=== PATIENT | female | born 1965 | race Caucasian/White ===

== ENCOUNTER → 2022-11-27 16:36 | Outpatient (CLI) | payer BC, SELFPAY ==
--- NOTE | 2022-11-27 17:28 | XR_ITS ---
PROCEDURE INFORMATION: Exam: XR Right Hip Exam date and time: 11/27/2022 2:27 PM Age: 57 years old Clinical indication: Hip pain; Left hip; Prior surgery; Surgery date: 6+ months; Surgery type: Femur; Additional info: Left hip pain TECHNIQUE: Imaging protocol: Radiologic exam of the right hip. Views: 2 or 3 views hip with pelvis when performed. COMPARISON: No relevant prior studies available. FINDINGS: Bones/joints: Postsurgical changes of left femur plate and screw fixation. Possible fracture of a fixation screw at the mid femur. No acute fracture or malalignment. Moderate bilateral hip osteoarthritis. Lower lumbar spondylosis. Soft tissues: Unremarkable. Intraperitoneal space: Surgical clip within the right hemipelvis. IMPRESSION: 1. No acute osseous findings of the left hip. 2. Left femur plain screw fixation with possible fracture of the fixation screw of the mid femur. 3. Moderate bilateral hip osteoarthritis.
== END ==
PROVIDERS: PCP Emergency Medicine; Visit Provider Orthopaedic Surgery
DX: M25.551 Pain in right hip (principal)
CPT/HCPCS: 73502

== ENCOUNTER → 2022-12-20 09:50 | Outpatient (CLI) | payer BC, SELFPAY ==
--- NOTE | 2022-12-20 09:57 | XR_ITS ---
FINAL REPORT CLINICAL HISTORY: Left foot pain bunions COMPARISON: none FINDINGS: LEFT FOOT Three views of the left foot demonstrate no acute fracture or dislocation. There is a minimal hallux valgus deformity. There is soft tissue swelling over the medial aspect of the first metatarsophalangeal joint. IMPRESSION: Soft tissue swelling without acute bony abnormality. Reviewed, Interpreted and Dictated by Brodie Rangel MD Transcribed by Alicia Hansen Authenticated and [facility]
--- NOTE | 2022-12-20 09:57 | XR_ITS ---
FINAL REPORT CLINICAL HISTORY: Right foot pain bunions COMPARISON: None FINDINGS: RIGHT FOOT 3 views of the right foot were obtained. There is no acute fracture or dislocation. There is a sideplate and screws securing a healed fracture deformity of the distal fibula. Mild hypertrophic change of the first metatarsal phalangeal joint. There is a moderate hallux valgus deformity. Soft tissues are unremarkable. IMPRESSION: Postoperative and degenerative changes without acute bony abnormality. Reviewed, Interpreted and Dictated by Brodie Rangel MD Transcribed by Alicia Hansen Authenticated and [facility]
== END ==
PROVIDERS: PCP Emergency Medicine; Visit Provider Nurse Practitioner Family
DX: M79.671 Pain in right foot (principal); M79.672 Pain in left foot
CPT/HCPCS: 73630

== ENCOUNTER 2024-01-13 16:31 | Outpatient (CLI) | payer OTHER, SELFPAY ==
[2024-01-13 16:03] LABS: Microscopic, Urine URINE MICROSCOPIC (MICROSCOPIC)
[2024-01-13 16:33] LABS: Basophils # 0.1 K/mm3 (0-0.2); Basophils % 1.5 % (0.1-2.0); Eosinophils # 0.4 K/mm3 (0.0-0.4); Eosinophils % 5.2 % (0.1-12.0); Hematocrit 37.9 % (37.0-47.0); Hemoglobin 13.8 g/dL (12.2-16.2); Lymphocytes # 2.7 K/mm3 (0.7-4.5); Lymphocytes % 38.6 % (10-50); Mean Corpuscular HGB Conc 36.4 g/dL (31.8-35.4); Mean Corpuscular Hemoglobin 30.6 pg (27.0-31.2); Mean Corpuscular Volume 84.1 fl (81-99); Mean Platelet Volume 7.9 fl (7.4-10.4); Monocytes # 0.8 K/mm3 (0.1-1.0); Monocytes % 11.7 % (1.7-9.3); Neutrophils % 43.1 % (37.0-80.0); Platelet Count 331 K/mm3 (142-424); Red Cell Distribution Width 14.3 % (11.5-17.5); White Blood Count 7.1 K/mm3 (4.8-10.8)
[2024-01-13 17:04] LABS: Albumin Level 4.6 g/dl (3.5-5.0); Chloride 105 mmol/L (98-107); Potassium 4.6 mmoL/L (3.5-5.1)
[2024-01-13 17:07] LABS: Alanine Aminotransferase 29 U/L (12-78); Albumin/Globulin Ratio 1.4 (1.1-1.8); Alkaline Phosphatase 101 U/L (38-126); Aspartate Amino Transferase 34 U/L (14-36); Bilirubin,Total 0.5 mg/dl (0.2-1.3); Blood Urea Nitrogen 15 mg/dl (7-17); Calcium 10.5 mg/dl (8.4-10.2); Carbon Dioxide 28 mmol/L (22.0-30.0); Chol/HDL Ratio 4.9 (1-3.5); Cholesterol 214 mg/dl (140-200); Estimated Glomerular Filt Rate 73 ml/min (>60); GFR (African American) 89 ML/MIN (>60); Globulin 3.2 g/dL (1.3-3.2); Glucose 105 mg/dl (74-100); HDL Cholesterol 44 mg/dl (40-60); Total Protein,Serum 7.8 g/dl (6.3-8.2); Triglycerides 210 mg/dl (30-150); VLDL Cholesterol 42 mg/dL (0-40)
[2024-01-13 17:20] LABS: Anion Gap 11.6 mEq/L (5-15); Sodium 140 mmol/L (136-145)
[2024-01-13 17:22] LABS: Direct LDL Cholesterol 126.74 mg/dL (100-129)
[2024-01-13 17:27] LABS: T4 (Thyroxine) 9.1 ug/dl (5.53-11.0)
[2024-01-13 17:29] LABS: Appearance,Urine CLEAR (Clear); Bilirubin,Urine Negative (Negative); Blood, Urine Negative (Negative); Color,Urine YELLOW (Yellow); Glucose,Urine (UA) Negative (Negative); Ketones,Urine Negative (Negative); Leukocyte Esterase,Urine TRACE (Negative); Nitrate,Urine Negative (Negative); Protein,Urine Negative (Negative); Urobilinogen,Urine 0.2 EU/dl (0.2)
[2024-01-13 17:37] LABS: Free T4 (Free Thyroxine) 1.18 ng/dl (0.78-2.19)
[2024-01-13 17:39] LABS: Hemoglobin A1C 5.6 % (4.0-6.0)
[2024-01-13 17:44] LABS: Ferritin 25.1 ng/ml (11.1-264)
[2024-01-13 18:00] LABS: Vitamin B12 711 pg/mL (239-931)
[2024-01-13 18:10] LABS: 25-OH Vitamin D, Total 94.2 ng/mL (30-100)
[2024-01-13 19:02] LABS: Amorphous Sediment,Urine 1+ /lpf; Bacteria,Urine Trace /lpf
[2024-01-14 03:39] LABS: Thyroid Stimulating Hormone 0.03 uIU/mL (0.465-4.68)
[2024-01-15 08:35] LABS: Thyroid Peroxidase Antibodies 18 IU/mL (0-34)
[2024-01-15 16:16] LABS: Thyroglobulin Level <1.0 IU/mL (0.0-0.9)
== END 2024-01-13 23:59 | disposition home or self-care (01) ==
LOC: LAB.DROPOF 16:32
PROVIDERS: PCP Nurse Practitioner Family; Visit Provider Nurse Practitioner Family
DX: M79.7 Fibromyalgia (principal); D50.9 Iron deficiency anemia, unspecified; E78.1 Pure hyperglyceridemia; E07.89 Other specified disorders of thyroid; Z13.1 Encounter for screening for diabetes mellitus; F90.9 Attention-deficit hyperactivity disorder, unspecified type; I10 Essential (primary) hypertension
CPT/HCPCS: 80050; 80053; 80061; 81001; 82306; 82607; 82728; 83036; 83735; 84436; 84439; 84443; 84481; 85025; 86376; 86800

== ENCOUNTER 2024-01-27 08:59 | Outpatient (CLI) | payer OTHER, SELFPAY ==
--- NOTE | 2024-01-27 08:59 | XR_ITS ---
FINAL REPORT CLINICAL HISTORY: osteopenia COMPARISON: None FINDINGS: Using L1-4, the bone mineral density of the spine is 0.896 g/cm2, corresponding to T-score of -1.4, consistent with low bone density. Using the left forearm, the bone mineral density of the one third is 0.586 g/cm2, corresponding to a T-score of -1.8, consistent with low bone density. Using the right hip, the bone mineral density of the femoral neck is 0.747 g/cm2, corresponding to a T-score of -0.9, within normal limits. FRAX 10 year fracture risk is 0.6% for a hip fracture and 23% for a major osteoporotic fracture. NOTE: T-score: Standard deviation compared with peak bone mass of young adult mean. *Following the recommendations of the International Society of Bone densitometry, classification of hip BMD is based on the lower of two T-scores; total hip or femoral neck. IMPRESSION: Diminished bone mineral density consistent with low bone density. Reviewed, Interpreted and Dictated by Salinas Soliz III, MD Transcribed by Alicia Hansen Authenticated and [facility]
--- NOTE | 2024-01-27 08:59 | US_ITS ---
PROCEDURE INFORMATION: Exam: US Soft Tissue Head and Neck, Thyroid Exam date and time: 01/27/2024 9:06 AM Age: 58 years old Clinical indication: Neck pain; Additional info: Thyroid pain TECHNIQUE: Imaging protocol: Real-time ultrasound scan of the neck with image documentation. Exam focused on the thyroid. COMPARISON: No relevant prior studies available. FINDINGS: Right thyroid lobe: Right lobe of the thyroid 3.78 x 1.1 x 1.45 cm Left thyroid lobe: Left lobe of the thyroid 4 x 1.1 x 1 cm. 4.2 mm echogenic nodule upper lobe left lobe of the thyroid. It is calcified. TI-RADS: Solid 2 points; echogenicity cannot be determined 1 point; wider than tall 0 points: The margin is ill-defined 0 point ; peripheral calcifications 2 points. TI-RADS 5 which corresponds to a TR 4 moderately suspicious. Isthmus: Isthmus 2.2 mm. 3.5 mm cyst in the isthmus. 3.3 mm hypoechoic nodule in the isthmus. TI-RADS : 2 points for solid; 2 points for hypoechoic; 3 points for taller than wide; 0 points smoothly marginated 0 point no calcifications . Total 7 point which correlates with TR 5 category which is suspicious. Other findings: Thyroid parenchyma is heterogeneous. IMPRESSION: 1. 3.3 mm hypoechoic nodule in the isthmus. TI-RADS : 2 points for solid; 2 points for hypoechoic; 3 points for taller than wide; 0 points smoothly marginated 0 point no calcifications . Total 7 point which correlates with TR 5 category which is suspicious. 2. 4.2 mm echogenic nodule upper lobe left lobe of the thyroid. It is calcified. TI-RADS: Solid 2 points; echogenicity cannot be determined 1 point; wider than tall 0 points: The margin is ill-defined 0 point ; peripheral calcifications 2 points. TI-RADS 5 which corresponds to a TR 4 moderately suspicious.
== END 2024-01-27 23:59 | disposition home or self-care (01) ==
LOC: RAD 08:59
PROVIDERS: PCP Nurse Practitioner Family; Visit Provider Nurse Practitioner Family
DX: M85.80 Other specified disorders of bone density and structure, unspecified site (principal); E07.89 Other specified disorders of thyroid
CPT/HCPCS: 76536; 77080

== ENCOUNTER 2024-06-18 10:15 | Outpatient (CLI) | payer OTHER, SELFPAY ==
--- NOTE | 2024-06-18 10:18 | XR_ITS ---
FINAL REPORT CLINICAL HISTORY: foot pain COMPARISON: 12/20/2022 FINDINGS: Three views of the right foot show no evidence of acute displaced fracture or dislocation of the visualized bony architecture. There is a moderate hallux valgus deformity. Osteopenia is noted. There are post ORIF changes of the distal fibula. IMPRESSION: Degenerative changes without acute findings. Reviewed, Interpreted and Dictated by Howard Wood MD Transcribed by Alicia Hansen Authenticated and [facility]
== END 2024-06-18 23:59 | disposition home or self-care (01) ==
LOC: RAD 10:16
PROVIDERS: PCP Nurse Practitioner Family; Visit Provider Podiatrist
DX: M79.671 Pain in right foot (principal)
CPT/HCPCS: 73630

== ENCOUNTER 2024-06-29 12:36 | Outpatient (CLI) | payer OTHER, SELFPAY ==
--- NOTE | 2024-06-29 13:45 | XR_ITS ---
FINAL REPORT TECHNIQUE: Bone mineral density was calculated of the lumbar spine and hip. CLINICAL HISTORY: Evaluate bone quality COMPARISON: 01/27/2024 FINDINGS: Using L1-4, the bone mineral density of the spine is 0.895 g/cm2, corresponding to T-score of -1.4. Using the right hip, the bone mineral density of the femoral neck is 0.727 g/cm2, corresponding to a T-score of 0.823. Using the left forearm, the bone mineral density of the mid is 0.5 to 0 g/cm?, corresponding to a T-score of -1.6. NOTE: T-score: Standard deviation compared with peak bone mass of young adult mean. *Following the recommendations of the International Society of Bone densitometry, classification of hip BMD is based on the lower of two T-scores; total hip or femoral neck. IMPRESSION: Diminished bone mineral density of the lumbar spine, right hip and left forearm consistent with osteopenia. Reviewed, Interpreted and Dictated by Howard Wood MD Transcribed by Lilia Bain Authenticated and [facility]
== END 2024-06-29 23:59 | disposition home or self-care (01) ==
LOC: RAD 12:37
PROVIDERS: PCP Nurse Practitioner Family; Visit Provider Podiatrist
DX: M85.89 Other specified disorders of bone density and structure, multiple sites (principal)
CPT/HCPCS: 77080

== ENCOUNTER 2024-07-06 13:47 | Outpatient (CLI) | payer OTHER, SELFPAY ==
--- NOTE | 2024-07-06 14:00 | US_ITS ---
FINAL REPORT CLINICAL HISTORY: monitor thyroid nodule COMPARISON: None available FINDINGS: THYROID ULTRASOUND: The right lobe of the thyroid gland measures 4 cm in the sagittal dimension. There are several small nodules in the right lobe of the thyroid gland, which are all less than 5 mm in diameter. No dominant nodule is noted in the right lobe. The left lobe of the thyroid gland measures 3.5 cm in sagittal length. There is 1 nodule in the left lobe of the thyroid gland, that measures 5 x 5 x 5 mm in size, and contains bulky calcifications, consistent with a TI-RADS category 4 nodule. No follow-up is required by TI-RADS criteria. The isthmus is unremarkable in appearance and measures 3 mm in thickness. IMPRESSION: Several nodules in the thyroid gland as described above, which according to TI-RADS criteria do not require follow-up at this time. Reviewed, Interpreted and Dictated by Brodie Rangel MD Transcribed by Lilia Bain Authenticated and [facility]
--- NOTE | 2024-07-06 14:30 | MR_ITS ---
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 bunion on 1st and 5th digits hx of broken ankle in 2014 top of foot numb and unable to stand for long periods of time since surgery on ankle COMPARISON: None FINDINGS: Multiplanar MR imaging of the right foot was performed without contrast. Overall exam is significantly degraded secondary to magnetic artifact associated with sideplate and screws securing the distal fibula. The bony structures are intact without evidence of fracture, bone bruise or marrow edema. The ankle mortise is intact. The Achilles tendon and plantar fascia are intact. There is moderate narrowing of the 1st MTP joint. Underlying degenerative cyst formation is noted. The flexor and extensor tendons are intact. The musculature is intact. The plantar aponeurosis is intact. IMPRESSION: Magnetic artifact decreases sensitivity of the exam. Hypertrophic changes of osteoarthritis of the 1st MTP joint. Degenerative cyst formation. Reviewed, Interpreted and Dictated by Brodie Rangel MD Transcribed by Alicia Hansen Authenticated and [facility]
--- OUTSIDE RECORDS SUMMARY | 2024-07-09 20:35 | XMS_ITS | Data Portability ---
Author Organization [place] [facility] [place] Address [address] [place] [address] Care Team Providers Care Coordinator Of Evaluation Name Role Phone DANIEL GRACE Primary Care Provider Assessment Encounter Date Assessment Date Assessment LastModified by Organization Details LastModified Time 10/03/2022 10/03/2022 PATIENT TO CONTINUE WITH CURRENT MANAGEMENT. WE HAVE HAD EXTENSIVE DISCUSSIONS REGARDING CHRONIC ISSUES. WILL CALL PATIENT TO DISCUSS RESULTS OF LAB WORK AND MAKE PLANS BASED ON FINDINGS. PATIENT IS UP-TO-DATE ON MAMMOGRAM AND COLONOSCOPY. SHE DOES MENTION THAT SHE IS HPV POSITIVE. [email or web address] Not available 10/03/2022 09:00:52 Plan of Treatment Reminders Order Date Submit Date Provider Last Modified By Organization Details Last Modified Time Details Appointments None recorded. Lab HbA1c (hemoglobin A1c), blood 2022 023 BHASKAR Not available 12:57:14 lipids, total, serum 2022 023 [email or web address] Not available 07:53:01 CBC w/ auto diff 2022 023 BHASKAR Not available 12:30:25 CMP, serum or plasma 2022 023 BHASKAR Not available 12:58:29 TSH, serum or plasma 2022 023 BHASKAR Not available 12:58:27 microalbumi n, urine 2022 023 [facility], [address] [place], [address], 3 09:01:21 urinalysis, dipstick 2022 023 [facility], [address] [place], [address], 3 09:01:21 Referral orthopedic surgeon referral 2022 023 [email or web address] 0 Jong Phan MD, [address], [address], [place], [address], 3 09:36:38 Procedures None recorded. Surgeries None recorded. Imaging None recorded. Medication Orders Paxlovid 300 mg (150 mg x 2)-100 mg tablets in a dose pack 2023 024 [facility], [address] [place], [address], 4 14:39:11 Dexilant 60 mg capsule, delayed release [address], [address] [place] [address], [address], 3 12:43:08 doxepin 10 mg capsule 2022 023 [facility], [address] [place] [address], [address], 3 08:55:14 amitriptyli ne 25 mg tablet 2022 023 [facility], [address] [place] [address], [address], 4 14:38:56 metoprolol succinate ER 50 mg tablet,exte nded release 24 hr 2022 023 [facility], [address] [place] [address], [address], 3 08:55:13 Dexilant 60 mg capsule, delayed release 2022 023 [facility], [address] [place] [address], [address], 3 08:55:15 duloxetine 60 mg capsule,del ayed release 2022 023 [facility], [address] [place] [address], [address], 3 08:55:14 Patient TargetsNo targets recorded. Patient InstructionsNo instructions recorded. Reason for Referral Orthopedic Surgeon Referral for Pain of left hip joint Referring Physician: Daniel Grace, Family Medicine, Encounter Date: 10/03/2022 Results Created Date Observation Date Name Description Value Unit Range Abnormal Flag Note LastModifiedBy Organization Detail LastModifiedTime 10/04/19 23 10/03/2022 CBC AUTO W DIFF WBC 6.6 10 4.5-11 .5 Not Available [facility] (Lab Registration) [address] [place], [address], 10/03/2022 12:30:24 10/04/19 23 10/03/2022 CBC AUTO W DIFF RBC 4.85 10 4.25-5 .57 Not Available [facility] (Lab Registration) [address] [place], [address], 10/03/2022 12:30:24 10/04/19 23 10/03/2022 CBC AUTO W DIFF HGB 13.3 g/dL 12.0-1 5.7 Not Available [facility] (Lab Registration) [address] [place], [address], 10/03/2022 12:30:24 10/04/19 23 10/03/2022 CBC AUTO W DIFF HCT 40.8 % 36.0-4 7.0 Not Available [facility] (Lab Registration) [address] [place], [address], 10/03/2022 12:30:24 10/04/19 23 10/03/2022 CBC AUTO W DIFF MCV 84.1 fL 80-95 Not Available [facility] (Lab Registration) [address] [place], [address], 10/03/2022 12:30:24 10/04/19 23 10/03/2022 CBC AUTO W DIFF MCH 27.4 pg 27.0-3 4.0 Not Available [facility] (Lab Registration) [address] [place], [address], 10/03/2022 12:30:24 10/04/19 23 10/03/2022 CBC AUTO W DIFF MCHC 32.6 g/dL 32.0-3 6.0 Not Available [facility] (Lab Registration) [address] [place], [address], 10/03/2022 12:30:24 10/04/19 23 10/03/2022 CBC AUTO W DIFF platelet count 326 10 150-45 0 Not Available [facility] (Lab Registration) [address] [place], [address], 10/03/2022 12:30:24 10/04/19 23 10/03/2022 CBC AUTO W DIFF RDW 13.9 % 12.3-1 5.1 Not Available [facility] (Lab Registration) [address] [place], [address], 10/03/2022 12:30:24 10/04/19 23 10/03/2022 CBC AUTO W DIFF MPV 10.7 fL 7.4-10 .4 high Not Available [facility] (Lab Registration) [address] [place], [address], 10/03/2022 12:30:24 10/04/19 23 10/03/2022 CBC AUTO W DIFF granulocyte% 44.0 % 40-75 Not Available [facility] (Lab Registration) [address] [place], [address], 10/03/2022 12:30:24 10/04/19 23 10/03/2022 CBC AUTO W DIFF lymphocyte% 41.1 % 15-57 Not Available [facility] (Lab Registration) [address] [place], [address], 10/03/2022 12:30:24 10/04/19 23 10/03/2022 CBC AUTO W DIFF monocyte% 7.9 % 4.0-12 .0 Not Available [facility] (Lab Registration) [address] [place], [address], 10/03/2022 12:30:24 10/04/19 23 10/03/2022 CBC AUTO W DIFF eosinophil% 6.2 % 0.0-4. 0 high Not Available [facility] (Lab Registration) [address] [place], [address], 10/03/2022 12:30:24 10/04/19 23 10/03/2022 CBC AUTO W DIFF basophil% 0.8 % 0.0-1. 0 Not Available [facility] (Lab Registration) [address] [place], [address], 10/03/2022 12:30:24 10/04/19 23 10/03/2022 CBC AUTO W DIFF immature granulocytes % 0.0 % 0.0-0. 8 Not Available [facility] (Lab Registration) [address] [place], [address], 10/03/2022 12:30:24 10/04/19 23 10/03/2022 CBC AUTO W DIFF granulocyte# 2.91 10 Not Available [facility] (Lab Registration) [address] [place], [address], 10/03/2022 12:30:24 10/04/19 23 10/03/2022 CBC AUTO W DIFF lymphocyte# 2.72 10 Not Available [facility] (Lab Registration) [address] [place], [address], 10/03/2022 12:30:24 10/04/19 23 10/03/2022 CBC AUTO W DIFF monocyte# 0.52 10 Not Available [facility] (Lab Registration) [address], [place], [address], 10/03/2022 12:30:24 10/04/19 23 10/03/2022 CBC AUTO W DIFF eosinophil# 0.41 10 Not Available [facility] (Lab Registration) [address], [place], [address], 10/03/2022 12:30:24 10/04/19 23 10/03/2022 CBC AUTO W DIFF basophil# 0.05 10 Not Available [facility] (Lab Registration) [address] [place], [address], 10/03/2022 12:30:24 10/04/19 23 10/03/2022 CBC AUTO W DIFF immature granulocytes # 0.00 10 Not Available [facility] (Lab Registration) [address] [place], [address], 10/03/2022 12:30:24 10/04/19 23 10/03/2022 CBC AUTO W DIFF manual differential NO Not Available [facility] (Lab Registration) [address] [place], [address], 10/03/2022 12:30:24 10/04/19 23 10/03/2022 CBC AUTO W DIFF note Unles s other crowley noted testi ng perfo rmed at: [facility] [address] [place] [address] [phone] Reynold franz MD CLIA: [id number] Not Available [facility] (Lab Registration) [address] [place], [address], 10/03/2022 12:30:24 10/04/19 23 10/03/2022 HEMOG LOBIN A1C glycosylated hemoglobin A1C 5.8 % 4.5-6. 2 Not Available [facility] (Lab Registration) [address] [place], [address], 10/03/2022 12:57:14 10/04/19 23 10/03/2022 HEMOG LOBIN A1C estimated average glucose 120 mg/dL 82-131 Not Available [facility] (Lab Registration) [address] [place], [address], 10/03/2022 12:57:14 10/04/19 23 10/03/2022 HEMOG LOBIN A1C note Zuly del toro crowley noted testi ng perfo rmed at: [facility] [address] [place] [address] [phone] Reynold franz MD CLIA: [id number] Not Available [facility] (Lab Registration) [address] [place], [address], 10/03/2022 12:57:14 10/04/19 23 10/03/2022 THYRO ID STIMU LATIN G HORMO NE thyroid stimulating hormone 1.16 mIU/m L 0.34-4 .80 Not Available [facility] (Lab Registration) [address] [place], [address], 10/03/2022 12:58:27 10/04/19 23 10/03/2022 THYRO ID STIMU LATIN G HORMO NE note Zuly crowley noted testi ng perfo rmed at: [facility] [address] [place] [address] [phone] Reynold franz MD CLIA: [id number] Not Available [facility] (Lab Registration) [address] [place], [address], 10/03/2022 12:58:27 10/04/19 23 10/03/2022 COMP METAB OLIC PANEL sodium 141 mmol/ L 136-14 5 Not Available [facility] (Lab Registration) [address] [place], [address], 10/03/2022 12:58:29 10/04/19 23 10/03/2022 COMP METAB OLIC PANEL potassium 4.7 mmol/ L 3.5-5. 1 Not Available [facility] (Lab Registration) [address] [place], [address], 10/03/2022 12:58:29 10/04/19 23 10/03/2022 COMP METAB OLIC PANEL chloride 104 mmol/ L 98-107 Not Available [facility] (Lab Registration) [address] [place], [address], 10/03/2022 12:58:29 10/04/19 23 10/03/2022 COMP METAB OLIC PANEL carbon dioxide 31 mmol/ L 21-32 Not Available [facility] (Lab Registration) [address] [place], [address], 10/03/2022 12:58:29 10/04/19 23 10/03/2022 COMP METAB OLIC PANEL anion gap 6.0 Not Available [facility] (Lab Registration) [address] [place], [address], 10/03/2022 12:58:29 10/04/19 23 10/03/2022 COMP METAB OLIC PANEL glucose 91 mg/dL 70-110 Not Available [facility] (Lab Registration) [address] [place], [address], 10/03/2022 12:58:29 10/04/19 23 10/03/2022 COMP METAB OLIC PANEL blood urea nitrogen 14 mg/dL 7-18 Not Available [facility] (Lab Registration) [address] [place], [address], 10/03/2022 12:58:29 10/04/19 23 10/03/2022 COMP METAB OLIC PANEL creatinine 0.9 mg/dL 0.6-1. 0 Not Available [facility] (Lab Registration) [address] [place], [address], 10/03/2022 12:58:29 10/04/19 23 10/03/2022 COMP METAB OLIC PANEL BUN/creatini ne ratio 15.6 ratio 9-21 Not Available [facility] (Lab Registration) [address], [place], [address], 10/03/2022 12:58:29 10/04/19 23 10/03/2022 COMP METAB OLIC PANEL estimated glom filtration rate 68 mL/mi n >60- Not Available [facility] (Lab Registration) [address] [place], [address], 10/03/2022 12:58:29 10/04/19 23 10/03/2022 COMP METAB OLIC PANEL total protein 7.6 g/dL 6.4-8. 2 Not Available [facility] (Lab Registration) [address] [place], [address], 10/03/2022 12:58:29 10/04/19 23 10/03/2022 COMP METAB OLIC PANEL albumin 3.8 g/dL 3.4-5. 0 Not Available [facility] (Lab Registration) [address] [place], [address], 10/03/2022 12:58:29 10/04/19 23 10/03/2022 COMP METAB OLIC PANEL calcium 9.0 mg/dL 8.5-10 .1 Not Available [facility] (Lab Registration) [address] [place], [address], 10/03/2022 12:58:29 10/04/19 23 10/03/2022 COMP METAB OLIC PANEL corrected calcium 9.2 mg/dL 8.5-10 .1 Not Available [facility] (Lab Registration) [address] [place], [address], 10/03/2022 12:58:29 10/04/19 23 10/03/2022 COMP METAB OLIC PANEL bilirubin total 0.2 mg/dL 0.4-1. 5 low Not Available [facility] (Lab Registration) [address], [place], [address], 10/03/2022 12:58:29 10/04/19 23 10/03/2022 COMP METAB OLIC PANEL AST (SGOT) 24 U/L 15-37 Not Available [facility] (Lab Registration) [address] [place], [address], 10/03/2022 12:58:29 10/04/19 23 10/03/2022 COMP METAB OLIC PANEL ALT (SGPT) 40 U/L 12-78 Not Available [facility] (Lab Registration) [address] [place], [address], 10/03/2022 12:58:29 10/04/19 23 10/03/2022 COMP METAB OLIC PANEL alk phosphatase 94 U/L 50-120 Not Available [facility] (Lab Registration) [address] [place], [address], 10/03/2022 12:58:29 10/04/19 23 10/03/2022 COMP METAB OLIC PANEL note Unles s other crowley noted testi ng perfo rmed at: [facility] [address] [place] [address] [phone] Reynold franz MD CLIA: [id number] Not Available [facility] (Lab Registration) [address] [place], [address], 10/03/2022 12:58:29 10/04/19 23 10/03/2022 LIPID PANEL triglyceride 506 mg/dL 20-200 high The [employer] (NCEP ) has set the follo wing guide lines for Fasti ng Trigl yceri luis: ADA L: <150 mg/dL BORDE RLINE HIGH: 150 - 199 mg/dL HIGH: 200 - 499 mg/dL VERY HIGH: > or =500 mg/dL Not Available [facility] (Lab Registration) [address] [place], [address], 10/03/2022 12:58:30 10/04/19 23 10/03/2022 LIPID PANEL cholesterol 239 mg/dL 0-200 high The [employer] (HIEP ) has set the follo wing guide lines for Fasti ng Tonya stero l: MARAH ABLE: <200 mg/dL BORDE RLINE HIGH: 200 - 239 mg/dL HIGH: > or =240 mg/dL Not Available [facility] (Lab Registration) [address] [place], [address], 10/03/2022 12:58:30 10/04/19 23 10/03/2022 LIPID PANEL HDL cholesterol 28 mg/dL 60- low The [employer] ([facility] ) has set the follo wing guide lines for Fasti ng HDL Tonya stero l: LOW HDL: <40 mg/dL ADA L: 40 - 60 mg/dL MARAH ABLE: >60 mg/dL Not Available [facility] (Lab Registration) [address] [place], [address], 10/03/2022 12:58:30 10/04/19 23 10/03/2022 LIPID PANEL LDL calculated TNP mg/dL 100- LDL is calcu ated and inval id when TRIG are >400 mg/dL . The [employer] n[employer] t[employer] ([facility] ) has set the follo wing guide lines for Fasti ng LDL Tonya stero l: OPTIM AL: < 100 mg/dL LOW RISK: 100 - 129 mg/dL BORDE RLINE HIGH: 130 - 159 mg/dL HIGH: 160 - 189 mg/dL VERY HIGH: > or = 190 mg/dL Not Available [facility] (Lab Registration) [address] [place], [address], 10/03/2022 12:58:30 10/04/19 23 10/03/2022 LIPID PANEL chol/HDL ratio 9 ratio -5 high Not Available [facility] (Lab Registration) [address] [place], [address], 10/03/2022 12:58:30 10/04/19 23 10/03/2022 LIPID PANEL note Unles s other crowley noted testi ng perfo rmed at: [facility] [address] [place] [address] [phone] Reynold franz MD CLIA: [id number] Not Available [facility] (Lab Registration) [address] [place], [address], 10/03/2022 12:58:30 10/04/19 23 10/03/2022 urina lysis , dipst ick Leukocytes (reference range) negati ve Not Available [address] [place], [address], 10/03/2022 08:46:44 10/04/19 23 10/03/2022 urina lysis , dipst ick Nitrite (reference range:) negati ve Not Available [address] [place], [address], 10/03/2022 08:46:44 10/04/19 23 10/03/2022 urina lysis , dipst ick Urobilinogen (reference range) 0.2 Not Available [address] [place], [address], 10/03/2022 08:46:44 10/04/19 23 10/03/2022 urina lysis , dipst ick Protein (reference range) 30 Not Available [address] [place], [address], 10/03/2022 08:46:44 10/04/19 23 10/03/2022 urina lysis , dipst ick pH (reference range 5-8.5) 5.5 Not Available [place] [place] [address] [place], [address], 10/03/2022 08:46:44 10/04/19 23 10/03/2022 urina lysis , dipst ick Blood (reference range:) negati ve Not Available [address] [place], [address], 10/03/2022 08:46:44 10/04/19 23 10/03/2022 urina lysis , dipst ick Specific Marks (reference range) 1.030 Not Available [address] [place], [address], 10/03/2022 08:46:44 10/04/19 23 10/03/2022 urina lysis , dipst ick Ketone (reference range) negati ve Not Available [address] [place], [address], 10/03/2022 08:46:44 10/04/19 23 10/03/2022 urina lysis , dipst ick Bilirubin (reference range) negati ve Not Available [address] [place], [address], 10/03/2022 08:46:44 10/04/19 23 10/03/2022 urina lysis , dipst ick Glucose (reference range) negati ve Not Available [address] [place], [address], 10/03/2022 08:46:44 10/04/19 23 10/03/2022 urina lysis , dipst ick Color (reference range: yellow-brown ) Yellow Not Available [place] [address] [place], [address], 10/03/2022 08:46:44 10/04/19 23 10/03/2022 micro album in, urine Microalbumin 80mg/L Abnorm al Not Available [place] [address] [place], [address], 10/03/2022 08:46:43 11/28/19 23 11/27/2022 imagi ng inter preta tion No observ ation record ed. [facility] [address], [place], [address], 11/28/2022 08:20:28 12/21/19 23 12/20/2022 XR, foot No observ ation record ed. [facility] [address], [place], [address], 12/20/2022 12:13:11 12/21/19 23 12/20/2022 XR, foot No observ ation record ed. [facility] [address], [place], [address], 12/20/2022 12:12:58 07/01/19 24 07/01/2023 imagi ng inter preta tion No observ ation record ed. [facility] Registration [address] [place] [address] [place], [address], 07/02/2023 08:20:18 10/17/19 24 10/16/2023 imagi ng inter preta tion No observ ation record ed. [facility] (Registration ) [address] [place] [address] [place], [address], 10/17/2023 07:56:37 Result Notes None recorded. Problems Name Problem SNOMED Code Status Onset Date Resolution Date Notes Provider Name and Address Organization Details Recorded Time Fibromyalgia 329479910 Active 2021 Melissa lopez, [place] [facility] [place] & [place] 2 08:11:26 Mixed anxiety and depressive disorder 006763394 Active 2021 Melissa lopez[place] [facility] [place] & [place] 2 08:11:35 Gastroesophag eal reflux disease 803121445 Active 2021 Melissa Pardini null[place] [facility] [place] 2 08:11:41 Restless legs 21495275 Active 2021 Melissa Pardini [place] [facility] [place] 2 08:11:51 Insomnia 270730429 Active 2021 Melissa [place] [facility] 2 08:11:59 Essential hypertension 24173220 Active 2021 Melissa [place] 2 08:12:08 Essential tremor 140695190 Active 2021 Melissa [place] [facility] 2 08:13:03 Hyperlipidemi a 37893571 Active 2021 Melissa Virkdini null[place] [facility] [place] 2 08:14:29 Osteoporosis 07502853 Active 2021 Daniel Grace MD [address] [place], [address] , [place] [facility] [place] & [place] 2 08:35:25 Seasonal allergy 946810095 Active 2021 Daniel Grace MD [address] [place], [address] , [place] [facility] [place] 2 08:35:43 Hiatal hernia 71015858 Active 2022 Tess Perry NP [address], [address], [place], [address] , [place] [facility] [place] & [place] 3 13:03:59 Gastro-esopha geal reflux disease with esophagitis 900085866 Active 2022 Tess Perry NP [address], [address], [place], [address] , [place] [facility] [place] & [place] 3 13:06:30 Problem Notes None recorded. Procedures Surgical History Date Name Laterality Status Provider Name and Address Organization Details Recorded Time 01/30/20 22 Date of Last Colonoscopy completed Melissakell Shook [place] [facility] [place] 03/06/2022 15:34:15 01/30/20 22 Colonoscopy completed Tess Perry NP [address] [place] [address] Drive, [address], [place], [address], [place] [facility] [place] 03/04/2023 13:06:59 07/05/19 21 Most Recent Bone Density completed Meliss[place]ell Virkdini [place] 03/06/2022 15:34:15 total knee replacement [place] [facility] [place] 02/01/2022 10:00:14 Cholecystectomy completed Emily Hyman [place] 02/01/2022 10:00:22 procedure on hand completed [place]ilysissy Hyman [place] [facility] 02/01/2022 10:00:46 Hysterectomy completed [place]ysissy Hyman [place] [facility] 02/01/2022 10:00:54 procedure on femur completed Emilysissy yHman [place] [facility] [place] & [place] 02/01/2022 10:01:10 Imaging Results Imaging Date Name Status LastModified by Organization Details LastModified Time 11/27/2022 imaging interpretation completed [facility] [address], [place], [address], 11/28/2022 08:20:28 12/20/2022 XR, foot completed [facility] [address], [place], [address], 12/20/2022 12:13:11 12/20/2022 XR, foot completed [facility] [address], [place], [address], 12/20/2022 12:12:58 07/01/2023 imaging interpretation completed [facility] Registration [address] [place] [address] [place], [address], 07/02/2023 08:20:18 10/16/2023 imaging interpretation completed [facility] (Registration) [address] [place] [address] [place], [address], 10/17/2023 07:56:37 Procedure Notes None recorded. Medical Equipment None Reported. Allergies Allergen ID Allergen Name Allergen Category Reaction Reaction Severity Criticality Documentation Date Start Date Code Code System Note Provider Name and Address Organization Details Recorded Time 41592 Substance with sulfonami de structure and antibacte rial mechanism of action (substanc e) medicatio n Not available Not available Not available 02/01/2022 51464 8003 SNOMED Emily lopez [facility] & [place] 2 09:57:14 12995 acetamino phen / hydrocodo ne medicatio n Not available Not available Not available 02/01/2022 88747 2 RxNorm Emily Hernandezharvinder lopez [place] [facility] & [place] 2 09:57:20 Medications Name Sig Start Date Stop Date Status Note LastModified by Organization Details LastModified Time azithromyci n 250 mg tablet TAKE 2 TABLETS (500 MG) BY ORAL ROUTE ONCE DAILY FOR 1 DAY THEN 1 TABLET (250 MG) BY ORAL ROUTE ONCE DAILY FOR 4 DAYS 10/03 completed Not Available Not Available Not Available Pepcid Complete 10 mg-800 mg-165 mg chewable tablet Take 1 tablet twice a day by oral route as directed for 90 days. 2021 active Not Available Not Available Not Avai lable fluconazole 150 mg tablet Take 1 tablet every day by oral route. 03/27 completed Not Available Not Available Not Available metoprolol succinate ER 50 mg tablet,exte nded release 24 hr denied-ne eds appt active Not Available Not Available No t Available phenazopyri dine 200 mg tablet Take 1 tablet 3 times a day by oral route for 3 days. 03/27 completed Not Available Not Available Not Available methylpredn isolone 32 mg tablet TAKE 1 TABLET BY MOUTH 12 HOURS AND AGAIN 2 HOURS PRIOR TO MRI active Not Available Not Available No t Available prednisone 20 mg tablet TAKE 3 TABLETS BY MOUTH ONCE DAILY FOR 7 DAYS, THEN 2 TABLETS DAILY FOR 7 DAYS, THEN 1 TABLET DAILY FOR 7 DAYS, THEN 1/2 TABLET DAILY FOR 7 DAYS active Not Available Not Available No t Available doxepin 10 mg capsule TAKE 1 CAPSULE BY MOUTH THREE TIMES DAILY active Not Available Not Available No t Available ciprofloxac in 500 mg tablet Take 1 tablet every 12 hours by oral route for 7 days. 03/27 completed Not Available Not Available Not Available tramadol 50 mg tablet TAKE 2 TABLETS BY MOUTH 3 TIMES A DAY active Not Available Not Available No t Available amitriptyli ne 50 mg tablet TAKE 1 TABLET BY MOUTH ONCE DAILY AT BEDTIME active Not Available Not Available No t Available meloxicam 7.5 mg tablet TAKE 1 TABLET BY MOUTH ONCE DAILY active Not Available Not Available No t Available propranolol 10 mg tablet TAKE 1 TABLET BY MOUTH THREE TIMES DAILY 02/27 completed Not Available Not Available Not Available alprazolam 0.25 mg tablet 10/03 completed Not Available Not Available Not Available amitriptyli ne 25 mg tablet TAKE 1 TABLET BY MOUTH TWICE DAILY active Not Available Not Available No t Available baclofen 10 mg tablet TAKE 1/2 TO 1 TABLET BY MOUTH EVERY NIGHT AT BEDTIME NEEDED FOR MUSCLE SPASM 02/01 completed Not Available Not Available Not Available lansoprazol e 30 mg capsule,del ayed release TAKE 2 CAPSULES BY MOUTH ONCE DAILY active Not Available Not Available No t Available metoprolol succinate ER 25 mg tablet,exte nded release 24 hr TAKE 1 TABLET BY MOUTH ONCE DAILY 02/14 completed Not Available Not Available Not Available polyethylen e glycol 3350 17 gram/dose oral powder 10 capfuls of Miralax mixed into 32 ounces of Gatorade at 4 PM and repeat at 4 AM 02/01 completed Not Available Not Available Not Available methylpredn isolone 4 mg tablets in a dose pack Take 1 dose pk by oral route. 10/03 completed Not Available Not Available Not Available tamoxifen 20 mg tablet TAKE 1 TABLET BY MOUTH ONCE DAILY 08/27 completed Not Available Not Available Not Available diazepam 5 mg tablet 10/03 completed Not Available Not Available Not Available Dulcolax (bisacodyl) 5 mg tablet,lamin yed release 2 tablets every day by oral route. active Not Available Not Available No t Available duloxetine 20 mg capsule,del ayed release Take 1 capsule every day by oral route. 03/27 completed Not Available Not Available Not Available duloxetine 30 mg capsule,del ayed release TAKE 1 CAPSULE BY MOUTH ONCE DAILY active Not Available Not Available No t Available duloxetine 60 mg capsule,del ayed release TAKE 1 CAPSULE BY MOUTH ONCE DAILY active Not Available Not Available No t Available Allergy Relief (diphenhydr amine) 25 mg tablet 10/03 completed Not Available Not Available Not Available ibandronate 150 mg tablet TAKE 1 TABLET BY MOUTH ONCE EVERY MONTH active Not Available Not Available No t Available fenofibrate nanocrystal lized 145 mg tablet TAKE 1 TABLET BY MOUTH ONCE DAILY active Not Available Not Available No t Available calcium 600 mg (as carbonate)- vitamin D3 10 mcg (400 unit) tablet TAKE 1 TABLET BY MOUTH EVERY DAY active Not Available Not Available No t Available estradiol 10 mcg vaginal tablet INSERT 1 TABLET INTO THE VAGINA 2 (TWO) TIMES A WEEK 02/06 completed Not Available Not Available Not Available Dexilant 60 mg capsule, delayed release Take 1 capsule every day by oral route as directed for 30 days. 2022 active Not Available Not Available Not Avai lable Prolia 60 mg/mL subcutaneou s syringe 60 mg sc every six months 10/03 completed Not Available Not Available Not Available Flowflex COVID-19 Antigen Home Test kit USE DIRECTED 02/01 completed Not Available Not Available Not Available Paxlovid 300 mg (150 mg x 2)-100 mg tablets in a dose pack TAKE 3 TABLETS TOGETHER (TWO 150 MG NIRMATREL VIR TABLETS AND ONE 100 MG RITONAVIR TABLET) BY MOUTH TWICE DAILY FOR 5 DAYS. 08/27 completed Not Available Not Available Not Available Vitals Date Recorded Body height Body mass index (BMI) Body weight Body temperature Oxygen saturation Oxygen saturation in Arterial blood by Pulse oximetry Heart rate Respiratory rate Systolic blood pressure Diastolic blood pressure Provider Name and Address Organization Details Last Updated DateTime 3 158.75 cm 30.3 kg/m2 98899.9 6 g 97.3 [degF] 99 % 99 % 70 /min 16 /min 117 mm[Hg] 81 mm[Hg] Melissa Shook [place] - [facility] - [facility] 3 08:46:57 Date Recorded Body height Body mass index (BMI) Body weight Body temperature Oxygen saturation Oxygen saturation in Arterial blood by Pulse oximetry Heart rate Provider Name and Address Organization Details Last Updated DateTime 3 158.75 cm 29.3 kg/m2 59386.5 6 g 97.3 [degF] 97 % 97 % 86 /min Fabiola Sebastian [facility] & [place] 3 10:22:12 Date Recorded Body height Body mass index (BMI) Body weight Body temperature Oxygen saturation Oxygen saturation in Arterial blood by Pulse oximetry Heart rate Respiratory rate Systolic blood pressure Diastolic blood pressure Provider Name and Address Organization Details Last Updated DateTime 4 158.75 cm 29.7 kg/m2 57023.7 4 g 97.5 [degF] 98 % 98 % 88 /min 18 /min 146 mm[Hg] 86 mm[Hg] Scott Alvarado [facility] [place] 4 14:42:48 Date Recorded Body height Body mass index (BMI) Body weight Body temperature Oxygen saturation Oxygen saturation in Arterial blood by Pulse oximetry Heart rate Respiratory rate Systolic blood pressure Diastolic blood pressure Provider Name and Address Organization Details Last Updated DateTime 4 158.75 cm 30.2 kg/m2 34003.0 8 g 97.3 [degF] 96 % 96 % 80 /min 16 /min 150 mm[Hg] 98 mm[Hg] Melissa Shook [facility] & [place] 4 14:38:22 Social History Question Answer Notes LastModified by Organizat ion Details LastModified Time Tobacco Smoking Status Never Smoker Emily Hyman [facility], [facility] & [place] 02/01/2022 10:00:03 Do You Have An Advance Directive? No Information not available 03/06/2022 What Is Your Level Of Alcohol Consumption? None Information not available 02/14/2022 Are You Blind Or Do You Have Difficulty Seeing? Yes Information not available 03/06/2022 What Is Your Level Of Caffeine Consumption? Occasional [email or web address] Information not available 04/29/2023 What Was The Date Of Your Most Recent Tobacco Screening? 02/26/2022 Information not available 03/06/2022 Are You Passively Exposed To Smoke? No Information no t available 03/06/2022 Do You Feel Stressed (tense, Restless, Nervous, Or Anxious, Or Unable To Sleep At Night)? [id number] Information not available 03/06/2022 Do You Use Any Illicit Or Recreational Drugs? No Information not available 02/14/2022 Has Tobacco Cessation Counseling Been Provided? No [email or web address] Information not available 04/29/2023 Do You Or Have You Ever Used Any Other Forms Of Tobacco Or Nicotine? No Information not available 04/29/2023 Sex: Female Functional Status Question Answer Note LastModified by Organizat ion Details LastModified Time What is your exercise level? Occasional Information not available 03/06/2022 Mental Status None recorded. Family History Relationship Description Onset Age of this Age Resolved Age Notes LastModified by Organization Details LastModified Time Father Hyperlipidem ia dece ed [email or web address] Not available 08/28/2023 13:55:32 Father Cerebrovascu lar accident [facility] - Not available 02/01/2022 09:58:43 Father Disorder of thyroid gland [facility] - Not available 02/01/2022 09:59:03 Father Heart disease [facility] - Not available 02/01/2022 09:59:19 Father Essential hypertension [facility] Not available 08/28/2023 13:55:32 Father Malignant tumor of lung [facility] Not available 08/28/2023 13:55:32 Medical History Condition Response Arthritis Y High Cholesterol Y Headaches Y Hyperlipidemia Y Reflux/GERD Y Hypertension Y Gynecological History Statement/Question Response Current Control Method None Date of Last Colonoscopy 01/29/2022 Most Recent Bone Density 07/04/2020 Sexually Active? N Obstetrics History GPAL:G 0 P 0 0 0 0 Immunizations Vaccine Type Date Status Note Provider Nam e and Address Organization Details Recorded Time COVID-19, mRNA, LNP-S, PF, 100 mcg/0.5mL dose or 50 mcg/0.25mL dose 1 completed Melissa lopez, [place] - [facility] - [place] [facility] [place] 02/14/2022 08:09:56 Hep A, adult 9 completed Melissa Pardini null, [place] [facility] [place] [facility] [place] 02/14/2022 08:09:56 Influenza, split virus, trivalent, PF 4 completed Melissa Pardini null[place] [facility] [place] [facility] [place] 02/14/2022 08:09:56 zoster recombinant 8 completed Melissa Pardini null[place] [facility] [place] [facility] [place] 02/14/2022 08:09:56 COVID-19 vaccine, vector-nr, rS-Ad26, PF, 0.5 mL 1 completed Melissa Pardini null, [place] [facility] - [place] [facility] [place] 02/14/2022 08:09:56 Hep B, adult 9 completed Melissa Pardini null[place] [facility] [place] [facility] [place] 02/14/2022 08:09:56 Hep B, adult 8 completed Melissa Pardini null[place] [facility] [place] [facility] [place] 02/14/2022 08:09:56 COVID-19, mRNA, LNP-S, bivalent, PF, 50 mcg/0.5 mL or 25mcg/0.25 mL dose 2 completed Mindi Bassett null, [place] [facility] - [place] [facility] [place] 08/19/2023 07:40:25 Hep A, adult 8 completed Melissa Pardini null[place] [facility] [place] [facility] [place] 02/14/2022 08:09:56 Influenza, split virus, quadrivalent, PF 8 completed Melissa Pardini [place] [facility] [place] [facility] [place] 02/14/2022 08:09:56 Hep B, adult 8 completed Melissa Pardini null[place] [facility] [place] [facility] [place] 02/14/2022 08:09:56 Influenza, split virus, quadrivalent, PF 3 completed Daniel Grace MD [address] [place] [address], [phone], [place] - [facility] - [place] [facility] [place] 01/22/2023 15:34:48 Past Encounters Encounter ID Performer Location Encounter Start Date Encounter Closed Date Diagnosis/Indication Diagnosis SNOMED-CT Code Diagnosis ICD10 Code Diagnosis Note [id number] Belinda Lemus MD [facility] [address] [facility],[place] [address] 02/07/2022 07:45:55 02/07/2022 08:54:19 Essential tremor 462379181 G25.0 would like to consolidat e her beta-block ers, will increase metoprolol to 50 mg and stop Inderal. Also recommend continuing low-dose Xanax at bedtime this seems to have been very helpful for her. Patient will follow up with me over the next 2-3 weeks for blood pressure check. Generalize d anxiety disorder 80034037 F41.1 Fibromyalgia 525434118 M 79.7 [id number] Daniel Grace MD [address] [address] 02/14/2022 07:54:01 02/14/2022 09:05:43 Fibromyalgia 324512215 M79.7 patient is currently under the care of Dr.MOBERLY fernando bonilla in [place]. She also sees neurology Gastroesop hageal reflux disease 649879003 K21.9 patient states she had a colonoscop y last month. She is being taking care of by Dr. Fischer. She also mentions that she has been diagnosed with IBS C She is currently on lansoprazo le Hyperlipidemia 66562089 E78.5 patient is currently on fenofibrat e. Will obtain lab work today. labs drawn by Micaela LT AC Insomnia 848263906 G47.0 0 patient takes alprazolam and amitriptyl ine for this. Mixed anxi ety and depressive disorder 324617088 F41.8 Patient is currently on duloxetine Essential hypertension 45018416 I10 controlled with metoprolol Osteoporosis 85701797 M8 1.0 patient is requesting a Prolia shot. We will order the medication . Her calcium levels are pending. Essential tremor 8608713 09 G25.0 patient takes metoprolol . She is also on doxepin [id number] Belinda Lemus MD [facility] [address] [facility],[place] [address] 02/28/2022 07:53:26 02/28/2022 08:44:52 Essential tremor 725361761 G25.0 overall doing well with metoprolol , would like to continue for now, will use p.r.n. low-dose Xanax as necessary. Medication s have been refilled today. [id number] MD franci Arango[address] [address] 03/06/2022 15:22:29 03/06/2022 16:04:57 Acute cystitis 11938348 N30.00 will treat with antibiotic s empiricall y. Will send her sample for cultures. [id number] MD franci Arango[address] [address] 03/27/2022 08:36:39 03/27/2022 09:06:43 Influenza-like symptoms 297826265 R68.89 patient tested negative for influenza as well as COVID-19. Due to her premorbid conditions we will treat her with a Z-Leander and a steroid Dosepak. Should her symptoms worsen she has been instructed to go to the emergency department . [id number] Daniel Grace MD [address] [address] 10/03/2022 08:28:43 10/03/2022 09:00:03 Essential hypertension 64209202 I10 controlled with metoprolol blood drawn in the right AC by Melissa Shook CMA, patient tolerated well. Hyperlipidemia 56357695 E78.5 patient is currently on fenofibrat e. Mixed anxi ety and depressive disorder 687851969 F41.8 patient continues to be controlled on medication . Gastroesop hageal reflux disease 153568653 K21.9 patient states she had a colonoscop y In December 2021. She is being taking care of by Dr. Fischer. She also mentions that she has been diagnosed with IBS C She is currently on lansoprazo le Insomnia 800468017 G47.0 0 patient takes alprazolam and amitriptyl ine for this. Essential tremor 8250090 09 G25.0 patient takes metoprolol . She is also on doxepin Pain of le ft hip joint 7782217241 05539 [address]25[address] PHAN [id number] DOROTHY [facility] at [address] [place] [address] 10/17/2022 07:53:34 10/17/2022 09:10:59 [id number] DOROTHY [facility] at [address] [place] [address] 10/31/2022 10:11:33 11/05/2022 15:09:35 [id number] DOROTHY RESTREPO [facility] at [address] [place] [address] 11/22/2022 08:44:41 11/22/2022 09:42:13 [id number] DOROTHY RESTREPO [facility] at [address] [place] [address] 12/20/2022 08:43:46 12/20/2022 09:15:40 [id number] DOROTHY RESTREPO [facility] at [address] [place] [address] 12/26/2022 12:23:31 12/26/2022 13:59:00 [id number] DOROTHY RESTREPO [facility] at [address] [place] [address] 01/22/2023 13:52:45 01/22/2023 15:39:28 [id number] Daniel Grace MD [address] [place] [address] 01/22/2023 15:08:06 01/22/2023 15:21:07 Administration of influenza vaccine 94935879 Z23 [id number] Tess Perry NP [address] [place] [address] 03/04/2023 09:59:50 03/04/2023 13:10:18 Gastro-esophageal reflux disease with esophagitis 312231041 K21.00 Continues lansoprazo le 30 mg p.o. b.i.d. as well as Pepcid Complete p.o. b.i.d. p.r.n. with uncontroll ed symptoms. Previously failed treatment with pantoprazo le and omeprazole as well as famotidine . Symptoms were previously controlled with use of Dexilant 60 mg daily however denied by insurance. EGD 05/2021 with esophagiti s confirmed on pathology. Given her ongoing uncontroll ed symptoms despite dietary modificati on and use of PPI's recommend Dexilant 60 mg p.o. daily for treatment. History of polyp of colon 319993875 Z86.010 Colonoscop y 01/29/2022 with polyps resected consistent with tubular adenomas negative for high-grade dysplasia. Plan to repeat colonoscop y 12/2024 for surveillan ce. Hiatal hernia 16768621 K 44.9 Small hiatal hernia noted on EGD 05/2021. [id number] DOROTHY RESTREPO ic [facility] at [address] [place] [address] 03/14/2023 08:38:04 03/18/2023 13:09:19 [id number] DOROTHY RESTREPO ic [facility] ions at [address] [place] [address] 04/15/2023 07:55:10 04/15/2023 09:58:56 [id number] Murali Marshall MD [address] [place] [address] 04/29/2023 14:13:20 05/01/2023 16:07:39 Infection of upper respiratory tract caused by SARS-CoV-2 8151968559 199935 U07.1 patient's symptoms in 2 positive home tests correlate with COVID-19. We will proceed with treatment. Discussed isolation. . Seek medical care symptoms become severe [id number] DOROTHY RESTREPO [facility] at [address] [place] [address] 05/17/2023 09:16:24 05/17/2023 10:36:53 [id number] DOROTHY RESTREPO The[facility] at [address] [place] [address] 06/28/2023 08:40:44 06/28/2023 12:06:22 [id number] DOROTHY RESTREPO Therapeut [facility] at [address] [place] [address] 08/05/2023 09:30:22 08/05/2023 10:56:51 [id number] Daniel Grace MD [address] [place] [address] 08/28/2023 13:55:17 08/28/2023 14:45:28 Pre-surgery evaluation 613747691 Z01.818 patient has been cleared for surgery. [id number] DOROTHY RESTREPO [facility] at [address] [place] [address] 09/04/2023 14:24:21 09/10/2023 13:27:04 [id number] DOROTHY RESTREPO [facility] at [address] [place] [address] 10/09/2023 10:44:13 10/09/2023 12:11:17 Health Concerns Section Related Observation LastModified by Organization Detai ls LastModified Time None Recorded Concern Status LastModified by Organization Details LastModified Time None Recorded Advance Directives Directive N: Payers Encounter Date Sequence Insurance Name Policy Number Policy Shah Covered Member ID Shah Member ID Guarantor Name 10/03/2022 1 [place] [employer] [place] [employer] [id number] Debbie Nesbitt [id number] Debbiecindy MontesinosNesbitt 01/22/2023 1 [place] [id number] Debbie Nesbitt [id number] Debbie Nesbitt 03/04/2023 1 [place] [id number] Debbie Nesbitt [id number] Debbiecindy MontesinosNesbitt 04/29/2023 1 [place] [id number] Debbie Nesbitt [id number] Debbie Nesbitt 08/28/2023 1 [facility] [id number] Debbie Nesbitt [id number] Debbie Nesbitt Notes Date Note Type Note Provider Name and Address Organization Details Recorded Time 3 text/html PT PRESENTS FOR CHRONIC CARE MANAGEMENT, DENIES ANY NEW ISSUES. IS COMPLIANT WITH MEDICATIONSPATIENT ALSO COMPLAINS OF LEFT GROIN PAIN Daniel Grace MD [address] [place] [address], [phone], [facility] & [place] 10/03/2022 11:01:03 3 text/html Patient returns to clinic today for follow-up on GERD. Patient continues lansoprazole 30 mg p.o. b.i.d. As well as Pepcid Complete p.o. b.i.d. p.r.n. with uncontrolled symptoms. no improvement with use of famotidine. Symptoms had been controlled in the past with use of Dexilant 60 mg daily however has been denied by insurance. Previously failed pantoprazole and omeprazole. Last EGD 05/2021 empiric esophageal dilatation performed, esophagitis and mild gastritis noted on pathology. Colonoscopy 01/29/2022 with internal hemorrhoids and small polyps resected consistent with TA negative for high grade dysplasia. Due for repeat colonoscopy 01/2025 for surveillance. Tess Perry NP [address] [place] [address], [address], [place], [address], [facility] & [place] 03/04/2023 13:07:22 4 text/html patient is seen today for acute visit. Patient relates that last Dougie she developed congestion body aches headache fatigue fever and sore throat. She states her symptoms are little better today she did 2 home COVID test yesterday that positive. She was exposed to COVID at work.Renal function is normal.Patient denies any shortness a breath. She does have extreme fatigue. She also has body aches. Murali Marshall MD [address] [place] [address], [phone], [facility] & [place] 04/29/2023 16:49:02 4 text/html patient presents today for preop clearance. She is having a total hip replacement and removal of hardware in her left lower extremity performed. Daniel Grace MD [address] [place] [address], [phone], [facility] - [facility] - [place] [facility] [place] 08/28/2023 14:40:42 OBGyn Episode No OBEpisode recorded.
--- OUTSIDE RECORDS SUMMARY | 2024-07-09 20:35 | XMS_ITS | Data Portability ---
Author Organization PA - Universal DESI You GORDON CLOSED Address [address] [facility] [address] [place] [address] Care Team Providers Care Windows Laptop Technician Name Role Phone BISMARK KEIHT Referring Provider RAHUL GRACE Primary Care Provider Assessment Encounter Date Assessment Date Assessment LastModified by Organization Details LastModified Time 07/20/2022 07/20/2022 Episodes of sweating and temperature dysregulation, redness in the face, will check for metanephrines, will also check thyroid functions. In the meantime I have asked patient to start Lexapro low-dose and see how she does. I will order as needed Imitrex that she can try for breakthrough headaches she will follow-up with me over the next 4 to 6 weeks. Not available 07/20/2022 09:47:21 09/07/2022 09/07/2022 Neurologically stable, headaches under good control with as needed use of Imitrex, still with complaints of insomnia I recommended instead of taking combination of amitriptyline and doxepin to go ahead and try trazodone to see if this may not be of benefit. Still with significant anxiety related symptoms and I recommended evaluation by John Ozuna, behavioral health. Not available 09/07/2022 09:23:58 Plan of Treatment Reminders Order Date Submit Date Provider Last Modified By Organization Details Last Modified Time Details Appointments None recorded. Lab metanephrin e + normetaneph rine, plasma 2022 023 [facility], [address] [place] [address], [id number], 04/30/202 3 16:17:03 TSH, serum or plasma 2022 023 [facility], [address] [place], [address], 3 11:15:22 T4, free, serum 2022 023 [facility], [address] [place], [address], 3 11:15:20 Referral behavioral health referral - History of depression and anxiety, on Lexapro but still with significant anxiety reaction. Have recommended behavioral health evaluation. 2022 023 nia 5 [facility], [address], [place], [address], 3 13:48:57 Procedures None recorded. Surgeries None recorded. Imaging None recorded. Medication Orders tramadol 50 mg tablet 2023 024 [facility], [address] [place] [address], [address], 4 16:13:55 duloxetine 60 mg capsule,del ayed release 2023 024 [facility] [address], [address] [place] [address], [address], 4 16:13:51 amitriptyli ne 50 mg tablet 2023 024 [facility] [address], [address] [place] [address], [address], 4 16:13:53 doxepin 10 mg capsule 2023 024 [facility] [address], [address] [place], [address], 4 16:13:54 tramadol 50 mg tablet 2022 023 [facility], [address] [place] [address], [address], 3 16:04:37 amitriptyli ne 25 mg tablet 2022 023 [facility], [address] [place] [address], [address], 3 16:04:34 Calcium 600 + D(3) 600 mg-10 mcg (400 unit) tablet 2022 023 [facility], [address] [place] [address], [address], 3 16:04:35 sumatriptan 100 mg tablet 2022 023 [facility], [address] [place] [address], [address], 3 09:23:25 trazodone 100 mg tablet 2022 023 [facility], [address] [place] [address], [address], 3 15:57:29 sumatriptan 100 mg tablet 2022 023 [facility], [address] [place] [address], [address], 3 11:27:34 Lexapro 10 mg tablet 2022 023 [facility], [address] [place] [address], [address], 3 11:27:34 tramadol 50 mg tablet 2022 023 [facility], [address] [place] [address], [address], 3 16:12:57 amitriptyli ne 25 mg tablet 2022 023 [facility], [address] [place] [address], [address], 16:12:54 duloxetine 30 mg capsule,del ayed release 2022 023 [facility], [address] [place] [address], [address], 08:55:59 Calcium 600 + D(3) 600 mg-10 mcg (400 unit) tablet 2022 023 [facility], [address] [place] [address], [address], 16:12:56 Patient TargetsNo targets recorded. Patient Instructions Encounter Date Encounter Id Patient Instructions Last Modified By Organization Details Last Modified Time 04/24/2022 [id number] osteoarthritis: care instructions smoberly Not available 04/24/2022 16:04:57 body mechanics education smoberly Not available 04/24/2022 16:04:57 10/19/2022 [id number] osteoarthritis: care instructions smoberly Not available 10/19/2022 15:59:52 body mechanics education smoberly Not available 10/19/2022 15:59:52 06/25/2023 [id number] osteoarthritis: care instructions smoberly Not available 06/25/2023 16:13:45 body mechanics education smoberly Not available 06/25/2023 16:13:44 Reason for Referral Behavioral Health Referral f or Mixed anxiety and depressive disorder History of depression and anxiety, on Lexapro but still with significant anxiety reaction. Have recommended behavioral health evaluation. Referring Physician: Belinda Velasquez, Neurology, Encounter Date: 09/07/2022 Results Created Date Observation Date Name Description Value Unit Range Abnormal Flag Note LastModifiedBy Organization Detail LastModifiedTime 07/21/1907/20/2022 T4,FR EE T4,free 1.15 NG/dL 0.93-1 .70 normal Not Available [facility] [address] [place], [address], 07/20/2022 11:15:20 07/21/19 23 07/20/2022 TSH TSH 3.650 uIU/m L 0.270- 4.200 normal Not Available [facility] [address] [place], [address], 07/20/2022 11:15:22 07/21/19 23 07/29/2022 METAN EPHRI TAYLA, FRACT . PLASM A metanephrine 29 pg/mL < or = 57 normal This test was devel oped and its nilsa tical perfo rmanc e cony cteri stics have been deter mined by [facility] [facility] [employer] [facility] . It has not been clear ed or appro kong by FDA. This assay has been valid ated pursu ant to the CLIA regul ation s and is used for clini eric purpo ses. Not Available [facility] [address] [place], [address], 07/29/2022 16:17:02 07/21/19 23 07/29/2022 METAN EPHRI TAYLA, FRACT . PLASM A normetanephr ine 191 pg/mL < or = 148 high This test was devel oped and its nilsa tical perfo rmanc e cony cteri stics have been deter mined by [facility] [facility] [employer] [facility] . It has not been clear ed or appro kong by FDA. This assay has been valid ated pursu ant to the CLIA regul ation s and is used for clini eric purpo ses. Not Available [facility] [address] [place], [address], 07/29/2022 16:17:02 07/21/19 23 07/29/2022 METAN EPHRI TAYLA, FRACT . PLASM A total metanephrine 220 pg/mL < or = 205 high [place] tions > 4-fol d upper refer ence range : stron gly sugge stive of a pheoc hromo cytom a(1). [place] tions >1 - 4-fol d upper refer ence range : signi fican t but not diagn ostic , may be due to medic ation s or stres s. Sugge st runni ng 24 hr urine fract ionat ed metan ephri tayla and serum Chrom ogran in A for confi rmati on. Refer ence: (1) Algec irbaltazar- Rupal asif A et al, Plasm a Chrom ogran in A or Urine Fract ionat ed Metan ephri tayla Follo w-Up Testi ng Impro ves the Diagn ostic Accur acy of Plasm a Fract ionat ed Metan ephri tayla for Pheoc hromo cytom a. The Journ al of Clini eric Endoc rinol ogy and Metab olism 93 (1),9 -95, 2007. For addit ional infor tin baig e refer to http: //[facility] isacc patel.que stdia gnost ics.c om/fa q/Met Fract Free (This link is being provi ded for infor matio nal/e ducat ional purpo ses only. ) This test was devel oped and its nilsa tical perfo rmanc e cony cteri stics have been deter mined by [facility] [facility] . It has not been clear ed or appro kong by FDA. This assay has been valid ated pursu ant to the CLIA regul ation s and is used for clini eric purpo ses. TEST PERFO RMED AT: [facility]EL [facility] [address] [facility] [place] [address] Marek ALBA,PHD ,[place] Not Available [facility] [address] [place] [address], [address], 07/29/2022 16:17:02 08/18/19 23 08/17/2022 CT, abdom en, w/o contr ast [address] [address] Debbie brown Name: CORNELIO brown : 1964 Debbie brown Orderi ng Provid er: BELINDA EVA EXAM DATE: 2022 EXAM: CT ABDOME N W/O CONTRA ST [facility]INIC AL INFORM ATION: Episod es of sweati ng. Suspec michelle. Chromo cytoma . TECHNI QUE: Multip le axial CT images of the abdome n were obtain ed in the adrena l region withou t IV contra st. Becaus e no adrena l mass was identi fied, the contra st enhanc ed portio n of the examin ation was not perfor med. COMPAR ARLETTE: None. FINDIN GS: LOWER THORAX : Lung bases are clear. No obviou s cardia c abnorm ality. ADRENA L GLANDS : Both adrena l glands are normal . No adrena l nodule or mass is seen. No nodule is seen anteri or to the abdomi nal aorta. UPPER ABDOMI NAL ORGANS : Gallbl adder is surgic ally absent . Spleen shows multip le calcif ied granul omata. Liver, pancre as and both kidney s appear normal . BOWEL AND MESENT JOAN: Stomac h, small bowel and colon are normal . No mesent rajendra lympha denopa thy or perito nusrat free fluid. RETROP ERITON EUM: Aorta, IVC and their branch es are patent and normal . No retrop eriton eal lympha denopa thy. ABDOMI NAL WALL AND SKELET AL STRUCT URES: Normal IMPRES GWENDOLYN: 1. No adrena l nodule or mass. 2. No obviou s eviden ce of intra- abdomi nal extra adrena l pheoch romocy lili. 3. No other signif icant abnorm ality is seen. Interp reted By: Olaf Dey MD Electr onical ly Signed By: Olaf Dey MD on 023 3:37 PM [email or web address] [facility] [address], [address], 08/21/2022 11:57:25 Result Notes None recorded. Problems Name Problem SNOMED Code Status Onset Date Resolution Date Notes Provider Name and Address Organization Details Recorded Time Fibromyalgia 303877722 Active 2019 Not Available [facility] 17:36:47 Problem Notes Documentation Provider Name and Address Organization Details Recorded Time Progress Note : [facility] ? ? [address] [place] [id number], Leia (id #[id number], : 1965) [address],??[place]?[address] Phone:?? Fax:?? Encounter Summary - Progress Note Date Printed: ?04/24/2022 Documents sent via fax will include the followingmessage: This fax may contain sensitive and confidential personal health information that is being sent for the sole use of the intended recipient. Unintended recipients are directed to securely destroy any materials received. You are hereby notified that the unauthorized disclosure or other unlawful use of this fax or any personal health information is prohibited. To the extent patient information contained in this fax is subject to 42 CFR Part 2, this regulation prohibits unauthorized disclosure of these records. If you received this fax in error, please visit [email or web address] to notify the sender and confirm that the information will be destroyed. If you do not have internet access, please call to notify the sender and confirm that the information will be destroyed. Thank you for your attention and cooperation. [ID:[id number]] Patient Cornelio Nesbitt (57yo, F) #[id number] 1965 ?? Patient Demographics: Address [address] [place] [id number] ? Work Phone ?? Encounter Notes: Encounter Reason/DateNone recorded 04/24/2022 - 03:45PM - RHEUMATOLOGY [facility] History of Present Illness follow-up on fibromyalgia and osteoarthritis; she continues with myalgia and arthralgia; with left leg fx last november; she has continued muscle and joint pain and feels like she is having moving parts in the buttocks from it; fatigue remains an issue; she had her DEXA scan prior; feeling flared with weather changes, she is without interval infection; she has no s/e from medications, though her current regimen is not working well, she would like to decrease off of her duloxetine; currently denies bowel or bladder changes, chest pain, shortness of air, rashes, fevers and all others are negative Review of SystemsAdditionally reports:COVID Questionnaire 1. Have you or anyone accompanying you today been diagnosed with CoVid-19 in the past 5 days?? Patient: NO Visitor:____ 2. In the last 3 days have you and/or anyone with you today had COVID symptoms? (cough, fever, muscle aches, loss of taste or smell, vomiting, diarrhea, headache, sore throat, or congestion/runny nose) Patient: NO Visitor:____ 3. Have you and/or anyone accompanying you today been in close contact with a person known to have COVID-19/Coronavirus in the past 5 days? Patient: NO Visitor:____ If answered YES to any of the questions above. Notify provider/service dept. of arrival. Await instructions from provider's office. ROS as noted in the HPI Vitals Ht: 5 ft 2 in04/24/2022 03:41 pm Wt: 168 lbs04/24/2022 03:42 pm BMI: 30.701 03:42 pm BP: 130/8604/24/2022 03:44 pm Pulse: 90 bpm04/24/2022 03:43 pm Results/InterpretationsNone recorded Physical ExamConstitutional:General Appearance:obesity. Level of Distress: NAD. Ambulation: ambulating normally. Mental Status:Mental Status: normal mood and affect and active and alert. Orientation: to time, place, and person. Head:Head: normocephalic and atraumatic. Eyes:Lids and Conjunctivae: no discharge or pallor and non-injected. Sclerae: non-icteric. ENMT:Ears: no lesions on external ear or hearing loss. Nose: no lesions on external nose and nares patent. Lungs:Respiration: no dyspnea. Musculoskeletal System:Joints, Bones, and Muscles: no contractures, malalignment, or bony abnormalities and normal movement of all extremities andtenderness(feeling flared). Extremities: no cyanosis, edema, varicosities, or palpable cord. Knees: no ligamentous instability on examination. Neurological Exam:Motor: normal bulk and tone and no tremors, rigidity, or bradykinesia. Gait and Station: normal gait and station. Cranial Nerves: grossly intact. Sensation: grossly intact. Skin:Inspection and palpation: no rash, lesions, ulcer, induration, nodules, jaundice, or abnormal nevi and good turgor. Nails: normal. Procedure DocumentationNone recorded Assessment and Plan 1. Fibromyalgia- without further findings suggestive of fibromyalgia, oa without findings of autoimmune disease with normal/stable labs will continue with current tx with amitriptyline at 25-50 mg qhs and tramadol 2 po 3x per dayM79.7: Fibromyalgia amitriptyline 25 mg tablet - Take 1 tablet(s) twice a day by oral route. ? Qty: (180)?tablet ? Refills: 1 ? Pharmacy: [facility] ? Note to Pharmacy: dose change BODY MECHANICS EDUCATION duloxetine 30 mg capsule,delayed release - Take 1 capsule(s) every day by oral route. ? Qty: (90)?capsule ? Refills: 1 ? Pharmacy: [facility] ? Note to Pharmacy: reducing dose and planning to d/c 2. Degenerative joint disease involving multiple joints- chronic and recurring joint pain worsening without nsaids at this time due to recurring gut issues inflammatory labs were normal/negative worsening deep bone aching; joint pain worsening with weather changes continues on tramadol have her remain off the lyrica hysterectomy, with recent dysplasia and further treatment of the fracture on rt ankle with screws and plates; one year ago; had screws removed 04/10/18 h/o prior fx there alsoM15.9: Polyosteoarthritis, unspecified OSTEOARTHRITIS: CARE INSTRUCTIONS tramadol 50 mg tablet - Take 2 tablet(s) 3 times a day by oral route for 30 days. ? Qty: (180)?tablet ? Refills: 2 ? Pharmacy: [facility] 3. Osteopenia- per recent dexa scan with a t score of -1.4 she has a great vitamin d level and will start on calcium with vitamin dM85.80: Other specified disorders of bone density and structure, unspecified site Calcium 600 + D(3) 600 mg-10 mcg (400 unit) tablet - Take 1 tablet(s) every day by oral route. ? Qty: (90)?tablet ? Refills: 3 ? Pharmacy: [facility] 4. Vitamin B12 deficiency (non anemic)- recurring supplements in the past b12 was normal at 774E53.8: Deficiency of other specified B group vitamins 5. Vitamin D deficiency- recurring with recent vitamin d level of >60E55.9: Vitamin D deficiency, unspecified Return to Office to see MYRA HUDSON MD for COLONOSCOPY at [facility] on or around 05/30/2022 BISMARK KEITH APRN for RHEUM RECHECK at [facility]HEUMATOLOGY [facility] on 10/19/2022 at 03:45 PM Patient Medical History: Allergies List Reviewed Allergies HYDROCODONE SULFA (SULFONAMIDE ANTIBIOTICS) Medications Reviewed Medications NameDate Source amitriptyline 25 mg tabletTake 1 tablet(s) twice a day by oral route.04/24/22?prescribe jordon KEITH APRN Azo Bladder ZccbvxQ76/26/18?entered Monika Dioni baclofen 10 mg tablettake 1/2 to 1 tablet 3 times a day as cfsrsy08/26/18?entered Monika Dioni Calcium 600 + D(3) 600 mg-10 mcg (400 unit) tabletTake 1 tablet(s) every day by oral route.04/24/22?prescribe jordon KEITH APRN cetirizine 10 mg capsuleTake by oral route.12/25/17?entered Monika Dioni Co Q-?entered Monika Dioni DULoxetine 20 mg capsule,delayed releasetake one po qhs01/23/22?prescribed BISMARK KEITH APRN DULoxetine 30 mg capsule,delayed releaseTake 1 capsule(s) every day by oral route.04/24/22?prescribe jordon KEITH APRN DULoxetine 60 mg capsule,delayed releaseTake 1 capsule(s) every day by oral route.01/23/22?prescribe jordon KEITH APRN garlic 1,000 mg capsuleTake by oral route.12/25/17?entered Monika Dioni iron12/25/17?entered Monika Dioni krill oil12/25/17?entered Monika Dioni meclizine 12.5 mg tablettake 1 to 1-1/2 tablets 3 times a day12/25/17?entered Monika Dioni melatonin 5 mg capsuleTake by oral route.12/25/17?entered Monika Dioni metoprolol succinate ER 25 mg tablet,extended release 24 hrTake 1 tablet(s) every day by oral route.12/25/17?entered Monika Dioni Prevacid 30 mg capsule,delayed releaseTake 1 capsule(s) twice a day by oral route.01/23/22?entered BISMARK KEITH APRN Mwzzcdblj56/26/18?entere d Monika Wheatley Stool Gfjfgvce11/26/18?entered Monika Aguirreate traMADoL 50 mg tabletTake 2 tablet(s) 3 times a day by oral route for 30 days.04/24/22?prescribed BISMARK KEITH APRN vitamin B gbwzowh36/26/18?entered Monika Wheatley Vitamin C 1,000 mg tabletTake by oral route.12/25/17?entered Monika Dioni Vitamin D312/25/17?entered Monika Dioni Family HistoryReviewed Family History Unspecified Relation - Diabetes mellitus ?? - Family history of cancer ?? - Kidney stone Past Medical HistoryReviewed Past Medical History Acid Reflux (GERD):Y Arthritis:Y Hypertension:Y Vaccine HistoryNone recorded Electronically Signed by: BISMARK KEITH APRN, SUPERVISOR DELIVERY DEPARTMENT [facility]SH[facility] - [facility] 05/03/2022 14:44:52 Progress Note : [facility] ? ? [address] [facility] [id number], Leia (id #[id number], : 1965) [address],??[place]?[address] Phone:?? Fax:?? Encounter Summary - Progress Note Date Printed: ?07/20/2022 Documents sent via fax will include the followingmessage: This fax may contain sensitive and confidential personal health information that is being sent for the sole use of the intended recipient. Unintended recipients are directed to securely destroy any materials received. You are hereby notified that the unauthorized disclosure or other unlawful use of this fax or any personal health information is prohibited. To the extent patient information contained in this fax is subject to 42 CFR Part 2, this regulation prohibits unauthorized disclosure of these records. If you received this fax in error, please visit [email or web address] to notify the sender and confirm that the information will be destroyed. If you do not have internet access, please call to notify the sender and confirm that the information will be destroyed. Thank you for your attention and cooperation. [ID:[id number]] Patient Cornelio Nesbitt (57yo, F) #[id number] 1965 ?? Patient Demographics: Address [address] [place] [id number] ? Work Phone ?? Encounter Notes: Encounter Reason/DateTransition of Care Encounter 07/20/2022 - 09:00AM - NEUROLOGY [facility] History of Present [id number] female with history of anxiety depression also chronic knee pain due to fracture and previous knee replacement, history of fibromyalgia as well as chronic headaches. Presents for follow-up today, overall complains of episodes of feeling hot and sweaty, her face turns red as well. Unclear as to whether or not these are associated with anxiety but patient does feel that with increased stress they tend to be worse. Patient has occasional headaches, they tend to be unilateral, sometimes throbbing in nature. Overall she feels that stress has made her symptoms worse. We will try to obtain records from her previous office visits Review of SystemsAdditionally reports:COVID Questionnaire 1. Have you or anyone accompanying you today been diagnosed with CoVid-19 in the past 5 days?? Patient: NO Visitor:____ 2. In the last 3 days have you and/or anyone with you today had COVID symptoms? (cough, fever, muscle aches, loss of taste or smell, vomiting, diarrhea, headache, sore throat, or congestion/runny nose) Patient: NO Visitor:____ 3. Have you and/or anyone accompanying you today been in close contact with a person known to have COVID-19/Coronavirus in the past 5 days? Patient: NO Visitor:____ If answered YES to any of the questions above. Notify provider/service dept. of arrival. Await instructions from provider's office. ROS as noted in the HPI Vitals Ht: 5 ft 2 in07/20/2022 08:52 am Wt: 176 lbs 4 oz With dexlqhl3707/20/2022 08:53 am BMI: 32. 08:53 am BP: 166/96 sitting L arm07/20/2022 08:55 am Pulse: 104 bpm qjhagsj5207/20/2022 08:55 am O2Sat: 95% Room Air at Rest07/20/2022 08:55 am Results/InterpretationsNone recorded Physical ExamConstitutional:General Appearance: healthy-appearing, well-nourished, and well-developed. Head:Head: normocephalic and atraumatic. Lungs:Respiratory effort: no dyspnea. Auscultation: breath sounds normal. Abdomen:Bowel Sounds:Benign abdomen. Neurologic:Gait and Station:Neurologically she is alert oriented able to give a good history. Cranial nerves are intact, motor exam shows good strength, she has decreased extension of the left leg, and when walking slight limp secondary to inability to fully extend the left knee which is status post replacement. Otherwise balance is good.. Procedure DocumentationNone recorded Assessment and PlanEpisodes of sweating and temperature dysregulation, redness in the face, will check for metanephrines, will also check thyroid functions. In the meantime I have asked patient to start Lexapro low-dose and see how she does. I will order as needed Imitrex that she can try for breakthrough headaches she will follow-up with me over the next 4 to 6 weeks. 1. Dizzy kutrcyY04: Dizziness and giddiness METANEPHRINE,FRACTIONATED, PLASMA THYROID STIMULATING HORMONE (TSH) T4 FREE 2. KniogcrcU87.909: Migraine, unspecified, not intractable, without status migrainosus sumatriptan 100 mg tablet - Take 1 tablet at onset of headache may repeat ? Qty: (9)?tablet ? Refills: 3 ? Pharmacy: [facility] 3. Mixed anxiety and depressive ulfekxfsC73.8: Other specified anxiety disorders Lexapro 10 mg tablet - Take 1 tablet at bedtime ? Qty: (30)?tablet ? Refills: 3 ? Pharmacy: [facility] Return to Office BISMARK KEITH APRN for RHEUM RECHECK at RHEUMATOLOGY [facility] on 10/19/2022 at 03:45 PM Patient Medical History: Allergies List Reviewed Allergies HYDROCODONE SULFA (SULFONAMIDE ANTIBIOTICS) Medications Reviewed Medications NameDate Source amitriptyline 25 mg tabletTake 1 tablet(s) twice a day by oral route.04/24/22?prescribe jordon KEITH APRN Azo Bladder OfbzjxI69/26/18?entered Monika Dioni baclofen 10 mg tablettake 1/2 to 1 tablet 3 times a day as gunpxb54/26/18?entered Monika Dioni Calcium 600 + D(3) 600 mg-10 mcg (400 unit) tabletTake 1 tablet(s) every day by oral route.04/24/22?prescribe jordon KEITH APRN cetirizine 10 mg capsuleTake by oral route.12/25/17?entered Monika Dioni Co Q-?entered Monika Dioni garlic 1,000 mg capsuleTake by oral route.12/25/17?entered Monika Dioni iron12/25/17?entered Monika Dioni krill oil12/25/17?entered Monika Dioni Lexapro 10 mg tabletTake 1 tablet at dyyglxy20/21/23?prescrib ed BELINDA VELASQUEZ MD meclizine 12.5 mg tablettake 1 to 1-1/2 tablets 3 times a day12/25/17?entered Monika Dioni melatonin 5 mg capsuleTake by oral route.12/25/17?entered Monika Dioni metoprolol succinate ER 25 mg tablet,extended release 24 hrTake 1 tablet(s) every day by oral route.12/25/17?entered Monika Dioni Prevacid 30 mg capsule,delayed releaseTake 1 capsule(s) twice a day by oral route.01/23/22?entered BISMARK KEITH APRN Nforshupc85/26/18?entere d Monika Aguirreate Stool Hzblzqra49/26/18?entered Monika Dioni SUMAtriptan 100 mg tabletTake 1 tablet at onset of headache may /21/23?prescribe d BELINDA VELASQUEZ MD traMADoL 50 mg tabletTake 2 tablet(s) 3 times a day by oral route for 30 days.04/24/22?prescribed BISMARK KEITH APRN vitamin B aubljng23/26/18?entered Monika Dioni Vitamin C 1,000 mg tabletTake by oral route.12/25/17?entered Monika Dioni Vitamin D312/25/17?entered Monika Dioni Family HistoryReviewed Family History Unspecified Relation - Diabetes mellitus ?? - Family history of cancer ?? - Kidney stone Past Medical HistoryReviewed Past Medical History Arthritis:Y Depression:Y High Cholesterol:Y Hypertension:Y Vaccine HistoryNone recorded Electronically Signed by: BELINDA VELASQUEZ MD ASHLI G[facility] 07/23/2022 10:43:06 Neurologist Consult Note : [facility] ? ? [address] [facility] [address]VPYMQZJ, Leia (id #[id number], : 1965) [address],??[place]?[address] Phone:?? Fax:?? Encounter Summary - Progress Note Date Printed: ?09/07/2022 Documents sent via fax will include the followingmessage: This fax may contain sensitive and confidential personal health information that is being sent for the sole use of the intended recipient. Unintended recipients are directed to securely destroy any materials received. You are hereby notified that the unauthorized disclosure or other unlawful use of this fax or any personal health information is prohibited. To the extent patient information contained in this fax is subject to 42 CFR Part 2, this regulation prohibits unauthorized disclosure of these records. If you received this fax in error, please visit [email or web address] to notify the sender and confirm that the information will be destroyed. If you do not have internet access, please call to notify the sender and confirm that the information will be destroyed. Thank you for your attention and cooperation. [ID:[id number]] Patient Conrelio Nesbitt (57yo, F) #[id number] 1965 ?? Patient Demographics: Address [address] [place] [phone] ? Work Phone ?? Encounter Notes: Encounter Reason/DateNone recorded 09/07/2022 - 09:00AM - NEUROLOGY [facility] History of Present IllnessPatient follows up today, still has episodes of flushing and sweating that she feels may be anxiety related. We have gone ahead with a fairly extensive work-up, check metanephrines slight elevation noted, but CT of the abdomen was unremarkable. Patient does complain of a lot of anxiety and depression, we have started her on Lexapro 10 mg but she cannot tell much of a difference. She does feel that there may be some reactive depression due to the of her yxfadoh-yw-crg. I have recommended consideration for behavioral health evaluation. She is in agreement. Other issues have been persistent insomnia, she has been on a combination of both amitriptyline and doxepin, still has difficulty with falling asleep. Patient has not tried trazodone. Headache crowley doing well, she uses as needed Imitrex and this is worked well as an abortive agent. Review of SystemsROS as noted in the HPI Vitals Ht: 5 ft 2 in09/07/2022 08:33 am Wt: 177 lbs With twyhyhv1909/07/2022 08:33 am BMI: 32.406 08:33 am BP: 118/82 sitting R arm09/07/2022 08:38 am Pulse: 82 bpm09/07/2022 08:38 am O2Sat: 95% Room Air at Rest09/07/2022 08:38 am Results/InterpretationsNone recorded Physical ExamPatient remained stable, still with decreased range of motion left knee, pain in the right ankle but otherwise alert oriented able to give good history. Face symmetric tongue midline and individual strength coordination all within normal limits. Procedure DocumentationNone recorded Assessment and PlanNeurologically stable, headaches under good control with as needed use of Imitrex, still with complaints of insomnia I recommended instead of taking combination of amitriptyline and doxepin to go ahead and try trazodone to see if this may not be of benefit. Still with significant anxiety related symptoms and I recommended evaluation by John Ozuna, behavioral health. 1. IychsjypU37.909: Migraine, unspecified, not intractable, without status migrainosus sumatriptan 100 mg tablet - Take 1 tablet at onset of headache may repeat ? Qty: (9)?tablet ? Refills: 5 ? Pharmacy: [facility] 2. Mixed anxiety and depressive hrseucuuL32.8: Other specified anxiety disorders BEHAVIORAL HEALTH REFERRAL - ?Schedule Within: provider's discretion?Note to Provider: History of depression and anxiety, on Lexapro but still with significant anxiety reaction. Have recommended behavioral health evaluation.Place of service: OFFICE # of requested visits: 6 Procedure code: 78953, 10970, 74098, 46760, 36194, 17730, 19335, 84691, 90476, 32596 Authorization: LEX Carter (PPO) NOTREQU[place] [address], 70[address], 78667, 72792, 92093, 89620, 74295, 38994, 10206, 01846 3. ZmierkzkA52.00: Insomnia, unspecified trazodone 100 mg tablet - Take 1 tablet at bedtime ? Qty: (30)?tablet ? Refills: 3 ? Pharmacy: [facility] Return to Office BISMARK KEITH APRN for RHEUM RECHECK at RHEUMATOLOGY SB on 10/19/2022 at 03:45 PM Patient Medical History: Allergies List Reviewed Allergies HYDROCODONE: - unable to sleep IODINATED CONTRAST MEDIA: Vomiting - jittery SULFA (SULFONAMIDE ANTIBIOTICS): Nausea, Vomiting Medications Reviewed Medications NameDate Source amitriptyline 25 mg tabletTake 1 tablet(s) twice a day by oral route.04/24/22?prescribe jordon KEITH APRN Azo Bladder KklzehF76/26/18?entered Monika Wheatley baclofen 10 mg tablettake 1/2 to 1 tablet 3 times a day as /26/18?entered Monika Wheatley Benadryl Allergy 25 mg tabletTake 25 mg by oral route as directed.07/31/22?prescr ibed BELINDA VELASQUEZ MD Calcium 600 + D(3) 600 mg-10 mcg (400 unit) tabletTake 1 tablet(s) every day by oral route.04/24/22?prescribe jordon KEITH APRN cetirizine 10 mg capsuleTake by oral route.12/25/17?entered Monikacarrie Aguirreate Co Q-?entered Monikacarrie Aguirreate garlic 1,000 mg capsuleTake by oral route.12/25/17?entered Monika Dioni iron12/25/17?entered Monika Dioni krill oil12/25/17?entered Monika Dioni Lexapro 10 mg tabletTake 1 tablet at leerceq62/21/23?prescrib ed BELINDA VELASQUEZ MD meclizine 12.5 mg tablettake 1 to 1-1/2 tablets 3 times a day12/25/17?entered Monika Dioni melatonin 5 mg capsuleTake by oral route.12/25/17?entered Monika Dioni metoprolol succinate ER 25 mg tablet,extended release 24 hrTake 1 tablet(s) every day by oral route.12/25/17?entered Monika Dioni Prevacid 30 mg capsule,delayed releaseTake 1 capsule(s) twice a day by oral route.01/23/22?entered BISMARK KEITH APRN Shsypdaxo41/26/18?entere d Monika Wheatley Stool Tjcdsrec51/26/18?entered Monika Dioni SUMAtriptan 100 mg tabletTake 1 tablet at onset of headache may qkreys64/09/23?prescribe d BELINDA VELASQUEZ MD traMADoL 50 mg tabletTake 2 tablet(s) 3 times a day by oral route for 30 days.04/24/22?prescribed BISMARK KEITH, IMER traZODone 100 mg tabletTake 1 tablet at uginwnp74/09/23?prescrib ed BELINDA VELASQUEZ MD vitamin B kuqivlx69/26/18?entered Monika Dioni Vitamin C 1,000 mg tabletTake by oral route.12/25/17?entered Monika Dioni Vitamin D312/25/17?entered Monika Dioni Family HistoryReviewed Family History Unspecified Relation - Diabetes mellitus ?? - Family history of cancer ?? - Kidney stone Past Medical HistoryReviewed Past Medical History Arthritis:Y Depression:Y High Cholesterol:Y Hypertension:Y Vaccine HistoryNone recorded Electronically Signed by: BELINDA VELASQUEZ MD June Anabell lopez, ASHLI - [facility] 09/10/2022 08:35:53 Progress Note : [facility] ? ? [address] [facility] [address]WUSPWND, Leia (id #[id number], : 1965) [facility] [address] [facility],??[place]?[address] Phone:?? Fax:?? Encounter Summary - Progress Note Date Printed: ?10/19/2022 Documents sent via fax will include the followingmessage: This fax may contain sensitive and confidential personal health information that is being sent for the sole use of the intended recipient. Unintended recipients are directed to securely destroy any materials received. You are hereby notified that the unauthorized disclosure or other unlawful use of this fax or any personal health information is prohibited. To the extent patient information contained in this fax is subject to 42 CFR Part 2, this regulation prohibits unauthorized disclosure of these records. If you received this fax in error, please visit [email or web address] to notify the sender and confirm that the information will be destroyed. If you do not have internet access, please call to notify the sender and confirm that the information will be destroyed. Thank you for your attention and cooperation. [ID:[id number]] Patient Cornelio Nesbitt (57yo, F) #[id number] 1965 ?? Patient Demographics: Address [address] [place] [address] [place] [address] ? Work Phone ?? Encounter Notes: Encounter Reason/Date tramadol refills 10/19/2022 - 03:45PM - RHEUMATOLOGY [facility] History of Present Illness follow-up on fibromyalgia and osteoarthritis; she continues with myalgia and arthralgia; with left leg fx last november; she has continued muscle and joint pain and feels like she is having moving parts in the buttocks from it; fatigue remains an issue; she had her DEXA scan prior; feeling flared with weather changes, she is without interval infection; she has no s/e from medications, though her current regimen is not working well, she would like to decrease off of her duloxetine; currently denies bowel or bladder changes, chest pain, shortness of air, rashes, fevers and all others are negative Review of SystemsROS as noted in the HPI Vitals Ht: 5 ft 2 in10/19/2022 03:44 pm Wt: 175 lbs 6 oz With omhaujk4710/19/2022 03:44 pm BMI: 32.107 03:44 pm BP: 124/70 sitting R arm10/19/2022 03:47 pm BP Cuff Size: adult10/19/2022 03:45 pm Pulse: 87 bpm rgdthbr2710/19/2022 03:45 pm RR: 1607 03:45 pm O2Sat: 96% Room Air at Rest10/19/2022 03:45 pm Results/InterpretationsNone recorded Physical ExamConstitutional:General Appearance:obesity. Level of Distress: NAD. Ambulation: ambulating normally. Mental Status:Mental Status: normal mood and affect and active and alert. Orientation: to time, place, and person. Head:Head: normocephalic and atraumatic. Eyes:Lids and Conjunctivae: no discharge or pallor and non-injected. Sclerae: non-icteric. ENMT:Ears: no lesions on external ear or hearing loss. Nose: no lesions on external nose and nares patent. Lungs:Respiration: no dyspnea. Musculoskeletal System:Joints, Bones, and Muscles: no contractures, malalignment, or bony abnormalities and normal movement of all extremities andtenderness(feeling flared). Extremities: no cyanosis, edema, varicosities, or palpable cord. Knees: no ligamentous instability on examination. Neurological Exam:Motor: normal bulk and tone and no tremors, rigidity, or bradykinesia. Gait and Station: normal gait and station. Cranial Nerves: grossly intact. Sensation: grossly intact. Skin:Inspection and palpation: no rash, lesions, ulcer, induration, nodules, jaundice, or abnormal nevi and good turgor. Nails: normal. Procedure DocumentationNone recorded Assessment and Plan 1. Fibromyalgia- without further findings suggestive of fibromyalgia, oa without findings of autoimmune disease with normal/stable labs will continue with current tx with amitriptyline at 25-50 mg qhs and tramadol 2 po 3x per dayM79.7: Fibromyalgia amitriptyline 25 mg tablet - Take 1 tablet(s) twice a day by oral route. ? Qty: (180)?tablet ? Refills: 3 ? Pharmacy: [facility] [employer] [facility] 2. Degenerative joint disease involving multiple joints- chronic and recurring joint pain worsening without nsaids at this time due to recurring gut issues inflammatory labs were normal/negative worsening deep bone aching; joint pain worsening with weather changes continues on tramadol have her remain off the lyrica hysterectomy, with recent dysplasia and further treatment of the fracture on rt ankle with screws and plates; one year ago; had screws removed 04/10/18 h/o prior fx there alsoM15.9: Polyosteoarthritis, unspecified OSTEOARTHRITIS: CARE INSTRUCTIONS tramadol 50 mg tablet - Take 2 tablet(s) 3 times a day by oral route for 30 days. ? Qty: (180)?tablet ? Refills: 2 ? [facility]acy: [facility] 3. Osteopenia- per recent dexa scan with a t score of -1.4 she has a great vitamin d level and will start on calcium with vitamin dfilled for one year on 10/19/2022M85.80: Other specified disorders of bone density and structure, unspecified site Calcium 600 + D(3) 600 mg-10 mcg (400 unit) tablet - Take 1 tablet(s) every day by oral route. ? Qty: (90)?tablet ? Refills: 3 ? [facility] 4. Vitamin B12 deficiency (non anemic)- recurring supplements in the past b12 was normal at 774E53.8: Deficiency of other specified B group vitamins 5. Vitamin D deficiency- recurring with recent vitamin d level of >60E55.9: Vitamin D deficiency, unspecified Return to Office BISMARK KEITH APRN for RHEUM RECHECK at RHEUMATOLOGY SB on 04/22/2023 at 03:45 PM Patient Medical History: Allergies List Reviewed Allergies HYDROCODONE: - unable to sleep IODINATED CONTRAST MEDIA: Vomiting - jittery SULFA (SULFONAMIDE ANTIBIOTICS): Nausea, Vomiting Medications Reviewed Medications NameDate Source amitriptyline 25 mg tabletTake 1 tablet(s) twice a day by oral route.10/19/22?prescribe jordon KEITH APRN Azo Bladder OmgwwwA17/26/18?entered Monika Dioni baclofen 10 mg tablettake 1/2 to 1 tablet 3 times a day as phytwq46/26/18?entered Monika Dioni Benadryl Allergy 25 mg tabletTake 25 mg by oral route as directed.07/31/22?prescr ibed BELINDA VELASQUEZ MD busPIRone 5 mg tabletTake 1 tablet(s) twice a day by oral route.10/19/22?entered Cheryl York Calcium 600 + D(3) 600 mg-10 mcg (400 unit) tabletTake 1 tablet(s) every day by oral route.10/19/22?prescribe jordon KEITH APRN cetirizine 10 mg capsuleTake by oral route.12/25/17?entered Monika Dioni Co Q-?entered Monika Dioni garlic 1,000 mg capsuleTake by oral route.12/25/17?entered Monika Dioni iron12/25/17?entered Monika Dioni krill oil12/25/17?entered Monika Dioni Lexapro 10 mg tabletTake 1 tablet at nrmxnec45/21/23?prescrib ed BELINDA VELASQUEZ MD meclizine 12.5 mg tablettake 1 to 1-1/2 tablets 3 times a day12/25/17?entered Monika Dioni melatonin 5 mg capsuleTake by oral route.12/25/17?entered Monika Dioni metoprolol succinate ER 25 mg tablet,extended release 24 hrTake 1 tablet(s) every day by oral route.12/25/17?entered Monika Wheatley Prevacid 30 mg capsule,delayed releaseTake 1 capsule(s) twice a day by oral route.01/23/22?entered BISMARK KEITH APRN Kwfhetaik33/26/18?entere d Monika Wheatley Stool Wkixycbw70/26/18?entered Monika Wheatley SUMAtriptan 100 mg tabletTake 1 tablet at onset of headache may wooouo39/09/23?prescribe d BELINDA VELASQUEZ MD traMADoL 50 mg tabletTake 2 tablet(s) 3 times a day by oral route for 30 days.10/19/22?prescribed BISMARK KEITH APRN vitamin B tozzzpl79/26/18?entered Monika Wheatley Vitamin C 1,000 mg tabletTake by oral route.12/25/17?entered Monika Wheatley Vitamin D312/25/17?entered Monika Dioni Family HistoryReviewed Family History Unspecified Relation - Diabetes mellitus ?? - Family history of cancer ?? - Kidney stone Past Medical HistoryReviewed Past Medical History Acid Reflux (GERD):Y Arthritis:Y Hypertension:Y Vaccine HistoryNone recorded Electronically Signed by: BISMARK KEITH APRN, SUPERVISOR DELIVERY DEPARTMENT SAHLI Gtz - [facility] 10/22/2022 12:50:59 Progress Note : [facility] ? ? [address] [place] [id number], Leia (id #[id number], : 1965) [address],??[place]?[address] Phone:?? Fax:?? Encounter Summary - Progress Note Date Printed: ?06/25/2023 Documents sent via fax will include the followingmessage: This fax may contain sensitive and confidential personal health information that is being sent for the sole use of the intended recipient. Unintended recipients are directed to securely destroy any materials received. You are hereby notified that the unauthorized disclosure or other unlawful use of this fax or any personal health information is prohibited. To the extent patient information contained in this fax is subject to 42 CFR Part 2, this regulation prohibits unauthorized disclosure of these records. If you received this fax in error, please visit [email or web address] to notify the sender and confirm that the information will be destroyed. If you do not have internet access, please call to notify the sender and confirm that the information will be destroyed. Thank you for your attention and cooperation. [ID:[id number]] Patient Cornelio Nesbitt (58yo, F) #[id number] 1965 ?? Patient Demographics: Address [address] [place] [phone] ? Work Phone ?? Encounter Notes: Encounter Reason/DateNone recorded 06/25/2023 - 03:15PM - RHEUMATOLOGY [facility] History of Present Illness follow-up on fibromyalgia and osteoarthritis; she continues with myalgia and arthralgia; with left leg fx last november,; with covid in April 2023; she has continued muscle and joint pain and feels like she is having moving parts in the buttocks from it; fatigue remains an issue; she had her DEXA scan prior; feeling flared with weather changes, she is without interval infection; she has no s/e from medications, though her current regimen is not working well, she would like to decrease off of her duloxetine; currently denies bowel or bladder changes, chest pain, shortness of air, rashes, fevers and all others are negative Review of SystemsROS as noted in the HPI Vitals Ht: 5 ft 2 in06/25/2023 03:42 pm Wt: 170 lbs With ajzufyz7706/25/2023 03:43 pm BMI: 31. 03:43 pm BP: 118/86 sitting R arm06/25/2023 03:46 pm BP Cuff Size: adult06/25/2023 03:46 pm Pulse: 85 bpm vbzsvlh5006/25/2023 03:45 pm O2Sat: 97% Room Air at Rest06/25/2023 03:46 pm Results/InterpretationsNone recorded Physical ExamConstitutional:General Appearance:obesity. Level of Distress: NAD. Ambulation: ambulating normally. Mental Status:Mental Status: normal mood and affect and active and alert. Orientation: to time, place, and person. Head:Head: normocephalic and atraumatic. Eyes:Lids and Conjunctivae: no discharge or pallor and non-injected. Sclerae: non-icteric. ENMT:Ears: no lesions on external ear or hearing loss. Nose: no lesions on external nose and nares patent. Lungs:Respiration: no dyspnea. Musculoskeletal System:Joints, Bones, and Muscles: no contractures, malalignment, or bony abnormalities and normal movement of all extremities andtenderness(feeling flared). Extremities: no cyanosis, edema, varicosities, or palpable cord. Knees: no ligamentous instability on examination. Neurological Exam:Motor: normal bulk and tone and no tremors, rigidity, or bradykinesia. Gait and Station: normal gait and station. Cranial Nerves: grossly intact. Sensation: grossly intact. Skin:Inspection and palpation: no rash, lesions, ulcer, induration, nodules, jaundice, or abnormal nevi and good turgor. Nails: normal. Procedure DocumentationNone recorded Assessment and Plan 1. Fibromyalgia- without further findings suggestive of fibromyalgia, oa without findings of autoimmune disease with normal/stable labs will continue with current tx with amitriptyline at 25-50 mg qhs and tramadol 2 po 3x per dayM79.7: Fibromyalgia [employer] duloxetine 60 mg capsule,delayed release - Take 1 capsule(s) every day by oral route. ? Qty: (90)?capsule ? Refills: 1 ? Pharmacy: [facility] ? Note to Pharmacy: dose change; cannot tolerate reducing at this time amitriptyline 50 mg tablet - Take 1 tablet(s) every day by oral route at bedtime. ? Qty: (90)?tablet ? Refills: 1 ? Pharmacy: [facility] ? Note to Pharmacy: dose change 2. Degenerative joint disease involving multiple joints- chronic and recurring joint pain worsening without nsaids at this time due to recurring gut issues inflammatory labs were normal/negative worsening deep bone aching; joint pain worsening with weather changes continues on tramadol have her remain off the lyrica hysterectomy, with recent dysplasia and further treatment of the fracture on rt ankle with screws and plates; one year ago; had screws removed 04/10/18 h/o prior fx there alsoM15.9: Polyosteoarthritis, unspecified OSTEOARTHRITIS: CARE INSTRUCTIONS tramadol 50 mg tablet - Take 2 tablet(s) 3 times a day by oral route for 30 days. ? Qty: (180)?tablet ? Refills: 2 ? Pharmacy: [facility] 3. Osteopenia- per recent dexa scan with a t score of -1.4 she has a great vitamin d level and will start on calcium with vitamin dfilled for one year on 10/19/2022M85.80: Other specified disorders of bone density and structure, unspecified site 4. Vitamin B12 deficiency (non anemic)- recurring supplements in the past b12 was normal at 774E53.8: Deficiency of other specified B group vitamins 5. Vitamin D deficiency- recurring with recent vitamin d level of >60 E55.9: Vitamin D deficiency, unspecified 6. AzqyxrqoC93.00: Insomnia, unspecified doxepin 10 mg capsule - Take 1 capsule(s) 3 times a day by oral route for 90 days. ? Qty: (270)?capsule ? Refills: 3 ? Pharmacy: [facility] Return to Office BISMARK KEITH APRN for RHEUM RECHECK at RHEUMATOLOGY [facility] on 10/22/2023 at 11:00 AM Patient Medical History: Allergies List Reviewed Allergies HYDROCODONE: - unable to sleep IODINATED CONTRAST MEDIA: Vomiting - jittery SULFA (SULFONAMIDE ANTIBIOTICS): Nausea, Vomiting Medications Reviewed Medications NameDate Source amitriptyline 25 mg tabletTake 1 tablet(s) twice a day by oral route.05/22/23?prescribe d BISMARK KEITH APRN amitriptyline 50 mg tabletTake 1 tablet(s) every day by oral route at bedtime.06/25/23?prescri bed BISMARK KEITH APRN Azo Bladder LfktusD91/26/18?entered Monikaduc Wheatley baclofen 10 mg tablettake 1/2 to 1 tablet 3 times a day as hkupcx50/26/18?entered Monika Dioni Benadryl Allergy 25 mg tabletTake 25 mg by oral route as directed.07/31/22?prescr ibed BELINDA VELASQUEZ MD busPIRone 5 mg tabletTake 1 tablet(s) twice a day by oral route.10/19/22?entered Cheryl York Calcium 600 + D(3) 600 mg-10 mcg (400 unit) tabletTake 1 tablet(s) every day by oral route.10/19/22?prescribe jordon KEITH APRN cetirizine 10 mg capsuleTake by oral route.12/25/17?entered Monika Wheatley Co Q-?entered Monika Wheatley doxepin 10 mg capsuleTake 1 capsule(s) 3 times a day by oral route for 90 days.06/25/23?prescribed BISMARK KEITH APRN DULoxetine 30 mg capsule,delayed releaseTake 1 capsule(s) every day by oral route.05/22/23?prescribe jordon KEITH APRN DULoxetine 60 mg capsule,delayed releaseTake 1 capsule(s) every day by oral route.06/25/23?prescribe jordon KEITH APRN garlic 1,000 mg capsuleTake by oral route.12/25/17?entered Monika Dioni iron12/25/17?entered Monika Dioni krill oil12/25/17?entered Monika Dioni Lexapro 10 mg tabletTake 1 tablet at zbnkhih37/21/23?prescrib ed BELINDA VELASQUEZ MD meclizine 12.5 mg tablettake 1 to 1-1/2 tablets 3 times a day12/25/17?entered Monika Wheatley melatonin 5 mg capsuleTake by oral route.12/25/17?entered Monika Wheatley metoprolol succinate ER 25 mg tablet,extended release 24 hrTake 1 tablet(s) every day by oral route.12/25/17?entered Monika Wheatley Prevacid 30 mg capsule,delayed releaseTake 1 capsule(s) twice a day by oral route.01/23/22?entered BISMARK KEITH APRN Ktpbxyysu70/26/18?entere jordon Wheatley Stool Mxtwprms77/26/18?entered Monika Wheatley SUMAtriptan 100 mg tabletTake 1 tablet at onset of headache may /09/23?prescribe d BELINDA VELASQUEZ MD traMADoL 50 mg tabletTake 2 tablet(s) 3 times a day by oral route for 30 days.06/25/23?prescribed BISMARK KEITH APRN vitamin B /26/18?entered Monika Wheatley Vitamin C 1,000 mg tabletTake by oral route.12/25/17?entered Monikaduc Wheatley Vitamin D312/25/17?entered Monika Dioni Family HistoryReviewed Family History Unspecified Relation - Diabetes mellitus ?? - Family history of cancer ?? - Kidney stone Past Medical HistoryReviewed Past Medical History Acid Reflux (GERD):Y Arthritis:Y Hypertension:Y Vaccine HistoryNone recorded Electronically Signed by: BISMARK KEITH APRN, SUPERVISOR DELIVERY DEPARTMENT ASHLI Garcia (Nicole) [facility] 06/26/2023 14:28:15 Procedures Surgical History Date Name Laterality Status Provider Name and Address Organization Details Recorded Time 05/19/19 19 DXA Low Bone Mass 1 - No Tx completed ALEXANDRIA FENG MD [address] [place], [address], [facility] 05/19/2018 12:35:17 [facility] 13:12:52 Carpal tunnel surgery completed [facility] 07/19/2016 13:13:10 [facility] 13:13:14 procedure on femur completed Ольга Dingus [facility] 07/06/2021 08:42:09 total replacement of left knee joint completed Farrah Jojo [facility] 09/07/2022 08:35:59 Imaging Results Imaging Date Name Status LastModified by Organiz ation Details LastModified Time 08/17/2022 CT, abdomen, w/o contrast completed [email or web address] [facility] [address] [place], [address], 08/21/2022 11:57:25 Procedure Notes None recorded. Medical Equipment None Reported. Allergies Allergen ID Allergen Name Allergen Category Reaction Reaction Severity Criticality Documentation Date Start Date Code Code System Note Provider Name and Address Organization Details Recorded Time 639501 Substance with sulfonami de structure and antibacte rial mechanism of action (substanc e) medicatio n nausea vomiting Not available Not available Not available 07/19/2016 62912 8003 SN[facility]ED [facility] 13:11:15 669199 hydrocodo ne Not available Not available Not available Not available 07/19/2016 5489 RxNorm unabl e to sleep [facility] 08:34:15 337553 Iodinated contrast media (substanc e) medicatio n vomiting Not available Not available 09/07/2022 82775 2004 SNOMED jitte ry Farrah Jojo [facility] 3 08:35:02 Medications Name Sig Start Date Stop Date Status Note LastModified by Organization Details LastModified Time buspirone 5 mg tablet Take 1 tablet twice a day by oral route. active Not Available Not Available No t Available oxybutyni n chloride ER 10 mg tablet,ex tended release 24 hr Take 1 tablet every day by oral route for 30 days. 12/25 completed Not Available Not Available Not Available sumatript an 100 mg tablet Take 1 tablet at onset of headache may repeat 2022 active Not Available Not Available Not Avai lable Pyridium 200 mg tablet Take 1 tablet 3 times a day by oral route for 10 days. 12/25 completed Not Available Not Available Not Available meclizine 12.5 mg tablet take 1 to 1-1/2 tablets 3 times a day active Not Available Not Available No t Available doxepin 10 mg capsule Take 1 capsule 3 times a day by oral route for 90 days. 2023 active Not Available Not Available Not Avai lable tramadol 50 mg tablet Take by oral route for 30 days. 2023 active Not Available Not Available Not Avai lable amitripty line 50 mg tablet Take 1 tablet every day by oral route at bedtime. 2023 active Not Available Not Available Not Avai lable Prevacid 30 mg capsule,d elayed release Take 1 capsule twice a day by oral route. active Not Available Not Available No t Available garlic 1,000 mg capsule Take by oral route. active Not Available Not Available No t Available amitripty line 25 mg tablet Take 1 tablet twice a day by oral route. 2023 active Not Available Not Available Not Avai lable Vitamin C 1,000 mg tablet Take by oral route. active Not Available Not Available No t Available trazodone 100 mg tablet Take 1 tablet at bedtime 10/19 completed Not Available Not Available Not Available baclofen 10 mg tablet take 1/2 to 1 tablet 3 times a day as needed active Not Available Not Available No t Available prednison e 50 mg tablet Take 1 tablet by oral route as directed . 09/07 completed Not Available Not Available Not Available diclofena c sodium 75 mg tablet,de layed release Take 1 tablet twice a day by oral route. 05/13 completed Not Available Not Available Not Available metoprolo l succinate ER 25 mg tablet,ex tended release 24 hr Take 1 tablet every day by oral route. active Not Available Not Available No t Available Benadryl Allergy 25 mg tablet Take 25 mg by oral route as directed . 2022 active Not Available Not Available Not Avai lable Lexapro 10 mg tablet Take 1 tablet at bedtime 2022 active Not Available Not Available Not Avai lable duloxetin e 20 mg capsule,d elayed release take one po qhs 07/20 completed Not Available Not Available Not Available duloxetin e 30 mg capsule,d elayed release Take 1 capsule every day by oral route. 2023 active Not Available Not Available Not Avai lable duloxetin e 60 mg capsule,d elayed release Take 1 capsule by mouth once daily active Not Available Not Available No t Available Lyrica 50 mg capsule Take 1 capsule twice a day by oral route for 14 days. 05/13 completed Not Available Not Available Not Available Co Q-10 active Not Available Not Avail able Not Available vitamin B complex active Not Available Not Available Not Available iron active Not Available Not Availa ble Not Available Stool Softener active Not Available Not Available Not Available Vitamin D3 active Not Available Not Available Not Available Calcium 600 + D(3) 600 mg-10 mcg (400 unit) tablet Take 1 tablet every day by oral route. 2022 active Not Available Not Available Not Avai lable cetirizin e 10 mg capsule Take by oral route. active Not Available Not Available No t Available Dexilant 60 mg capsule, delayed release Take 1 capsule every day by oral route for 56 days. 01/23 completed Not Available Not Available Not Available melatonin 5 mg capsule Take by oral route. active Not Available Not Available No t Available Probiotic active Not Available Not Elizabeth ilable Not Available Suprep Bowel Prep Kit 17.5 gram-3.13 gram-1.6 gram oral solution As Directed 12/25 completed Instruct ions: Quantity QS;Frequ ency: as direct.; Medicati on Descript ion: magnesiu m/potass ium/sodi um sulfates ; Dosage:a s directed ; Route:or al; refills: 0; Quantity :1 liquid Not Available Not Available Not Available krill oil active Not Available Not Elizabeth ilable Not Available Azo Bladder Control active Not Available Not Available Not Available Vitals Date Recorded Body height Body mass index (BMI) Body weight Heart rate Systolic blood pressure Diastolic blood pressure Provider Name and Address Organization Details Last Updated DateTime 3 157.48 cm 30.7 kg/m2 75684.5 2 g 90 /min 130 mm[Hg] 86 mm[Hg] Gail Rich [facility] 3 15:44:35 Date Recorded Body height Body mass index (BMI) Body weight Heart rate Oxygen saturation Oxygen saturation in Arterial blood by Pulse oximetry Systolic blood pressure Diastolic blood pressure Provider Name and Address Organization Details Last Updated DateTime 3 157.48 cm 32.2 kg/m2 78542.6 6 g 104 /min 95 % 95 % 166 mm[Hg] 96 mm[Hg] Alexis Gilberthigh [facility] 3 08:55:10 Date Recorded Body height Body mass index (BMI) Body weight Heart rate Oxygen saturation Oxygen saturation in Arterial blood by Pulse oximetry Systolic blood pressure Diastolic blood pressure Provider Name and Address Organization Details Last Updated DateTime 3 157.48 cm 32.4 kg/m2 43217.8 5 g 82 /min 95 % 95 % 118 mm[Hg] 82 mm[Hg] Farrah Jojo [facility] 3 08:38:06 Date Recorded Body height Body mass index (BMI) Body weight Respiratory rate Heart rate Oxygen saturation Oxygen saturation in Arterial blood by Pulse oximetry Systolic blood pressure Diastolic blood pressure Provider Name and Address Organization Details Last Updated DateTime 3 157.48 cm 32.1 kg/m2 18955.7 6 g 16 /min 87 /min 96 % 96 % 124 mm[Hg] 70 mm[Hg] Cheryl Shashank [facility] 3 15:47:00 Date Recorded Body height Body mass index (BMI) Body weight Heart rate Oxygen saturation Oxygen saturation in Arterial blood by Pulse oximetry Systolic blood pressure Diastolic blood pressure Provider Name and Address Organization Details Last Updated DateTime 4 157.48 cm 31.1 kg/m2 97116.7 g 85 /min 97 % 97 % 118 mm[Hg] 86 mm[Hg] Rae Lucas [facility] 4 15:46:14 Social History Question Answer Notes LastModified by Organizat ion Details LastModified Time Tobacco Smoking Status Never Smoker Conner Olivera [facility] 07/19/2016 13:12:45 What Is Your Level Of Alcohol Consumption? None [email or web address] Information not available 07/19/2016 How Much Tobacco Do You Chew? None [email or web address] Information not available 08/12/2018 What Was The Date Of Your Most Recent Tobacco Screening? 06/25/2023 [email or web address] Information not available 06/25/2023 How Much Tobacco Do You Smoke? No [email or web address] Information not available 08/12/2018 Do You Use Any Illicit Or Recreational Drugs? No [email or web address] Information not available 04/24/2022 Has Tobacco Cessation Counseling Been Provided? No [email or web address] Information not available 04/24/2022 How Many Years Have You Smoked Tobacco? 0 [email or web address] Information not available 08/12/2018 Have You Recently Traveled Abroad? No [email or web address] Information not available 01/23/2022 Sex: Unknown Functional Status None recorded. Mental Status None recorded. Family History Relationship Description Onset Age of this Age Resolved Age Notes LastModified by Organization Details LastModified Time Unspecified Relation Diabetes mellitus [email or web address] Not available 2016 13:12:24 Unspecified Relation Family history of malignant neoplasm [email or web address] Not available 2016 13:12:29 Unspecified Relation Kidney stone [email or web address] Not available 13:12:37 Medical History Condition Response Allergies/Hayfever Y Diabetes N Bleeding Disorder N Arthritis Y Emphysema N Acid Reflux (GERD) Y Asthma N COPD N Depression Y High Cholesterol Y High PSA Y Heart Disease N Rheumatoid Arthritis N Hypertension Y Gynecological HistoryNo gynecological history recorded. Obstetrics History GPAL:G 0 P 0 0 0 0 Past Encounters Encounter ID Performer Location Encounter Start Date Encounter Closed Date Diagnosis/Indication Diagnosis SNOMED-CT Code Diagnosis ICD10 Code Diagnosis Note [id number] FIDELIA LOPEZ MD [facility] [address] [place] [address] ,[place] [address] 07/19/2016 12:23:14 07/20/2016 09:33:47 Painful urinary bladder spasm 3894337 R30.1 [id number] FIDELIA LOPEZ MD SURGERY SCHEDULE [address] [place] [address] 07/24/2016 13:46:20 07/24/2016 13:49:11 [id number] FIDELIA LOPEZ MD [facility] [address] [facility] [facility],[place] [address] 08/16/2016 13:49:55 08/17/2016 15:51:43 Dysuria 56539270 R30.1 [id number] BISMARK KETIH APRN RHEUMATOL [facility] [address] [place] [address] 12/25/2017 07:36:43 12/25/2017 09:51:22 Muscle pain 17785679 M79.1 recurring and dx with fibromyalg ia for years taking cymbalta and baclofen has not done hot water therapy or CBT with her treatment for years weather doesn't affect her will obtain further labs looking at autoimmune reasons behind her symptoms she has worsening complaints without improved outcome Multiple joint pain 3567 8005 M25.50 chronic and recurring joint pain worsening will obtain inflammato ry labs with swollen and tender joints without known family history Fatigue 08329401 R53.83 worsening fatigue without known thyroid history will obtain thyroid labs today Vitamin B1 2 deficiency (non anemic) 40990887 E53.8 recurring supplement s in the past will obtain further today Vitamin D deficiency 347 22156 E55.9 recurring will obtain further based on history of the same [id number] BISMARK KEITH APRN RHEUMATOL [facility] [address] [place] [address] 02/11/2018 08:11:19 02/11/2018 08:44:47 Muscle pain 57784691 M79.10 recurring and dx with fibromyalg ia for years taking cymbalta and baclofen has not done hot water therapy or CBT with her treatment for years weather doesn't affect her further labs looking at autoimmune reasons behind her symptoms which were normal/neg ative she will start on lyrica if allowed Multiple joint pain 3567 8005 M25.50 chronic and recurring joint pain worsening will obtain inflammato ry labs with swollen and tender joints without known family history Fatigue 22255258 R53.83 worsening fatigue without known thyroid history thyroid labs are normal Vitamin B1 2 deficiency (non anemic) 51295856 E53.8 recurring supplement s in the past will obtain further today Vitamin D deficiency 347 00310 E55.9 recurring will obtain further based on history of the same Fibromyalgia 405028499 M 79.7 without further findings suggestive of fibromyalg ia without findings of autoimmune disease with normal/sta ble labs today [id number] BISMARK KEITH APRN RHEUMATOL [facility] [address] [place] [address] 05/13/2018 08:19:48 05/13/2018 09:35:58 Fibromyalgia 230999970 M79.7 without further findings suggestive of fibromyalg ia, oa without findings of autoimmune disease with normal/sta ble labs Muscle pain 07463131 M79 .10 recurring and dx with fibromyalg ia for years taking cymbalta and baclofen has not done hot water therapy or CBT with her treatment for years further assessment was negative will await further tx until after outcome of tramadol and dexa scan Multiple joint pain 3567 8005 M25.50 chronic and recurring joint pain worsening without nsaids at this time due to recurring gut issues inflammato ry labs were normal/neg ative worsening deep bone aching; joint pain worsening with weather changes will start her on tramadol have her remain off the lyrica will await a dexa scan first before proceeding with further med changes Fatigue 54441476 R53.83 worsening fatigue without known thyroid history thyroid labs are normal Vitamin B1 2 deficiency (non anemic) 14719568 E53.8 recurring supplement s in the past b12 was normal at 774 Vitamin D deficiency 347 84073 E55.9 recurring with recent vitamin d level of >60 Menopausal syndrome 1237 33742 N95.9 had a hysterecto my with early onset of menopause will obtain dexa and await results for further tx [id number] ALEXANDRIA FENG MD [facility] [address] [place] [address] 05/19/2018 08:03:38 05/19/2018 08:22:23 Osteopenia 260924180 M85.9 [id number] BISMARK KEITH APRN RHEUMATOL [facility] [address] [place] [address] 08/12/2018 08:17:34 08/13/2018 15:05:21 Multiple joint pain 86112083 M25.50 chronic and recurring joint pain worsening without nsaids at this time due to recurring gut issues inflammato ry labs were normal/neg ative worsening deep bone aching; joint pain worsening with weather changes will start her on tramadol have her remain off the lyrica hysterecto my, fracture on rt ankle with screws and plates; one year ago; had screws removed 04/10/18 h/o prior fx there also Fibromyalgia 827953032 M 79.7 without further findings suggestive of fibromyalg ia, oa without findings of autoimmune disease with normal/sta ble labs requests a new chair and foot rest; will need to have an ergonomic evaluation Muscle pain 63393173 M79 .10 recurring and dx with fibromyalg ia for years taking cymbalta and baclofen has not done hot water therapy or CBT with her treatment for years further assessment was negative will await further tx until after outcome of tramadol and dexa scan Fatigue 59898896 R53.83 worsening fatigue without known thyroid history thyroid labs are normal Vitamin B1 2 deficiency (non anemic) 65466205 E53.8 recurring supplement s in the past b12 was normal at 774 Vitamin D deficiency 347 81253 E55.9 recurring with recent vitamin d level of >60 Osteopenia 022654028 M85 .80 per recent dexa scan with a t score of -1.4 she has a great vitamin d level and will start on calcium with vitamin d Hip pain 35577148 M25.55 9 with pulling in the left groin [id number] BISMARK KEITH APRN RHEUMATOL [facility] [address] [place] [address] 11/13/2018 08:50:50 11/25/2018 14:00:42 Fibromyalgia 356373859 M79.7 without further findings suggestive of fibromyalg ia, oa without findings of autoimmune disease with normal/sta ble labs requests a new chair and foot rest; will need to have an ergonomic evaluation Multiple joint pain 3567 8005 M25.50 chronic and recurring joint pain worsening without nsaids at this time due to recurring gut issues inflammato ry labs were normal/neg ative worsening deep bone aching; joint pain worsening with weather changes will start her on tramadol have her remain off the lyrica hysterecto my, fracture on rt ankle with screws and plates; one year ago; had screws removed 04/10/18 h/o prior fx there also Muscle pain 80972878 M79 .10 recurring and dx with fibromyalg ia for years taking cymbalta and baclofen has not done hot water therapy or CBT with her treatment for years further assessment was negative will await further tx until after outcome of tramadol and dexa scan Fatigue 26229921 R53.83 worsening fatigue without known thyroid history thyroid labs are normal Vitamin B1 2 deficiency (non anemic) 38912539 E53.8 recurring supplement s in the past b12 was normal at 774 Vitamin D deficiency 347 14690 E55.9 recurring with recent vitamin d level of >60 Osteopenia 331317548 M85 .80 per recent dexa scan with a t score of -1.4 she has a great vitamin d level and will start on calcium with vitamin d [id number] BISMARK KEITH APRN RHEUMATOL [facility] [address] [place] [address] 05/20/2019 15:17:58 05/20/2019 16:39:30 Fibromyalgia 689446225 M79.7 without further findings suggestive of fibromyalg ia, oa without findings of autoimmune disease with normal/sta ble labs will continue with current tx with amitriptyl ine and tramadol Vitamin B1 2 deficiency (non anemic) 55453412 E53.8 recurring supplement s in the past b12 was normal at 774 Vitamin D deficiency 347 69475 E55.9 recurring with recent vitamin d level of >60 Osteopenia 765666236 M85 .80 per recent dexa scan with a t score of -1.4 she has a great vitamin d level and will start on calcium with vitamin d Degenerati ve joint disease involving multiple joints 077553967 M15.9 chronic and recurring joint pain worsening without nsaids at this time due to recurring gut issues inflammato ry labs were normal/neg ative worsening deep bone aching; joint pain worsening with weather changes continues on tramadol have her remain off the lyrica hysterecto my, with recent dysplasia and further treatment of the fracture on rt ankle with screws and plates; one year ago; had screws removed 04/10/18 h/o prior fx there also [id number] BISMARK KEITH APRN RHEUMATOL [facility] [address] [place] [address] 05/13/2020 09:10:58 05/13/2020 15:19:31 Fibromyalgia 451850528 M79.7 without further findings suggestive of fibromyalg ia, oa without findings of autoimmune disease with normal/sta ble labs will continue with current tx with amitriptyl ine and tramadol Degenerati ve joint disease involving multiple joints 879691801 M15.9 chronic and recurring joint pain worsening without nsaids at this time due to recurring gut issues inflammato ry labs were normal/neg ative worsening deep bone aching; joint pain worsening with weather changes continues on tramadol have her remain off the lyrica hysterecto my, with recent dysplasia and further treatment of the fracture on rt ankle with screws and plates; one year ago; had screws removed 04/10/18 h/o prior fx there also Osteopenia 476954544 M85 .80 per recent dexa scan with a t score of -1.4 she has a great vitamin d level and will start on calcium with vitamin d Vitamin B1 2 deficiency (non anemic) 70942676 E53.8 recurring supplement s in the past b12 was normal at 774 Vitamin D deficiency 347 87717 E55.9 recurring with recent vitamin d level of >60 [id number] [facility]ISMARK KEITH [facility] [address] [place] [address] 07/06/2021 08:30:38 07/06/2021 09:50:59 Fibromyalgia 520717341 M79.7 without further findings suggestive of fibromyalg ia, oa without findings of autoimmune disease with normal/sta ble labs will continue with current tx with amitriptyl ine and tramadol Degenerati ve joint disease involving multiple joints 552320596 M15.9 chronic and recurring joint pain worsening without nsaids at this time due to recurring gut issues inflammato ry labs were normal/neg ative worsening deep bone aching; joint pain worsening with weather changes continues on tramadol have her remain off the lyrica hysterecto my, with recent dysplasia and further treatment of the fracture on rt ankle with screws and plates; one year ago; had screws removed 04/10/18 h/o prior fx there also Osteopenia 821647936 M85 .80 per recent dexa scan with a t score of -1.4 she has a great vitamin d level and will start on calcium with vitamin d Vitamin B1 2 deficiency (non anemic) 61744500 E53.8 recurring supplement s in the past b12 was normal at 774 Vitamin D deficiency 347 69130 E55.9 recurring with recent vitamin d level of >60 [id number] BISMARK KEITH APRN RHEUMATOL [facility] [address] [place] [address] 10/24/2021 14:45:11 10/24/2021 16:53:50 Fibromyalgia 580185911 M79.7 without further findings suggestive of fibromyalg ia, oa without findings of autoimmune disease with normal/sta ble labs will continue with current tx with amitriptyl ine at 25-50 mg qhs and tramadol 2 po 3x per day Degenerati ve joint disease involving multiple joints 602612150 M15.9 chronic and recurring joint pain worsening without nsaids at this time due to recurring gut issues inflammato ry labs were normal/neg ative worsening deep bone aching; joint pain worsening with weather changes continues on tramadol have her remain off the lyrica hysterecto my, with recent dysplasia and further treatment of the fracture on rt ankle with screws and plates; one year ago; had screws removed 04/10/18 h/o prior fx there also Osteopenia 114041005 M85 .80 per recent dexa scan with a t score of -1.4 she has a great vitamin d level and will start on calcium with vitamin d Vitamin B1 2 deficiency (non anemic) 60370244 E53.8 recurring supplement s in the past b12 was normal at 774 Vitamin D deficiency 347 25430 E55.9 recurring with recent vitamin d level of >60 [id number] BISMARK KEITH APRN RHEUMATOL [facility] [address] [place] [address] 01/23/2022 14:55:07 01/24/2022 10:29:40 Fibromyalgia 013404277 M79.7 without further findings suggestive of fibromyalg ia, oa without findings of autoimmune disease with normal/sta ble labs will continue with current tx with amitriptyl ine at 25-50 mg qhs and tramadol 2 po 3x per day Degenerati ve joint disease involving multiple joints 806045322 M15.9 chronic and recurring joint pain worsening without nsaids at this time due to recurring gut issues inflammato ry labs were normal/neg ative worsening deep bone aching; joint pain worsening with weather changes continues on tramadol have her remain off the lyrica hysterecto my, with recent dysplasia and further treatment of the fracture on rt ankle with screws and plates; one year ago; had screws removed 04/10/18 h/o prior fx there also Osteopenia [id number] M85 .80 per recent dexa scan with a t score of -1.4 she has a great vitamin d level and will start on calcium with vitamin d Vitamin B1 2 deficiency (non anemic) [id number] E53.8 recurring supplement s in the past b12 was normal at 774 Vitamin D deficiency 347 99176 E55.9 recurring with recent vitamin d level of >60 [id number] BISMARK KEITH APRN RHEUMATOL OGY [address] [place] [address] 04/24/2022 15:01:37 04/25/2022 04:38:36 Fibromyalgia [id number] M79.7 without further findings suggestive of fibromyalg ia, oa without findings of autoimmune disease with normal/sta ble labs will continue with current tx with amitriptyl ine at 25-50 mg qhs and tramadol 2 po 3x per day Degenerati ve joint disease involving multiple joints [id number] M15.9 chronic and recurring joint pain worsening without nsaids at this time due to recurring gut issues inflammato ry labs were normal/neg ative worsening deep bone aching; joint pain worsening with weather changes continues on tramadol have her remain off the lyrica hysterecto my, with recent dysplasia and further treatment of the fracture on rt ankle with screws and plates; one year ago; had screws removed 04/10/18 h/o prior fx there also Osteopenia [id number] M85 .80 per recent dexa scan with a t score of -1.4 she has a great vitamin d level and will start on calcium with vitamin d Vitamin B1 2 deficiency (non anemic) 07867914 E53.8 recurring supplement s in the past b12 was normal at 774 Vitamin D deficiency 347 67882 E55.9 recurring with recent vitamin d level of >60 [id number] BELINDA VELASQUEZ MD NEUROLOGY [address] [place] [address] 07/20/2022 08:49:01 07/25/2022 14:53:10 Dizzy spells [id number] R42 Migraine 13873950 G43.90 9 Mixed anxi ety and depressive disorder 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 F41.8 [id number] BELINDA VELASQUEZ MD NEUROLOGY [address] [place] [address] 09/07/2022 08:18:51 09/07/2022 12:40:49 Migraine 70596950 G43.909 Mixed anxi ety and depressive disorder 318732033 F41.8 Insomnia 860521427 G47.0 0 [id number] BISMARK KEITH APRN RHEUMATOL OGY [address] [place] [address] 10/19/2022 15:20:15 10/20/2022 05:01:39 Fibromyalgia 708357056 M79.7 without further findings suggestive of fibromyalg ia, oa without findings of autoimmune disease with normal/sta ble labs will continue with current tx with amitriptyl ine at 25-50 mg qhs and tramadol 2 po 3x per day Degenerati ve joint disease involving multiple joints [id number] M15.9 chronic and recurring joint pain worsening without nsaids at this time due to recurring gut issues inflammato ry labs were normal/neg ative worsening deep bone aching; joint pain worsening with weather changes continues on tramadol have her remain off the lyrica hysterecto my, with recent dysplasia and further treatment of the fracture on rt ankle with screws and plates; one year ago; had screws removed 04/10/18 h/o prior fx there also Osteopenia [id number] M85 .80 per recent dexa scan with a t score of -1.4 she has a great vitamin d level and will start on calcium with vitamin dfilled for one year on 10/19/2022 Vitamin B1 2 deficiency (non anemic) 30477819 E53.8 recurring supplement s in the past b12 was normal at 774 Vitamin D deficiency 347 80775 E55.9 recurring with recent vitamin d level of >60 [id number] BISMARK KEITH APRN RHEUMATOL OGY [address] [place] [address] 06/25/2023 14:33:44 06/26/2023 04:39:07 Fibromyalgia [id number] M79.7 without further findings suggestive of fibromyalg ia, oa without findings of autoimmune disease with normal/sta ble labs will continue with current tx with amitriptyl ine at 25-50 mg qhs and tramadol 2 po 3x per day Degenerati ve joint disease involving multiple joints 726348713 M15.9 chronic and recurring joint pain worsening without nsaids at this time due to recurring gut issues inflammato ry labs were normal/neg ative worsening deep bone aching; joint pain worsening with weather changes continues on tramadol have her remain off the lyrica hysterecto my, with recent dysplasia and further treatment of the fracture on rt ankle with screws and plates; one year ago; had screws removed 04/10/18 h/o prior fx there also Osteopenia 056956399 M85 .80 per recent dexa scan with a t score of -1.4 she has a great vitamin d level and will start on calcium with vitamin dfilled for one year on 10/19/2022 Vitamin B1 2 deficiency (non anemic) 20283523 E53.8 recurring supplement s in the past b12 was normal at 774 Vitamin D deficiency 347 33879 E55.9 recurring with recent vitamin d level of >60 Insomnia [id number] G47.0 0 Health Concerns Section Related Observation LastModified by Organization Detai ls LastModified Time None Recorded Concern Status LastModified by Organization Details LastModified Time None Recorded Advance Directives Directive None Recorded Payers Encounter Date Sequence Insurance Name Policy Number Policy Shah Covered Member ID Shah Member ID Guarantor Name 04/24/2022 1 [facility] [employer]) [id number] Cornelio Nesbitt [id number] Cornelio Nesbitt 07/20/2022 1 [facility]: [employer] [id number] Cornelio Nesbitt [id number] Cornelio Nesbitt 09/07/2022 1 [place] [employer] ([place]) [id number] Cornelio Nesbitt [id number] Cornelio Nesbitt 10/19/2022 1 [facility] [id number] Cornelio Nesbitt [id number] Cornelio Nesbitt 06/25/2023 1 [facility]) [id number] Cornelio Nesbitt [id number] Cornelio Nesbitt Notes Date Note Type Note Provider Name and Address Organization Details Recorded Time 04/24/2022 text/html follow-up on fibromyalgia and osteoarthritis; she continues with myalgia and arthralgia; with left leg fx last november; she has continued muscle and joint pain and feels like she is having moving parts in the buttocks from it; fatigue remains an issue; she had her DEXA scan prior; feeling flared with weather changes, she is without interval infection; she has no s/e from medications, though her current regimen is not working well, she would like to decrease off of her duloxetine; currently denies bowel or bladder changes, chest pain, shortness of air, rashes, fevers and all others are negative BISMARK KEITH, [employer] [address] [place], [address], [facility] 04/24/2022 16:05:03 07/20/2022 text/html 57-year-old fema le with history of anxiety depression also chronic knee pain due to fracture and previous knee replacement, history of fibromyalgia as well as chronic headaches. Presents for follow-up today, overall complains of episodes of feeling hot and sweaty, her face turns red as well. Unclear as to whether or not these are associated with anxiety but patient does feel that with increased stress they tend to be worse. Patient has occasional headaches, they tend to be unilateral, sometimes throbbing in nature. Overall she feels that stress has made her symptoms worse. We will try to obtain records from her previous office visits BELINDA VELASQUEZ MD [address] [place], [address], [facility] 07/20/2022 09:52:41 09/07/2022 text/html Patient follows up today, still has episodes of flushing and sweating that she feels may be anxiety related. We have gone ahead with a fairly extensive work-up, check metanephrines slight elevation noted, but CT of the abdomen was unremarkable. Patient does complain of a lot of anxiety and depression, we have started her on Lexapro 10 mg but she cannot tell much of a difference. She does feel that there may be some reactive depression due to the of her [id number]. I have recommended consideration for behavioral health evaluation. She is in agreement. Other issues have been persistent insomnia, she has been on a combination of both amitriptyline and doxepin, still has difficulty with falling asleep. Patient has not tried trazodone. Headache crowley doing well, she uses as needed Imitrex and this is worked well as an abortive agent. BELINDA VELASQUEZ MD [address] [place], [address], [facility] 09/07/2022 09:24:10 10/19/2022 text/html follow-up on fibromyalgia and osteoarthritis; she continues with myalgia and arthralgia; with left leg fx last november; she has continued muscle and joint pain and feels like she is having moving parts in the buttocks from it; fatigue remains an issue; she had her DEXA scan prior; feeling flared with weather changes, she is without interval infection; she has no s/e from medications, though her current regimen is not working well, she would like to decrease off of her duloxetine; currently denies bowel or bladder changes, chest pain, shortness of air, rashes, fevers and all others are negative BISMARK KEITH APRN [address] [place], [address], [facility] 10/19/2022 16:00:04 06/25/2023 text/html follow-up on fibromyalgia and osteoarthritis; she continues with myalgia and arthralgia; with left leg fx last november,; with covid in April 2023; she has continued muscle and joint pain and feels like she is having moving parts in the buttocks from it; fatigue remains an issue; she had her DEXA scan prior; feeling flared with weather changes, she is without interval infection; she has no s/e from medications, though her current regimen is not working well, she would like to decrease off of her duloxetine; currently denies bowel or bladder changes, chest pain, shortness of air, rashes, fevers and all others are negative BISMARK KEITH APRN [address], [address], [facility] 06/25/2023 17:00:28 OBGyn Episode No OBEpisode recorded.
== END 2024-07-06 23:59 | disposition home or self-care (01) ==
LOC: RAD 13:48
PROVIDERS: PCP Nurse Practitioner Family; Visit Provider Student in an Organized Health Care Education/Training Program
DX: E04.1 Nontoxic single thyroid nodule (principal); M21.611 Bunion of right foot; M77.41 Metatarsalgia, right foot; M21.6X1 Other acquired deformities of right foot
CPT/HCPCS: 73718; 76536

== ENCOUNTER 2024-07-15 11:39 | Outpatient (CLI) | payer OTHER, SELFPAY ==
--- OUTSIDE RECORDS SUMMARY | 2024-07-15 11:41 | XMS_ITS | Data Portability ---
Author Organization [place] [facility] [place] DESI You ALVA CLOSED Address [address] [facility] [facility] [place] [address] Care Team Providers Care Relays Draftsperson Name Role Phone BISMARK KEITH Referring Provider RAHUL GRACE Primary Care Provider [...] e + normetaneph rine, plasma 2022 023 [facility], [address] [place] [address], [id number], 04/30/202 3 16:17:03 TSH, serum or plasma 2022 023 [facility], [address] [place], [address], 3 11:15:22 T4, free, serum 2022 023 [facility], [address] [place], [address], 3 11:15:20 Referral behavioral health referral - History of depression and anxiety, on Lexapro but still with significant anxiety reaction. Have recommended behavioral health evaluation. 2022 023 nia 5 [facility], [address], [place], [address], 3 13:48:57 Procedures None recorded. Surgeries None recorded. Imaging None recorded. Medication Orders tramadol 50 mg tablet 2023 024 [facility], [address] [place] [address], [address], 4 16:13:55 duloxetine 60 mg capsule,del ayed release 2023 024 [facility], [address] [place] [address], [address], 4 16:13:51 amitriptyli ne 50 mg tablet 2023 024 [facility] [address], [address] [place] [address], [address], 4 16:13:53 doxepin 10 mg capsule 2023 024 [facility], [address] [place], [address], 4 16:13:54 tramadol 50 mg tablet 2022 023 [facility], [address] [place] [address], [address], 3 16:04:37 amitriptyli ne 25 mg tablet 2022 023 [facility], [address] [place] [address], [address], 3 16:04:34 Calcium 600 + D(3) 600 mg-10 mcg (400 unit) tablet 2022 023 [facility], [address] [place] [address], [address], 3 16:04:35 sumatriptan 100 mg tablet 2022 023 [facility], [address] [place] [address], [address], 3 09:23:25 trazodone 100 mg tablet 2022 023 [facility], [address] [place] [address], [address], 3 15:57:29 sumatriptan 100 mg tablet 2022 023 [facility], [address] [place] [address], [address], 3 11:27:34 Lexapro 10 mg tablet 2022 023 [facility], [address] [place] [address], [address], 3 11:27:34 tramadol 50 mg tablet 2022 023 [facility], [address] [place] [address], [address], 3 16:12:57 amitriptyli ne 25 mg tablet 2022 023 [facility], [address] [place] [address], [address], 16:12:54 duloxetine 30 mg capsule,del ayed release 2022 023 [facility], [address] [place] [address], [address], 08:55:59 Calcium 600 + D(3) 600 mg-10 mcg (400 unit) tablet 2022 023 [facility], [address] [place] [address], [address], 16:12:56 Patient TargetsNo targets recorded. Patient Instructions Encounter Date Encounter Id Patient Instructions Last Modified By Organization Details Last Modified Time 04/24/2022 [id number] osteoarthritis: care instructions smoberly Not available 04/24/2022 16:04:57 body mechanics education smoberly Not available 04/24/2022 16:04:57 10/19/2022 [id number] osteoarthritis: care instructions smoberly Not available 10/19/2022 15:59:52 body mechanics education smoberly Not available 10/19/2022 15:59:52 06/25/2023 [id number] osteoarthritis: care instructions smoberly Not available 06/25/2023 [...] 1.15 NG/dL 0.93-1 .70 normal Not Available [facility] [address] [place], [address], 07/20/2022 11:15:20 07/21/19 23 07/20/2022 TSH TSH 3.650 uIU/m L 0.270- 4.200 normal Not Available [facility] [address] [place], [address], 07/20/2022 11:15:22 07/21/19 23 07/29/2022 METAN EPHRI TAYLA, FRACT . PLASM A metanephrine 29 pg/mL < or = 57 normal This test was devel oped and its nilsa tical perfo rmanc e cony cteri stics have been deter mined by [facility] . It has not been clear ed or appro kong by FDA. This assay has been valid ated pursu ant to the CLIA regul ation s and is used for clini eric purpo ses. Not Available [facility] [address] [place], [address], 07/29/2022 16:17:02 07/21/19 23 07/29/2022 METAN EPHRI [...] for clini eric purpo ses. Not Available [facility] [address] [place], [address], 07/29/2022 16:17:02 07/21/19 23 07/29/2022 METAN EPHRI TAYLA, FRACT . PLASM A total metanephrine 220 pg/mL < or = 205 high [place] tions > 4-fol d upper refer ence range : stron gly sugge stive of a pheoc hromo cytom a(1). [place] tions >1 - 4-fol d upper refer [...] infor tin baig e refer to http: //[facility] isacc patel.que stdia gnost ics.c om/fa q/Met Fract Free (This link is being provi ded for infor matio nal/e ducat ional purpo ses only. ) This test was devel oped and its nilsa tical perfo rmanc e cony cteri stics have been deter mined by [facility] . It has not been clear ed or appro kong by FDA. This assay has been valid ated pursu ant to the CLIA regul ation s and is used for clini eric purpo ses. TEST PERFO RMED AT: [facility] [address] [place] [address] Marek ALBA,PHD ,[place] Not Available [facility] [address] [place] [address], [address], 07/29/2022 16:17:02 08/18/19 23 08/17/2022 CT, abdom en, w/o contr ast [address] [address] Debbie brown Name: CORNELIO brown : 1964 [...] Dey MD on 023 3:37 PM rraab3 [facility] [address], [address], 08/21/2022 11:57:25 Result Notes None recorded. Problems Name Problem SNOMED Code Status Onset Date Resolution Date Notes Provider Name and Address Organization Details Recorded Time Fibromyalgia 977971968 Active 2019 Not Available [facility] 17:36:47 Problem Notes Documentation Provider Name and Address Organization Details Recorded Time Progress Note : [facility] ? ? [address] [place] [id number], Leia (id #[id number], : 1965) [address],??[place]?[address] Phone:?? Fax:?? Encounter Summary - Progress Note [...] received this fax in error, please visit [email or web address] to notify the sender and confirm that the information will be destroyed. If you do not have internet access, please call to notify the sender and confirm that the information will be destroyed. Thank you for your attention and cooperation. [ID:[id number]] Patient Cornelio Nesbitt (57yo, F) #[id number] 1965 ?? Patient Demographics: Address [address] [place] [phone] ? Work Phone ?? Encounter Notes: Encounter [...] Qty: (180)?tablet ? Refills: 1 ? Pharmacy: [facility] ? Note to Pharmacy: dose change [employer]UC[employer] duloxetine 30 mg capsule,delayed release - Take 1 capsule(s) every day by oral route. ? Qty: (90)?capsule ? Refills: 1 ? Pharmacy: [facility] ? Note to Pharmacy: reducing dose [...] Qty: (180)?tablet ? Refills: 2 ? Pharmacy: [facility] 3. Osteopenia- per recent dexa scan [...] (90)?tablet ? Refills: 3 ? Pharmacy: [facility] 4. Vitamin B12 deficiency (non anemic)- [...] oral route.04/24/22?prescribe jordon KEITH APRN Azo Bladder YatqpdG26/26/18?entered Monika Dioni baclofen 10 mg tablettake 1/2 to 1 tablet 3 times a day as /26/18?entered Monika Dioni Calcium 600 + D(3) 600 [...] day by oral route.01/23/22?entered BISMARK KEITH APRN Gpqvcohvh36/26/18?entere d Monika Wheatley Stool Dheqlorh22/26/18?entered Monika Aguirreate traMADoL 50 mg tabletTake 2 tablet(s) 3 times a day by oral route for 30 days.04/24/22?prescribed BISMARK KEITH APRN vitamin B vfzukvk30/26/18?entered Monika Wheatley Vitamin C 1,000 mg tabletTake by oral route.12/25/17?entered Monika Dioni Vitamin D312/25/17?entered Monika Dioni Family HistoryReviewed Family History Unspecified Relation - Diabetes mellitus ?? - Family history of cancer ?? - Kidney stone Past Medical HistoryReviewed Past Medical History Acid Reflux (GERD):Y Arthritis:Y Hypertension:Y Vaccine HistoryNone recorded Electronically Signed by: BISMARK KEITH APRN, SAUSAGE WRAPPER ASHLI Gtz - [facility] 05/03/2022 14:44:52 Progress Note : [facility] ? ? [address] [facility] [id number], Leia (id #[id number], : 1965) [address],??[place]?[address] Phone:?? Fax:?? Encounter Summary - Progress Note [...] received this fax in error, please visit [email or web address] to notify the sender and confirm that the information will be destroyed. If you do not have internet access, please call to notify the sender and confirm that the information will be destroyed. Thank you for your attention and cooperation. [ID:[id number]] Patient Cornelio Nesbitt (57yo, F) #[id number] 1965 ?? Patient Demographics: Address [address] [place] [phone] ? Work Phone ?? Encounter Notes: Encounter Reason/DateTransition of Care Encounter 07/20/2022 - 09:00AM - NEUROLOGY SB History of Present Ncqvxpz51-pswd-gqn female with history of anxiety depression also [...] am Wt: 176 lbs 4 oz With tmsvyyv2807/20/2022 08:53 am BMI: 32. 08:53 am BP: 166/96 sitting L arm07/20/2022 08:55 am Pulse: 104 bpm lvobwhy1607/20/2022 08:55 am O2Sat: 95% Room Air at [...] next 4 to 6 weeks. 1. Dizzy zkxpmsW58: Dizziness and giddiness METANEPHRINE,FRACTIONATED, PLASMA THYROID STIMULATING HORMONE (TSH) T4 FREE 2. ZbuukyfnV19.909: Migraine, unspecified, not intractable, without status migrainosus sumatriptan 100 mg tablet - Take 1 tablet at onset of headache may repeat ? Qty: (9)?tablet ? Refills: 3 ? Pharmacy: [facility] 3. Mixed anxiety and depressive ndijkcdcI92.8: Other specified anxiety disorders Lexapro 10 mg tablet - Take 1 tablet at bedtime ? Qty: (30)?tablet ? Refills: 3 ? Pharmacy: [facility] Return to Office BISMARK KEITH APRN for RHEUM RECHECK at RHEUMATOLOGY SB on 10/19/2022 at 03:45 PM Patient Medical History: Allergies List Reviewed Allergies HYDROCODONE SULFA (SULFONAMIDE ANTIBIOTICS) Medications Reviewed Medications NameDate Source amitriptyline 25 mg tabletTake 1 tablet(s) twice a day by oral route.04/24/22?prescribe jordon KEITH APRN Azo Bladder QtkgurS07/26/18?entered Monika Dioni baclofen 10 mg tablettake 1/2 to 1 tablet 3 times a day as /26/18?entered Monika Dioni Calcium 600 + D(3) 600 mg-10 mcg (400 unit) tabletTake 1 tablet(s) every day by oral route.04/24/22?prescribe jordon KEITH APRN cetirizine 10 mg capsuleTake by oral route.12/25/17?entered Monika Dioni Co Q-?entered Monika Dioni garlic 1,000 mg capsuleTake by oral route.12/25/17?entered Monika Dioni iron12/25/17?entered Monika Dioni krill oil12/25/17?entered Monika Dioni Lexapro 10 mg tabletTake 1 tablet at jdilmjm72/21/23?prescrib ed BELINDA VELASQUEZ MD meclizine 12.5 mg tablettake 1 to 1-1/2 tablets 3 times a day12/25/17?entered Monika Dioni melatonin 5 mg capsuleTake by oral route.12/25/17?entered Monika Dioni metoprolol succinate ER 25 mg tablet,extended release 24 hrTake 1 tablet(s) every day by oral route.12/25/17?entered Monika Dioni Prevacid 30 mg capsule,delayed releaseTake 1 capsule(s) twice a day by oral route.01/23/22?entered BISMARK KEITH APRN Abynbnimo80/26/18?entere d Monika Aguirreate Stool Gmdaksen44/26/18?entered Monika Dioni SUMAtriptan 100 mg tabletTake 1 tablet at onset of headache may /21/23?prescribe d BELINDA VELASQUEZ MD traMADoL 50 mg tabletTake 2 tablet(s) 3 times a day by oral route for 30 days.04/24/22?prescribed BISMARK KEITH APRN vitamin B jvqsils22/26/18?entered Monika Dioni Vitamin C 1,000 mg tabletTake by oral route.12/25/17?entered Monika Dioni Vitamin D312/25/17?entered Monika Dioni Family HistoryReviewed Family History Unspecified Relation - Diabetes mellitus ?? - Family history of cancer ?? - Kidney stone Past Medical HistoryReviewed Past Medical History Arthritis:Y Depression:Y High Cholesterol:Y Hypertension:Y Vaccine HistoryNone recorded Electronically Signed by: BELINDA VELASQUEZ MD ASHLI Gtz [facility] 07/23/2022 10:43:06 Neurologist Consult Note : [facility] ? ? [address] [facility] [id number], Leia (id #[id number], : 1965) [address],??[place]?[address] Phone:?? Fax:?? Encounter Summary - Progress Note [...] received this fax in error, please visit [email or web address] to notify the sender and confirm that the information will be destroyed. If you do not have internet access, please call to notify the sender and confirm that the information will be destroyed. Thank you for your attention and cooperation. [ID:[id number]] Patient Cornelio Nesbitt (57yo, F) #[id number] 1965 ?? Patient Demographics: Address [address] [place] [phone] ? Work Phone ?? Encounter Notes: Encounter [...] reactive depression due to the of her iaunwbv-lx-xkl. I have recommended consideration for behavioral health [...] in09/07/2022 08:33 am Wt: 177 lbs With qaoclrl6709/07/2022 08:33 am BMI: 32.406 08:33 am BP: [...] evaluation by John Ozuna, behavioral health. 1. TuhuqpkrX47.909: Migraine, unspecified, not intractable, without status migrainosus sumatriptan 100 mg tablet - Take 1 tablet at onset of headache may repeat ? Qty: (9)?tablet ? Refills: 5 ? Pharmacy: [facility] 2. Mixed anxiety and depressive fzwxdpkeP55.8: Other specified anxiety disorders BEHAVIORAL HEALTH REFERRAL - ?Schedule Within: provider's discretion?Note to Provider: History of depression and anxiety, on Lexapro but still with significant anxiety reaction. Have recommended behavioral health evaluation.Place of service: OFFICE # of requested visits: 6 Procedure code: 41878, 61021, 95235, 01642, 18785, 35784, 84438, 11032, 85073, 64426 Authorization: LEX Carter (PPO) [place]QU[place] [address], [address], 00923, 60845, [address], 31525, 18226, 58314, [address]7531, [address]674 3. WccayavnP84.00: Insomnia, unspecified trazodone 100 mg tablet - Take 1 tablet at bedtime ? Qty: (30)?tablet ? Refills: 3 ? Pharmacy: [facility] Return to Office BISMARK KEITH APRN for RHEUM RECHECK at RHEUMATOLOGY SB on 10/19/2022 at 03:45 PM Patient Medical History: Allergies List Reviewed Allergies HYDROCODONE: - unable to sleep IODINATED CONTRAST MEDIA: Vomiting - jittery SULFA (SULFONAMIDE ANTIBIOTICS): Nausea, Vomiting Medications Reviewed Medications NameDate Source amitriptyline 25 mg tabletTake 1 tablet(s) twice a day by oral route.04/24/22?prescribe jordon KEITH APRN Azo Bladder AhmjesF47/26/18?entered Monika Wheatley baclofen 10 mg tablettake 1/2 to 1 tablet 3 times a day as cxxlih56/26/18?entered Monika Wheatley Benadryl Allergy 25 mg tabletTake [...] Lexapro 10 mg tabletTake 1 tablet at /21/23?prescrib ed BELINDA VELASQUEZ MD meclizine 12.5 mg tablettake 1 to 1-1/2 tablets 3 times a day12/25/17?entered Monika Dioni melatonin 5 mg capsuleTake by oral route.12/25/17?entered Monika Dioni metoprolol succinate ER 25 mg tablet,extended release 24 hrTake 1 tablet(s) every day by oral route.12/25/17?entered Monika Dioni Prevacid 30 mg capsule,delayed releaseTake 1 capsule(s) twice a day by oral route.01/23/22?entered BISMARK KEITH APRN Cuojipeox32/26/18?entere d Monika Wheatley Stool Ypryjjjv22/26/18?entered Monika Dioni SUMAtriptan 100 mg tabletTake 1 tablet at onset of headache may /09/23?prescribe d BELINDA VELASQUEZ MD traMADoL 50 mg tabletTake 2 tablet(s) 3 times a day by oral route for 30 days.04/24/22?prescribed BISMARK KEITH, IMER traZODone 100 mg tabletTake 1 tablet at /09/23?prescrib ed BELINDA VELASQUEZ MD vitamin B /26/18?entered Monika Dioni Vitamin C 1,000 mg tabletTake by oral route.12/25/17?entered Monika Dioni Vitamin D312/25/17?entered Monika Dioni Family HistoryReviewed Family History Unspecified Relation - Diabetes mellitus ?? - Family history of cancer ?? - Kidney stone Past Medical HistoryReviewed Past Medical History Arthritis:Y Depression:Y High Cholesterol:Y Hypertension:Y Vaccine HistoryNone recorded Electronically Signed by: BELINDA VELASQUEZ MD June Anabell lopez, ASHLI - [facility] 09/10/2022 08:35:53 Progress Note : [facility] ? ? [address] [facility] [id number], Leia (id #[id number], : 1965) [facility] [address] [facility],??[place]?[address] Phone:?? Fax:?? Encounter Summary - Progress Note [...] received this fax in error, please visit [email or web address] to notify the sender and confirm that the information will be destroyed. If you do not have internet access, please call to notify the sender and confirm that the information will be destroyed. Thank you for your attention and cooperation. [ID:[id number]] Patient Cornelio Nesbitt (57yo, F) #[id number] 1965 ?? Patient Demographics: Address [address] [place] [address] [place] [address] ? Work Phone ?? Encounter Notes: Encounter [...] pm Wt: 175 lbs 6 oz With utpxmmf8310/19/2022 03:44 pm BMI: 32.107 03:44 pm BP: 124/70 sitting R arm10/19/2022 03:47 pm BP Cuff Size: adult10/19/2022 03:45 pm Pulse: 87 bpm avzzxyj9710/19/2022 03:45 pm RR: 1607 03:45 pm O2Sat: [...] (180)?tablet ? Refills: 3 ? Pharmacy: [facility] [employer]UC[employer] 2. Degenerative joint [...] Qty: (180)?tablet ? Refills: 2 ? Pharmacy: [facility] 3. Osteopenia- per recent dexa scan [...] Qty: (90)?tablet ? Refills: 3 ? [facility] 4. Vitamin B12 deficiency (non anemic)- [...] oral route.10/19/22?prescribe jordon KEITH APRN Azo Bladder ZwnpydH69/26/18?entered Monika Dioni baclofen 10 mg tablettake 1/2 to 1 tablet 3 times a day as kseryt69/26/18?entered Monika Dioni Benadryl Allergy 25 mg tabletTake [...] by oral route.12/25/17?entered Monika Dioni iron12/25/17?entered Monika Idoni krill oil12/25/17?entered Monika Dioni Lexapro 10 mg tabletTake 1 tablet at niilcae57/21/23?prescrib ed BELINDA VELASQUEZ MD meclizine 12.5 mg tablettake 1 to 1-1/2 tablets 3 times a day12/25/17?entered Monika Dioni melatonin 5 mg capsuleTake by oral route.12/25/17?entered Monika Dioni metoprolol succinate ER 25 mg tablet,extended release 24 hrTake 1 tablet(s) every day by oral route.12/25/17?entered Monika Wheatley Prevacid 30 mg capsule,delayed releaseTake 1 capsule(s) twice a day by oral route.01/23/22?entered BISMARK KEITH APRN Dwtbdwlif46/26/18?entere d Mnoika Wheatley Stool Inbjvism37/26/18?entered Monika Wheatley SUMAtriptan 100 mg tabletTake 1 tablet at onset of headache may hlwpza24/09/23?prescribe d BLEINDA VELASQUEZ MD traMADoL 50 mg tabletTake 2 tablet(s) 3 times a day by oral route for 30 days.10/19/22?prescribed BISMARK KEITH APRN vitamin B sgiccan32/26/18?entered Monika Wheatley Vitamin C 1,000 mg tabletTake by oral route.12/25/17?entered Monika Wheatley Vitamin D312/25/17?entered Monika Dioni Family HistoryReviewed Family History Unspecified Relation - Diabetes mellitus ?? - Family history of cancer ?? - Kidney stone Past Medical HistoryReviewed Past Medical History Acid Reflux (GERD):Y Arthritis:Y Hypertension:Y Vaccine HistoryNone recorded Electronically Signed by: BISMARK KEITH APRN, SAUSAGE WRAPPER ASHLI Gtz - [facility] 10/22/2022 12:50:59 Progress Note : [facility] ? ? [address] [place] [id number], Leia (id #[id number], : 1965) [address],??[place]?[address] Phone:?? Fax:?? Encounter Summary - Progress Note [...] received this fax in error, please visit [email or web address] to notify the sender and confirm that the information will be destroyed. If you do not have internet access, please call to notify the sender and confirm that the information will be destroyed. Thank you for your attention and cooperation. [ID:[id number]] Patient Cornelio Nesbitt (58yo, F) #[id number] 1965 ?? Patient Demographics: Address [address] [place] [phone] ? Work Phone ?? Encounter Notes: Encounter [...] in06/25/2023 03:42 pm Wt: 170 lbs With cjvambb8306/25/2023 03:43 pm BMI: 31. 03:43 pm BP: 118/86 sitting R arm06/25/2023 03:46 pm BP Cuff Size: adult06/25/2023 03:46 pm Pulse: 85 bpm qsyroxm3106/25/2023 03:45 pm O2Sat: 97% Room Air at [...] Qty: (90)?capsule ? Refills: 1 ? Pharmacy: [facility] ? Note to Pharmacy: dose change; cannot tolerate reducing at this time amitriptyline 50 mg tablet - Take 1 tablet(s) every day by oral route at bedtime. ? Qty: (90)?tablet ? Refills: 1 ? Pharmacy: [facility] ? Note to Pharmacy: dose [...] Qty: (180)?tablet ? Refills: 2 ? Pharmacy: [facility] 3. Osteopenia- per recent dexa scan [...] >60 E55.9: Vitamin D deficiency, unspecified 6. BlsfxuwlD47.00: Insomnia, unspecified doxepin 10 mg capsule - Take 1 capsule(s) 3 times a day by oral route for 90 days. ? Qty: (270)?capsule ? Refills: 3 ? Pharmacy: [facility] 493 Return to Office BISMARK KEITH [...] bedtime.06/25/23?prescri bed BISMARK KEITH APRN Azo Bladder XsbphmW51/26/18?entered Monikaduc Wheatley baclofen 10 mg tablettake 1/2 to 1 tablet 3 times a day as yrcczs88/26/18?entered Monika Dioni Benadryl Allergy 25 mg tabletTake [...] Lexapro 10 mg tabletTake 1 tablet at msvnpuq80/21/23?prescrib ed BELINDA VELASQUEZ MD meclizine 12.5 mg tablettake 1 to 1-1/2 tablets 3 times a day12/25/17?entered Monika Wheatley melatonin 5 mg capsuleTake by oral route.12/25/17?entered Monika Wheatley metoprolol succinate ER 25 mg tablet,extended release 24 hrTake 1 tablet(s) every day by oral route.12/25/17?entered Monika Wheatley Prevacid 30 mg capsule,delayed releaseTake 1 capsule(s) twice a day by oral route.01/23/22?entered BISMARK KEITH APRN Zmosvqzhy81/26/18?entere jordon Wheatley Stool Jqnsqula94/26/18?entered Monika Wheatley SUMAtriptan 100 mg tabletTake 1 tablet at onset of headache may dqmbpa60/09/23?prescribe d BELINDA VELASQUEZ MD traMADoL 50 mg tabletTake 2 tablet(s) 3 times a day by oral route for 30 days.06/25/23?prescribed BISMARK KEITH APRN vitamin B mtuebif57/26/18?entered Monika Wheatley Vitamin C 1,000 mg tabletTake by oral route.12/25/17?entered Monikaduc Wheatley Vitamin D312/25/17?entered Monika Dioni Family HistoryReviewed Family History Unspecified Relation - Diabetes mellitus ?? - Family history of cancer ?? - Kidney stone Past Medical HistoryReviewed Past Medical History Acid Reflux (GERD):Y Arthritis:Y Hypertension:Y Vaccine HistoryNone recorded Electronically Signed by: BISMARK KEITH APRN, SAUSAGE WRAPPER ASHLI Garcia (Nicole) [facility] 06/26/2023 14:28:15 Procedures Surgical History Date Name Laterality Status Provider Name and Address Organization Details Recorded Time 05/19/19 19 DXA Low Bone Mass 1 - No Tx completed ALEXANDRIA FENG MD [address] [place], [address], [facility] 05/19/2018 12:35:17 [facility] 13:12:52 Carpal tunnel surgery [facility] 07/19/2016 13:13:10 [facility] 07/19/2016 13:13:14 procedure on femur completed Ольга Dingus [facility] 07/06/2021 08:42:09 total replacement of left knee joint completed Farrah Jojo [facility] 09/07/2022 08:35:59 Imaging Results Imaging Date Name Status LastModified by Organiz ation Details LastModified Time 08/17/2022 CT, abdomen, w/o contrast completed [email or web address] [facility] Radiology [facility] [address] [place], [address], 08/21/2022 11:57:25 Procedure Notes None recorded. Medical Equipment None Reported. Allergies Allergen ID Allergen Name Allergen Category Reaction Reaction Severity Criticality Documentation Date Start Date Code Code System Note Provider Name and Address Organization Details Recorded Time 966819 Substance with sulfonami de structure and antibacte rial mechanism of action (substanc e) medicatio n nausea vomiting Not available Not available Not available 07/19/2016 30864 8003 [facility] 13:11:15 587072 hydrocodo ne Not available Not available Not available Not available 07/19/2016 5489 RxNorm unabl e to sleep [facility] 08:34:15 419656 Iodinated contrast media (substanc e) medicatio n vomiting Not available Not available 09/07/2022 96515 2004 SNOMED jitte ry Farrah Jojo [facility] 3 08:35:02 Medications Name Sig Start Date [...] Updated DateTime 3 157.48 cm 30.7 kg/m2 41532.5 2 g 90 /min 130 mm[Hg] 86 mm[Hg] Gail Rich [facility] 3 15:44:35 Date Recorded Body height Body mass index (BMI) Body weight Heart rate Oxygen saturation Oxygen saturation in Arterial blood by Pulse oximetry Systolic blood pressure Diastolic blood pressure Provider Name and Address Organization Details Last Updated DateTime 3 157.48 cm 32.2 kg/m2 04324.6 6 g 104 /min 95 % 95 % 166 mm[Hg] 96 mm[Hg] Alexis Gilberthigh [facility] 3 08:55:10 Date Recorded Body height Body mass index (BMI) Body weight Heart rate Oxygen saturation Oxygen saturation in Arterial blood by Pulse oximetry Systolic blood pressure Diastolic blood pressure Provider Name and Address Organization Details Last Updated DateTime 3 157.48 cm 32.4 kg/m2 65271.8 5 g 82 /min 95 % 95 % 118 mm[Hg] 82 mm[Hg] Farrah Jojo [facility] 3 08:38:06 Date Recorded Body height Body mass index (BMI) Body weight Respiratory rate Heart rate Oxygen saturation Oxygen saturation in Arterial blood by Pulse oximetry Systolic blood pressure Diastolic blood pressure Provider Name and Address Organization Details Last Updated DateTime 3 157.48 cm 32.1 kg/m2 32678.7 6 g 16 /min 87 /min 96 % 96 % 124 mm[Hg] 70 mm[Hg] Cheryl Shashank [facility] 3 15:47:00 Date Recorded Body height Body mass index (BMI) Body weight Heart rate Oxygen saturation Oxygen saturation in Arterial blood by Pulse oximetry Systolic blood pressure Diastolic blood pressure Provider Name and Address Organization Details Last Updated DateTime 4 157.48 cm 31.1 kg/m2 09168.7 g 85 /min 97 % 97 % 118 mm[Hg] 86 mm[Hg] Rae Lucas [facility] 4 15:46:14 Social History Question Answer Notes LastModified by Organizat ion Details LastModified Time Tobacco Smoking Status Never Smoker Conner Olivera [facility] 07/19/2016 13:12:45 What Is Your Level Of Alcohol Consumption? None [email or web address] Information not available 07/19/2016 How Much Tobacco Do You Chew? None [email or web address] Information not available 08/12/2018 What Was The Date Of Your Most Recent Tobacco Screening? 06/25/2023 [email or web address] Information not available 06/25/2023 How Much Tobacco Do You Smoke? No [email or web address] Information not available 08/12/2018 Do You Use Any Illicit Or Recreational Drugs? No [email or web address] Information not available 04/24/2022 Has Tobacco Cessation Counseling Been Provided? No [email or web address] Information not available 04/24/2022 How Many Years Have You Smoked Tobacco? 0 [email or web address] Information not available 08/12/2018 Have You Recently Traveled Abroad? No Information not available 01/23/2022 Sex: Unknown Functional [...] Not available 13:12:37 Medical History Condition Response Diabetes N Allergies/Hayfever Y Bleeding Disorder N Arthritis Y Emphysema N Acid Reflux (GERD) Y Depression Y COPD N Asthma N High Cholesterol Y High PSA Y Heart Disease N Rheumatoid Arthritis N Hypertension Y Gynecological HistoryNo gynecological history recorded. Obstetrics History GPAL:G 0 P 0 0 0 0 Past Encounters Encounter ID Performer Location Encounter Start Date Encounter Closed Date Diagnosis/Indication Diagnosis SNOMED-CT Code Diagnosis ICD10 Code Diagnosis Note [id number] FIDELIA LOPEZ MD [facility] [address] [place] [address] ,[address] [place] [address] 07/19/2016 12:23:14 07/20/2016 09:33:47 Painful urinary bladder spasm 5371304 R30.1 [id number] FIDELIA LOPEZ MD SURGERY SCHEDULE [address] [place] [address] 07/24/2016 13:46:20 07/24/2016 13:49:11 [id number] FIDELIA LOPEZ MD [facility] [address] [facility],[place] [address] 08/16/2016 13:49:55 08/17/2016 15:51:43 Dysuria 26114690 R30.1 [id number] BISMARK KEITH APRN [facility] [address] [place] [address] 12/25/2017 07:36:43 12/25/2017 09:51:22 Muscle pain 92456667 M79.1 recurring and dx with fibromyalg ia [...] tender joints without known family history Fatigue 61154435 R53.83 worsening fatigue without known thyroid history will obtain thyroid labs today Vitamin B1 2 deficiency (non anemic) 29384068 E53.8 recurring supplement s in the past will obtain further today Vitamin D deficiency 347 83871 E55.9 recurring will obtain further based on history of the same [id number] BISMARK KEITH APRN [facility] [address] [place] [address] 02/11/2018 08:11:19 02/11/2018 08:44:47 Muscle pain 33314281 M79.10 recurring and dx with fibromyalg ia [...] tender joints without known family history Fatigue 69119098 R53.83 worsening fatigue without known thyroid history thyroid labs are normal Vitamin B1 2 deficiency (non anemic) 72483625 E53.8 recurring supplement s in the past will obtain further today Vitamin D deficiency 347 14153 E55.9 recurring will obtain further based on history of the same Fibromyalgia 771732617 M 79.7 without further findings suggestive of fibromyalg ia without findings of autoimmune disease with normal/sta ble labs today [id number] BISMARK KEITH APRN [facility] [address] [place] [address] 05/13/2018 08:19:48 05/13/2018 09:35:58 Fibromyalgia 697435214 M79.7 without further findings suggestive of fibromyalg ia, oa without findings of autoimmune disease with normal/sta ble labs Muscle pain 22225979 M79 .10 recurring and dx with fibromyalg [...] before proceeding with further med changes Fatigue 01313652 R53.83 worsening fatigue without known thyroid history thyroid labs are normal Vitamin B1 2 deficiency (non anemic) 66496620 E53.8 recurring supplement s in the past b12 was normal at 774 Vitamin D deficiency 347 77421 E55.9 recurring with recent vitamin d level of >60 Menopausal syndrome 1237 69803 N95.9 had a hysterecto my with early onset of menopause will obtain dexa and await results for further tx [id number] ALEXANDRIA FENG MD [facility] [address] [place] [address] 05/19/2018 08:03:38 05/19/2018 08:22:23 Osteopenia 388355914 M85.9 [id number] BISMARK KEITH APRN [facility] [address] [place] [address] 08/12/2018 08:17:34 08/13/2018 15:05:21 Multiple joint pain 20785004 M25.50 chronic and recurring joint pain worsening [...] 04/10/18 h/o prior fx there also Fibromyalgia 246977849 M 79.7 without further findings suggestive of fibromyalg ia, oa without findings of autoimmune disease with normal/sta ble labs requests a new chair and foot rest; will need to have an ergonomic evaluation Muscle pain 38934782 M79 .10 recurring and dx with fibromyalg ia for years taking cymbalta and baclofen has not done hot water therapy or CBT with her treatment for years further assessment was negative will await further tx until after outcome of tramadol and dexa scan Fatigue 79792238 R53.83 worsening fatigue without known thyroid history thyroid labs are normal Vitamin B1 2 deficiency (non anemic) 28035208 E53.8 recurring supplement s in the past b12 was normal at 774 Vitamin D deficiency 347 46438 E55.9 recurring with recent vitamin d level of >60 Osteopenia 895074155 M85 .80 per recent dexa scan with a t score of -1.4 she has a great vitamin d level and will start on calcium with vitamin d Hip pain 83549968 M25.55 9 with pulling in the left groin [id number] BISMARK KEITH APRN [facility] [address] [place] [address] 11/13/2018 08:50:50 11/25/2018 14:00:42 Fibromyalgia 758831531 M79.7 without further findings suggestive of fibromyalg [...] h/o prior fx there also Muscle pain 81495179 M79 .10 recurring and dx with fibromyalg ia for years taking cymbalta and baclofen has not done hot water therapy or CBT with her treatment for years further assessment was negative will await further tx until after outcome of tramadol and dexa scan Fatigue 44180490 R53.83 worsening fatigue without known thyroid history thyroid labs are normal Vitamin B1 2 deficiency (non anemic) 27248708 E53.8 recurring supplement s in the past b12 was normal at 774 Vitamin D deficiency 347 56405 E55.9 recurring with recent vitamin d level of >60 Osteopenia 165420255 M85 .80 per recent dexa scan with a t score of -1.4 she has a great vitamin d level and will start on calcium with vitamin d [id number] BISMARK KEITH APRN [facility] [address] [place] [address] 05/20/2019 15:17:58 05/20/2019 16:39:30 Fibromyalgia 687347112 M79.7 without further findings suggestive of fibromyalg ia, oa without findings of autoimmune disease with normal/sta ble labs will continue with current tx with amitriptyl ine and tramadol Vitamin B1 2 deficiency (non anemic) 00584263 E53.8 recurring supplement s in the past b12 was normal at 774 Vitamin D deficiency 347 16410 E55.9 recurring with recent vitamin d level of >60 Osteopenia 001766762 M85 .80 per recent dexa scan with a t score of -1.4 she has a great vitamin d level and will start on calcium with vitamin d Degenerati ve joint disease involving multiple joints 007150591 M15.9 chronic and recurring joint pain worsening [...] removed 04/10/18 h/o prior fx there also [id number] BISMARK KEITH APRN [facility] [address] [place] [address] 05/13/2020 09:10:58 05/13/2020 15:19:31 Fibromyalgia 443605257 M79.7 without further findings suggestive of fibromyalg ia, oa without findings of autoimmune disease with normal/sta ble labs will continue with current tx with amitriptyl ine and tramadol Degenerati ve joint disease involving multiple joints 128918725 M15.9 chronic and recurring joint pain worsening [...] 04/10/18 h/o prior fx there also Osteopenia 082054417 M85 .80 per recent dexa scan with a t score of -1.4 she has a great vitamin d level and will start on calcium with vitamin d Vitamin B1 2 deficiency (non anemic) 89872479 E53.8 recurring supplement s in the past b12 was normal at 774 Vitamin D deficiency 347 64444 E55.9 recurring with recent vitamin d level of >60 [id number] BISMARK KEITH [facility] [address] [place] [address] 07/06/2021 08:30:38 07/06/2021 09:50:59 Fibromyalgia 010888256 M79.7 without further findings suggestive of fibromyalg ia, oa without findings of autoimmune disease with normal/sta ble labs will continue with current tx with amitriptyl ine and tramadol Degenerati ve joint disease involving multiple joints 682226945 M15.9 chronic and recurring joint pain worsening [...] 04/10/18 h/o prior fx there also Osteopenia 589680062 M85 .80 per recent dexa scan with a t score of -1.4 she has a great vitamin d level and will start on calcium with vitamin d Vitamin B1 2 deficiency (non anemic) 30851128 E53.8 recurring supplement s in the past b12 was normal at 774 Vitamin D deficiency 347 28012 E55.9 recurring with recent vitamin d level of >60 [id number] BISMARK KEITH APRN [facility] [address] [place] [address] 10/24/2021 14:45:11 10/24/2021 16:53:50 Fibromyalgia 342925029 M79.7 without further findings suggestive of fibromyalg ia, oa without findings of autoimmune disease with normal/sta ble labs will continue with current tx with amitriptyl ine at 25-50 mg qhs and tramadol 2 po 3x per day Degenerati ve joint disease involving multiple joints 376404082 M15.9 chronic and recurring joint pain worsening [...] 04/10/18 h/o prior fx there also Osteopenia 237653611 M85 .80 per recent dexa scan with a t score of -1.4 she has a great vitamin d level and will start on calcium with vitamin d Vitamin B1 2 deficiency (non anemic) 02584222 E53.8 recurring supplement s in the past b12 was normal at 774 Vitamin D deficiency 347 69597 E55.9 recurring with recent vitamin d level of >60 [id number] BISMARK KEITH APRN [facility] [address] [place] [address] 01/23/2022 14:55:07 01/24/2022 10:29:40 Fibromyalgia 363550650 M79.7 without further findings suggestive of fibromyalg ia, oa without findings of autoimmune disease with normal/sta ble labs will continue with current tx with amitriptyl ine at 25-50 mg qhs and tramadol 2 po 3x per day Degenerati ve joint disease involving multiple joints 515207026 M15.9 chronic and recurring joint pain worsening [...] 04/10/18 h/o prior fx there also Osteopenia 566323870 M85 .80 per recent dexa scan with a t score of -1.4 she has a great vitamin d level and will start on calcium with vitamin d Vitamin B1 2 deficiency (non anemic) 71832290 E53.8 recurring supplement s in the past b12 was normal at 774 Vitamin D deficiency 347 70011 E55.9 recurring with recent vitamin d level of >60 [id number] BISMARK KEITH APRN [facility] [address] [place] [address] 04/24/2022 15:01:37 04/25/2022 04:38:36 Fibromyalgia 017717607 M79.7 without further findings suggestive of fibromyalg ia, oa without findings of autoimmune disease with normal/sta ble labs will continue with current tx with amitriptyl ine at 25-50 mg qhs and tramadol 2 po 3x per day Degenerati ve joint disease involving multiple joints 683889444 M15.9 chronic and recurring joint pain worsening [...] 04/10/18 h/o prior fx there also Osteopenia 659085187 M85 .80 per recent dexa scan with a t score of -1.4 she has a great vitamin d level and will start on calcium with vitamin d Vitamin B1 2 deficiency (non anemic) 56574236 E53.8 recurring supplement s in the past b12 was normal at 774 Vitamin D deficiency 347 39288 E55.9 recurring with recent vitamin d level of >60 [id number] BELINDA VELASQUEZ MD NEUROLOGY [address] [place] [address] 07/20/2022 08:49:01 07/25/2022 14:53:10 Dizzy spells 869425330 R42 Migraine 05423806 G43.90 9 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 [id number] BELINDA VELASQUEZ MD NEUROLOGY [address] [place] [address] 09/07/2022 08:18:51 09/07/2022 12:40:49 Migraine 28894091 G43.909 Mixed anxi ety and depressive disorder 177851883 F41.8 Insomnia 077396323 G47.0 0 [id number] BISMARK KEITH APRN [facility] [address] [place] [address] 10/19/2022 15:20:15 10/20/2022 05:01:39 Fibromyalgia 954596081 M79.7 without further findings suggestive of fibromyalg ia, oa without findings of autoimmune disease with normal/sta ble labs will continue with current tx with amitriptyl ine at 25-50 mg qhs and tramadol 2 po 3x per day Degenerati ve joint disease involving multiple joints 312896572 M15.9 chronic and recurring joint pain worsening [...] 04/10/18 h/o prior fx there also Osteopenia 349755082 M85 .80 per recent dexa scan with a t score of -1.4 she has a great vitamin d level and will start on calcium with vitamin dfilled for one year on 10/19/2022 Vitamin B1 2 deficiency (non anemic) 87256076 E53.8 recurring supplement s in the past b12 was normal at 774 Vitamin D deficiency 347 67727 E55.9 recurring with recent vitamin d level of >60 [id number] BISMARK KEITH APRN [facility] [address] [place] [address] 06/25/2023 14:33:44 06/26/2023 04:39:07 Fibromyalgia 176208764 M79.7 without further findings suggestive of fibromyalg ia, oa without findings of autoimmune disease with normal/sta ble labs will continue with current tx with amitriptyl ine at 25-50 mg qhs and tramadol 2 po 3x per day Degenerati ve joint disease involving multiple joints 524690068 M15.9 chronic and recurring joint pain worsening [...] 04/10/18 h/o prior fx there also Osteopenia 320320890 M85 .80 per recent dexa scan with a t score of -1.4 she has a great vitamin d level and will start on calcium with vitamin dfilled for one year on 10/19/2022 Vitamin B1 2 deficiency (non anemic) 49338629 E53.8 recurring supplement s in the past b12 was normal at 774 Vitamin D deficiency 347 88719 E55.9 recurring with recent vitamin d level of >60 Insomnia 304462088 G47.0 0 Health Concerns Section Related Observation LastModified by Organization Detai ls LastModified Time None Recorded Concern Status LastModified by Organization Details LastModified Time None Recorded Advance Directives Directive None Recorded Payers Encounter Date Sequence Insurance Name Policy Number Policy Shah Covered Member ID Shah Member ID Guarantor Name 04/24/2022 1 [facility] [employer] ([place]O) [id number] Cornelio Nesbitt [id number] Cornelio Nesbitt 07/20/2022 1 [employer] [facility] [employer] [place]) [id number] Cornelio Nesbitt [id number] Cornelio Nesbitt 09/07/2022 1 [place] [employer] [place]) [id number] Cornelio Nesbitt [id number] Cornelio Nesbitt 10/19/2022 1 [employer] [facility] [employer] [place]) [id number] Cornelio Nesbitt [id number] Cornelio Nesbitt 06/25/2023 1 [employer] [facility] [employer] [place]) [id number] Cornelio Nesbitt [id number] Cornelio Nesbitt Notes Date Note Type [...] and all others are negative BISMARK KEITH, INVESTIGATION OFFICER [address] [place], [address], [facility] 04/24/2022 16:05:03 07/20/2022 text/html 57-year-old fema [...] previous office visits BELINDA VELASQUEZ MD [address] [place], [address], [facility] 07/20/2022 09:52:41 09/07/2022 text/html Patient follows up [...] reactive depression due to the of her [id number]. I have recommended consideration for behavioral health evaluation. She is in agreement. Other issues have been persistent insomnia, she has been on a combination of both amitriptyline and doxepin, still has difficulty with falling asleep. Patient has not tried trazodone. Headache crowley doing well, she uses as needed Imitrex and this is worked well as an abortive agent. BELINDA VELASQUEZ MD [address] [place], [address], [facility] 09/07/2022 09:24:10 10/19/2022 text/html follow-up on fibromyalgia [...] are negative BISMARK KEITH APRN [address] [place], [address], [facility] 10/19/2022 16:00:04 06/25/2023 text/html follow-up on fibromyalgia [...] others are negative BISMARK KEITH APRN [address] [place], [address], [facility] 06/25/2023 17:00:28 OBGyn Episode No OBEpisode recorded.
--- OUTSIDE RECORDS SUMMARY | 2024-07-15 11:41 | XMS_ITS | Data Portability ---
Author Organization [place] [facility] Echo Address [address] [place] [address] Care Team Providers Care Day Light Relief Operator Name Role Phone DANIEL GRACE Primary Care Provider [phone] Assessment Encounter Date Assessment Date Assessment LastModified [...] available 12:58:27 microalbumi n, urine 2022 023 [facility], [address] [place], [address], 3 09:01:21 urinalysis, dipstick 2022 023 [facility], [address] [place], [address], 3 09:01:21 Referral orthopedic surgeon referral 2022 023 [email or web address] 0 Jong Phan MD, [address], [address], [place], [address], 3 09:36:38 Procedures None recorded. Surgeries None recorded. Imaging None recorded. Medication Orders Paxlovid 300 mg (150 mg x 2)-100 mg tablets in a dose pack 2023 024 [facility], [address] [place], [address], 4 14:39:11 Dexilant 60 mg capsule, delayed release [address], [address] [place] [address], [address], 3 12:43:08 doxepin 10 mg capsule 2022 023 [facility], [address] [place] [address], [address], 3 08:55:14 amitriptyli ne 25 mg tablet 2022 023 [facility], [address] [place] [address], [address], 4 14:38:56 metoprolol succinate ER 50 mg tablet,exte nded release 24 hr 2022 023 [facility], [address] [place] [address], [address], 3 08:55:13 Dexilant 60 mg capsule, delayed release 2022 023 [facility], [address] [place] [address], [address], 3 08:55:15 duloxetine 60 mg capsule,del ayed release 2022 023 [facility], [address] [place] [address], [address], 3 08:55:14 Patient TargetsNo targets recorded. Patient InstructionsNo instructions recorded. Reason for Referral Orthopedic Surgeon Referral for Pain of left hip joint Referring Physician: Daniel Grace, Family Medicine, Encounter Date: 10/03/2022 Results Created Date Observation Date Name Description Value Unit Range Abnormal Flag Note LastModifiedBy Organization Detail LastModifiedTime 10/04/19 23 10/03/2022 CBC AUTO W DIFF WBC 6.6 10 4.5-11 .5 Not Available [facility] (Lab Registration) [address] [place], [address], 10/03/2022 12:30:24 10/04/19 23 10/03/2022 CBC AUTO W DIFF RBC 4.85 10 4.25-5 .57 Not Available [facility] (Lab Registration) [address] [place], [address], 10/03/2022 12:30:24 10/04/19 23 10/03/2022 CBC AUTO W DIFF HGB 13.3 g/dL 12.0-1 5.7 Not Available [facility] (Lab Registration) [address] [place], [address], 10/03/2022 12:30:24 10/04/19 23 10/03/2022 CBC AUTO W DIFF HCT 40.8 % 36.0-4 7.0 Not Available [facility] (Lab Registration) [address] [place], [address], 10/03/2022 12:30:24 10/04/19 23 10/03/2022 CBC AUTO W DIFF MCV 84.1 fL 80-95 Not Available [facility] (Lab Registration) [address] [place], [address], 10/03/2022 12:30:24 10/04/19 23 10/03/2022 CBC AUTO W DIFF MCH 27.4 pg 27.0-3 4.0 Not Available [facility] (Lab Registration) [address] [place], [address], 10/03/2022 12:30:24 10/04/19 23 10/03/2022 CBC AUTO W DIFF MCHC 32.6 g/dL 32.0-3 6.0 Not Available [facility] (Lab Registration) [address] [place], [address], 10/03/2022 12:30:24 10/04/19 23 10/03/2022 CBC AUTO W DIFF platelet count 326 10 150-45 0 Not Available [facility] (Lab Registration) [address] [place], [address], 10/03/2022 12:30:24 10/04/19 23 10/03/2022 CBC AUTO W DIFF RDW 13.9 % 12.3-1 5.1 Not Available [facility] (Lab Registration) [address] [place], [address], 10/03/2022 12:30:24 10/04/19 23 10/03/2022 CBC AUTO W DIFF MPV 10.7 fL 7.4-10 .4 high Not Available [facility] (Lab Registration) [address] [place], [address], 10/03/2022 12:30:24 10/04/19 23 10/03/2022 CBC AUTO W DIFF granulocyte% 44.0 % 40-75 Not Available [facility] (Lab Registration) [address] [place], [address], 10/03/2022 12:30:24 10/04/19 23 10/03/2022 CBC AUTO W DIFF lymphocyte% 41.1 % 15-57 Not Available [facility] (Lab Registration) [address] [place], [address], 10/03/2022 12:30:24 10/04/19 23 10/03/2022 CBC AUTO W DIFF monocyte% 7.9 % 4.0-12 .0 Not Available [facility] (Lab Registration) [address] [place], [address], 10/03/2022 12:30:24 10/04/19 23 10/03/2022 CBC AUTO W DIFF eosinophil% 6.2 % 0.0-4. 0 high Not Available [facility] (Lab Registration) [address] [place], [address], 10/03/2022 12:30:24 10/04/19 23 10/03/2022 CBC AUTO W DIFF basophil% 0.8 % 0.0-1. 0 Not Available [facility] (Lab Registration) [address] [place], [address], 10/03/2022 12:30:24 10/04/19 23 10/03/2022 CBC AUTO W DIFF immature granulocytes % 0.0 % 0.0-0. 8 Not Available [facility] (Lab Registration) [address] [place], [address], 10/03/2022 12:30:24 10/04/19 23 10/03/2022 CBC AUTO W DIFF granulocyte# 2.91 10 Not Available [facility] (Lab Registration) [address] [place], [address], 10/03/2022 12:30:24 10/04/19 23 10/03/2022 CBC AUTO W DIFF lymphocyte# 2.72 10 Not Available [facility] (Lab Registration) [address] [place], [address], 10/03/2022 12:30:24 10/04/19 23 10/03/2022 CBC AUTO W DIFF monocyte# 0.52 10 Not Available [facility] (Lab Registration) [address], [place], [address], 10/03/2022 12:30:24 10/04/19 23 10/03/2022 CBC AUTO W DIFF eosinophil# 0.41 10 Not Available [facility] (Lab Registration) [address], [place], [address], 10/03/2022 12:30:24 10/04/19 23 10/03/2022 CBC AUTO W DIFF basophil# 0.05 10 Not Available [facility] (Lab Registration) [address] [place], [address], 10/03/2022 12:30:24 10/04/19 23 10/03/2022 CBC AUTO W DIFF immature granulocytes # 0.00 10 Not Available [facility] (Lab Registration) [address] [place], [address], 10/03/2022 12:30:24 10/04/19 23 10/03/2022 CBC AUTO W DIFF manual differential NO Not Available [facility] (Lab Registration) [address] [place], [address], 10/03/2022 12:30:24 10/04/19 23 10/03/2022 CBC AUTO W DIFF note Unles s other crowley noted testi ng perfo rmed at: [facility] [address] [place] [address] [phone] Reynold franz MD CLIA: [id number] Not Available [facility] (Lab Registration) [address] [place], [address], 10/03/2022 12:30:24 10/04/19 23 10/03/2022 HEMOG LOBIN A1C glycosylated hemoglobin A1C 5.8 % 4.5-6. 2 Not Available [facility] (Lab Registration) [address] [place], [address], 10/03/2022 12:57:14 10/04/19 23 10/03/2022 HEMOG LOBIN A1C estimated average glucose 120 mg/dL 82-131 Not Available [facility] (Lab Registration) [address] [place], [address], 10/03/2022 12:57:14 10/04/19 23 10/03/2022 HEMOG LOBIN A1C note Zuly del toro crowley noted testi ng perfo rmed at: [facility] [address] [place] [address] [phone] Reynold franz MD CLIA: [id number] Not Available [facility] (Lab Registration) [address] [place], [address], 10/03/2022 12:57:14 10/04/19 23 10/03/2022 THYRO ID STIMU LATIN G HORMO NE thyroid stimulating hormone 1.16 mIU/m L 0.34-4 .80 Not Available [facility] (Lab Registration) [address] [place], [address], 10/03/2022 12:58:27 10/04/19 23 10/03/2022 THYRO ID STIMU LATIN G HORMO NE note Zuly crowley noted testi ng perfo rmed at: [facility] [address] [place] [address] [phone] Reynold franz MD CLIA: [id number] Not Available [facility] (Lab Registration) [address] [place], [address], 10/03/2022 12:58:27 10/04/19 23 10/03/2022 COMP METAB OLIC PANEL sodium 141 mmol/ L 136-14 5 Not Available [facility] (Lab Registration) [address] [place], [address], 10/03/2022 12:58:29 10/04/19 23 10/03/2022 COMP METAB OLIC PANEL potassium 4.7 mmol/ L 3.5-5. 1 Not Available [facility] (Lab Registration) [address] [place], [address], 10/03/2022 12:58:29 10/04/19 23 10/03/2022 COMP METAB OLIC PANEL chloride 104 mmol/ L 98-107 Not Available [facility] (Lab Registration) [address] [place], [address], 10/03/2022 12:58:29 10/04/19 23 10/03/2022 COMP METAB OLIC PANEL carbon dioxide 31 mmol/ L 21-32 Not Available [facility] (Lab Registration) [address] [place], [address], 10/03/2022 12:58:29 10/04/19 23 10/03/2022 COMP METAB OLIC PANEL anion gap 6.0 Not Available [facility] (Lab Registration) [address] [place], [address], 10/03/2022 12:58:29 10/04/19 23 10/03/2022 COMP METAB OLIC PANEL glucose 91 mg/dL 70-110 Not Available [facility] (Lab Registration) [address] [place], [address], 10/03/2022 12:58:29 10/04/19 23 10/03/2022 COMP METAB OLIC PANEL blood urea nitrogen 14 mg/dL 7-18 Not Available [facility] (Lab Registration) [address] [place], [address], 10/03/2022 12:58:29 10/04/19 23 10/03/2022 COMP METAB OLIC PANEL creatinine 0.9 mg/dL 0.6-1. 0 Not Available [facility] (Lab Registration) [address] [place], [address], 10/03/2022 12:58:29 10/04/19 23 10/03/2022 COMP METAB OLIC PANEL BUN/creatini ne ratio 15.6 ratio 9-21 Not Available [facility] (Lab Registration) [address], [place], [address], 10/03/2022 12:58:29 10/04/19 23 10/03/2022 COMP METAB OLIC PANEL estimated glom filtration rate 68 mL/mi n >60- Not Available [facility] (Lab Registration) [address] [place], [address], 10/03/2022 12:58:29 10/04/19 23 10/03/2022 COMP METAB OLIC PANEL total protein 7.6 g/dL 6.4-8. 2 Not Available [facility] (Lab Registration) [address] [place], [address], 10/03/2022 12:58:29 10/04/19 23 10/03/2022 COMP METAB OLIC PANEL albumin 3.8 g/dL 3.4-5. 0 Not Available [facility] (Lab Registration) [address] [place], [address], 10/03/2022 12:58:29 10/04/19 23 10/03/2022 COMP METAB OLIC PANEL calcium 9.0 mg/dL 8.5-10 .1 Not Available [facility] (Lab Registration) [address] [place], [address], 10/03/2022 12:58:29 10/04/19 23 10/03/2022 COMP METAB OLIC PANEL corrected calcium 9.2 mg/dL 8.5-10 .1 Not Available [facility] (Lab Registration) [address] [place], [address], 10/03/2022 12:58:29 10/04/19 23 10/03/2022 COMP METAB OLIC PANEL bilirubin total 0.2 mg/dL 0.4-1. 5 low Not Available [facility] (Lab Registration) [address], [place], [address], 10/03/2022 12:58:29 10/04/19 23 10/03/2022 COMP METAB OLIC PANEL AST (SGOT) 24 U/L 15-37 Not Available [facility] (Lab Registration) [address] [place], [address], 10/03/2022 12:58:29 10/04/19 23 10/03/2022 COMP METAB OLIC PANEL ALT (SGPT) 40 U/L 12-78 Not Available [facility] (Lab Registration) [address] [place], [address], 10/03/2022 12:58:29 10/04/19 23 10/03/2022 COMP METAB OLIC PANEL alk phosphatase 94 U/L 50-120 Not Available [facility] (Lab Registration) [address] [place], [address], 10/03/2022 12:58:29 10/04/19 23 10/03/2022 COMP METAB OLIC PANEL note Unles s other crowley noted testi ng perfo rmed at: [facility] [address] [place] [address] [phone] Reynold franz MD CLIA: [id number] Not Available [facility] (Lab Registration) [address] [place], [address], 10/03/2022 12:58:29 10/04/19 23 10/03/2022 LIPID PANEL triglyceride 506 mg/dL 20-200 high The Natio nal [employer] t[employer]gr am (NCEP ) has set the follo wing guide lines for Fasti ng Trigl yceri luis: ADA L: <150 mg/dL BORDE RLINE HIGH: 150 - 199 mg/dL HIGH: 200 - 499 mg/dL VERY HIGH: > or =500 mg/dL Not Available [facility] (Lab Registration) [address] [place], [address], 10/03/2022 12:58:30 10/04/19 23 10/03/2022 LIPID PANEL cholesterol 239 mg/dL 0-200 high The Natio nal [employer]ca t[employer]gr am (ALEP ) has set the follo wing guide lines for Fasti ng Tonya stero l: MARAH ABLE: <200 mg/dL BORDE RLINE HIGH: 200 - 239 mg/dL HIGH: > or =240 mg/dL Not Available [facility] (Lab Registration) [address] [place], [address], 10/03/2022 12:58:30 10/04/19 23 10/03/2022 LIPID PANEL HDL cholesterol 28 mg/dL 60- low The Natio nal [employer]ca tion Progr am ([facility] ) has set the follo wing guide lines for Fasti ng HDL Tonya stero l: LOW HDL: <40 mg/dL ADA L: 40 - 60 mg/dL MARAH ABLE: >60 mg/dL Not Available [facility] (Lab Registration) [address] [place], [address], 10/03/2022 12:58:30 10/04/19 23 10/03/2022 LIPID PANEL LDL calculated TNP mg/dL 100- LDL is calcu ated and inval id when TRIG are >400 mg/dL . The Natio nal [employer]ca tion Progr am ([facility] ) has set the follo wing guide lines for Fasti ng LDL Tonya stero l: OPTIM AL: < 100 mg/dL LOW RISK: 100 - 129 mg/dL BORDE RLINE HIGH: 130 - 159 mg/dL HIGH: 160 - 189 mg/dL VERY HIGH: > or = 190 mg/dL Not Available [facility] (Lab Registration) [address] [place], [address], 10/03/2022 12:58:30 10/04/19 23 10/03/2022 LIPID PANEL chol/HDL ratio 9 ratio -5 high Not Available [facility] (Lab Registration) [address] [place], [address], 10/03/2022 12:58:30 10/04/19 23 10/03/2022 LIPID PANEL note Unles s other crowley noted testi ng perfo rmed at: [facility] [address] [place] [address] [phone] Reynold franz MD CLIA: [id number] Not Available [facility] (Lab Registration) [address] [place], [address], 10/03/2022 12:58:30 10/04/19 23 10/03/2022 urina lysis , dipst ick Leukocytes (reference range) negati ve Not Available [address] [place], [address], 10/03/2022 08:46:44 10/04/19 23 10/03/2022 urina lysis , dipst ick Nitrite (reference range:) negati ve Not Available [address] [place], [address], 10/03/2022 08:46:44 10/04/19 23 10/03/2022 urina lysis , dipst ick Urobilinogen (reference range) 0.2 Not Available [address] [place], [address], 10/03/2022 08:46:44 10/04/19 23 10/03/2022 urina lysis , dipst ick Protein (reference range) 30 Not Available [address] [place], [address], 10/03/2022 08:46:44 10/04/19 23 10/03/2022 urina lysis , dipst ick pH (reference range 5-8.5) 5.5 Not Available [facility] [address] [place], [address], 10/03/2022 08:46:44 10/04/19 23 10/03/2022 urina lysis , dipst ick Blood (reference range:) negati ve Not Available [address] [place], [address], 10/03/2022 08:46:44 10/04/19 23 10/03/2022 urina lysis , dipst ick Specific [place] (reference range) 1.030 Not Available [address] [place], [address], 10/03/2022 08:46:44 10/04/19 23 10/03/2022 urina lysis , dipst ick Ketone (reference range) negati ve Not Available [address] [place], [address], 10/03/2022 08:46:44 10/04/19 23 10/03/2022 urina lysis , dipst ick Bilirubin (reference range) negati ve Not Available [address] [place], [address], 10/03/2022 08:46:44 10/04/19 23 10/03/2022 urina lysis , dipst ick Glucose (reference range) negati ve Not Available [address] [place], [address], 10/03/2022 08:46:44 10/04/19 23 10/03/2022 urina lysis , dipst ick Color (reference range: yellow-brown ) Yellow Not Available [facility] [address] [place], [address], 10/03/2022 08:46:44 10/04/19 23 10/03/2022 micro album in, urine Microalbumin 80mg/L Abnorm al Not Available [place] [address] [place], [address], 10/03/2022 08:46:43 11/28/19 23 11/27/2022 imagi ng inter preta tion No observ ation record ed. [facility] [address], [place], [address], 11/28/2022 08:20:28 12/21/19 23 12/20/2022 XR, foot No observ ation record ed. [facility] [address], [place], [address], 12/20/2022 12:13:11 12/21/19 23 12/20/2022 XR, foot No observ ation record ed. [facility] [address], [place], [address], 12/20/2022 12:12:58 07/01/19 24 07/01/2023 imagi ng inter preta tion No observ ation record ed. [facility] [address] [place] [address] [place], [address], 07/02/2023 08:20:18 10/17/19 24 10/16/2023 imagi ng inter preta tion No observ ation record ed. [facility] (Registration ) [address] [place] [address] [place], [address], 10/17/2023 07:56:37 Result Notes None recorded. Problems Name Problem SNOMED Code Status Onset Date Resolution Date Notes Provider Name and Address Organization Details Recorded Time Fibromyalgia 629847810 Active 2021 Melissa lopez, [place] [facility] [place] & [place] 2 08:11:26 Mixed anxiety and depressive disorder 369454836 Active 2021 Melissa lopez, [place] [facility] [place] 2 08:11:35 Gastroesophag eal reflux disease 733567011 Active 2021 Melissa Pardini null, [place] [facility] [place] 2 08:11:41 Restless legs 13330996 Active 2021 Melissa Pard[place] null[place] [facility] [place] 2 08:11:51 Insomnia 175772391 Active 2021 Melissa [place] null[place] [facility] [place] 2 08:11:59 Essential hypertension 81335863 Active 2021 Melissa [place] [facility] [place] 2 08:12:08 Essential tremor 969790090 Active 2021 Melissa [place] [facility] [place] 2 08:13:03 Hyperlipidemi a 59068665 Active 2021 Melissa Virkdini null[place] [facility] [place] 2 08:14:29 Osteoporosis 24467962 Active 2021 Daniel Grace MD [address] [place], [address] , [place] [facility] [place] 2 08:35:25 Seasonal allergy 349575455 Active 2021 Daniel Grace MD [address] [place], [address] , [place] [facility] [place] 2 08:35:43 Hiatal hernia 40053951 Active 2022 Tess Perry NP [address], [address], [place], [address] , [place] [facility] [place] 3 13:03:59 Gastro-esopha geal reflux disease with esophagitis 034844188 Active 2022 Tess Perry NP [address], [address], [place], [address] , [place] [facility] [place] 3 13:06:30 Problem Notes None recorded. Procedures Surgical History Date Name Laterality Status Provider Name and Address Organization Details Recorded Time 01/30/20 22 Date of Last Colonoscopy completed Melissakell Shook [place] [facility] [place] 03/06/2022 15:34:15 01/30/20 22 Colonoscopy completed Tess Perry NP [address] [place] [address] Drive, [address], [place], [address], [place] [facility] [place] 03/04/2023 13:06:59 07/05/19 21 Most Recent Bone Density completed Melissakell Virkdini [place] [facility] [place] 03/06/2022 15:34:15 total knee replacement completed [place]issy [facility] [facility] [place] 02/01/2022 10:00:14 Cholecystectomy completed Emily [place]yman [place] [facility] [place] 02/01/2022 10:00:22 procedure on hand completed [place]il[place]issy [place]yman [place] [facility] [place] 02/01/2022 10:00:46 Hysterectomy completed [place]issy [place]yman [place] [facility] [place] 02/01/2022 10:00:54 procedure on femur completed [place]issy [place]yman [place] [facility] [place] 02/01/2022 10:01:10 Imaging Results Imaging Date Name Status LastModified by Organization Details LastModified Time 11/27/2022 imaging interpretation completed [facility] [address], [place], [address], 11/28/2022 08:20:28 12/20/2022 XR, foot completed [facility] [address], [place], [address], 12/20/2022 12:13:11 12/20/2022 XR, foot completed [facility] [address], [place], [address], 12/20/2022 12:12:58 07/01/2023 imaging interpretation completed [facility] [address] [place] [address] [place], [address], 07/02/2023 08:20:18 10/16/2023 imaging interpretation completed [facility] (Registration) [address] [place] [address] [place], [address], 10/17/2023 07:56:37 Procedure Notes None recorded. Medical Equipment None Reported. Allergies Allergen ID Allergen Name Allergen Category Reaction Reaction Severity Criticality Documentation Date Start Date Code Code System Note Provider Name and Address Organization Details Recorded Time 32260 Substance with sulfonami de structure and antibacte rial mechanism of action (substanc e) medicatio n Not available Not available Not available 02/01/2022 25786 8003 SNOMED Emily lopez [place] [facility] & [place] 2 09:57:14 42320 acetamino phen / hydrocodo ne medicatio n Not available Not available Not available 02/01/2022 60774 2 RxNorm Emily Hernandezharvinder lopez [place] Ela [facility] & [place] 2 09:57:20 Medications Name Sig Start Date [...] Updated DateTime 3 158.75 cm 30.3 kg/m2 15496.9 6 g 97.3 [degF] 99 % 99 % 70 /min 16 /min 117 mm[Hg] 81 mm[Hg] Melissa Shook [place] - [facility] - [facility] 3 08:46:57 Date Recorded Body height Body mass index (BMI) Body weight Body temperature Oxygen saturation Oxygen saturation in Arterial blood by Pulse oximetry Heart rate Provider Name and Address Organization Details Last Updated DateTime 3 158.75 cm 29.3 kg/m2 35469.5 6 g 97.3 [degF] 97 % 97 % 86 /min Fabiola Sebastian [facility] & [place] 3 10:22:12 Date Recorded Body height Body mass index (BMI) Body weight Body temperature Oxygen saturation Oxygen saturation in Arterial blood by Pulse oximetry Heart rate Respiratory rate Systolic blood pressure Diastolic blood pressure Provider Name and Address Organization Details Last Updated DateTime 4 158.75 cm 29.7 kg/m2 02725.7 4 g 97.5 [degF] 98 % 98 % 88 /min 18 /min 146 mm[Hg] 86 mm[Hg] Scott Alvarado [facility] & [place] 4 14:42:48 Date Recorded Body height Body mass index (BMI) Body weight Body temperature Oxygen saturation Oxygen saturation in Arterial blood by Pulse oximetry Heart rate Respiratory rate Systolic blood pressure Diastolic blood pressure Provider Name and Address Organization Details Last Updated DateTime 4 158.75 cm 30.2 kg/m2 15039.0 8 g 97.3 [degF] 96 % 96 % 80 /min 16 /min 150 mm[Hg] 98 mm[Hg] Mleissa Shook [facility] & [place] 4 14:38:22 Social History Question Answer Notes LastModified by Organizat ion Details LastModified Time Tobacco Smoking Status Never Smoker Emily Hyman [facility], [facility] & [place] 02/01/2022 10:00:03 Do You Have An Advance Directive? No Information not available 03/06/2022 What Is Your Level Of Alcohol Consumption? None Information not available 02/14/2022 Are You Blind Or Do You Have Difficulty Seeing? Yes Information not available 03/06/2022 What Is Your Level Of Caffeine Consumption? Occasional Information not available 04/29/2023 What Was The Date Of Your Most Recent Tobacco Screening? 02/26/2022 Information not available 03/06/2022 Are You Passively Exposed To Smoke? No Information no t available 03/06/2022 Do You Feel Stressed (tense, Restless, Nervous, Or Anxious, Or Unable To Sleep At Night)? [id number] Information not available 03/06/2022 Do You Use Any Illicit Or Recreational Drugs? No Information not available 02/14/2022 Has Tobacco Cessation Counseling Been Provided? No [email or web address] Information not available 04/29/2023 Do You Or Have You Ever Used Any Other Forms Of Tobacco Or Nicotine? No [email or web address] Information not available 04/29/2023 Sex: Female Functional Status Question Answer Note LastModified by Organizat ion Details LastModified Time What is your exercise level? Occasional Information not available 03/06/2022 Mental Status None recorded. Family History Relationship Description Onset Age of this Age Resolved Age Notes LastModified by Organization Details LastModified Time Father Hyperlipidem ia dece ed [email or web address] Not available 08/28/2023 13:55:32 Father Cerebrovascu lar accident [place] Not available 02/01/2022 09:58:43 Father Disorder of thyroid gland [place] Not available 02/01/2022 09:59:03 Father Heart disease [place] Not available 02/01/2022 09:59:19 Father Essential hypertension formerly [facility] - Not available 08/28/2023 13:55:32 Father Malignant tumor of lung formerly [facility] - Not available 08/28/2023 13:55:32 Medical History Condition Response Arthritis Y Reflux/GERD Y High Cholesterol Y Hyperlipidemia Y Headaches Y Hypertension Y Gynecological History Statement/Question Response [...] completed Melissa lopez, [place] - [facility] - [place] & [place] 02/14/2022 08:09:56 Hep A, adult 9 completed Melissa Pardini null[place] [facility] [place] 02/14/2022 08:09:56 Influenza, split virus, trivalent, PF 4 completed Melissa Pard[place] [facility] [place] 02/14/2022 08:09:56 zoster recombinant 8 completed Melissa Pard[place] [facility] [place] 02/14/2022 08:09:56 COVID-19 vaccine, vector-nr, rS-Ad26, PF, 0.5 mL 1 completed Melissa Pard[place] [facility] [place] 02/14/2022 08:09:56 Hep B, adult 9 completed Melissa [place]ard[place] [facility] [place] 02/14/2022 08:09:56 Hep B, adult 8 completed Melissa [place]ard[place] [facility] [place] 02/14/2022 08:09:56 COVID-19, mRNA, LNP-S, bivalent, PF, 50 mcg/0.5 mL or 25mcg/0.25 mL dose 2 completed Mindi Bassett null[place] [facility] [place] 08/19/2023 07:40:25 Hep A, adult 8 completed Melissa Pardini [place] [facility] [place] 02/14/2022 08:09:56 Influenza, split virus, quadrivalent, PF 8 completed Melissa Pard[place] [facility] [place] 02/14/2022 08:09:56 Hep B, adult 8 completed Melissa [place]ard[place] [facility] [place] 02/14/2022 08:09:56 Influenza, split virus, quadrivalent, PF 3 completed Daniel Grace MD [address] [place] [address], [phone], [place] [facility] [place] & [place] 01/22/2023 15:34:48 Past Encounters Encounter ID Performer Location Encounter Start Date Encounter Closed Date Diagnosis/Indication Diagnosis SNOMED-CT Code Diagnosis ICD10 Code Diagnosis Note [id number] Belinda Lemus MD [facility],[place] [address] 02/07/2022 07:45:55 02/07/2022 08:54:19 Essential tremor 156779429 G25.0 would like to consolidat e her beta-block ers, will increase metoprolol to 50 mg and stop Inderal. Also recommend continuing low-dose Xanax at bedtime this seems to have been very helpful for her. Patient will follow up with me over the next 2-3 weeks for blood pressure check. Generalize d anxiety disorder 94252416 F41.1 Fibromyalgia 885581113 M 79.7 [id number] Daniel Grace MD [address] [address] 02/14/2022 07:54:01 02/14/2022 09:05:43 Fibromyalgia 089940220 M79.7 patient is currently under the care of Dr.MOBERLY fernando bonilla in [place]. She also sees neurology Gastroesop hageal reflux disease 059971185 K21.9 patient states she had a colonoscop y last month. She is being taking care of by Dr. Fischer. She also mentions that she has been diagnosed with IBS C She is currently on lansoprazo le Hyperlipidemia 56715535 E78.5 patient is currently on fenofibrat e. Will obtain lab work today. labs drawn by Micaela LT AC Insomnia 865400055 G47.0 0 patient takes alprazolam and amitriptyl ine for this. Mixed anxi ety and depressive disorder 656525695 F41.8 Patient is currently on duloxetine Essential hypertension 79722136 I10 controlled with metoprolol Osteoporosis 62598070 M8 1.0 patient is requesting a Prolia shot. We will order the medication . Her calcium levels are pending. Essential tremor 3147862 09 G25.0 patient takes metoprolol . She is also on doxepin [id number] Belinda Lemus MD [facility] [address] [facility],[place] [address] 02/28/2022 07:53:26 02/28/2022 08:44:52 Essential tremor 460796349 G25.0 overall doing well with metoprolol , would like to continue for now, will use p.r.n. low-dose Xanax as necessary. Medication s have been refilled today. [id number] MD franci Arango[address] [address] 03/06/2022 15:22:29 03/06/2022 16:04:57 Acute cystitis 04485785 N30.00 will treat with antibiotic s empiricall y. Will send her sample for cultures. [id number] MD franci Arango[address] [address] 03/27/2022 08:36:39 03/27/2022 09:06:43 Influenza-like symptoms 485657590 R68.89 patient tested negative for influenza as well as COVID-19. Due to her premorbid conditions we will treat her with a Z-Leander and a steroid Dosepak. Should her symptoms worsen she has been instructed to go to the emergency department . [id number] Daniel Grace MD [address] [address] 10/03/2022 08:28:43 10/03/2022 09:00:03 Essential hypertension 97239994 I10 controlled with metoprolol blood drawn in the right AC by Melissa Shook CMA, patient tolerated well. Hyperlipidemia 42836107 E78.5 patient is currently on fenofibrat e. Mixed anxi ety and depressive disorder 834325360 F41.8 patient continues to be controlled on medication . Gastroesop hageal reflux disease 824412986 K21.9 patient states she had a colonoscop y In December 2021. She is being taking care of by Dr. Fischer. She also mentions that she has been diagnosed with IBS C She is currently on lansoprazo le Insomnia 640103217 G47.0 0 patient takes alprazolam and amitriptyl ine for this. Essential tremor 1875332 09 G25.0 patient takes metoprolol . She is also on doxepin Pain of le ft hip joint 8265696918 [address] PHAN [id number] DOROTHY [facility] at [address] [place] [address] 10/17/2022 07:53:34 10/17/2022 09:10:59 [id number] DOROTHY RESTREPO [facility] at [address] [place] [address] 10/31/2022 10:11:33 11/05/2022 15:09:35 [id number] DOROTHY RESTREPO [facility] at [address] [place] [address] 11/22/2022 08:44:41 11/22/2022 09:42:13 [id number] DOROTHY RESTREPO [facility] at [address] [place] [address] 12/20/2022 08:43:46 12/20/2022 09:15:40 [id number] DOROTHY RESTREPO Therapeut [facility] at [address] [place] [address] 12/26/2022 12:23:31 12/26/2022 13:59:00 [id number] DOROTHY RESTREPO [facility]rapeut [facility] at [address] [place] [address] 01/22/2023 13:52:45 01/22/2023 15:39:28 [id number] Daniel Grace MD [address] [place] [address] 01/22/2023 15:08:06 01/22/2023 15:21:07 Administration of influenza vaccine 11810237 Z23 [id number] Tess Perry NP [address] [place] [address] 03/04/2023 09:59:50 03/04/2023 13:10:18 Gastro-esophageal reflux disease with esophagitis 422896781 K21.00 Continues lansoprazo le 30 mg p.o. [...] for treatment. History of polyp of colon 414457496 Z86.010 Colonoscop y 01/29/2022 with polyps resected consistent with tubular adenomas negative for high-grade dysplasia. Plan to repeat colonoscop y 12/2024 for surveillan ce. Hiatal hernia 69798490 K 44.9 Small hiatal hernia noted on EGD 05/2021. [id number] DOROTHY RESTREPO ic [facility] at [address] [place] [address] 03/14/2023 08:38:04 03/18/2023 13:09:19 [id number] DOROTHY RESTREPO ic [facility] at [address] [place] [address] 04/15/2023 07:55:10 04/15/2023 09:58:56 [id number] Murali Marshall MD [address] [place] [address] 04/29/2023 14:13:20 05/01/2023 16:07:39 Infection of upper respiratory tract caused by SARS-CoV-2 7888814269 608345 U07.1 patient's symptoms in 2 positive home tests correlate with COVID-19. We will proceed with treatment. Discussed isolation. . Seek medical care symptoms become severe [id number] DOROTHY RESTREPO [facility] at [address] [place] [address] 05/17/2023 09:16:24 05/17/2023 10:36:53 [id number] DOROTHY RESTREPO Therapeut [facility] at [address] [place] [address] 06/28/2023 08:40:44 06/28/2023 12:06:22 [id number] DOROTHY RESTREPO Therapeut [facility] at [address] [place] [address] 08/05/2023 09:30:22 08/05/2023 10:56:51 [id number] Daniel Grace MD [address] [place] [address] 08/28/2023 13:55:17 08/28/2023 14:45:28 Pre-surgery evaluation 338912588 Z01.818 patient has been cleared for surgery. [id number] DOROTHY RESTREPO [facility] at [address] [place] [address] 09/04/2023 14:24:21 09/10/2023 13:27:04 [id number] DOROTHY RESTREPO Therapeut [facility] at [address] [place] [address] 10/09/2023 10:44:13 10/09/2023 12:11:17 Health Concerns Section Related Observation LastModified by Organization Detai ls LastModified Time None Recorded Concern Status LastModified by Organization Details LastModified Time None Recorded Advance Directives Directive N: Payers Encounter Date Sequence Insurance Name Policy Number Policy Shah Covered Member ID Shah Member ID Guarantor Name 10/03/2022 1 [place] [employer] [place] [employer] [id number] Debbie Nesbitt [id number]itt 01/22/2023 1 [place] [id number] Debbie Nesbitt [id number] Debbie Nesbitt 03/04/2023 1 [place] [id number] Debbie Nesbitt [id number] MontesinosNesbitt 04/29/2023 1 [place] [id number] Debbie Nesbitt [id number] Debbie Nesbitt 08/28/2023 1 [facility] NATIONAL ACCOUNTS [id number] Debbie Nesbitt [id number] Debbie Nesbitt Notes Date Note Type Note Provider Name and Address Organization Details Recorded Time 3 text/html PT PRESENTS FOR CHRONIC CARE MANAGEMENT, DENIES ANY NEW ISSUES. IS COMPLIANT WITH MEDICATIONSPATIENT ALSO COMPLAINS OF LEFT GROIN PAIN Daniel Grace MD [address] [place] [address], [phone], [facility] & [place] 10/03/2022 11:01:03 3 text/html Patient returns to [...] colonoscopy 01/2025 for surveillance. Tess Perry NP [address] [place] [address], [address], [place], [address], [facility] & [place] 03/04/2023 13:07:22 4 text/html patient is seen [...] also has body aches. Murali Marshall MD [address] [place] [address], [phone], [facility] & [place] 04/29/2023 16:49:02 4 text/html patient presents today for preop clearance. She is having a total hip replacement and removal of hardware in her left lower extremity performed. Daniel Grace MD [address] [place] [address], [phone], [facility] - [facility] - [place] & [place] 08/28/2023 14:40:42 OBGyn Episode No OBEpisode recorded.
[2024-07-15 12:05] LABS: Basophils # 0.1 K/mm3 (0-0.2); Basophils % 2.1 % (0.1-2.0); Eosinophils # 0.5 K/mm3 (0.0-0.4); Eosinophils % 7.6 % (0.1-12.0); Hematocrit 38.2 % (37.0-47.0); Hemoglobin 12.5 g/dL (12.2-16.2); Lymphocytes # 2.1 K/mm3 (0.7-4.5); Lymphocytes % 33.7 % (10-50); Mean Corpuscular HGB Conc 32.7 g/dL (31.8-35.4); Mean Corpuscular Hemoglobin 27.1 pg (27.0-31.2); Mean Corpuscular Volume 82.7 fl (81-99); Mean Platelet Volume 9.8 fl (7.4-10.4); Monocytes # 0.4 K/mm3 (0.1-1.0); Monocytes % 6.8 % (1.7-9.3); Neutrophils # 3.1 K/mm3 (1.8-7.8); Neutrophils % 49.5 % (37.0-80.0); Nucleated Red Blood Cells # 0 10^3/uL; Nucleated Red Blood Cells % 0 %; Platelet Count 328 K/mm3 (142-424); Red Blood Count 4.62 M/mm3 (4.20-5.40); Red Cell Distribution Width 14.6 % (11.5-17.5); Red Cell Distribution Width-SD 43.5 fL; White Blood Count 6.2 K/mm3 (4.8-10.8)
[2024-07-15 12:29] LABS: Erythrocyte Sedimentation Rate 21 mm/hr (0-30)
[2024-07-15 12:33] LABS: Albumin Level 4.5 g/dl (3.5-5.0); Chloride 104 mmol/L (98-107); Sodium 141 mmol/L (136-145)
[2024-07-15 12:34] LABS: Potassium 3.9 mmoL/L (3.5-5.1)
[2024-07-15 12:36] LABS: Anion Gap 14.9 mEq/L (5-15); Blood Urea Nitrogen 11 mg/dl (7-17); Carbon Dioxide 26 mmol/L (22.0-30.0); Estimated Glomerular Filt Rate 85 ml/min (>60); GFR (African American) 103 ML/MIN (>60)
[2024-07-15 12:37] LABS: Alanine Aminotransferase 37 U/L (12-78); Albumin/Globulin Ratio 1.4 (1.1-1.8); Alkaline Phosphatase 103 U/L (38-126); Aspartate Amino Transferase 45 U/L (14-36); Bilirubin,Total 0.4 mg/dl (0.2-1.3); Calcium 9.2 mg/dl (8.4-10.2); Globulin 3.2 g/dL (1.3-3.2); Glucose 110 mg/dl (74-100); Total Protein,Serum 7.7 g/dl (6.3-8.2)
[2024-07-15 12:43] LABS: C-Reactive Protein 3.6 mg/L (0-4)
[2024-07-15 12:54] LABS: Free T4 (Free Thyroxine) 1.32 ng/dl (0.78-2.19)
[2024-07-15 13:39] LABS: Uric Acid 4.4 mg/dl (2.5-6.2)
[2024-07-15 14:15] LABS: Folate > 20.00 ng/mL
[2024-07-15 14:29] LABS: Vitamin B12 621 pg/mL (239-931)
[2024-07-15 16:47] LABS: Hemoglobin A1C 5.7 % (4.0-6.0)
[2024-07-16 08:41] LABS: RA Latex Turbid. <10.0 IU/mL (<14.0)
[2024-07-20 09:10] LABS: Antinuclear Antibodies, IFA Positive (.)
[2024-07-23 16:28] LABS: 1,25 Dihydroxy Vitamin D 71 pg/mL (.); 1,25-Dihydroxy, Vitamin D-2 <10 pg/mL (.); 1,25-Dihydroxy, Vitamin D-3 70 pg/mL (.)
== END 2024-07-15 23:59 | disposition home or self-care (01) ==
LOC: LAB 11:40
PROVIDERS: Podiatrist; PCP Nurse Practitioner Family; Visit Provider Nurse Practitioner
DX: M79.673 Pain in unspecified foot (principal); E04.1 Nontoxic single thyroid nodule; Z01.818 Encounter for other preprocedural examination
CPT/HCPCS: 36415; 80053; 82607; 82652; 82746; 83036; 84439; 84443; 84550; 85025; 85651; 86038; 86140; 86431

== ENCOUNTER 2024-07-22 12:18 | Outpatient (CLI) | payer OTHER, SELFPAY ==
--- NOTE | 2024-07-22 12:22 | XR_ITS ---
FINAL REPORT CLINICAL HISTORY: Knee pain FINDINGS: AP, lateral and oblique views of the right knee were obtained. There is no prior exam for comparison. There is no acute fracture or dislocation. The joint space is preserved. There is no acute soft tissue abnormality. There is no joint effusion. IMPRESSION: No acute osseous abnormality of the right knee. Reviewed, Interpreted and Dictated by Rosalina Pacheco MD Transcribed by Maryjane Briceño Authenticated and . [facility]
--- NOTE | 2024-07-22 12:22 | XR_ITS ---
FINAL REPORT CLINICAL HISTORY: Knee pain FINDINGS: AP, lateral and oblique views of the left knee were obtained. There is no prior exam for comparison. There are postoperative changes from knee arthroplasty and from ORIF of the distal femur. There is a fractured screw of the lateral plate of the hardware at the distal femur of unknown chronicity. The remainder of the hardware appears intact. There is osteopenia. There is no joint effusion. IMPRESSION: Postoperative changes with a fractured screw associated with the lateral femoral plate. No acute osseous abnormality. Reviewed, Interpreted and Dictated by Rosalina Pacheco MD Transcribed by Maryjane Briceño Authenticated and [facility]
--- OUTSIDE RECORDS SUMMARY | 2024-07-22 12:22 | XMS_ITS | Data Portability ---
Author Organization [place] [facility] [place] Address [address] [place] [address] Care Team Providers Care Green Ware Caster Name Role Phone DANIEL GRACE Primary Care [...] available 12:58:27 microalbumi n, urine 2022 023 [facility], [address] [place], [address], 3 09:01:21 urinalysis, dipstick 2022 023 [facility], [address] [place], [address], 3 09:01:21 Referral orthopedic surgeon referral 2022 023 [email or web address] 0 Jong Phan MD, [address], [address], [place], [address], 3 09:36:38 Procedures None recorded. Surgeries None recorded. Imaging None recorded. Medication Orders Paxlovid 300 mg (150 mg x 2)-100 mg tablets in a dose pack 2023 024 [facility], [address] [place], [address], 4 14:39:11 Dexilant 60 mg capsule, delayed release [address], [address] [place] [address], [address], 3 12:43:08 doxepin 10 mg capsule 2022 023 [facility], [address] [place] [address], [address], 3 08:55:14 amitriptyli ne 25 mg tablet 2022 023 [facility], [address] [place] [address], [address], 4 14:38:56 metoprolol succinate ER 50 mg tablet,exte nded release 24 hr 2022 023 [facility], [address] [place] [address], [address], 3 08:55:13 Dexilant 60 mg capsule, delayed release 2022 023 [facility], [address] [place] [address], [address], 3 08:55:15 duloxetine 60 mg capsule,del ayed release 2022 023 [facility], [address] [place] [address], [address], 3 08:55:14 Patient TargetsNo targets recorded. Patient InstructionsNo instructions recorded. Reason for Referral Orthopedic Surgeon Referral for Pain of left hip joint Referring Physician: Daniel Grace, Family Medicine, Encounter Date: 10/03/2022 Results Created Date Observation Date Name Description Value Unit Range Abnormal Flag Note LastModifiedBy Organization Detail LastModifiedTime 10/04/19 23 10/03/2022 CBC AUTO W DIFF WBC 6.6 10 4.5-11 .5 Not Available [facility] (Lab Registration) [address] [place], [address], 10/03/2022 12:30:24 10/04/19 23 10/03/2022 CBC AUTO W DIFF RBC 4.85 10 4.25-5 .57 Not Available [facility] (Lab Registration) [address] [place], [address], 10/03/2022 12:30:24 10/04/19 23 10/03/2022 CBC AUTO W DIFF HGB 13.3 g/dL 12.0-1 5.7 Not Available [facility] (Lab Registration) [address] [place], [address], 10/03/2022 12:30:24 10/04/19 23 10/03/2022 CBC AUTO W DIFF HCT 40.8 % 36.0-4 7.0 Not Available [facility] (Lab Registration) [address] [place], [address], 10/03/2022 12:30:24 10/04/19 23 10/03/2022 CBC AUTO W DIFF MCV 84.1 fL 80-95 Not Available [facility] (Lab Registration) [address] [place], [address], 10/03/2022 12:30:24 10/04/19 23 10/03/2022 CBC AUTO W DIFF MCH 27.4 pg 27.0-3 4.0 Not Available [facility] (Lab Registration) [address] [place], [address], 10/03/2022 12:30:24 10/04/19 23 10/03/2022 CBC AUTO W DIFF MCHC 32.6 g/dL 32.0-3 6.0 Not Available [facility] (Lab Registration) [address] [place], [address], 10/03/2022 12:30:24 10/04/19 23 10/03/2022 CBC AUTO W DIFF platelet count 326 10 150-45 0 Not Available [facility] (Lab Registration) [address] [place], [address], 10/03/2022 12:30:24 10/04/19 23 10/03/2022 CBC AUTO W DIFF RDW 13.9 % 12.3-1 5.1 Not Available [facility] (Lab Registration) [address] [place], [address], 10/03/2022 12:30:24 10/04/19 23 10/03/2022 CBC AUTO W DIFF MPV 10.7 fL 7.4-10 .4 high Not Available [facility] (Lab Registration) [address] [place], [address], 10/03/2022 12:30:24 10/04/19 23 10/03/2022 CBC AUTO W DIFF granulocyte% 44.0 % 40-75 Not Available [facility] (Lab Registration) [address] [place], [address], 10/03/2022 12:30:24 10/04/19 23 10/03/2022 CBC AUTO W DIFF lymphocyte% 41.1 % 15-57 Not Available [facility] (Lab Registration) [address] [place], [address], 10/03/2022 12:30:24 10/04/19 23 10/03/2022 CBC AUTO W DIFF monocyte% 7.9 % 4.0-12 .0 Not Available [facility] (Lab Registration) [address] [place], [address], 10/03/2022 12:30:24 10/04/19 23 10/03/2022 CBC AUTO W DIFF eosinophil% 6.2 % 0.0-4. 0 high Not Available [facility] (Lab Registration) [address] [place], [address], 10/03/2022 12:30:24 10/04/19 23 10/03/2022 CBC AUTO W DIFF basophil% 0.8 % 0.0-1. 0 Not Available [facility] (Lab Registration) [address] [place], [address], 10/03/2022 12:30:24 10/04/19 23 10/03/2022 CBC AUTO W DIFF immature granulocytes % 0.0 % 0.0-0. 8 Not Available [facility] (Lab Registration) [address] [place], [address], 10/03/2022 12:30:24 10/04/19 23 10/03/2022 CBC AUTO W DIFF granulocyte# 2.91 10 Not Available [facility] (Lab Registration) [address] [place], [address], 10/03/2022 12:30:24 10/04/19 23 10/03/2022 CBC AUTO W DIFF lymphocyte# 2.72 10 Not Available [facility] (Lab Registration) [address] [place], [address], 10/03/2022 12:30:24 10/04/19 23 10/03/2022 CBC AUTO W DIFF monocyte# 0.52 10 Not Available [facility] (Lab Registration) [address], [place], [address], 10/03/2022 12:30:24 10/04/19 23 10/03/2022 CBC AUTO W DIFF eosinophil# 0.41 10 Not Available [facility] (Lab Registration) [address], [place], [address], 10/03/2022 12:30:24 10/04/19 23 10/03/2022 CBC AUTO W DIFF basophil# 0.05 10 Not Available [facility] (Lab Registration) [address] [place], [address], 10/03/2022 12:30:24 10/04/19 23 10/03/2022 CBC AUTO W DIFF immature granulocytes # 0.00 10 Not Available [facility] (Lab Registration) [address] [place], [address], 10/03/2022 12:30:24 10/04/19 23 10/03/2022 CBC AUTO W DIFF manual differential NO Not Available [facility] (Lab Registration) [address] [place], [address], 10/03/2022 12:30:24 10/04/19 23 10/03/2022 CBC AUTO W DIFF note Unles s other crowley noted testi ng perfo rmed at: [facility] [address] [place] [address] [phone] Reynold franz MD CLIA: [id number] Not Available [facility] (Lab Registration) [address] [place], [address], 10/03/2022 12:30:24 10/04/19 23 10/03/2022 HEMOG LOBIN A1C glycosylated hemoglobin A1C 5.8 % 4.5-6. 2 Not Available [facility] (Lab Registration) [address] [place], [address], 10/03/2022 12:57:14 10/04/19 23 10/03/2022 HEMOG LOBIN A1C estimated average glucose 120 mg/dL 82-131 Not Available [facility] (Lab Registration) [address] [place], [address], 10/03/2022 12:57:14 10/04/19 23 10/03/2022 HEMOG LOBIN A1C note Zuly del toro crowley noted testi ng perfo rmed at: [facility] [address] [place] [address] [phone] Reynold franz MD CLIA: [id number] Not Available [facility] (Lab Registration) [address] [place], [address], 10/03/2022 12:57:14 10/04/19 23 10/03/2022 THYRO ID STIMU LATIN G HORMO NE thyroid stimulating hormone 1.16 mIU/m L 0.34-4 .80 Not Available [facility] (Lab Registration) [address] [place], [address], 10/03/2022 12:58:27 10/04/19 23 10/03/2022 THYRO ID STIMU LATIN G HORMO NE note Zuly crowley noted testi ng perfo rmed at: [facility] [address] [place] [address] [phone] Reynold franz MD CLIA: [id number] Not Available [facility] (Lab Registration) [address] [place], [address], 10/03/2022 12:58:27 10/04/19 23 10/03/2022 COMP METAB OLIC PANEL sodium 141 mmol/ L 136-14 5 Not Available [facility] (Lab Registration) [address] [place], [address], 10/03/2022 12:58:29 10/04/19 23 10/03/2022 COMP METAB OLIC PANEL potassium 4.7 mmol/ L 3.5-5. 1 Not Available [facility] (Lab Registration) [address] [place], [address], 10/03/2022 12:58:29 10/04/19 23 10/03/2022 COMP METAB OLIC PANEL chloride 104 mmol/ L 98-107 Not Available [facility] (Lab Registration) [address] [place], [address], 10/03/2022 12:58:29 10/04/19 23 10/03/2022 COMP METAB OLIC PANEL carbon dioxide 31 mmol/ L 21-32 Not Available [facility] (Lab Registration) [address] [place], [address], 10/03/2022 12:58:29 10/04/19 23 10/03/2022 COMP METAB OLIC PANEL anion gap 6.0 Not Available [facility] (Lab Registration) [address] [place], [address], 10/03/2022 12:58:29 10/04/19 23 10/03/2022 COMP METAB OLIC PANEL glucose 91 mg/dL 70-110 Not Available [facility] (Lab Registration) [address] [place], [address], 10/03/2022 12:58:29 10/04/19 23 10/03/2022 COMP METAB OLIC PANEL blood urea nitrogen 14 mg/dL 7-18 Not Available [facility] (Lab Registration) [address] [place], [address], 10/03/2022 12:58:29 10/04/19 23 10/03/2022 COMP METAB OLIC PANEL creatinine 0.9 mg/dL 0.6-1. 0 Not Available [facility] (Lab Registration) [address] [place], [address], 10/03/2022 12:58:29 10/04/19 23 10/03/2022 COMP METAB OLIC PANEL BUN/creatini ne ratio 15.6 ratio 9-21 Not Available [facility] (Lab Registration) [address], [place], [address], 10/03/2022 12:58:29 10/04/19 23 10/03/2022 COMP METAB OLIC PANEL estimated glom filtration rate 68 mL/mi n >60- Not Available [facility] (Lab Registration) [address] [place], [address], 10/03/2022 12:58:29 10/04/19 23 10/03/2022 COMP METAB OLIC PANEL total protein 7.6 g/dL 6.4-8. 2 Not Available [facility] (Lab Registration) [address] [place], [address], 10/03/2022 12:58:29 10/04/19 23 10/03/2022 COMP METAB OLIC PANEL albumin 3.8 g/dL 3.4-5. 0 Not Available [facility] (Lab Registration) [address] [place], [address], 10/03/2022 12:58:29 10/04/19 23 10/03/2022 COMP METAB OLIC PANEL calcium 9.0 mg/dL 8.5-10 .1 Not Available [facility] (Lab Registration) [address] [place], [address], 10/03/2022 12:58:29 10/04/19 23 10/03/2022 COMP METAB OLIC PANEL corrected calcium 9.2 mg/dL 8.5-10 .1 Not Available [facility] (Lab Registration) [address] [place], [address], 10/03/2022 12:58:29 10/04/19 23 10/03/2022 COMP METAB OLIC PANEL bilirubin total 0.2 mg/dL 0.4-1. 5 low Not Available [facility] (Lab Registration) [address], [place], [address], 10/03/2022 12:58:29 10/04/19 23 10/03/2022 COMP METAB OLIC PANEL AST (SGOT) 24 U/L 15-37 Not Available [facility] (Lab Registration) [address] [place], [address], 10/03/2022 12:58:29 10/04/19 23 10/03/2022 COMP METAB OLIC PANEL ALT (SGPT) 40 U/L 12-78 Not Available [facility] (Lab Registration) [address] [place], [address], 10/03/2022 12:58:29 10/04/19 23 10/03/2022 COMP METAB OLIC PANEL alk phosphatase 94 U/L 50-120 Not Available [facility] (Lab Registration) [address] [place], [address], 10/03/2022 12:58:29 10/04/19 23 10/03/2022 COMP METAB OLIC PANEL note Unles s other crowley noted testi ng perfo rmed at: [facility] [address] [place] [address] [phone] Reynold franz MD CLIA: [id number] Not Available [facility] (Lab Registration) [address] [place], [address], 10/03/2022 12:58:29 10/04/19 23 10/03/2022 LIPID PANEL triglyceride 506 mg/dL 20-200 high The [employer]io nal [employer] t[employer] am (NCEP ) has set the follo wing guide lines for Fasti ng Trigl yceri luis: ADA L: <150 mg/dL BORDE RLINE HIGH: 150 - 199 mg/dL HIGH: 200 - 499 mg/dL VERY HIGH: > or =500 mg/dL Not Available [facility] (Lab Registration) [address] [place], [address], 10/03/2022 12:58:30 10/04/19 23 10/03/2022 LIPID PANEL cholesterol 239 mg/dL 0-200 high The [employer]io n[facility] [employer] t[employer]gr am (KYEP ) has set the follo wing guide lines for Fasti ng Tonya stero l: MARAH ABLE: <200 mg/dL BORDE RLINE HIGH: 200 - 239 mg/dL HIGH: > or =240 mg/dL Not Available [facility] (Lab Registration) [address] [place], [address], 10/03/2022 12:58:30 10/04/19 23 10/03/2022 LIPID PANEL HDL cholesterol 28 mg/dL 60- low The [facility]io n[facility] [employer] t[employer] [facility] am ([facility] ) has set the follo wing guide lines for Fasti ng HDL Tonya stero l: LOW HDL: <40 mg/dL ADA L: 40 - 60 mg/dL MARAH ABLE: >60 mg/dL Not Available [facility] (Lab Registration) [address] [place], [address], 10/03/2022 12:58:30 10/04/19 23 10/03/2022 LIPID PANEL LDL calculated TNP mg/dL 100- LDL is calcu ated and inval id when TRIG are >400 mg/dL . The Natio nal [employer]ca t[employer] Progr am ([facility] ) has set the follo wing guide lines for Fasti ng LDL Tonya stero l: OPTIM AL: < 100 mg/dL LOW RISK: 100 - 129 mg/dL BORDE RLINE HIGH: 130 - 159 mg/dL HIGH: 160 - 189 mg/dL VERY HIGH: > or = 190 mg/dL Not Available [facility] (Lab Registration) [address] [place], [address], 10/03/2022 12:58:30 10/04/19 23 10/03/2022 LIPID PANEL chol/HDL ratio 9 ratio -5 high Not Available [facility] (Lab Registration) [address] [place], [address], 10/03/2022 12:58:30 10/04/19 23 10/03/2022 LIPID PANEL note Unles s other crowley noted testi ng perfo rmed at: [facility] [address] [place] [address] [phone] Reynold franz MD CLIA: [id number] Not Available [facility] (Lab Registration) [address] [place], [address], 10/03/2022 12:58:30 10/04/19 23 10/03/2022 urina lysis , dipst ick Leukocytes (reference range) negati ve Not Available [address] [place], [address], 10/03/2022 08:46:44 10/04/19 23 10/03/2022 urina lysis , dipst ick Nitrite (reference range:) negati ve Not Available [address] [place], [address], 10/03/2022 08:46:44 10/04/19 23 10/03/2022 urina lysis , dipst ick Urobilinogen (reference range) 0.2 Not Available [address] [place], [address], 10/03/2022 08:46:44 10/04/19 23 10/03/2022 urina lysis , dipst ick Protein (reference range) 30 Not Available [address] [place], [address], 10/03/2022 08:46:44 10/04/19 23 10/03/2022 urina lysis , dipst ick pH (reference range 5-8.5) 5.5 Not Available [place] [address] [place], [address], 10/03/2022 08:46:44 10/04/19 23 10/03/2022 urina lysis , dipst ick Blood (reference range:) negati ve Not Available [address] [place], [address], 10/03/2022 08:46:44 10/04/19 23 10/03/2022 urina lysis , dipst ick Specific [place] (reference range) 1.030 Not Available [address] [place], [address], 10/03/2022 08:46:44 10/04/19 23 10/03/2022 urina lysis , dipst ick Ketone (reference range) negati ve Not Available [address] [place], [address], 10/03/2022 08:46:44 10/04/19 23 10/03/2022 urina lysis , dipst ick Bilirubin (reference range) negati ve Not Available [address] [place], [address], 10/03/2022 08:46:44 10/04/19 23 10/03/2022 urina lysis , dipst ick Glucose (reference range) negati ve Not Available [address] [place], [address], 10/03/2022 08:46:44 10/04/19 23 10/03/2022 urina lysis , dipst ick Color (reference range: yellow-brown ) Yellow Not Available [place] [address] [place], [address], 10/03/2022 08:46:44 10/04/19 23 10/03/2022 micro album in, urine Microalbumin 80mg/L Abnorm al Not Available [place] [address] [place], [address], 10/03/2022 08:46:43 11/28/19 23 11/27/2022 imagi ng inter preta tion No observ ation record ed. [facility] [address], [place], [address], 11/28/2022 08:20:28 12/21/19 23 12/20/2022 XR, foot No observ ation record ed. [facility] [address], [place], [address], 12/20/2022 12:13:11 12/21/19 23 12/20/2022 XR, foot No observ ation record ed. [facility] [address], [place], [address], 12/20/2022 12:12:58 07/01/19 24 07/01/2023 imagi ng inter preta tion No observ ation record ed. [facility] Registration [address] [place] [address] [place], [address], 07/02/2023 08:20:18 10/17/19 24 10/16/2023 imagi ng inter preta tion No observ ation record ed. [facility] (Registration ) [address] [place] [address] [place], [address], 10/17/2023 07:56:37 Result Notes None recorded. Problems Name Problem SNOMED Code Status Onset Date Resolution Date Notes Provider Name and Address Organization Details Recorded Time Fibromyalgia 496740081 Active 2021 Melissa lopez, [place] [facility] [place] 2 08:11:26 Mixed anxiety and depressive disorder 650048498 Active 2021 Melissa lopez, [place] [facility] [place] 2 08:11:35 Gastroesophag eal reflux disease 338384154 Active 2021 Melissa Pardini null, [place] [facility] [place] 2 08:11:41 Restless legs 95979192 Active 2021 Melissa Pard[place] null[place] [facility] [place] 2 08:11:51 Insomnia 426445288 Active 2021 Melissa [place] null[place] [facility] [place] 2 08:11:59 Essential hypertension 52471709 Active 2021 Melissa [place] [facility] [place] 2 08:12:08 Essential tremor 133926095 Active 2021 Melissa [place] null[place] [facility] [place] 2 08:13:03 Hyperlipidemi a 31036401 Active 2021 Melissa Virkdini null[place] [facility] [place] 2 08:14:29 Osteoporosis 98620021 Active 2021 Daniel Grace MD [address] [place], [address] , [place] [facility] [place] 2 08:35:25 Seasonal allergy 082956887 Active 2021 Daniel Grace MD [address] [place], [address] , [place] [facility] [place] 2 08:35:43 Hiatal hernia 23455075 Active 2022 Tess Perry NP [address], [address], [place], [address] , [place] [facility] [place] & [place] 3 13:03:59 Gastro-esopha geal reflux disease with esophagitis 535039454 Active 2022 Tess Perry NP [address], [address], [place], [address] , [place] [facility] [place] 3 13:06:30 Problem Notes None recorded. Procedures Surgical History Date Name Laterality Status Provider Name and Address Organization Details Recorded Time 01/30/20 22 Date of Last Colonoscopy completed Melissakell Shook [place] [facility] [place] 03/06/2022 15:34:15 01/30/20 22 Colonoscopy completed Tess Perry NP [address] [place] [address] Drive, [address], [place], [address], [place] [facility] [place] 03/04/2023 13:06:59 07/05/19 21 Most Recent Bone Density completed Melissakell Vir[place]dini [place] [place] 03/06/2022 15:34:15 total knee replacement [place]issy [place]yman [place] [facility] [place] 02/01/2022 10:00:14 Cholecystectomy completed Emily [place]yman [place] [facility] [place] 02/01/2022 10:00:22 procedure on hand completed [place]issy [place]yman [place] [facility] [place] 02/01/2022 10:00:46 Hysterectomy completed [place]issy [place]yman [place] [facility] [place] 02/01/2022 10:00:54 procedure on femur completed Em[place]issy Hyman [place] [facility] [place] 02/01/2022 10:01:10 Imaging Results Imaging Date Name Status LastModified by Organization Details LastModified Time 11/27/2022 imaging interpretation completed [facility] [address], [place], [address], 11/28/2022 08:20:28 12/20/2022 XR, foot completed [facility] [address], [place], [address], 12/20/2022 12:13:11 12/20/2022 XR, foot completed [facility] [address], [place], [address], 12/20/2022 12:12:58 07/01/2023 imaging interpretation completed [facility] Registration [address] [place] [address] [place], [address], 07/02/2023 08:20:18 10/16/2023 imaging interpretation completed [facility] (Registration) [address] [place] [address] [place], [address], 10/17/2023 07:56:37 Procedure Notes None recorded. Medical Equipment None Reported. Allergies Allergen ID Allergen Name Allergen Category Reaction Reaction Severity Criticality Documentation Date Start Date Code Code System Note Provider Name and Address Organization Details Recorded Time 81740 Substance with sulfonami de structure and antibacte rial mechanism of action (substanc e) medicatio n Not available Not available Not available 02/01/2022 76728 8003 SNOMED Emily lopez [place] [facility] & [place] 2 09:57:14 40224 acetamino phen / hydrocodo ne medicatio n Not available Not available Not available 02/01/2022 81804 2 RxNorm Emily Hernandezharvinder lopez [place] [facility] & [place] 2 09:57:20 Medications Name Sig Start Date [...] Updated DateTime 3 158.75 cm 30.3 kg/m2 18027.9 6 g 97.3 [degF] 99 % 99 % 70 /min 16 /min 117 mm[Hg] 81 mm[Hg] Melissa Shook [place] - [facility] - [facility] 3 08:46:57 Date Recorded Body height Body mass index (BMI) Body weight Body temperature Oxygen saturation Oxygen saturation in Arterial blood by Pulse oximetry Heart rate Provider Name and Address Organization Details Last Updated DateTime 3 158.75 cm 29.3 kg/m2 56510.5 6 g 97.3 [degF] 97 % 97 % 86 /min Fabiola Sebastian [facility] & [place] 3 10:22:12 Date Recorded Body height Body mass index (BMI) Body weight Body temperature Oxygen saturation Oxygen saturation in Arterial blood by Pulse oximetry Heart rate Respiratory rate Systolic blood pressure Diastolic blood pressure Provider Name and Address Organization Details Last Updated DateTime 4 158.75 cm 29.7 kg/m2 07801.7 4 g 97.5 [degF] 98 % 98 % 88 /min 18 /min 146 mm[Hg] 86 mm[Hg] Scott Alvarado [facility] & [place] 4 14:42:48 Date Recorded Body height Body mass index (BMI) Body weight Body temperature Oxygen saturation Oxygen saturation in Arterial blood by Pulse oximetry Heart rate Respiratory rate Systolic blood pressure Diastolic blood pressure Provider Name and Address Organization Details Last Updated DateTime 4 158.75 cm 30.2 kg/m2 73278.0 8 g 97.3 [degF] 96 % 96 % 80 /min 16 /min 150 mm[Hg] 98 mm[Hg] Melissa Shook [facility] & [place] 4 14:38:22 Social History Question Answer Notes LastModified by Organizat ion Details LastModified Time Tobacco Smoking Status Never Smoker Emily Hyman [facility], [facility] & [place] 02/01/2022 10:00:03 Do You Have An Advance Directive? No Information not available 03/06/2022 What Is Your Level Of Alcohol Consumption? None Information not available 02/14/2022 Are You Blind Or Do You Have Difficulty Seeing? Yes Information not available 03/06/2022 What Is Your Level Of Caffeine Consumption? Occasional [email or web address] Information not available 04/29/2023 What Was The Date Of Your Most Recent Tobacco Screening? 02/26/2022 Information not available 03/06/2022 Are You Passively Exposed To Smoke? No Information no t available 03/06/2022 Do You Feel Stressed (tense, Restless, Nervous, Or Anxious, Or Unable To Sleep At Night)? [id number] Information not available 03/06/2022 Do You Use Any Illicit Or Recreational Drugs? No Information not available 02/14/2022 Has Tobacco Cessation Counseling Been Provided? No [email or web address] Information not available 04/29/2023 Do You Or Have You Ever Used Any Other Forms Of Tobacco Or Nicotine? No [email or web address] Information not available 04/29/2023 Sex: Female Functional Status Question Answer Note LastModified by Organizat ion Details LastModified Time What is your exercise level? Occasional Information not available 03/06/2022 Mental Status None recorded. Family History Relationship Description Onset Age of this Age Resolved Age Notes LastModified by Organization Details LastModified Time Father Hyperlipidem ia dece ed [email or web address] Not available 08/28/2023 13:55:32 Father Cerebrovascu lar accident [facility] Not available 02/01/2022 09:58:43 Father Disorder of thyroid gland [facility] Not available 02/01/2022 09:59:03 Father Heart disease [facility] Not available 02/01/2022 09:59:19 Father Essential hypertension [facility] Not available 08/28/2023 13:55:32 Father Malignant tumor of lung [facility] Not available 08/28/2023 13:55:32 Medical History Condition Response Hyperlipidemia Y Arthritis Y Headaches Y Reflux/GERD Y Hypertension Y High Cholesterol Y Gynecological History Statement/Question Response Current Control Method None Date of Last Colonoscopy 01/29/2022 Most Recent Bone Density 07/04/2020 Sexually Active? N Obstetrics History GPAL:G 0 P 0 0 0 0 Immunizations Vaccine Type Date Status Note Provider Nam e and Address Organization Details Recorded Time COVID-19, mRNA, LNP-S, PF, 100 mcg/0.5mL dose or 50 mcg/0.25mL dose completed Melissa lopez, [place] - [facility] - [place] & [place] 02/14/2022 08:09:56 Hep A, adult 9 completed Melissa Pardini null, [place] [facility] [place] [facility] [place] 02/14/2022 08:09:56 Influenza, split virus, trivalent, PF 4 completed Melissa Pardini [place], [place] [facility] [place] 02/14/2022 08:09:56 zoster recombinant 8 completed Melissa Pardini null, [place] [facility] [place] 02/14/2022 08:09:56 COVID-19 vaccine, vector-nr, rS-Ad26, PF, 0.5 mL 1 completed Melissa Pardini null, [place] [facility] [place] [facility] [place] 02/14/2022 08:09:56 Hep B, adult 9 completed Melissa Pardini null, [place] [facility] [place] 02/14/2022 08:09:56 Hep B, adult 8 completed Melissa Pardini [place] [facility] [place] 02/14/2022 08:09:56 COVID-19, mRNA, LNP-S, bivalent, PF, 50 mcg/0.5 mL or 25mcg/0.25 mL dose 2 completed Mindi Bassett null, [place] [facility] [place] [facility] [place] 08/19/2023 07:40:25 Hep A, adult 8 completed Melissa Pardini null[place] [facility] [place] 02/14/2022 08:09:56 Influenza, split virus, quadrivalent, PF 8 completed Melissa Pardini null, [place] [facility] [place] 02/14/2022 08:09:56 Hep B, adult 8 completed Melissa Pardini null[place] [facility] [place] 02/14/2022 08:09:56 Influenza, split virus, quadrivalent, PF 3 completed Daniel Grace MD [address] [place] [address], [phone], [place] - [facility] [place] & [place] 01/22/2023 15:34:48 Past Encounters Encounter ID Performer Location Encounter Start Date Encounter Closed Date Diagnosis/Indication Diagnosis SNOMED-CT Code Diagnosis ICD10 Code Diagnosis Note [id number] Belinda Lemus MD [facility] [address] [facility],[place] [address] 02/07/2022 07:45:55 02/07/2022 08:54:19 Essential tremor 885234288 G25.0 would like to consolidat e her beta-block ers, will increase metoprolol to 50 mg and stop Inderal. Also recommend continuing low-dose Xanax at bedtime this seems to have been very helpful for her. Patient will follow up with me over the next 2-3 weeks for blood pressure check. Generalize d anxiety disorder 85465199 F41.1 Fibromyalgia 781075032 M 79.7 [id number] Daniel Grace MD [address] [address] 02/14/2022 07:54:01 02/14/2022 09:05:43 Fibromyalgia 717458625 M79.7 patient is currently under the care of Dr.MOBERLY fernando bonilla in [place]. She also sees neurology Gastroesop hageal reflux disease 460798177 K21.9 patient states she had a colonoscop y last month. She is being taking care of by Dr. Fischer. She also mentions that she has been diagnosed with IBS C She is currently on lansoprazo le Hyperlipidemia 00752403 E78.5 patient is currently on fenofibrat e. Will obtain lab work today. labs drawn by Micaela LT AC Insomnia 531066880 G47.0 0 patient takes alprazolam and amitriptyl ine for this. Mixed anxi ety and depressive disorder 189349277 F41.8 Patient is currently on duloxetine Essential hypertension 81417218 I10 controlled with metoprolol Osteoporosis 38128310 M8 1.0 patient is requesting a Prolia shot. We will order the medication . Her calcium levels are pending. Essential tremor 7448835 09 G25.0 patient takes metoprolol . She is also on doxepin [id number] Belinda Lemus MD [facility] [address] [facility],[place] [address] 02/28/2022 07:53:26 02/28/2022 08:44:52 Essential tremor 080211219 G25.0 overall doing well with metoprolol , would like to continue for now, will use p.r.n. low-dose Xanax as necessary. Medication s have been refilled today. [id number] MD franci Arango[address] [address] 03/06/2022 15:22:29 03/06/2022 16:04:57 Acute cystitis 03795841 N30.00 will treat with antibiotic s empiricall y. Will send her sample for cultures. [id number] MD franci Arango[address] [address] 03/27/2022 08:36:39 03/27/2022 09:06:43 Influenza-like symptoms 270546005 R68.89 patient tested negative for influenza as well as COVID-19. Due to her premorbid conditions we will treat her with a Z-Leander and a steroid Dosepak. Should her symptoms worsen she has been instructed to go to the emergency department . [id number] Daniel Grace MD [address] [address] 10/03/2022 08:28:43 10/03/2022 09:00:03 Essential hypertension 30181148 I10 controlled with metoprolol blood drawn in the right AC by Melissa Shook CMA, patient tolerated well. Hyperlipidemia 86569198 E78.5 patient is currently on fenofibrat e. Mixed anxi ety and depressive disorder 966951973 F41.8 patient continues to be controlled on medication . Gastroesop hageal reflux disease 841256931 K21.9 patient states she had a colonoscop y In December 2021. She is being taking care of by Dr. Fischer. She also mentions that she has been diagnosed with IBS C She is currently on lansoprazo le Insomnia 377445034 G47.0 0 patient takes alprazolam and amitriptyl ine for this. Essential tremor 5430901 09 G25.0 patient takes metoprolol . She is also on doxepin Pain of le ft hip joint 0978504913 28920 [address] PHAN [id number] [facility] at [address] [place] [address] 10/17/2022 07:53:34 10/17/2022 09:10:59 [id number] [facility]OT[facility] at [address] [place] [address] 10/31/2022 10:11:33 11/05/2022 15:09:35 [id number] DOROTHY RESTREPO [facility] at [address] [place] [address] 11/22/2022 08:44:41 11/22/2022 09:42:13 [id number] [facility] at [address] [place] [address] 12/20/2022 08:43:46 12/20/2022 09:15:40 [id number] [facility]OT[facility] at [address] [place] [address] 12/26/2022 12:23:31 12/26/2022 13:59:00 [id number] [facility] at [address] [place] [address] 01/22/2023 13:52:45 01/22/2023 15:39:28 [id number] Daniel Grace MD [address] [place] [address] 01/22/2023 15:08:06 01/22/2023 15:21:07 Administration of influenza vaccine 15255228 Z23 [id number] Tess Perry NP [address] [place] [address] 03/04/2023 09:59:50 03/04/2023 13:10:18 Gastro-esophageal reflux disease with esophagitis 298053208 K21.00 Continues lansoprazo le 30 mg p.o. [...] for treatment. History of polyp of colon 508753478 Z86.010 Colonoscop y 01/29/2022 with polyps resected consistent with tubular adenomas negative for high-grade dysplasia. Plan to repeat colonoscop y 12/2024 for surveillan ce. Hiatal hernia 94672091 K 44.9 Small hiatal hernia noted on EGD 05/2021. [id number] DOROTHY [facility] ic [facility] at [address] [place] [address] 03/14/2023 08:38:04 03/18/2023 13:09:19 [id number] DOROTHY RESTRE[facility] ic [facility] at [address] [place] [address] 04/15/2023 07:55:10 04/15/2023 09:58:56 [id number] Murali Marshall MD [address] [place] [address] 04/29/2023 14:13:20 05/01/2023 16:07:39 Infection of upper respiratory tract caused by SARS-CoV-2 1452537028 406805 U07.1 patient's symptoms in 2 positive home tests correlate with COVID-19. We will proceed with treatment. Discussed isolation. . Seek medical care symptoms become severe [id number] DOROTHY [facility] at [address] [place] [address] 05/17/2023 09:16:24 05/17/2023 10:36:53 [id number] D[facility]OT[facility] at [address] [place] [address] 06/28/2023 08:40:44 06/28/2023 12:06:22 [id number] [facility]OT[facility] at [address] [place] [address] 08/05/2023 09:30:22 08/05/2023 10:56:51 [id number] Daniel Grace MD [address] [place] [address] 08/28/2023 13:55:17 08/28/2023 14:45:28 Pre-surgery evaluation 515963521 Z01.818 patient has been cleared for surgery. [id number] DOROTHY [facility]PO [facility] at [address] [place] [address] 09/04/2023 14:24:21 09/10/2023 13:27:04 [id number] D[facility]OTHY [facility] at [address] [place] [address] 10/09/2023 10:44:13 10/09/2023 12:11:17 Health Concerns Section Related Observation LastModified by Organization Detai ls LastModified Time None Recorded Concern Status LastModified by Organization Details LastModified Time None Recorded Advance Directives Directive N: Payers Encounter Date Sequence Insurance Name Policy Number Policy Shah Covered Member ID Shah Member ID Guarantor Name 10/03/2022 1 [place] [employer] [place] [employer] [id number] Debbie Nesbitt [id number] Debbie[address] MontesinosNesbitt 01/22/2023 1 [place] [id number] Debbie Nesbitt [id number] Debbie Nesbitt 03/04/2023 1 [place] [id number] Debbie Nesbitt [id number] Debbiecindy MontesinosNesbitt 04/29/2023 1 [place] [id number] Debbie Nesbitt [id number] Debbie Nesbitt 08/28/2023 [address] [facility] NATIONAL ACCOUNTS [id number] Debbie Nesbitt [id number] Debbie Nesbitt Notes Date Note Type Note Provider Name and Address Organization Details Recorded Time 3 text/html PT PRESENTS FOR CHRONIC CARE MANAGEMENT, DENIES ANY NEW ISSUES. IS COMPLIANT WITH MEDICATIONSPATIENT ALSO COMPLAINS OF LEFT GROIN PAIN Daniel Grace MD [address] [place] [address], [phone], [facility] & [place] 10/03/2022 11:01:03 3 text/html Patient returns to [...] colonoscopy 01/2025 for surveillance. Tess Perry NP [address] [place] [address], [address], [place], [address], [facility] & [place] 03/04/2023 13:07:22 4 text/html patient is seen [...] also has body aches. Murali Marshall MD [address] [place] [address], [phone], [facility] & [place] 04/29/2023 16:49:02 4 text/html patient presents today for preop clearance. She is having a total hip replacement and removal of hardware in her left lower extremity performed. Daniel Grace MD [address] [place] [address], [phone], [facility] - [facility] - [place] & [place] 08/28/2023 14:40:42 OBGyn Episode No OBEpisode recorded.
== END 2024-07-22 23:59 | disposition home or self-care (01) ==
LOC: RAD 12:20
PROVIDERS: PCP Nurse Practitioner Family; Visit Provider Physician Assistant
DX: M25.561 Pain in right knee (principal); M25.562 Pain in left knee; G89.29 Other chronic pain
CPT/HCPCS: 73562

== ENCOUNTER 2024-08-28 08:28 | Outpatient (CLI) | payer OTHER, SELFPAY ==
--- OUTSIDE RECORDS SUMMARY | 2024-08-28 08:31 | XMS_ITS | Data Portability ---
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 Have recommended behavioral health evaluation. 2022 023 nia 5 [facility], [address], [place], [address], 3 13:48:57 Procedures None recorded. Surgeries None recorded. Imaging None recorded. Medication Orders tramadol 50 mg tablet 2023 024 [facility], [address] [place] [address], [address], 4 16:13:55 duloxetine 60 mg capsule,del ayed release 2023 024 [facility] [address], [address] [place] [address], [address], 4 16:13:51 amitriptyli ne 50 mg tablet 2023 024 [facility] [address], [address] [place] [address], [address], 4 16:13:53 doxepin 10 mg capsule 2023 024 [facility], [address] [place], [address], 4 16:13:54 tramadol 50 mg tablet 2022 023 [facility], [address] [place] [address], [address], 3 16:04:37 amitriptyli ne 25 mg tablet 2022 023 [facility], [address] [place] [address], [address], 3 16:04:34 Calcium 600 + D(3) 600 mg-10 mcg (400 unit) tablet 2022 023 [facility], [address] [place] [address], [address], 3 16:04:35 sumatriptan 100 mg tablet 2022 023 [facility], [address] [place] [address], [address], 3 09:23:25 trazodone 100 mg tablet 2022 023 [facility], [address] [place] [address], [address], 3 15:57:29 sumatriptan 100 mg tablet 2022 023 [facility], [address] [place] [address], [address], 3 11:27:34 Lexapro 10 mg tablet 2022 023 [facility], [address] [place] [address], [address], 3 11:27:34 tramadol 50 mg tablet 2022 023 [facility], [address] [place] [address], [address], 3 16:12:57 amitriptyli ne 25 mg tablet 2022 023 [facility], [address] [place] [address], [address], 16:12:54 duloxetine 30 mg capsule,del ayed release 2022 023 [facility], [address] [place] [address], [address], 08:55:59 Calcium 600 + D(3) 600 mg-10 mcg (400 unit) tablet 2022 023 [facility], [address] [place] [address], [address], 16:12:56 Patient TargetsNo targets recorded. Patient Instructions Encounter Date Encounter Id Patient Instructions Last Modified By Organization Details Last Modified Time 04/24/2022 [id number] osteoarthritis: care instructions smoberly Not available 04/24/2022 16:04:57 body mechanics education smoberly Not available 04/24/2022 16:04:57 10/19/2022 [id number] osteoarthritis: care instructions smoberly Not available 10/19/2022 15:59:52 body mechanics education smoberly Not available 10/19/2022 15:59:52 06/25/2023 [id number] osteoarthritis: care instructions smoberly Not available 06/25/2023 [...] 1.15 NG/dL 0.93-1 .70 normal Not Available [facility] [address] [place], [address], 07/20/2022 11:15:20 07/21/19 23 07/20/2022 TSH TSH 3.650 uIU/m L 0.270- 4.200 normal Not Available [facility] [address] [place], [address], 07/20/2022 11:15:22 07/21/19 23 07/29/2022 METAN EPHRI TAYLA, FRACT . PLASM A metanephrine 29 pg/mL < or = 57 normal This test was devel oped and its nilsa tical perfo rmanc e cony cteri stics have been deter mined by [facility] . It has not been clear ed or appro kong by FDA. This assay has been valid ated pursu ant to the CLIA regul ation s and is used for clini eric purpo ses. Not Available [facility] [address] [place], [address], 07/29/2022 16:17:02 07/21/19 23 07/29/2022 METAN EPHRI TAYLA, FRACT . PLASM A normetanephr ine 191 pg/mL < or = 148 high This test was devel oped and its nilsa tical perfo rmanc e cony cteri stics have been deter mined by [facility] . It has not been clear ed or appro kong by FDA. This assay has been valid ated pursu ant to the CLIA regul ation s and is used for clini eric purpo ses. Not Available [facility] [address] [place], [address], 07/29/2022 16:17:02 07/21/19 23 07/29/2022 METAN EPHRI TAYLA, FRACT . PLASM A total metanephrine 220 pg/mL < or = 205 high [place] tions > 4-fol d upper refer ence range : stron gly sugge stive of a pheoc hromo cytom a(1). [place] tions >1 - 4-fol d upper refer [...] infor tin baig e refer to http: //[facility] isacc patel.que stdia gnost ics.c om/fa q/Met Fract Free (This link is being provi ded for infor matio nal/e ducat ional purpo ses only. ) This test was devel oped and its nilsa tical perfo rmanc e cony cteri stics have been deter mined by [facility] . It has not been clear ed or appro kong by FDA. This assay has been valid ated pursu ant to the CLIA regul ation s and is used for clini eric purpo ses. TEST PERFO RMED AT: [facility] [address] [facility] [place] [address] Marek ALBA,PHD ,[place] Not Available [facility] [address] [place] [address], [address], 07/29/2022 16:17:02 08/18/19 23 08/17/2022 CT, abdom en, w/o contr ast [address] [address] Debbie brown Name: CORNELIO brown : 1964 [...] Dey MD on 023 3:37 PM [id number] [facility] [address], [address], 08/21/2022 11:57:25 Result Notes None recorded. Problems Name Problem SNOMED Code Status Onset Date Resolution Date Notes Provider Name and Address Organization Details Recorded Time Fibromyalgia 882375588 Active 2019 Not Available [facility] 2 17:36:47 Problem Notes Documentation Provider Name and Address Organization Details Recorded Time Progress Note : [facility] [address] [place] [id number], Leia (id #[id number], : 1965) [facility] [address] [place] [address] Encounter Summary - Progress Note Date Printed: 04/24/2022 Documents sent via fax will include the [...] received this fax in error, please visit [email or web address] to notify the sender and confirm that the information will be destroyed. If you do not have internet access, please call to notify the sender and confirm that the information will be destroyed. Thank you for your attention and cooperation. [ID:[id number]] Patient Cornelio Nesbitt (57yo, F) #[id number] 1965 Patient Demographics: Address [address] [place] [address] Work Phone Encounter Notes: Encounter Reason/DateNone recorded 04/24/2022 - [...] tablet(s) twice a day by oral route. Qty: (180) tablet Refills: 1 Pharmacy: [facility] Note to Pharmacy: dose change [employer]UC[employer] duloxetine 30 mg capsule,delayed release - Take 1 capsule(s) every day by oral route. Qty: (90) capsule Refills: 1 Pharmacy: [facility] Note to Pharmacy: reducing dose and planning [...] day by oral route for 30 days. Qty: (180) tablet Refills: 2 Pharmacy: [facility] 3. Osteopenia- per recent dexa scan with a t score of -1.4 she has a great vitamin d level and will start on calcium with vitamin dM85.80: Other specified disorders of bone density and structure, unspecified site Calcium 600 + D(3) 600 mg-10 mcg (400 unit) tablet - Take 1 tablet(s) every day by oral route. Qty: (90) tablet Refills: 3 Pharmacy: [facility] 4. Vitamin B12 deficiency (non anemic)- [...] 1 tablet(s) twice a day by oral route.04/24/22 prescribed BISMARK KEITH APRN Azo Bladder BqbxluW39/26/18 entered Monika Dioni baclofen 10 mg tablettake 1/2 to 1 tablet 3 times a day as ldxvux35/26/18 entered Monika Aguirreate Calcium 600 + D(3) 600 mg-10 mcg (400 unit) tabletTake 1 tablet(s) every day by oral route.04/24/22 prescribed BISMARK KEITH APRN cetirizine 10 mg capsuleTake by oral route.12/25/17 entered Monikaduc Wheatley Co Q- entered Monika Aguirreate DULoxetine 20 mg capsule,delayed releasetake one po qhs01/23/22 prescribed BISMARK KEITH APRN DULoxetine 30 mg capsule,delayed releaseTake 1 capsule(s) every day by oral route.04/24/22 prescribed BISMARK KEITH APRN DULoxetine 60 mg capsule,delayed releaseTake 1 capsule(s) every day by oral route.01/23/22 prescribed BISMARK KEITH APRN garlic 1,000 mg capsuleTake by oral route.12/25/17 entered Monika Dioni iron12/25/17 entered Monika Dioni krill oil12/25/17 entered Monika Dioni meclizine 12.5 mg tablettake 1 to 1-1/2 tablets 3 times a day12/25/17 entered Monika Dioni melatonin 5 mg capsuleTake by oral route.12/25/17 entered Monika Dioni metoprolol succinate ER 25 mg tablet,extended release 24 hrTake 1 tablet(s) every day by oral route.12/25/17 entered Monika Dioni Prevacid 30 mg capsule,delayed releaseTake 1 capsule(s) twice a day by oral route.01/23/22 entered BISMARK KEITH APRN Htaqebngx86/26/18 entered Monika Dioni Stool Mdtxvqri93/26/18 entered Monika Dioni traMADoL 50 mg tabletTake 2 tablet(s) 3 times a day by oral route for 30 days.04/24/22 prescribed BISMARK KEITH APRN vitamin B vnivuch41/26/18 entered Monika Dioni Vitamin C 1,000 mg tabletTake by oral route.12/25/17 entered Monika Dioni Vitamin D312/25/17 entered Monika Dioni Family HistoryReviewed Family History Unspecified Relation - Diabetes mellitus - Family history of cancer - Kidney stone Past Medical HistoryReviewed Past Medical History Acid Reflux (GERD):Y Arthritis:Y Hypertension:Y Vaccine HistoryNone recorded Electronically Signed by: BISMARK KEITH APRN, PARTS AND SERVICE MANAGER Gail lopez [facility] 05/03/2022 14:44:52 Progress Note : [address] [address]AJGHNNE, Leia (id #[id number], : 1965) [address] [address] Encounter Summary - Progress Note Date Printed: 07/20/2022 Documents sent via fax will include the [...] received this fax in error, please visit [email or web address] to notify the sender and confirm that the information will be destroyed. If you do not have internet access, please call to notify the sender and confirm that the information will be destroyed. Thank you for your attention and cooperation. [ID:[id number]] Patient Cornelio Nesbitt (57yo, F) #[id number] 1965 Patient Demographics: Address [address] [place] [address] Work Phone Encounter Notes: Encounter Reason/DateTransition of Care Encounter 07/20/2022 - 09:00AM - NEUROLOGY SB History of Present Idjvtzh86-nsbz-zjx female with history of anxiety depression also [...] am Wt: 176 lbs 4 oz With dsmleqp2107/20/2022 08:53 am BMI: 32. 08:53 am BP: 166/96 sitting L arm07/20/2022 08:55 am Pulse: 104 bpm fcqbewo7407/20/2022 08:55 am O2Sat: 95% Room Air at [...] next 4 to 6 weeks. 1. Dizzy jrjlpwN79: Dizziness and giddiness METANEPHRINE,FRACTIONATED, PLASMA THYROID STIMULATING HORMONE (TSH) T4 FREE 2. GfxtbqvzN02.909: Migraine, unspecified, not intractable, without status migrainosus sumatriptan 100 mg tablet - Take 1 tablet at onset of headache may repeat Qty: (9) tablet Refills: 3 Pharmacy: [facility] 3. Mixed anxiety and depressive vbrbchhmX95.8: Other specified anxiety disorders Lexapro 10 mg tablet - Take 1 tablet at bedtime Qty: (30) tablet Refills: 3 Pharmacy: [facility] Return to Office BISMARK KEITH APRN for RHEUM RECHECK at RHEUMATOLOGY SB on 10/19/2022 at 03:45 PM Patient Medical History: Allergies List Reviewed Allergies HYDROCODONE SULFA (SULFONAMIDE ANTIBIOTICS) Medications Reviewed Medications NameDate Source amitriptyline 25 mg tabletTake 1 tablet(s) twice a day by oral route.04/24/22 prescribed BISMARK KEITH APRN Azo Bladder IkdzqmK37/26/18 entered Monika Dioni baclofen 10 mg tablettake 1/2 to 1 tablet 3 times a day as epliov48/26/18 entered Monika Dioni Calcium 600 + D(3) 600 mg-10 mcg (400 unit) tabletTake 1 tablet(s) every day by oral route.04/24/22 prescribed BISMARK KEITH APRN cetirizine 10 mg capsuleTake by oral route.12/25/17 entered Monika Dioni Co Q- entered Monika Dioni garlic 1,000 mg capsuleTake by oral route.12/25/17 entered Monika Dioni iron12/25/17 entered Monika Dioni krill oil12/25/17 entered Monika Dioni Lexapro 10 mg tabletTake 1 tablet at vcyfizp50/21/23 prescribed BELINDA VELASQUEZ MD meclizine 12.5 mg tablettake 1 to 1-1/2 tablets 3 times a day12/25/17 entered Monika Dioni melatonin 5 mg capsuleTake by oral route.12/25/17 entered Monika Dioni metoprolol succinate ER 25 mg tablet,extended release 24 hrTake 1 tablet(s) every day by oral route.12/25/17 entered Monika Dioni Prevacid 30 mg capsule,delayed releaseTake 1 capsule(s) twice a day by oral route.01/23/22 entered BISMARK KEITH APRN Wzcouasbl04/26/18 entered Monika Dioni Stool Qyboaywk19/26/18 entered Monika Dioni SUMAtriptan 100 mg tabletTake 1 tablet at onset of headache july07/20/22 prescribed BELINDA VELASQUEZ MD traMADoL 50 mg tabletTake 2 tablet(s) 3 times a day by oral route for 30 days.04/24/22 prescribed BISMARK KEITH APRN vitamin B bngazwn39/26/18 entered Monika Wheatley Vitamin C 1,000 mg tabletTake by oral route.12/25/17 entered Monika Dioni Vitamin D312/25/17 entered Monika Dioni Family HistoryReviewed Family History Unspecified Relation - Diabetes mellitus - Family history of cancer - Kidney stone Past Medical HistoryReviewed Past Medical History Arthritis:Y Depression:Y High Cholesterol:Y Hypertension:Y Vaccine HistoryNone recorded Electronically Signed by: BELINDA VELASQUEZ MD [facility] 07/23/2022 10:43:06 Neurologist Consult Note : [address] [address]DFTIUTC, Leia (id #[id number], : 1965) [address] [address] Encounter Summary - Progress Note Date Printed: 09/07/2022 Documents sent via fax will include the [...] received this fax in error, please visit [email or web address] to notify the sender and confirm that the information will be destroyed. If you do not have internet access, please call to notify the sender and confirm that the information will be destroyed. Thank you for your attention and cooperation. [ID:[id number]] Patient Cornelio Nesbitt (57yo, F) #[id number] 1965 Patient Demographics: Address [address] [place] [address] [place] [address] Work Phone Encounter Notes: Encounter Reason/DateNone recorded 09/07/2022 - [...] reactive depression due to the of her vahsahk-af-mkg. I have recommended consideration for behavioral health [...] in09/07/2022 08:33 am Wt: 177 lbs With kmmbjax9509/07/2022 08:33 am BMI: 32.406 08:33 am BP: [...] evaluation by John Ozuna, behavioral health. 1. EdjtcsgwK86.909: Migraine, unspecified, not intractable, without status migrainosus sumatriptan 100 mg tablet - Take 1 tablet at onset of headache may repeat Qty: (9) tablet Refills: 5 Pharmacy: [facility] 2. Mixed anxiety and depressive zbzlwqdvW56.8: Other specified anxiety disorders BEHAVIORAL HEALTH REFERRAL - Schedule Within: provider's discretion Note to Provider: History of depression and anxiety, on Lexapro but still with significant anxiety reaction. Have recommended behavioral health evaluation.Place of service: OFFICE # of requested visits: 6 Procedure code: 19165, 70694, 04796, 75253, 26281, 09410, 26810, 58997, 25366, 59057 Authorization: PUJA-NATALIE Carter (PPO) [place]REQU[place] [address], [address], 47683, [address], [address], 16240, 22920, 20628, 79986, 85994 3. WqkkwzybS70.00: Insomnia, unspecified trazodone 100 mg tablet - Take 1 tablet at bedtime Qty: (30) tablet Refills: 3 Pharmacy: [facility] Return to Office BISMARK KEITH APRN for RHEUM RECHECK at RHEUMATOLOGY SB on 10/19/2022 at 03:45 PM Patient Medical History: Allergies List Reviewed Allergies HYDROCODONE: - unable to sleep IODINATED CONTRAST MEDIA: Vomiting - jittery SULFA (SULFONAMIDE ANTIBIOTICS): Nausea, Vomiting Medications Reviewed Medications NameDate Source amitriptyline 25 mg tabletTake 1 tablet(s) twice a day by oral route.04/24/22 prescribed BISMARK KEITH APRN Azo Bladder RyqdtiW46/26/18 entered Monika Dioni baclofen 10 mg tablettake 1/2 to 1 tablet 3 times a day as xzwwem94/26/18 entered Monika Dioni Benadryl Allergy 25 mg tabletTake 25 mg by oral route as directed.07/31/22 prescribed BELINDA VELASQUEZ MD Calcium 600 + D(3) 600 mg-10 mcg (400 unit) tabletTake 1 tablet(s) every day by oral route.04/24/22 prescribed BISMARK KEITH APRN cetirizine 10 mg capsuleTake by oral route.12/25/17 entered Monika Dioni Co Q- entered Monika Dioni garlic 1,000 mg capsuleTake by oral route.12/25/17 entered Monika Dioni iron12/25/17 entered Monika Dioni krill oil12/25/17 entered Monika Dioni Lexapro 10 mg tabletTake 1 tablet at nihndmk20/21/23 prescribed BELINDA VELASQUEZ MD meclizine 12.5 mg tablettake 1 to 1-1/2 tablets 3 times a day12/25/17 entered Monika Wheatley melatonin 5 mg capsuleTake by oral route.12/25/17 entered Monika Wheatley metoprolol succinate ER 25 mg tablet,extended release 24 hrTake 1 tablet(s) every day by oral route.12/25/17 entered Monika Aguirreate Prevacid 30 mg capsule,delayed releaseTake 1 capsule(s) twice a day by oral route.01/23/22 entered BISMARK KEITH APRN Fjcfhujbe23/26/18 entered Monika Wheatley Stool Eilmohvf06/26/18 entered Monika Wheatley SUMAtriptan 100 mg tabletTake 1 tablet at onset of headache july09/07/22 prescribed BELINDA VELASQUEZ MD traMADoL 50 mg tabletTake 2 tablet(s) 3 times a day by oral route for 30 days.04/24/22 prescribed BISMARK KEITH APRN traZODone 100 mg tabletTake 1 tablet at tpuwhoo65/09/23 prescribed BELINDA VELASQUEZ MD vitamin B ouuiwvh72/26/18 entered Monika Wheatley Vitamin C 1,000 mg tabletTake by oral route.12/25/17 entered Monika Wheatley Vitamin D312/25/17 entered Monikacarrie Wheatley Family HistoryReviewed Family History Unspecified Relation - Diabetes mellitus - Family history of cancer - Kidney stone Past Medical HistoryReviewed Past Medical History Arthritis:Y Depression:Y High Cholesterol:Y Hypertension:Y Vaccine HistoryNone recorded Electronically Signed by: BELINDA VELASQUEZ MD [facility] 09/10/2022 08:35:53 Progress Note : [address] [address]PVYAHWQ, Leia (id #[id number], : 1965) [address] [address] Encounter Summary - Progress Note Date Printed: 10/19/2022 Documents sent via fax will include the [...] received this fax in error, please visit [email or web address] to notify the sender and confirm that the information will be destroyed. If you do not have internet access, please call to notify the sender and confirm that the information will be destroyed. Thank you for your attention and cooperation. [ID:[id number]] Patient Cornelio Nesbitt (57yo, F) #[id number] 1965 Patient Demographics: Address [address] [place] [address] [place] [address] Work Phone Encounter Notes: Encounter Reason/Date tramadol refills 10/19/2022 [...] pm Wt: 175 lbs 6 oz With zmmtrhn3810/19/2022 03:44 pm BMI: 32. 03:44 pm BP: 124/70 sitting R arm10/19/2022 03:47 pm BP Cuff Size: adult10/19/2022 03:45 pm Pulse: 87 bpm zomluuo3710/19/2022 03:45 pm RR: 1607 03:45 pm O2Sat: [...] tablet(s) twice a day by oral route. Qty: (180) tablet Refills: 3 Pharmacy: [facility] BODY MECHANICS EDUCATION 2. Degenerative joint [...] day by oral route for 30 days. Qty: (180) tablet Refills: 2 Pharmacy: [facility] 3. Osteopenia- per recent dexa scan with a t score of -1.4 she has a great vitamin d level and will start on calcium with vitamin dfilled for one year on 10/19/2022M85.80: Other specified disorders of bone density and structure, unspecified site Calcium 600 + D(3) 600 mg-10 mcg (400 unit) tablet - Take 1 tablet(s) every day by oral route. Qty: (90) tablet Refills: 3 Pharmacy: [facility] 4. Vitamin B12 deficiency (non anemic)- [...] 1 tablet(s) twice a day by oral route.10/19/22 prescribed BISMARK KEITH APRN Azo Bladder DsdpncG53/26/18 entered Monika Dioni baclofen 10 mg tablettake 1/2 to 1 tablet 3 times a day as wnpell40/26/18 entered Monika Dioni Benadryl Allergy 25 mg tabletTake 25 mg by oral route as directed.07/31/22 prescribed BELINDA VELASQUEZ MD busPIRone 5 mg tabletTake 1 tablet(s) twice a day by oral route.10/19/22 entered [facility]ank Calcium 600 + D(3) 600 mg-10 mcg (400 unit) tabletTake 1 tablet(s) every day by oral route.10/19/22 prescribed BISMARK KEITH APRN cetirizine 10 mg capsuleTake by oral route.12/25/17 entered Monika Dioni Co Q- entered Monika Dioni garlic 1,000 mg capsuleTake by oral route.12/25/17 entered Monika Dioni iron12/25/17 entered Monika Dioni krill oil12/25/17 entered Monika Dioni Lexapro 10 mg tabletTake 1 tablet at wkekrqz63/21/23 prescribed BELINDA VELASQUEZ MD meclizine 12.5 mg tablettake 1 to 1-1/2 tablets 3 times a day12/25/17 entered Monika Dioni melatonin 5 mg capsuleTake by oral route.12/25/17 entered Monika Dioni metoprolol succinate ER 25 mg tablet,extended release 24 hrTake 1 tablet(s) every day by oral route.12/25/17 entered Monika Dioni Prevacid 30 mg capsule,delayed releaseTake 1 capsule(s) twice a day by oral route.01/23/22 entered BISMARK KEITH APRN Roawqgpwp34/26/18 entered Monika Dioni Stool Ykzfzoqd05/26/18 entered Monika Dioni SUMAtriptan 100 mg tabletTake 1 tablet at onset of headache july09/07/22 prescribed BELINDA VELASQUEZ MD traMADoL 50 mg tabletTake 2 tablet(s) 3 times a day by oral route for 30 days.10/19/22 prescribed BISMARK KEITH APRN vitamin B zbcondf21/26/18 entered Monika Wheatley Vitamin C 1,000 mg tabletTake by oral route.12/25/17 entered Monikaduc Wheatley Vitamin D312/25/17 entered Monika Dioni Family HistoryReviewed Family History Unspecified Relation - Diabetes mellitus - Family history of cancer - Kidney stone Past Medical HistoryReviewed Past Medical History Acid Reflux (GERD):Y Arthritis:Y Hypertension:Y Vaccine HistoryNone recorded Electronically Signed by: BISMARK KEITH APRN, PARTS AND SERVICE MANAGER Gail lopez [facility] 10/22/2022 12:50:59 Progress Note : [address] [address]EGWERVU, Leia (id #[id number], : 1965) [address] [address] Encounter Summary - Progress Note Date Printed: 06/25/2023 Documents sent via fax will include the [...] received this fax in error, please visit [email or web address] to notify the sender and confirm that the information will be destroyed. If you do not have internet access, please call to notify the sender and confirm that the information will be destroyed. Thank you for your attention and cooperation. [ID:[id number]] Patient Cornelio Nesbitt (58yo, F) #[id number] 1965 Patient Demographics: Address [address] [place] [address] Work Phone Encounter Notes: Encounter Reason/DateNone recorded 06/25/2023 - [...] in06/25/2023 03:42 pm Wt: 170 lbs With uemqvjs1006/25/2023 03:43 pm BMI: 31. 03:43 pm BP: 118/86 sitting R arm06/25/2023 03:46 pm BP Cuff Size: adult06/25/2023 03:46 pm Pulse: 85 bpm muccrwx9106/25/2023 03:45 pm O2Sat: 97% Room Air at [...] 1 capsule(s) every day by oral route. Qty: (90) capsule Refills: 1 Pharmacy: [place] [id number] Note to Pharmacy: dose change; cannot tolerate reducing at this time amitriptyline 50 mg tablet - Take 1 tablet(s) every day by oral route at bedtime. Qty: (90) tablet Refills: 1 Pharmacy: [place] [address] Note to Pharmacy: dose change 2. Degenerative [...] day by oral route for 30 days. Qty: (180) tablet Refills: 2 Pharmacy: [place] [address] 3. Osteopenia- per recent dexa scan with [...] >60 E55.9: Vitamin D deficiency, unspecified 6. KtnpljthH60.00: Insomnia, unspecified doxepin 10 mg capsule - Take 1 capsule(s) 3 times a day by oral route for 90 days. Qty: (270) capsule Refills: 3 Pharmacy: [place] [address] Return to Office BISMARK KEITH APRN for RHEUM RECHECK at [facility] on 10/22/2023 at 11:00 AM Patient Medical History: Allergies List Reviewed Allergies HYDROCODONE: - unable to sleep IODINATED CONTRAST MEDIA: Vomiting - jittery SULFA (SULFONAMIDE ANTIBIOTICS): Nausea, Vomiting Medications Reviewed Medications NameDate Source amitriptyline 25 mg tabletTake 1 tablet(s) twice a day by oral route.02/21/24 prescribed BISMARK KEITH APRN amitriptyline 50 mg tabletTake 1 tablet(s) every day by oral route at bedtime.06/25/23 prescribed BISMARK KEITH APRN Azo Bladder UrljinN11/26/18 entered Monika Wheatley baclofen 10 mg tablettake 1/2 to 1 tablet 3 times a day as zjflqu94/26/18 entered Monika Wheatley Benadryl Allergy 25 mg tabletTake 25 mg by oral route as directed.07/31/22 prescribed BELINDA VELASQUEZ MD busPIRone 5 mg tabletTake 1 tablet(s) twice a day by oral route.10/19/22 entered Cheryl York Calcium 600 + D(3) 600 mg-10 mcg (400 unit) tabletTake 1 tablet(s) every day by oral route.10/19/22 prescribed BISMARK KEITH APRN cetirizine 10 mg capsuleTake by oral route.12/25/17 entered Monika Wheatley Co Q- entered Monika Wheatley doxepin 10 mg capsuleTake 1 capsule(s) 3 times a day by oral route for 90 days.06/25/23 prescribed BISMARK KEITH APRN DULoxetine 30 mg capsule,delayed releaseTake 1 capsule(s) every day by oral route.05/22/23 prescribed BISMARK KEITH APRN DULoxetine 60 mg capsule,delayed releaseTake 1 capsule(s) every day by oral route.06/25/23 prescribed BISMARK KEITH APRN garlic 1,000 mg capsuleTake by oral route.12/25/17 entered Monika Dioni iron12/25/17 entered Monika Dioni krill oil12/25/17 entered Monika Dioni Lexapro 10 mg tabletTake 1 tablet at pvzkcta61/21/23 prescribed BELINDA VELASQUEZ MD meclizine 12.5 mg tablettake 1 to 1-1/2 tablets 3 times a day12/25/17 entered Monika Dioni melatonin 5 mg capsuleTake by oral route.12/25/17 entered Monika Aguirreate metoprolol succinate ER 25 mg tablet,extended release 24 hrTake 1 tablet(s) every day by oral route.12/25/17 entered Monika Dioni Prevacid 30 mg capsule,delayed releaseTake 1 capsule(s) twice a day by oral route.01/23/22 entered BISMARK KEITH APRN Yxlabiofh78/26/18 entered Monika Dioni Stool Rscvimbx08/26/18 entered Monika Dioni SUMAtriptan 100 mg tabletTake 1 tablet at onset of headache july09/07/22 prescribed BELINDA VELASQUEZ MD traMADoL 50 mg tabletTake 2 tablet(s) 3 times a day by oral route for 30 days.06/25/23 prescribed BISMARK KEITH APRN vitamin B yvlwhuq39/26/18 entered Monika Wheatley Vitamin C 1,000 mg tabletTake by oral route.12/25/17 entered Monika Wheatley Vitamin D312/25/17 entered Monika Dioni Family HistoryReviewed Family History Unspecified Relation - Diabetes mellitus - Family history of cancer - Kidney stone Past Medical HistoryReviewed Past Medical History Acid Reflux (GERD):Y Arthritis:Y Hypertension:Y Vaccine HistoryNone recorded Electronically Signed by: BISMARK KEITH APRN, [employer] AND SERVICE MANAGER Karen lopez (Nicole)[facility] 06/26/2023 14:28:15 Procedures Surgical History Date Name Laterality Status Provider Name and Address Organization Details Recorded Time 05/19/19 19 DXA Low Bone Mass 1 - No Tx completed ALEXANDRIA FENG MD [address] [place] [address], [id number], [facility] 05/19/2018 12:35:17 [facility] 13:12[facility]2016 13:13:10 [facility] 07/19/2016 13:13:14 procedure on femur completed Ольга Schulz [facility] 07/06/2021 08:42:09 total replacement of left knee joint completed Farrah Uribe [facility] 09/07/2022 08:35:59 Imaging Results None recorded. Procedure Notes None recorded. Medical Equipment None Reported. Allergies Allergen ID Allergen Name Allergen Category Reaction Reaction Severity Criticality Documentation Date Start Date Code Code System Note Provider Name and Address Organization Details Recorded Time 927540 Substance with sulfonami de structure and antibacte rial mechanism of action (substanc e) medicatio n nausea vomiting Not available Not available Not available 07/19/2016 25086 8003 SNOMED Deseriee Buckholts [facility] 7 13:11:15 726752 hydrocodo ne Not available Not available Not available Not available 07/19/2016 5489 RxNorm unabl e to sleep Farrah Jojo [facility] 3 08:34:15 224240 Iodinated contrast media (substanc e) medicatio n vomiting Not available Not available 09/07/2022 19596 2004 SNOMED jitte ry Farrah Jojo [facility] 3 08:35:02 Medications Name Sig Start Date [...] Updated DateTime 3 157.48 cm 30.7 kg/m2 50713.5 2 g 90 /min 130 mm[Hg] 86 mm[Hg] Gail Rich [facility] 3 15:44:35 Date Recorded Body height Body mass index (BMI) Body weight Heart rate Oxygen saturation Oxygen saturation in Arterial blood by Pulse oximetry Systolic blood pressure Diastolic blood pressure Provider Name and Address Organization Details Last Updated DateTime 4 157.48 cm 31.1 kg/m2 60178.7 g 85 /min 97 % 97 % 118 mm[Hg] 86 mm[Hg] Rae Kingons [facility] 4 15:46:14 Date Recorded Body height Body mass index (BMI) Body weight Heart rate Oxygen saturation Oxygen saturation in Arterial blood by Pulse oximetry Systolic blood pressure Diastolic blood pressure Provider Name and Address Organization Details Last Updated DateTime 3 157.48 cm 32.2 kg/m2 17750.6 6 g 104 /min 95 % 95 % 166 mm[Hg] 96 mm[Hg] Alexis Coates [facility] 3 08:55:10 Date Recorded Body height Body mass index (BMI) Body weight Heart rate Oxygen saturation Oxygen saturation in Arterial blood by Pulse oximetry Systolic blood pressure Diastolic blood pressure Provider Name and Address Organization Details Last Updated DateTime 3 157.48 cm 32.4 kg/m2 97051.8 5 g 82 /min 95 % 95 % 118 mm[Hg] 82 mm[Hg] Farrah Uribe [facility] 3 08:38:06 Date Recorded Body height Body mass index (BMI) Body weight Respiratory rate Heart rate Oxygen saturation Oxygen saturation in Arterial blood by Pulse oximetry Systolic blood pressure Diastolic blood pressure Provider Name and Address Organization Details Last Updated DateTime 3 157.48 cm 32.1 kg/m2 37365.7 6 g 16 /min 87 /min 96 % 96 % 124 mm[Hg] 70 mm[Hg] Cheryl Encarnacion [facility] 3 15:47:00 Social History Question Answer Notes LastModified by [facility] Details LastModified Time Tobacco Smoking Status Never Smoker Conner Olivera [facility] 07/19/2016 13:12:45 How Much Tobacco Do You Chew? None [email or web address] Information not available 08/12/2018 What Was The Date Of Your Most Recent Tobacco Screening? 06/25/2023 [email or web address] Information not available 06/25/2023 How Much Tobacco Do You Smoke? No [email or web address] Information not available 08/12/2018 Has Tobacco Cessation Counseling Been Provided? No [email or web address] Information not available 04/24/2022 How Many Years Have You Smoked Tobacco? 0 [email or web address] Information not available 08/12/2018 Have You Recently Traveled Abroad? No [email or web address] Information not available 01/23/2022 Sex: Unknown Functional Status Question Answer Note LastModified by [facility] Details LastModified Time Do you use any illicit or recreational drugs? No Information not available 04/24/2022 What is your level of alcohol consumption? None [email or web address] Information not available 07/19/2016 Mental Status None recorded. Family History Relationship Description Onset Age of this Age Resolved Age Notes LastModified by Organization Details LastModified Time Unspecified Relation Diabetes mellitus [email or web address] Not available 2016 13:12:24 Unspecified Relation Family history of malignant neoplasm [email or web address] Not available 2016 13:12:29 Unspecified Relation Kidney stone [email or web address] Not available 13:12:37 Medical History Condition Response Allergies/Hayfever Y Emphysema N COPD N Depression Y Diabetes N Bleeding Disorder N Arthritis Y Acid Reflux (GERD) Y Asthma N High Cholesterol Y High PSA Y Heart Disease N Rheumatoid Arthritis N Hypertension Y Gynecological HistoryNo gynecological history recorded. Obstetrics History GPAL:G 0 P 0 0 0 0 Past Encounters Encounter ID Performer Location Encounter Start Date Encounter Closed Date Diagnosis/Indication Diagnosis SNOMED-CT Code Diagnosis ICD10 Code Diagnosis Note [id number] FIDELIA LOPEZ MD [facility] [address] [address] 07/19/2016 12:23:14 07/20/2016 09:33:47 Painful urinary bladder spasm 8341039 R30.1 [id number] FIDELIA LOPEZ MD SURGERY SCHEDULE [address] [place] [address] 07/24/2016 13:46:20 07/24/2016 13:49:11 [id number] FIDELIA LOPEZ MD [facility] [address] [place] [address] 08/16/2016 13:49:55 08/17/2016 15:51:43 Dysuria 47012582 R30.1 [id number] BISMARK KEITH APRN [facility] [address] [place] [address] 12/25/2017 07:36:43 12/25/2017 09:51:22 Muscle pain 89041908 M79.1 recurring and dx with fibromyalg ia for years taking cymbalta and baclofen has not done hot water therapy or CBT with her treatment for years weather doesn't affect her will obtain further labs looking at autoimmune reasons behind her symptoms she has worsening complaints without improved outcome Pain of mu ltiple joints 48255405 M25.50 chronic and recurring joint pain worsening will obtain inflammato ry labs with swollen and tender joints without known family history Fatigue 50843744 R53.83 worsening fatigue without known thyroid history will obtain thyroid labs today Vitamin B1 2 deficiency (non anemic) 51088494 E53.8 recurring supplement s in the past will obtain further today Vitamin D deficiency 347 10356 E55.9 recurring will obtain further based on history of the same [id number] BISMARK KEITH APRN [facility]ATOL [facility] [address] [place] [address] 02/11/2018 08:11:19 02/11/2018 08:44:47 Muscle pain 12700730 M79.10 recurring and dx with fibromyalg ia for years taking cymbalta and baclofen has not done hot water therapy or CBT with her treatment for years weather doesn't affect her further labs looking at autoimmune reasons behind her symptoms which were normal/neg ative she will start on lyrica if allowed Pain of mu ltiple joints 03740209 M25.50 chronic and recurring joint pain worsening will obtain inflammato ry labs with swollen and tender joints without known family history Fatigue 19219091 R53.83 worsening fatigue without known thyroid history thyroid labs are normal Vitamin B1 2 deficiency (non anemic) 76093764 E53.8 recurring supplement s in the past will obtain further today Vitamin D deficiency 347 75443 E55.9 recurring will obtain further based on history of the same Fibromyalgia 039386837 M 79.7 without further findings suggestive of fibromyalg ia without findings of autoimmune disease with normal/sta ble labs today [id number] BISMARK KEITH [facility]N [facility] [address] [place] [address] 05/13/2018 08:19:48 05/13/2018 09:35:58 Fibromyalgia 547543902 M79.7 without further findings suggestive of fibromyalg ia, oa without findings of autoimmune disease with normal/sta ble labs Muscle pain 29107368 M79 .10 recurring and dx with fibromyalg ia for years taking cymbalta and baclofen has not done hot water therapy or CBT with her treatment for years further assessment was negative will await further tx until after outcome of tramadol and dexa scan Pain of mu ltiple joints 43596216 M25.50 chronic and recurring joint pain worsening without nsaids at this time due to recurring gut issues inflammato ry labs were normal/neg ative worsening deep bone aching; joint pain worsening with weather changes will start her on tramadol have her remain off the lyrica will await a dexa scan first before proceeding with further med changes Fatigue 40709386 R53.83 worsening fatigue without known thyroid history thyroid labs are normal Vitamin B1 2 deficiency (non anemic) 78828475 E53.8 recurring supplement s in the past b12 was normal at 774 Vitamin D deficiency 347 53985 E55.9 recurring with recent vitamin d level of >60 Menopausal syndrome 1237 52346 N95.9 had a hysterecto my with early onset of menopause will obtain dexa and await results for further tx [id number] ALEXANDRIA FENG MD BONE DENSITY [facility] [address] [place] [address] 05/19/2018 08:03:38 05/19/2018 08:22:23 Osteopenia 303548368 M85.9 [id number] BISMARK KEITH APRN [facility]AT[facility] [address] [place] [address] 08/12/2018 08:17:34 08/13/2018 15:05:21 Pain of multiple joints 12018164 M25.50 chronic and recurring joint pain worsening [...] 04/10/18 h/o prior fx there also Fibromyalgia 694414266 M 79.7 without further findings suggestive of fibromyalg ia, oa without findings of autoimmune disease with normal/sta ble labs requests a new chair and foot rest; will need to have an ergonomic evaluation Muscle pain 97489458 M79 .10 recurring and dx with fibromyalg ia for years taking cymbalta and baclofen has not done hot water therapy or CBT with her treatment for years further assessment was negative will await further tx until after outcome of tramadol and dexa scan Fatigue 82878070 R53.83 worsening fatigue without known thyroid history thyroid labs are normal Vitamin B1 2 deficiency (non anemic) 28410405 E53.8 recurring supplement s in the past b12 was normal at 774 Vitamin D deficiency 347 16386 E55.9 recurring with recent vitamin d level of >60 Osteopenia 402647262 M85 .80 per recent dexa scan with a t score of -1.4 she has a great vitamin d level and will start on calcium with vitamin d Pain of hip region 43678 002 M25.559 with pulling in the left groin [id number] BISMARK KEITH APRN [facility] [address] [place] [address] 11/13/2018 08:50:50 11/25/2018 14:00:42 Fibromyalgia 229240981 M79.7 without further findings suggestive of fibromyalg ia, oa without findings of autoimmune disease with normal/sta ble labs requests a new chair and foot rest; will need to have an ergonomic evaluation Pain of mu ltiple joints 73549380 M25.50 chronic and recurring joint pain worsening [...] h/o prior fx there also Muscle pain 21752345 M79 .10 recurring and dx with fibromyalg ia for years taking cymbalta and baclofen has not done hot water therapy or CBT with her treatment for years further assessment was negative will await further tx until after outcome of tramadol and dexa scan Fatigue 21664592 R53.83 worsening fatigue without known thyroid history thyroid labs are normal Vitamin B1 2 deficiency (non anemic) 81277828 E53.8 recurring supplement s in the past b12 was normal at 774 Vitamin D deficiency 347 03874 E55.9 recurring with recent vitamin d level of >60 Osteopenia 848266665 M85 .80 per recent dexa scan with a t score of -1.4 she has a great vitamin d level and will start on calcium with vitamin d [id number] BISMARK KEITH APRN [facility]HEUMATOL [facility] [address] [place] [address] 05/20/2019 15:17:58 05/20/2019 16:39:30 Fibromyalgia 375395109 M79.7 without further findings suggestive of fibromyalg ia, oa without findings of autoimmune disease with normal/sta ble labs will continue with current tx with amitriptyl ine and tramadol Vitamin B1 2 deficiency (non anemic) 81465513 E53.8 recurring supplement s in the past b12 was normal at 774 Vitamin D deficiency 347 33243 E55.9 recurring with recent vitamin d level of >60 Osteopenia 820815432 M85 .80 per recent dexa scan with a t score of -1.4 she has a great vitamin d level and will start on calcium with vitamin d Generalize d osteoarthritis 124173724 M15.9 chronic and recurring joint pain worsening [...] removed 04/10/18 h/o prior fx there also [id number] BISMARK KEITH APRN RHEUMATOL OGY [address] [place] [address] 05/13/2020 09:10:58 05/13/2020 15:19:31 Fibromyalgia 607701946 M79.7 without further findings suggestive of fibromyalg ia, oa without findings of autoimmune disease with normal/sta ble labs will continue with current tx with amitriptyl ine and tramadol Generalize d osteoarthritis 009478352 M15.9 chronic and recurring joint pain worsening [...] 04/10/18 h/o prior fx there also Osteopenia 734233247 M85 .80 per recent dexa scan with a t score of -1.4 she has a great vitamin d level and will start on calcium with vitamin d Vitamin B1 2 deficiency (non anemic) 26674132 E53.8 recurring supplement s in the past b12 was normal at 774 Vitamin D deficiency 347 68458 E55.9 recurring with recent vitamin d level of >60 [id number] BISMARK KEITH APRN RHEUMATOL OGY [facility] [address] [place] [address] 07/06/2021 08:30:38 07/06/2021 09:50:59 Fibromyalgia 900583723 M79.7 without further findings suggestive of fibromyalg ia, oa without findings of autoimmune disease with normal/sta ble labs will continue with current tx with amitriptyl ine and tramadol Generalize d osteoarthritis 115289677 M15.9 chronic and recurring joint pain worsening without nsaids at this time due to recurring gut issues inflammat ory labs were normal/neg ative worsening deep bone aching; joint pain worsening with weather changes continues on tramadol have her remain off the lyrica hysterecto my, with recent dysplasia and further treatment of the fracture on rt ankle with screws and plates; one year ago; had screws removed 04/10/18 h/o prior fx there also Osteopenia 416253481 M85 .80 per recent dexa scan with a t score of -1.4 she has a great vitamin d level and will start on calcium with vitamin d Vitamin B1 2 deficiency (non anemic) 48942366 E53.8 recurring supplement s in the past b12 was normal at 774 Vitamin D deficiency 347 60945 E55.9 recurring with recent vitamin d level of >60 [id number] BISMARK KEITH APRN [facility]HEUMATOL [facility] [address] [place] [address] 10/24/2021 14:45:11 10/24/2021 16:53:50 Fibromyalgia 117093560 M79.7 without further findings suggestive of fibromyalg ia, oa without findings of autoimmune disease with normal/sta ble labs will continue with current tx with amitriptyl ine at 25-50 mg qhs and tramadol 2 po 3x per day Generalize d osteoarthritis 028791740 M15.9 chronic and recurring joint pain worsening [...] 04/10/18 h/o prior fx there also Osteopenia 538697781 M85 .80 per recent dexa scan with a t score of -1.4 she has a great vitamin d level and will start on calcium with vitamin d Vitamin B1 2 deficiency (non anemic) 94371243 E53.8 recurring supplement s in the past b12 was normal at 774 Vitamin D deficiency 347 11822 E55.9 recurring with recent vitamin d level of >60 [id number] BISMARK KEITH APRN RHEUMATOL O[facility] [address] [place] [address] 01/23/2022 14:55:07 01/24/2022 10:29:40 Fibromyalgia 382662311 M79.7 without further findings suggestive of fibromyalg ia, oa without findings of autoimmune disease with normal/sta ble labs will continue with current tx with amitriptyl ine at 25-50 mg qhs and tramadol 2 po 3x per day Generalize d osteoarthritis 139667757 M15.9 chronic and recurring joint pain worsening [...] 04/10/18 h/o prior fx there also Osteopenia 836396019 M85 .80 per recent dexa scan with a t score of -1.4 she has a great vitamin d level and will start on calcium with vitamin d Vitamin B1 2 deficiency (non anemic) 23462662 E53.8 recurring supplement s in the past b12 was normal at 774 Vitamin D deficiency 347 24524 E55.9 recurring with recent vitamin d level of >60 [id number] BISMARK KEITH APRN RHEUMATOL OGY [facility] [address] [place] [address] 04/24/2022 15:01:37 04/25/2022 04:38:36 Fibromyalgia 787595946 M79.7 without further findings suggestive of fibromyalg ia, oa without findings of autoimmune disease with normal/sta ble labs will continue with current tx with amitriptyl ine at 25-50 mg qhs and tramadol 2 po 3x per day Generalize d osteoarthritis 306228286 M15.9 chronic and recurring joint pain worsening [...] 04/10/18 h/o prior fx there also Osteopenia 993558067 M85 .80 per recent dexa scan with a t score of -1.4 she has a great vitamin d level and will start on calcium with vitamin d Vitamin B1 2 deficiency (non anemic) 60949928 E53.8 recurring supplement s in the past b12 was normal at 774 Vitamin D deficiency 347 08805 E55.9 recurring with recent vitamin d level of >60 [id number] BELINDA VELASQUEZ MD NEUROLOGY [place] [address] 07/20/2022 08:49:01 07/25/2022 14:53:10 Dizzy spells 299844568 R42 Migraine 83567456 G43.90 9 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 [id number] BELINDA VELASQUEZ MD NEUROLOGY [place] [address] 09/07/2022 08:18:51 09/07/2022 12:40:49 Migraine 40350315 G43.909 Mixed anxi ety and depressive disorder 266368196 F41.8 Insomnia 522944932 G47.0 0 [id number] BISMARK KEITH APRN RHEUMATOL OGY [place] [address] 1 10/19/2022 15:20:15 10/20/2022 05:01:39 Fibromyalgia 787947760 M79.7 without further findings suggestive of fibromyalg ia, oa without findings of autoimmune disease with normal/sta ble labs will continue with current tx with amitriptyl ine at 25-50 mg qhs and tramadol 2 po 3x per day Generalize d osteoarthritis 295019461 M15.9 chronic and recurring joint pain worsening [...] 04/10/18 h/o prior fx there also Osteopenia 777590030 M85 .80 per recent dexa scan with a t score of -1.4 she has a great vitamin d level and will start on calcium with vitamin dfilled for one year on 10/19/2022 Vitamin B1 2 deficiency (non anemic) 86194196 E53.8 recurring supplement s in the past b12 was normal at 774 Vitamin D deficiency 347 38180 E55.9 recurring with recent vitamin d level of >60 [id number] BISMARK KEITH APRN RHEUMATOL OGY [address] [place] [address] 06/25/2023 14:33:44 06/26/2023 04:39:07 Fibromyalgia 119500359 M79.7 without further findings suggestive of fibromyalg ia, oa without findings of autoimmune disease with normal/sta ble labs will continue with current tx with amitriptyl ine at 25-50 mg qhs and tramadol 2 po 3x per day Generalize d osteoarthritis 764135604 M15.9 chronic and recurring joint pain worsening [...] 04/10/18 h/o prior fx there also Osteopenia 245629446 M85 .80 per recent dexa scan with a t score of -1.4 she has a great vitamin d level and will start on calcium with vitamin dfilled for one year on 10/19/2022 Vitamin B1 2 deficiency (non anemic) 14348104 E53.8 recurring supplement s in the past b12 was normal at 774 Vitamin D deficiency 347 99942 E55.9 recurring with recent vitamin d level of >60 Insomnia 360020545 G47.0 0 Health Concerns Section Related Observation LastModified by Organization Detai ls LastModified Time None Recorded Concern Status LastModified by Organization Details LastModified Time None Recorded Advance Directives Directive None Recorded Payers Insurance Date Sequence Insurance Name Policy Number Policy Shah Covered Member ID Shah Member ID Guarantor Name 12/17/2023 1 [place] [employer] [place]) [id number] Cornelio Nesbitt [id number] Cornelio Nesbitt Notes Date Note Type [...] others are negative BISMARK KEITH APRN [address] [place], [address], [facility] 04/24/2022 16:05:03 07/20/2022 text/html 57-year-old fema le [...] previous office visits BELINDA VELASQUEZ MD [address] [place], [address], [facility] 07/20/2022 09:52:41 09/07/2022 text/html Patient follows up [...] reactive depression due to the of her jdpeofy-vr-iza. I have recommended consideration for behavioral health evaluation. She is in agreement. Other issues have been persistent insomnia, she has been on a combination of both amitriptyline and doxepin, still has difficulty with falling asleep. Patient has not tried trazodone. Headache crowley doing well, she uses as needed Imitrex and this is worked well as an abortive agent. BELINDA VELASQUEZ MD [address] [place], [address], [facility] 09/07/2022 09:24:10 10/19/2022 text/html follow-up on fibromyalgia [...] others are negative BISMARK KEITH APRN [address] [place], [place], [id number], [facility] 10/19/2022 16:00:04 06/25/2023 text/html follow-up on fibromyalgia [...] and all others are negative BISMARK KEITH, [employer] [address] [place], [id number], [facility] 06/25/2023 17:00:28 OBGyn Episode No OBEpisode recorded.
--- OUTSIDE RECORDS SUMMARY | 2024-08-28 08:31 | XMS_ITS | Data Portability ---
Author Organization [place] [facility] [place] Address [address] [place] [address] Care Team Providers Care Parts Counterperson Name Role Phone DANIEL GRACE Primary Care Provider [phone] Assessment Encounter Date Assessment Date Assessment LastModified [...] available 12:58:27 microalbumi n, urine 2022 023 [facility], [address] [place], [address], 3 09:01:21 urinalysis, dipstick 2022 023 [facility], [address] [place], [address], 3 09:01:21 Referral orthopedic surgeon referral 2022 023 [email or web address] 0 Jong Phan MD, [address], [address], [place], [address], 3 09:36:38 Procedures None recorded. Surgeries None recorded. Imaging None recorded. Medication Orders Paxlovid 300 mg (150 mg x 2)-100 mg tablets in a dose pack 2023 024 [facility], [address] [place], [address], 4 14:39:11 Dexilant 60 mg capsule, delayed release [address], [address] [place] [address], [address], 3 12:43:08 doxepin 10 mg capsule 2022 023 [facility], [address] [place] [address], [address], 3 08:55:14 amitriptyli ne 25 mg tablet 2022 023 [facility], [address] [place] [address], [address], 4 14:38:56 metoprolol succinate ER 50 mg tablet,exte nded release 24 hr 2022 023 [facility], [address] [place] [address], [address], 3 08:55:13 Dexilant 60 mg capsule, delayed release 2022 023 [facility], [address] [place] [address], [address], 3 08:55:15 duloxetine 60 mg capsule,del ayed release 2022 023 [facility], [address] [place] [address], [address], 3 08:55:14 Patient TargetsNo targets recorded. Patient InstructionsNo instructions recorded. Reason for Referral Orthopedic Surgeon Referral for Pain of left hip joint Referring Physician: Daniel Grace, Family Medicine, Encounter Date: 10/03/2022 Results Created Date Observation Date Name Description Value Unit Range Abnormal Flag Note LastModifiedBy Organization Detail LastModifiedTime 10/04/19 23 10/03/2022 CBC AUTO W DIFF WBC 6.6 10 4.5-11 .5 Not Available [facility] (Lab Registration) [address] [place], [address], 10/03/2022 12:30:24 10/04/19 23 10/03/2022 CBC AUTO W DIFF RBC 4.85 10 4.25-5 .57 Not Available [facility] (Lab Registration) [address] [place], [address], 10/03/2022 12:30:24 10/04/19 23 10/03/2022 CBC AUTO W DIFF HGB 13.3 g/dL 12.0-1 5.7 Not Available [facility] (Lab Registration) [address] [place], [address], 10/03/2022 12:30:24 10/04/19 23 10/03/2022 CBC AUTO W DIFF HCT 40.8 % 36.0-4 7.0 Not Available [facility] (Lab Registration) [address] [place], [address], 10/03/2022 12:30:24 10/04/19 23 10/03/2022 CBC AUTO W DIFF MCV 84.1 fL 80-95 Not Available [facility] (Lab Registration) [address] [place], [address], 10/03/2022 12:30:24 10/04/19 23 10/03/2022 CBC AUTO W DIFF MCH 27.4 pg 27.0-3 4.0 Not Available [facility] (Lab Registration) [address] [place], [address], 10/03/2022 12:30:24 10/04/19 23 10/03/2022 CBC AUTO W DIFF MCHC 32.6 g/dL 32.0-3 6.0 Not Available [facility] (Lab Registration) [address] [place], [address], 10/03/2022 12:30:24 10/04/19 23 10/03/2022 CBC AUTO W DIFF platelet count 326 10 150-45 0 Not Available [facility] (Lab Registration) [address] [place], [address], 10/03/2022 12:30:24 10/04/19 23 10/03/2022 CBC AUTO W DIFF RDW 13.9 % 12.3-1 5.1 Not Available [facility] (Lab Registration) [address] [place], [address], 10/03/2022 12:30:24 10/04/19 23 10/03/2022 CBC AUTO W DIFF MPV 10.7 fL 7.4-10 .4 high Not Available [facility] (Lab Registration) [address] [place], [address], 10/03/2022 12:30:24 10/04/19 23 10/03/2022 CBC AUTO W DIFF granulocyte% 44.0 % 40-75 Not Available [facility] (Lab Registration) [address] [place], [address], 10/03/2022 12:30:24 10/04/19 23 10/03/2022 CBC AUTO W DIFF lymphocyte% 41.1 % 15-57 Not Available [facility] (Lab Registration) [address] [place], [address], 10/03/2022 12:30:24 10/04/19 23 10/03/2022 CBC AUTO W DIFF monocyte% 7.9 % 4.0-12 .0 Not Available [facility] (Lab Registration) [address] [place], [address], 10/03/2022 12:30:24 10/04/19 23 10/03/2022 CBC AUTO W DIFF eosinophil% 6.2 % 0.0-4. 0 high Not Available [facility] (Lab Registration) [address] [place], [address], 10/03/2022 12:30:24 10/04/19 23 10/03/2022 CBC AUTO W DIFF basophil% 0.8 % 0.0-1. 0 Not Available [facility] (Lab Registration) [address] [place], [address], 10/03/2022 12:30:24 10/04/19 23 10/03/2022 CBC AUTO W DIFF immature granulocytes % 0.0 % 0.0-0. 8 Not Available [facility] (Lab Registration) [address] [place], [address], 10/03/2022 12:30:24 10/04/19 23 10/03/2022 CBC AUTO W DIFF granulocyte# 2.91 10 Not Available [facility] (Lab Registration) [address] [place], [address], 10/03/2022 12:30:24 10/04/19 23 10/03/2022 CBC AUTO W DIFF lymphocyte# 2.72 10 Not Available [facility] (Lab Registration) [address] [place], [address], 10/03/2022 12:30:24 10/04/19 23 10/03/2022 CBC AUTO W DIFF monocyte# 0.52 10 Not Available [facility] (Lab Registration) [address], [place], [address], 10/03/2022 12:30:24 10/04/19 23 10/03/2022 CBC AUTO W DIFF eosinophil# 0.41 10 Not Available [facility] (Lab Registration) [address], [place], [address], 10/03/2022 12:30:24 10/04/19 23 10/03/2022 CBC AUTO W DIFF basophil# 0.05 10 Not Available [facility] (Lab Registration) [address] [place], [address], 10/03/2022 12:30:24 10/04/19 23 10/03/2022 CBC AUTO W DIFF immature granulocytes # 0.00 10 Not Available [facility] (Lab Registration) [address] [place], [address], 10/03/2022 12:30:24 10/04/19 23 10/03/2022 CBC AUTO W DIFF manual differential NO Not Available [facility] (Lab Registration) [address] [place], [address], 10/03/2022 12:30:24 10/04/19 23 10/03/2022 CBC AUTO W DIFF note Unles s other crowley noted testi ng perfo rmed at: [facility] [address] [place] [place] [address] [phone] Reynold franz MD CLIA: [id number] Not Available [facility] (Lab Registration) [address] [place], [address], 10/03/2022 12:30:24 10/04/19 23 10/03/2022 HEMOG LOBIN A1C glycosylated hemoglobin A1C 5.8 % 4.5-6. 2 Not Available [facility] (Lab Registration) [address] [place], [address], 10/03/2022 12:57:14 10/04/19 23 10/03/2022 HEMOG LOBIN A1C estimated average glucose 120 mg/dL 82-131 Not Available [facility] (Lab Registration) [address] [place], [address], 10/03/2022 12:57:14 10/04/19 23 10/03/2022 HEMOG LOBIN A1C note Zuly del toro crowley noted testi ng perfo rmed at: [facility] [address] [place] [address] [phone] Reynold franz MD CLIA: [id number] Not Available [facility] (Lab Registration) [address] [place], [address], 10/03/2022 12:57:14 10/04/19 23 10/03/2022 THYRO ID STIMU LATIN G HORMO NE thyroid stimulating hormone 1.16 mIU/m L 0.34-4 .80 Not Available [facility] (Lab Registration) [address] [place], [address], 10/03/2022 12:58:27 10/04/19 23 10/03/2022 THYRO ID STIMU LATIN G HORMO NE note Zuly crowley noted testi ng perfo rmed at: [facility] [address] [place] [address] [phone] Reynold franz MD CLIA: [id number] Not Available [facility] (Lab Registration) [address] [place], [address], 10/03/2022 12:58:27 10/04/19 23 10/03/2022 COMP METAB OLIC PANEL sodium 141 mmol/ L 136-14 5 Not Available [facility] (Lab Registration) [address] [place], [address], 10/03/2022 12:58:29 10/04/19 23 10/03/2022 COMP METAB OLIC PANEL potassium 4.7 mmol/ L 3.5-5. 1 Not Available [facility] (Lab Registration) [address] [place], [address], 10/03/2022 12:58:29 10/04/19 23 10/03/2022 COMP METAB OLIC PANEL chloride 104 mmol/ L 98-107 Not Available [facility] (Lab Registration) [address] [place], [address], 10/03/2022 12:58:29 10/04/19 23 10/03/2022 COMP METAB OLIC PANEL carbon dioxide 31 mmol/ L 21-32 Not Available [facility] (Lab Registration) [address] [place], [address], 10/03/2022 12:58:29 10/04/19 23 10/03/2022 COMP METAB OLIC PANEL anion gap 6.0 Not Available [facility] (Lab Registration) [address] [place], [address], 10/03/2022 12:58:29 10/04/19 23 10/03/2022 COMP METAB OLIC PANEL glucose 91 mg/dL 70-110 Not Available [facility] (Lab Registration) [address] [place], [address], 10/03/2022 12:58:29 10/04/19 23 10/03/2022 COMP METAB OLIC PANEL blood urea nitrogen 14 mg/dL 7-18 Not Available [facility] (Lab Registration) [address] [place], [address], 10/03/2022 12:58:29 10/04/19 23 10/03/2022 COMP METAB OLIC PANEL creatinine 0.9 mg/dL 0.6-1. 0 Not Available [facility] (Lab Registration) [address] [place], [address], 10/03/2022 12:58:29 10/04/19 23 10/03/2022 COMP METAB OLIC PANEL BUN/creatini ne ratio 15.6 ratio 9-21 Not Available [facility] (Lab Registration) [address], [place], [address], 10/03/2022 12:58:29 10/04/19 23 10/03/2022 COMP METAB OLIC PANEL estimated glom filtration rate 68 mL/mi n >60- Not Available [facility] (Lab Registration) [address] [place], [address], 10/03/2022 12:58:29 10/04/19 23 10/03/2022 COMP METAB OLIC PANEL total protein 7.6 g/dL 6.4-8. 2 Not Available [facility] (Lab Registration) [address] [place], [address], 10/03/2022 12:58:29 10/04/19 23 10/03/2022 COMP METAB OLIC PANEL albumin 3.8 g/dL 3.4-5. 0 Not Available [facility] (Lab Registration) [address] [place], [address], 10/03/2022 12:58:29 10/04/19 23 10/03/2022 COMP METAB OLIC PANEL calcium 9.0 mg/dL 8.5-10 .1 Not Available [facility] (Lab Registration) [address] [place], [address], 10/03/2022 12:58:29 10/04/19 23 10/03/2022 COMP METAB OLIC PANEL corrected calcium 9.2 mg/dL 8.5-10 .1 Not Available [facility] (Lab Registration) [address] [place], [address], 10/03/2022 12:58:29 10/04/19 23 10/03/2022 COMP METAB OLIC PANEL bilirubin total 0.2 mg/dL 0.4-1. 5 low Not Available [facility] (Lab Registration) [address], [place], [address], 10/03/2022 12:58:29 10/04/19 23 10/03/2022 COMP METAB OLIC PANEL AST (SGOT) 24 U/L 15-37 Not Available [facility] (Lab Registration) [address] [place], [address], 10/03/2022 12:58:29 10/04/19 23 10/03/2022 COMP METAB OLIC PANEL ALT (SGPT) 40 U/L 12-78 Not Available [facility] (Lab Registration) [address] [place], [address], 10/03/2022 12:58:29 10/04/19 23 10/03/2022 COMP METAB OLIC PANEL alk phosphatase 94 U/L 50-120 Not Available [facility] (Lab Registration) [address] [place], [address], 10/03/2022 12:58:29 10/04/19 23 10/03/2022 COMP METAB OLIC PANEL note Unles s other crowley noted testi ng perfo rmed at: [facility] [address] [place] [address] [phone] Reynold franz MD CLIA: [id number] Not Available [facility] (Lab Registration) [address] [place], [address], 10/03/2022 12:58:29 10/04/19 23 10/03/2022 LIPID PANEL triglyceride 506 mg/dL 20-200 high The Natio nal [employer]ca t[employer]gr am (NCEP ) has set the follo wing guide lines for Fasti ng Trigl yceri luis: ADA L: <150 mg/dL BORDE RLINE HIGH: 150 - 199 mg/dL HIGH: 200 - 499 mg/dL VERY HIGH: > or =500 mg/dL Not Available [facility] (Lab Registration) [address] [place], [address], 10/03/2022 12:58:30 10/04/19 23 10/03/2022 LIPID PANEL cholesterol 239 mg/dL 0-200 high The [employer]io nal [employer]ca t[employer]gr am (MAEP ) has set the follo wing guide lines for Fasti ng Tonya stero l: MARAH ABLE: <200 mg/dL BORDE RLINE HIGH: 200 - 239 mg/dL HIGH: > or =240 mg/dL Not Available [facility] (Lab Registration) [address] [place], [address], 10/03/2022 12:58:30 10/04/19 23 10/03/2022 LIPID PANEL HDL cholesterol 28 mg/dL 60- low The Natio nal [employer]ca tion Progr am ([facility] ) has set the follo wing guide lines for Fasti ng HDL Tonya stero l: LOW HDL: <40 mg/dL ADA L: 40 - 60 mg/dL MARAH ABLE: >60 mg/dL Not Available [facility] (Lab Registration) [address] [place], [address], 10/03/2022 12:58:30 10/04/19 23 10/03/2022 LIPID PANEL LDL calculated TNP mg/dL 100- LDL is calcu ated and inval id when TRIG are >400 mg/dL . The Natio nal [employer]ca tion Progr am ([facility] ) has set the follo wing guide lines for Fasti ng LDL Tonya stero l: OPTIM AL: < 100 mg/dL LOW RISK: 100 - 129 mg/dL BORDE RLINE HIGH: 130 - 159 mg/dL HIGH: 160 - 189 mg/dL VERY HIGH: > or = 190 mg/dL Not Available [facility] (Lab Registration) [address] [place], [address], 10/03/2022 12:58:30 10/04/19 23 10/03/2022 LIPID PANEL chol/HDL ratio 9 ratio -5 high Not Available [facility] (Lab Registration) [address] [place], [address], 10/03/2022 12:58:30 10/04/19 23 10/03/2022 LIPID PANEL note Unles s other crowley noted testi ng perfo rmed at: [facility] [address] [place] [address] [phone] Reynold franz MD CLIA: [id number] Not Available [facility] (Lab Registration) [address] [place], [address], 10/03/2022 12:58:30 10/04/19 23 10/03/2022 urina lysis , dipst ick Leukocytes (reference range) negati ve Not Available [address] [place], [address], 10/03/2022 08:46:44 10/04/19 23 10/03/2022 urina lysis , dipst ick Nitrite (reference range:) negati ve Not Available [address] [place], [address], 10/03/2022 08:46:44 10/04/19 23 10/03/2022 urina lysis , dipst ick Urobilinogen (reference range) 0.2 Not Available [address] [place], [address], 10/03/2022 08:46:44 10/04/19 23 10/03/2022 urina lysis , dipst ick Protein (reference range) 30 Not Available [address] [place], [address], 10/03/2022 08:46:44 10/04/19 23 10/03/2022 urina lysis , dipst ick pH (reference range 5-8.5) 5.5 Not Available [place] [address] [place], [address], 10/03/2022 08:46:44 10/04/19 23 10/03/2022 urina lysis , dipst ick Blood (reference range:) negati ve Not Available [address] [place], [address], 10/03/2022 08:46:44 10/04/19 23 10/03/2022 urina lysis , dipst ick Specific Slater (reference range) 1.030 Not Available [address] [place], [address], 10/03/2022 08:46:44 10/04/19 23 10/03/2022 urina lysis , dipst ick Ketone (reference range) negati ve Not Available [address] [place], [address], 10/03/2022 08:46:44 10/04/19 23 10/03/2022 urina lysis , dipst ick Bilirubin (reference range) negati ve Not Available [address] [place], [address], 10/03/2022 08:46:44 10/04/19 23 10/03/2022 urina lysis , dipst ick Glucose (reference range) negati ve Not Available [address] [place], [address], 10/03/2022 08:46:44 10/04/19 23 10/03/2022 urina lysis , dipst ick Color (reference range: yellow-brown ) Yellow Not Available [place] [address] [place], [address], 10/03/2022 08:46:44 10/04/19 23 10/03/2022 micro album in, urine Microalbumin 80mg/L Abnorm al Not Available [place] [address] [place], [address], 10/03/2022 08:46:43 11/28/19 23 11/27/2022 imagi ng inter preta tion No observ ation record ed. [facility] [address], [place], [address], 11/28/2022 08:20:28 12/21/19 23 12/20/2022 XR, foot No observ ation record ed. [facility] [address], [place], [address], 12/20/2022 12:13:11 12/21/19 23 12/20/2022 XR, foot No observ ation record ed. [facility] [address], [place], [address], 12/20/2022 12:12:58 07/01/19 24 07/01/2023 imagi ng inter preta tion No observ ation record ed. [facility] Registration [address] [place] [address] [place], [address], 07/02/2023 08:20:18 10/17/19 24 10/16/2023 imagi ng inter preta tion No observ ation record ed. [facility] (Registration ) [address] [place] [address] [place], [address], 10/17/2023 07:56:37 Result Notes None recorded. Problems Name Problem SNOMED Code Status Onset Date Resolution Date Notes Provider Name and Address Organization Details Recorded Time Fibromyalgia 808062221 Active 2021 Melissa lopez, [place] - [facility] [place] 2 08:11:26 Mixed anxiety and depressive disorder 872343114 Active 2021 Melissa lopez, [place] [facility] [place] 2 08:11:35 Gastroesophag eal reflux disease 509501997 Active 2021 Melissa Pardini null, [place] [facility] [place] & [place] 2 08:11:41 Restless legs 59084592 Active 2021 Melissa [place]ard[place] null[place] [facility] [place] 2 08:11:51 Insomnia 648071762 Active 2021 Melissa [place] [facility] [place] 2 08:11:59 Essential hypertension 69588992 Active 2021 Melissa [place] [facility] [place] 2 08:12:08 Essential tremor 273477625 Active 2021 Melissa [place] null[place] [facility] [place] 2 08:13:03 Hyperlipidemi a 53418963 Active 2021 Melissa Virkdini [place] [facility] [place] 2 08:14:29 Osteoporosis 52077601 Active 2021 Daniel Grace MD [address] [place], [address] , [place] [facility] [place] 2 08:35:25 Seasonal allergy 976796358 Active 2021 Daniel Grace MD [address] [place], [address] , [place] [facility] [place] 2 08:35:43 Hiatal hernia 76411977 Active 2022 Tess Perry NP [address], [address], [place], [address] , [place] [facility] [place] & [place] 3 13:03:59 Gastro-esopha geal reflux disease with esophagitis 897046382 Active 2022 Tess Perry NP [address], [address], [place], [address] , [place] [facility] [place] 3 13:06:30 Problem Notes None recorded. Procedures Surgical History Date Name Laterality Status Provider Name and Address Organization Details Recorded Time 01/30/20 22 Date of Last Colonoscopy completed Melissa Tatei [place] - [facility] [place] 03/06/2022 15:34:15 01/30/20 22 Colonoscopy completed Tess Perry NP [address] [place] [address], [address], [place], [address], [place] - [facility] [place] 03/04/2023 13:06:59 07/05/19 21 Most Recent Bone Density completed Melissa Tatei [place] - [facility] [place] 03/06/2022 15:34:15 total knee replacement completed Emily Hernandezord [place] - [facility] [place] 02/01/2022 10:00:14 Cholecystectomy completed Emliy Hernandezord [place] - [facility] [place] 02/01/2022 10:00:22 procedure on hand completed Emily Boogie [place] - [facility] [place] 02/01/2022 10:00:46 Hysterectomy completed Emily Hernandezord [place] - [facility] - [place] 02/01/2022 10:00:54 procedure on femur completed Emily Hernandezord [place] - [facility] - [place] 02/01/2022 10:01:10 Imaging Results None recorded. Procedure Notes None recorded. Medical Equipment None Reported. Allergies Allergen ID Allergen Name Allergen Category Reaction Reaction Severity Criticality Documentation Date Start Date Code Code System Note Provider Name and Address Organization Details Recorded Time 67067 Substance with sulfonami de structure and antibacte rial mechanism of action (substanc e) medicatio n Not available Not available Not available 02/01/2022 75390 8003 SNOMED Emily Hyman null, [place] - [facility] [place] 2 09:57:14 18782 acetamino phen / hydrocodo ne medicatio n Not available Not available Not available 02/01/2022 41651 2 RxNorm Emily Hyman null[place] [facility] [place] 2 09:57:20 Medications Name Sig Start Date [...] 50 mg tablet,exte nded release 24 hr denied active Not Available Not Available Not Available phenazopyri dine 200 mg tablet Take [...] Available fenofibrate nanocrystal lized 145 mg tablet Take 1 tablet by mouth once daily 2024 active Not Available Not Available Not Avai lable calcium 600 mg (as carbonate)- vitamin D3 [...] Updated DateTime 4 158.75 cm 29.7 kg/m2 77773.7 4 g 97.5 [degF] 98 % 98 % 88 /min 18 /min 146 mm[Hg] 86 mm[Hg] Scott Alvarado [facility] & [place] 4 14:42:48 Date Recorded Body height Body mass index (BMI) Body weight Body temperature Oxygen saturation Oxygen saturation in Arterial blood by Pulse oximetry Heart rate Respiratory rate Systolic blood pressure Diastolic blood pressure Provider Name and Address Organization Details Last Updated DateTime 4 158.75 cm 30.2 kg/m2 33234.0 8 g 97.3 [degF] 96 % 96 % 80 /min 16 /min 150 mm[Hg] 98 mm[Hg] Melissaduc CORNELIUS - [facility] & [place] 4 14:38:22 Date Recorded Body height Body mass index (BMI) Body weight Body temperature Oxygen saturation Oxygen saturation in Arterial blood by Pulse oximetry Heart rate Respiratory rate Systolic blood pressure Diastolic blood pressure Provider Name and Address Organization Details Last Updated DateTime 3 158.75 cm 30.3 kg/m2 62325.9 6 g 97.3 [degF] 99 % 99 % 70 /min 16 /min 117 mm[Hg] 81 mm[Hg] Melissa Bouchra CORNELIUS - [facility] & [place] 3 08:46:57 Date Recorded Body height Body mass index (BMI) Body weight Body temperature Oxygen saturation Oxygen saturation in Arterial blood by Pulse oximetry Heart rate Provider Name and Address Organization Details Last Updated DateTime 3 158.75 cm 29.3 kg/m2 93984.5 6 g 97.3 [degF] 97 % 97 % 86 /min Fabiola CORNELIUS [facility] & [place] 3 10:22:12 Social History Question Answer Notes LastModified by Organizat ion Details LastModified Time Tobacco Smoking Status Never Smoker Emily lopez, [place] [facility] & [place] 02/01/2022 10:00:03 Do You Have An Advance Directive? No Information not available 03/06/2022 Are You Blind Or Do You Have Difficulty Seeing? Yes Information not available 03/06/2022 What Is Your Level Of Caffeine Consumption? Occasional [email or web address] Information not available 04/29/2023 What Was The Date Of Your Most Recent Tobacco Screening? 02/26/2022 Information not available 03/06/2022 Are You Passively Exposed To Smoke? No Information not available 03/06/2022 Has Tobacco Cessation Counseling Been Provided? No [email or web address] Information not available 04/29/2023 Sex: Female Functional Status Question Answer Note LastModified by Organizat ion Details LastModified Time Do you use any illicit or recreational drugs? No Information not available 02/14/2022 Do you or have you ever used any other forms of tobacco or nicotine? No [email or web address] Information not available 04/29/2023 What is your level of alcohol consumption? None Information not available 02/14/2022 What is your exercise level? Occasional Information not available 03/06/2022 Mental Status Question Answer Note LastModified by Organization D etails LastModified Time Do you feel stressed (tense, restless, nervous, or anxious, or unable to sleep at night)? [id number] Information not available 03/06/2022 Family History Relationship Description Onset Age of this Age Resolved Age Notes LastModified by Organization Details LastModified Time Father Hyperlipidem ia deceas ed [email or web address] Not available 08/28/2023 13:55:32 Father Cerebrovascu lar accident deceas ed Not available 02/01/2022 09:58:43 Father Disorder of thyroid gland [facility] Not available 02/01/2022 09:59:03 [email or web address] Not available 02/01/2022 09:59:19 Father Essential hypertension [facility] Not available 08/28/2023 13:55:32 Father Malignant neoplasm of lung [facility] Not available 08/28/2023 13:55:32 Medical History Condition Response Arthritis Y Hyperlipidemia Y Reflux/GERD Y High Cholesterol Y Headaches Y Hypertension Y Gynecological History [...] or 50 mcg/0.25mL dose 1 completed Melissa Pardini null, [place] - [facility] - [place] & [place] 02/14/2022 08:09:56 Hep A, adult 9 completed Melissa Pard[place] [facility] [place] 02/14/2022 08:09:56 Influenza, split virus, trivalent, PF 4 completed Melissa P[place] [facility] [place] 02/14/2022 08:09:56 zoster recombinant 8 completed Melissa [place] [facility] [place] 02/14/2022 08:09:56 COVID-19 vaccine, vector-nr, rS-Ad26, PF, 0.5 mL 1 completed Melissa Pard[place] null, [place] [facility] [place] [facility] [place] 02/14/2022 08:09:56 Hep B, adult 9 completed Melissa [place] [facility] [place] 02/14/2022 08:09:56 Hep B, adult 8 completed Melissa [place] [facility] [place] 02/14/2022 08:09:56 COVID-19, mRNA, LNP-S, bivalent, PF, 50 mcg/0.5 mL or 25mcg/0.25 mL dose 2 completed Mindi Bassett null, [place] [facility] [place] 08/19/2023 07:40:25 Hep A, adult 8 completed Melissa P[place] null[place] [facility] [place] & [place] 02/14/2022 08:09:56 Influenza, split virus, quadrivalent, PF 8 completed Melissa P[place] null[place] [facility] [place] [facility] & [place] 02/14/2022 08:09:56 Hep B, adult 8 completed Melissa [place] null[place] [facility] [place] [facility] & [place] 02/14/2022 08:09:56 Influenza, split virus, quadrivalent, PF 3 completed Daniel Grace MD [address] [place] [address], [phone], [place] - [facility] - [facility] [place] 01/22/2023 15:34:48 Past Encounters Encounter ID Performer Location Encounter Start Date Encounter Closed Date Diagnosis/Indication Diagnosis SNOMED-CT Code Diagnosis ICD10 Code Diagnosis Note [id number] Belinda Lemus MD [facility] [address] [place] [address] 02/07/2022 07:45:55 02/07/2022 08:54:19 Essential tremor 281879616 G25.0 would like to consolidat e her beta-block ers, will increase metoprolol to 50 mg and stop Inderal. Also recommend continuing low-dose Xanax at bedtime this seems to have been very helpful for her. Patient will follow up with me over the next 2-3 weeks for blood pressure check. Generalize d anxiety disorder 88182507 F41.1 Fibromyalgia 917365786 M 79.7 [id number] Daniel Grace MD [facility] [address] [address] 02/14/2022 07:54:01 02/14/2022 09:05:43 Fibromyalgia 759554543 M79.7 patient is currently under the care of Dr.MOBERLY fernando bonilla in [place]. She also sees neurology Gastroesop hageal reflux disease 002830179 K21.9 patient states she had a colonoscop y last month. She is being taking care of by Dr. Fischer. She also mentions that she has been diagnosed with IBS C She is currently on lansoprazo le Hyperlipidemia 49400240 E78.5 patient is currently on fenofibrat e. Will obtain lab work today. labs drawn by Micaela AC Insomnia 169296339 G47.0 0 patient takes alprazolam and amitriptyl ine for this. Mixed anxi ety and depressive disorder 471878089 F41.8 Patient is currently on duloxetine Essential hypertension 17734982 I10 controlled with metoprolol Osteoporosis 93185778 M8 1.0 patient is requesting a Prolia shot. We will order the medication . Her calcium levels are pending. Essential tremor 4864901 09 G25.0 patient takes metoprolol . She is also on doxepin [id number] Belinda Lemus MD [facility] [address] [place] [id number] 02/28/2022 07:53:26 02/28/2022 08:44:52 Essential tremor 554487015 G25.0 overall doing well with metoprolol , would like to continue for now, will use p.r.n. low-dose Xanax as necessary. Medication s have been refilled today. [id number] Daniel Grace MD [address] [address] 03/06/2022 15:22:29 03/06/2022 16:04:57 Acute cystitis 50312903 N30.00 will treat with antibiotic s empiricall y. Will send her sample for cultures. [id number] MD neftali Arango[address] [address] 03/27/2022 08:36:39 03/27/2022 09:06:43 Influenza-like symptoms 995467760 R68.89 patient tested negative for influenza as well as COVID-19. Due to her premorbid conditions we will treat her with a Z-Leander and a steroid Dosepak. Should her symptoms worsen she has been instructed to go to the emergency department . [id number] Daniel Grace MD [address] [place] [address] 10/03/2022 08:28:43 10/03/2022 09:00:03 Essential hypertension 61040441 I10 controlled with metoprolol blood drawn in the right AC by Melissa Shook CMA, patient tolerated well. Hyperlipidemia 40533714 E78.5 patient is currently on fenofibrat e. Mixed anxi ety and depressive disorder 307252619 F41.8 patient continues to be controlled on medication . Gastroesop hageal reflux disease 823333425 K21.9 patient states she had a colonoscop y In December 2021. She is being taking care of by Dr. Fischer. She also mentions that she has been diagnosed with IBS C She is currently on lansoprazo le Insomnia 255372716 G47.0 0 patient takes alprazolam and amitriptyl ine for this. Essential tremor 0455906 09 G25.0 patient takes metoprolol . She is also on doxepin Pain of le ft hip joint 8562820644 53973 [address]25[address] PHAN [id number] DOROTHY RESTREPO ic [facility] at [address] [place] [address] 10/17/2022 07:53:34 10/17/2022 09:10:59 [id number] DOROTHY RESTREPO Therapeukevin ic [facility] at [address] [place] [address] 10/31/2022 10:11:33 11/05/2022 15:09:35 [id number] DOROTHY RESTREPO ic [facility] at [address] [place] [address] 11/22/2022 08:44:41 11/22/2022 09:42:13 [id number] DOROTHY RESTREPO Therapeut ic [facility] at [address] [place] [address] 12/20/2022 08:43:46 12/20/2022 09:15:40 [id number] DOROTHY RESTREPO Therapeut ic [facility] at [address] [place] [address] 12/26/2022 12:23:31 12/26/2022 13:59:00 [id number] DOROTHY RESTREPO Therapeut ic [facility] at [address] [place] [address] 01/22/2023 13:52:45 01/22/2023 15:39:28 [id number] Daniel Grace MD [address] [place] [address] 01/22/2023 15:08:06 01/22/2023 15:21:07 Administration of influenza vaccine 11623969 Z23 [id number] Tess Perry NP [address] [place] [address] 03/04/2023 09:59:50 03/04/2023 13:10:18 Gastro-esophageal reflux disease with esophagitis 337952834 K21.00 Continues lansoprazo le 30 mg p.o. [...] for treatment. History of polyp of colon 588457919 Z86.010 Colonoscop y 01/29/2022 with polyps resected consistent with tubular adenomas negative for high-grade dysplasia. Plan to repeat colonoscop y 12/2024 for surveillan ce. Hiatal hernia 13747899 K 44.9 Small hiatal hernia noted on EGD 05/2021. [id number] DOROTHY RESTREPO Therapeut ic [facility] at [address] [place] [address] 03/14/2023 08:38:04 03/18/2023 13:09:19 [id number] DOROTHY RESTREPO Therapeut ic [facility] at [address] [place] [address] 04/15/2023 07:55:10 04/15/2023 09:58:56 [id number] Murali Marshall MD [address] [place] [id number] 04/29/2023 14:13:20 05/01/2023 16:07:39 Infection of upper respiratory tract caused by SARS-CoV-2 0279614014 262467 U07.1 patient's symptoms in 2 positive home tests correlate with COVID-19. We will proceed with treatment. Discussed isolation. . Seek medical care symptoms become severe [id number] DOROTHY RESTREPO Therapeut ic [facility] at [address] [place] [address] 05/17/2023 09:16:24 05/17/2023 10:36:53 [id number] DOROTHY RESTREPO Therapeut ic [facility] at [address] [place] [address] 06/28/2023 08:40:44 06/28/2023 12:06:22 [id number] DOROTHY RESTREPO Therapeut ic [facility] at [address] [place] [address] 08/05/2023 09:30:22 08/05/2023 10:56:51 [id number] Daniel Grace MD [address] [place] [address] 08/28/2023 13:55:17 08/28/2023 14:45:28 Pre-surgery evaluation 238902664 Z01.818 patient has been cleared for surgery. [id number] DOROTHY RESTREPO Therapeut ic [facility] at [address] [place] [address] 09/04/2023 14:24:21 09/10/2023 13:27:04 [id number] STEPHON CHERRY, PMHNP Leslye Jones ic Intervent ions at [facility] [address] [place] [address] 10/09/2023 10:44:13 10/09/2023 12:11:17 Health Concerns Section Related Observation LastModified by Organization Detai ls LastModified Time None Recorded Concern Status LastModified by Organization Details LastModified Time None Recorded Advance Directives Directive N: Payers Insurance Date Sequence Insurance Name Policy Number Policy Shah Covered Member ID Shah Member ID Guarantor Name 03/02/2024 1 [place] [employer] [id number] Debbie Nesbitt [id number] Debbie Nesbitt 10/19/2023 1 [place] [id number] Debbie Nesbitt [id number] Debbie Nesbitt Notes Date Note Type Note Provider Name and Address Organization Details Recorded Time 3 text/html PT PRESENTS FOR CHRONIC CARE MANAGEMENT, DENIES ANY NEW ISSUES. IS COMPLIANT WITH MEDICATIONSPATIENT ALSO COMPLAINS OF LEFT GROIN PAIN Daniel Grace MD [address], [place], [address], [facility] & [place] 10/03/2022 11:01:03 3 text/html Patient returns to [...] colonoscopy 01/2025 for surveillance. Tess Perry NP [address], [address], [place], [address], [facility] & [place] 03/04/2023 13:07:22 4 text/html patient is seen [...] also has body aches. Murali Marshall MD [address] [place] [address], [phone], [facility] & [place] 04/29/2023 16:49:02 4 text/html patient presents today for preop clearance. She is having a total hip replacement and removal of hardware in her left lower extremity performed. Daniel Grace MD [address] [place] [address], [phone], [facility] & [place] 08/28/2023 14:40:42 OBGyn Episode No OBEpisode recorded.
--- NOTE | 2024-08-28 09:00 | FL_ITS ---
FINAL REPORT CLINICAL HISTORY: bloating, GERD ft: 0.57 59.10 mgy FINDINGS: FLUOROSCOPY LESS THAN 1 HOUR HISTORY: Fluoroscopy guidance. FINDINGS: Fluoroscopic guidance was provided for small-bowel follow-through. Several spot films were obtained. A total of 0.57 minutes of fluoroscopy time were used. DAP: 59.10 mGy IMPRESSION: As above. Reviewed, Interpreted and Dictated by Brodie Rangel MD Transcribed by Alicia Hansen Authenticated and [facility]
[2024-08-28] MEDS: BARIUM SULFATE(LIQUID E-Z-PAQUE);355ML BOTTLE 355 ML PO (10:02)
== END 2024-08-28 23:59 | disposition home or self-care (01) ==
PROVIDERS: PCP Nurse Practitioner Family; Visit Provider Nurse Practitioner Family
DX: K21.9 Gastro-esophageal reflux disease without esophagitis (principal); K59.09 Other constipation; R14.0 Abdominal distension (gaseous); R10.84 Generalized abdominal pain; R09.89 Other specified symptoms and signs involving the circulatory and respiratory systems; R68.81 Early satiety
CPT/HCPCS: 74250

== ENCOUNTER 2024-11-27 09:26 | Outpatient (CLI) | payer OTHER, SELFPAY ==
--- OUTSIDE RECORDS SUMMARY | 2024-10-15 10:00 | XMS_ITS | Encounter Summary ---
Author Organization [facility] Address [address] [place] [address] Care Team Providers Care Ear Machine Operator Name Role Phone Ekta Singh APRN Primary Care Provider [phone] Reason for Referral * Diagnostic Imaging (Routine) - Closed Specialty Diagnoses / Procedures Referred By Cornell t Referred To Contact Radiology Diagnoses Monoallelic mutation of JUAN CARLOS gene At high risk for breast cancer Encounter for screening mammogram for malignant neoplasm of breast Procedures Mammo Diagnostic Digital Tomosynthesis Bilateral With CAD Reema Beatty APRN [address] [facility] [address] [place] [address] Phone: tel: fax: [facility] [address] [place] [address] Phone: tel: Referral ID Status Reason Start Date Expiration Date Visits Re quested Visits Authorized [id number] Closed 10/15/2024 01/14/2026 1 1 Encounter Details Date Type Department Care Team (Late st Contact Info) Description 10/15/2024 10:00 AM EDT Office Visit [facility] GYNECOLOGIC ONCOLOGY [address] [facility] [address] [place], [place] [id number] Reema Beatty APRN [address] [facility] [address] [place] [address] Well woman exam with routine gynecological exam (Primary Dx); 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 Never 07/07/2020 Average Number of Drinks Not on file 021 Frequency of Binge Drinking Not on file 10/2020 PHQ-2 Answer Date Recorded Retired PHQ-9: Brief Depression Severity Measure Score 0 04/04/2022 PHQ-2 Answer Date Recorded Retired PHQ-9: Brief Depression Severity Measure Score 11 04/16/2023 Comments No Sex and Gender Information Value Date Recorded Sex Assigned at Female 10/08/2024 3:45 PM EDT Legal Sex Female 9:32 PM EST Gender Identity Not on file Sexual Orientation Straight 10/08/2024 3: 45 PM EDT documented as of this encounter Last Filed Vital Signs Vital Sign Reading Time Taken Comments Blood Pressure 140/85 10/15/2024 9:46 AM EDT Pulse 91 10/15/2024 9:46 AM EDT Temperature 36.3 C (97.4 F) 10/15/2024 9:46 AM EDT Respiratory Rate 17 10/15/2024 9:46 AM EDT Oxygen Saturation 96% 10/15/2024 9:46 AM EDT Inhaled Oxygen Concentration - - Weight 74.9 kg (165 lb 1.6 oz) 10/15/2024 9:46 A M EDT Height 158.8 cm (5' 2.52 ) 10/15/2024 9:46 AM ED T Body Mass Index 29.7 10/15/2024 9:46 AM EDT documented in this encounter Progress Notes * Reema Beatty APRN - 10/15/2024 10:00 AM EDT THERAPY COORDINATOR ONCOLOGY FOLLOW-UP Cornelio Nesbitt [id number] Subjective Chief Complaint: Annual Exam, surveillance (VAIN III), and high risk f/u (JUAN CARLOS+) Answers submitted by the patient for this visit: Chronic Condition Follow-up (Submitted on 10/08/2024) Chief Complaint: PCP follow-up Medication compliance: all of the time Treatment barriers: no complaince problems Exercise: intermittently History of present illness: Cornelio Nesbitt is a 59 y.o. year old female who is here today for the above. -She is s/p vaginal hysterectomy in 2006 and BSO in 2010 due to pelvic pain. -She in involved in the pancreatic screening program at due to family history of pancreatic cancer -contrast allergy: Per pt she only reacts to the dye used with HIDA. However, she has never had an MRI with contrast without being premedicated beforehand -She reports she is feeling very well today and has no complaints. She denies vaginal bleeding, pelvic pain, changes in bowel or bladder function, new or concerning lesions, and breast problems. -She has a h/o hardware in left hip from a previous traumatic leg injury. Has had many orthopedic surgeries in the past. Reports that she has upcoming major surgeries planned and also procedures withher real time trader as well. VAIN III -She denies vaginal bleeding or discharge, vaginal pain, or changes in bowel or bladder function. 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 -Patient performs regular home self breast exams, denies any new or concerning findings. -Started tamoxifen in 12/2021, but d/c'd last visit in 04/2023 due to intolerable hot flashes. -Inquires about breast cancer risk if she were to have breasts removed. Skin lesion (chest) -Referred to derm last visit -Today she updates that she completely forgot Health Maintenance: -mmg: bilateral screening 07-03-23, birad1, no h/o abd mmg -MRI: 03-17-24, negative -pancreatic screening: per [facility], mr abd 11-15-23 -colonoscopy: 01-29-22 by Isabella Perry in [place]. Completes every 3 years due to polyps. Unable to return to this practice as they no longer take her insurance. Has apt on 11-18-24 with [facility]. -DEXA 06-29-24: L-spine, R hip, left forearm all showing osteopenia -pap: 04-16-2023 negative cytology and HR HPV. History of abnormal paps? Yes, reports h/o HPV. Risk Asessment: Genetic Testing: JUAN CARLOS+ Oncology History: Oncology/Hematology History No history exists. Dysplasia History: -H/o abnormal pap smears for 25+ years H/o cervical procedures: LEEP, laser conization, and cryotherapy 2006: vaginal hysterectomy for pelvic pain 2010: diagnostic laparoscopy with BSO due to pelvic pain H/o persistent low-grade dysplasia on vaginal pap smears since hysterectomy 07/14/2018: vaginal cuff pap smear showed high-grade dysplasia, prescribed Intrarosa 10/28/2018: repeat pap smear showed persistent VAIN 3. Referred to Engineering Program Manager Oncology by Dr. Herr 12/04/2018: Initiated Efudex treatment. Treatment halted temporarily due to UTI, vaginal burning, andspotting. Managed with vaginal estrogen and cold packs. Pt subsequently completed Efudex course, continued vaginal estrogen 07/09/2019: vaginal pap smear negative 01/07/2020: vaginal pap smear negative 07/07/2020: vaginal pap smear negative 04/2021: pap showed ASCUS with HPV negative. 04/04/2022 pap ASCUS, HPV negative 04/16/23 negative cytology and HPV The current medication list and allergy list were reviewed and reconciled. Past Medical History, Past Surgical History, Social History, Family History have been reviewed and are without significant changes except as mentioned. Review of Systems See hpi Objective Physical Exam Vital Signs: BP 140/85 Pulse 91 Temp 97.4 ??F (36.3 ??C) (Temporal) Resp 17 Ht 158.8 cm (62.52 ) Wt 74.9 kg (165 lb 1.6 oz) LMP (LMP Unknown) SpO2 96% BMI 29.70 kg/m?? Vitals: 10/15/24 0946 PainSc: 3 PainLoc: Leg Comment: Left Leg General Appearance: alert, cooperative, no apparent distress, appears stated age, and obese by BMI criteria Neurologic/Psych: A&O x 3, gait steady, appropriate affect HEENT: Normocephalic, without obvious abnormality, mucous membranes moist Breasts: Symmetrical, no masses, no lesions, and no nipple discharge Abdomen: Soft, non-tender, non-distended, and no organomegaly Lymph nodes: No cervical, supraclavicular, inguinal or axillary adenopathy noted Extremities: Normal, atraumatic; no clubbing, cyanosis, or edema Pelvic: External Genitalia without lesions or skin changes Vagina is pink, moist, without lesions. Scant normal vaginal discharge noted. Vaginal Cuff Female Vaginal Cuff: smooth, intact, without visible lesions and pap obtained Uterus surgically absent Ovaries surgically absent bilaterally Parametria smooth Rectovaginal Female rectovaginal: deferred ECOG score: 0 Assessment and Plan: -monthly SBE -q6m CBE, WNL today. Her PCP will do a repeat CBE in ~6m -Discussed risk reduction from prophylactic bilateral mastectomy. No current evidence to make a recommendation for prophylactic risk reducing mastectomy for JUAN CARLOS mutation carriers, however it could beconsidered depending on family history . -mammogram overdue, order placed. Given right breast pain, will order diagnostic -if mmg unremarkable, plan to complete mri 6m after -f/u with pancreatic cancer clinic/ Yazmin at -Continue pap smears per VAIN surveillance schedule. Completed today -colonoscopy: f/u next month as scheduled -DEXA 2026 Diagnoses and all orders for this visit: 1. Well woman exam with routine gynecological exam (Primary) - LIQUID-BASED PAP SMEAR WITH HPV GENOTYPING REGARDLESS OF INTERPRETATION (LORENA,COR,MAD); Future - LIQUID-BASED PAP SMEAR WITH HPV GENOTYPING REGARDLESS OF INTERPRETATION (LORENA,COR,MAD) 2. 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 Monoallelic mutation of JUAN CARLOS gene - Mammo Diagnostic Digital Tomosynthesis Bilateral With CAD; Future 4. At high risk for breast cancer - Mammo Diagnostic Digital Tomosynthesis Bilateral With CAD; Future 5. Encounter for screening mammogram for malignant neoplasm of breast - Mammo Diagnostic Digital Tomosynthesis Bilateral With CAD; Future Pain assessment was performed today as a part of patient???s care. For patients with pain related to surgery, gynecologic malignancy or cancer treatment, the plan is as noted in the assessment/plan. For patients with pain not related to these issues, they are to seek any further needed care from a more appropriate provider, such as PCP. Follow-up: Return to clinic in 6 months for High Risk visit. (Top only) RTC 1 year annual, cancer surveillance, and high risk documented in this encounter Plan of Treatment Upcoming Encounters Date Type Department Care Team (Late st Contact Info) Description 10/18/2025 9:30 AM EDT Office Visit [facility] GYNECOLOGIC ONCOLOGY [address] [place] [address] Reema Beatty APRN [address] [place] [address] documented as of this encounter Procedures Procedure Name Priority Date/Time Associated Diagnosis Comments LIQUID-BASED PAP SMEAR WITH HPV GENOTYPING REGARDLESS OF INTERPRETATION, [facility] (LORENA,COR,MAD) Routine 10/15/2024 10:27 AM EDT Well woman exam with routine gynecological exam 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 RECOMMENDATION: Annual routine screening mammography is advised. Further management of the patient's right breast pain should be based on clinical assessment. The standard false-negative rate of mammography is between 10% and 25%. Complex patterns or increased breast density will markedly elevate the false-negative rate of mammography. A results letter, in lay terminology, will be given to the patient at the conclusion of the exam. 10/28/2024 10:[address] Gio Martinez MD on Narrative 10/28/2024 10:38 AM EDT EXAMINATION:MAMMO DIAGNOSTIC DIGITAL TOMOSYNTHESIS BILATERAL W CAD-, US BREAST RIGHT LIMITED- HISTORY: 59-year-old female with focal pain in the right breast. Bilateral exam. The patient is positive for monoallelic mutation of the JUAN CARLOS gene. TECHNIQUE: 2D and 3D bilateral MLO and cc views were obtained. CAD was utilized. Targeted right breast ultrasound was performed. COMPARISON: Prior studies dating back to 06/22/2015. FINDINGS: There are scattered areas of fibroglandular density. The appearance is similar to the prior studies. No worrisome masses, calcifications, or architectural distortion is identified bilaterally. Targeted right breast ultrasound was performed at the patient directed site of pain at 10:00, 8 cm from the nipple, demonstrating normal breast tissue. No suspicious findings are noted. Reema Beatty APRN IMG MAMMOGRAPHY ORDERA BLES Final Result * LIQUID-BASED PAP SMEAR WITH HPV GENOTYPING REGARDLESS OF INTERPRETATION (LORENA,COR,MAD) (10/15/2024 10:27 AM EDT) Reference Lab Report [facility] [address] [place] [address] or [phone] Hank Oseguera M.D., Nitroglycerin Neutralizer PATIENT NAME LABORATORY NO. CORNELIO SCHNEIDER. [id number] AGE SEX SSN CLIENT REF # [facility]TO THERAPY COORDINATOR-ONCOLOGY 59 1965 F [id number] [address] [facility] [address] REQUESTING Saida [place] [address] REEMA BEATTY DATE COLLECTED DATE RECEIVED DATE REPORTED 10/15/2024 10/15/2024 10/16/2024 ThinPrep Pap with Tri-Medicsgic Watch-Sites Imaging DIAGNOSIS: Negative for intraepithelial lesion or malignancy Multiple factors can influence accuracy of Pap tests; therefore, screening at regular intervals is necessary for early cancer detection. COMMENT: Benign cellular changes associated with atrophy are present. Benign cellular changes associated with reactive/reparativ e changes are present. Professional interpretation rendered by Hank Oseguera M.D., F.C.A.P. at [facility] [place], [address] [place] [address]. 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 The high risk HPV types detected include: 16, 18, 31, 33, 35, 39, 45, 51, 52, 56, 58, 59, 66, 68 REGULATOR INSPECTOR: CRISTIAN GASCA (ASCP) REVIEWED, DIAGNOSED AND ELECTRONICALLY SIGNED BY: Hank Oseguera M.D., F.C.A.P. CPT CODES: [id number], [id number], [id number] 10/16/2024 1:57 PM EDT [facility] ThinPrep Vial Cervix uteri structure / Unknown Collection / Unknown 10/15/2024 10:27 AM EDT 10/15/2024 10:27 AM EDT Reema Beatty APRN PATHOLOGY/CYTOLOGY ORD ERABLES Final Result [facility]
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 At high risk for breast cancer Encounter for screening mammogram for malignant neoplasm of breast Monoallelic mutation of JUAN CARLOS gene At high risk for breast cancer Encounter for screening mammogram for malignant neoplasm of breast documented in this encounter Additional Health Concerns Assessment Noted Time PHQ-2 Depression Total Score: 3 04/16/19 24 9:07 AM EST documented as of this encounter Care Teams Ear Machine Operator Relationship Specialty Start Date End Date Ekta Singh APRN [address] [place] [address] [place] [id number] PCP - General Nurse Practitioner 01/16/24 documented as of this encounter
--- OUTSIDE RECORDS SUMMARY | 2024-10-28 09:12 | XMS_ITS | Encounter Summary ---
Author Organization [facility] Address [address] [place] [address] Care Team Providers Care Nutrition Instructor Name Role Phone Ekta Singh APRN Primary Care Provider [phone] Reason for Referral * Diagnostic Imaging (Routine) - Closed Specialty Diagnoses / Procedures Referred By Cornell brown Referred To Contact Radiology Diagnoses Monoallelic mutation of JUAN CARLOS gene At high risk for breast cancer Encounter for screening mammogram for malignant neoplasm of breast Procedures Mammo Diagnostic Digital Tomosynthesis Bilateral With Reema Reynaga APRN [address] [facility] [address] [place] [address] Phone: tel: fax: [facility] [address] [place] [phone] Phone: tel: Referral ID Status Reason Start Date Expiration Date Visits Re quested Visits Authorized [id number] Closed 10/15/2024 01/14/2026 1 1 Reason for Visit * Diagnostic Imaging (Routine) - Closed Specialty Diagnoses / Procedures Referred By Cornell brown Referred To Contact Radiology Diagnoses Monoallelic mutation of JUAN CARLOS gene At high risk for breast cancer Encounter for screening mammogram for malignant neoplasm of breast Procedures Mammo Diagnostic Digital Tomosynthesis Bilateral With Reema Reynaga APRN [address] [facility] [address] [place] [address] Phone: tel: fax: [facility] [address] [place] [address] Phone: tel: Referral ID Status Reason Start Date Expiration Date Visits Re quested Visits Authorized [id number] Closed 10/15/2024 01/14/2026 1 1 Encounter Details Date Type Department Care Team (Latest Contact Info) Description 10/28/2024 9:12 AM EDT - 10/28/2024 11:59 PM EDT Hospital Encounter [facility] [place] [address] [facility] [address] [place] [address] Monoallelic mutation of JUAN CARLOS [...] Description 10/18/2025 9:30 AM EDT Office Visit [facility] GYNECOLOGIC ONCOLOGY [address] [facility] [address] [place] [address] Reema Beatty, IMER [address] [facility] [address] [place] [address] documented as of this encounter Procedures Procedure [...] documented as of this encounter Care Teams Nutrition Instructor Relationship Specialty Start Date End Date Ekta Singh APRN [address] [place] [address] [place] [id number] PCP - General Nurse Practitioner 01/16/24 documented as of this encounter
--- OUTSIDE RECORDS SUMMARY | 2024-10-28 10:19 | XMS_ITS | Encounter Summary ---
[facility] Organization [facility] Address [address] [place] [address] Care Team Providers Care Moisture Machine Tender Name Role Phone Ekta Singh APRN Primary Care Provider [phone] Reason for Referral * Diagnostic Imaging (Routine) - Closed Specialty Diagnoses / Procedures Referred By Contac t Referred To Contact Radiology Diagnoses Monoallelic mutation of JUAN CARLOS gene At high risk for breast cancer Encounter for screening mammogram for malignant neoplasm of breast Procedures US Breast Right Limited Reema Beatty APRN [address] [facility] [address] [place] [address] Phone: tel: fax: [address] [address] Phone: tel: Referral ID Status Reason Start Date Expiration Date Visits Re quested Visits Authorized [id number] Closed 10/28/2024 01/27/2026 1 1 Reason for Visit * Diagnostic Imaging (Routine) - Closed Specialty Diagnoses / Procedures Referred By Contac t Referred To Contact Radiology Diagnoses Monoallelic mutation of JUAN CARLOS gene At high risk for breast cancer Encounter for screening mammogram for malignant neoplasm of breast Procedures US Breast Right Limited Reema Beatty APRN [address] [facility] [address] [place] [address] Phone: tel: fax: [facility] [address] [place] [phone] Phone: tel: Referral ID Status Reason Start Date Expiration Date Visits Re quested Visits Authorized [id number] Closed 10/28/2024 01/27/2026 1 1 Encounter Details Date Type Department Care Team (Latest Contact Info) Description 10/28/2024 10:19 AM EDT - 10/28/2024 11:59 PM EDT Hospital Encounter [facility] [address] [place] [address] Monoallelic mutation of JUAN CARLOS [...] Description 10/18/2025 9:30 AM EDT Office Visit [facility]COL[facility] [address] [place] [address] Reema Beatty, PIN MACHINE TENDER [address] [facility] [address] [place] [address] documented as of this encounter Procedures Procedure Name Priority Date/Time Associated Diagnosis Comments US BREAST RIGHT LIMITED Routine 10/28/2024 10:40 AM EDT Monoallelic mutation of JUAN CARLOS gene At high risk for breast cancer Encounter for screening mammogram for malignant neoplasm of breast documented in this encounter Results * US Breast Right Limited (10/28/2024 10:40 AM EDT) Anatomical Region Laterality Modality Breast Right Ultrasound 10/28/2024 10:3 6 AM EDT Impressions 10/28/2024 [...] breast tissue. No suspicious findings are noted. us Gio Martinez MD G US ORDERABLES Final Result documented in this encounter Visit Diagnoses Diagnosis Monoallelic mutation of JUAN CARLOS gene At high risk for breast cancer Encounter for screening mammogram for malignant neoplasm of breast documented in this encounter Additional Health Concerns Assessment Noted Time PHQ-2 Depression Total Score: 3 04/16/19 24 9:07 AM EST documented as of this encounter Care Teams Moisture Machine Tender Relationship Specialty Start Date End Date Ekta Singh APRN [address] [place] [id number] PCP - General Nurse Practitioner 01/16/24 documented as of this encounter
--- OUTSIDE RECORDS SUMMARY | 2024-10-30 10:00 | XMS_ITS | Encounter Summary ---
Author Organization Healthcare Address [address] [place] [address] Care Team Providers Care Iso Coordinator Name Role Phone Ekta Singh APRN Primary Care Provider [phone] Reason for Visit * Reason Comments Follow-up Encounter Details Date Type Department Care Team (Late st Contact Info) Description 10/30/2024 10:00 AM EDT Office Visit [facility] Orthopaedic Surgery & Sports Medicine [address] [place] [address] John Ocasio MD [address] [place] [address] Hip pain, left (Primary Dx) [...] Description 12/25/2024 10:10 AM EDT Office Visit [facility]opa[facility] Surgery [facility] Medicine [address] [place] [address] John Ocasio MD [address] [facility] [address] [place] [address] 11/19/2025 9:00 AM EDT Appointment [facility] [address] [place] [phone] 11/19/2025 11:00 AM EDT Office Visit [facility] [address] [place] [phone] Yazmin Alex APRN [address] [facility] [address] [place] [phone] documented as of this encounter Visit Diagnoses [...] documented as of this encounter Care Teams Iso Coordinator Relationship Specialty Start Date End Date Ekta Singh, ALLERGY AND IMMUNOLOGY CHIEF [address] [place] [address] PCP - General 07/31/24 documented as of this encounter
--- OUTSIDE RECORDS SUMMARY | 2024-11-13 08:15 | XMS_ITS | Encounter Summary ---
Author Organization [facility] Address [address] [place] [address] Care Team Providers Care Sales Agent Food Vending Service Name Role Phone Ekta Singh APRN Primary Care Provider Reason for Referral * Imaging (Routine) - Closed Specialty Diagnoses / Procedures Referred By Cornell brown Referred To Contact Radiology Diagnoses Biallelic mutation of JUAN CARLOS gene Family history of pancreatic cancer Procedures MRCP w and wo IV Contrast Yazmin Alex APRN [address] [address] Phone: tel: fax: Referral ID Status Reason Start Date Expiration Date Visits Re quested Visits Authorized [id number] Closed 08/13/2024 02/12/2026 1 1 Reason for Visit * Imaging (Routine) - Closed Specialty Diagnoses / Procedures Referred By Cornell brown Referred To Contact Radiology Diagnoses Biallelic mutation of JUAN CARLOS gene Family history of pancreatic cancer Procedures MRCP w and wo IV Contrast Yazmin Alex APRN [address] [facility] [address] [place] [address] Phone: tel: fax: Referral ID Status Reason Start Date Expiration Date Visits Re quested Visits Authorized [id number] Closed 08/13/2024 02/12/2026 1 1 Encounter Details Date Type Department Care Team (Latest Contact Info) Description 11/13/2024 8:15 AM EDT - 11/13/2024 11:59 PM EDT Hospital Encounter [facility] [address] [place] [address] Biallelic mutation of JUAN CARLOS gene; Family history of pancreatic cancer Discharge Disposition: Home or Self Care Social History Tobacco Use Types Packs/Day Years Used Date Smoking Tobacco: Never Smokeless Tobacco: Never Alcohol Use Standard Drinks/Week Comments Never 0 (1 standard drink = 0.6 oz pur e alcohol) PHQ-2 Answer Date Recorded Patient Health Questionnaire-2 Score 0 11/13/2024 PHQ-2A Answer Date Recorded Patient Health Questionnaire-2 Score 0 07/06/2022 Comments No Sex and Gender Information Value Date Recorded Sex Assigned at Not on file Legal Sex Female 8:32 PM EDT Gender Identity Not on file Sexual Orientation Not on file documented as of this encounter Functional Status * Over the past 2 weeks, how often have you been bothered by any of the following problems? Question Answer Date of Assessment Author Little interest or pleasure in doing things Not at all 11/13/2024 11:50 AM EDT Lynette Gray W Feeling down, depressed, or hopeless Not at all 11/13/2024 11:50 AM EDT Lynette Gray W Patient Health Questionnaire -2 Score 0 11/13/2024 11:50 AM EDT Lynette Gray W * Calculated C-SSRS Risk Score (Lifetime/Recent) Answer Date of Assessment Author No Risk Indicated 11/13/2024 11:50 AM EDT Lynette Huitron W * Question Answer Date of Assessment Author 1. Wish to be (Past 1 Month) No 025 11:50 AM EDT Lynette Gray W 2. Non-Specific Active Suici alis Thoughts (Past 1 Month) No 11/13/2024 11:50 AM EDT Fahad Gray W documented as of this encounter Medications at Time of Discharge amitriptyline (Elavil) 25 MG tablet Take 2 tablets (50 mg) by mouth every night. baclofen (Lioresal) 10 MG tablet Take 10 mg by mouth every night. PATIENT TAKES 0.5 TO 1 TABLET AT BEDTIME . biotin 5 MG capsule Take 5 capsules (25 mg) by mouth 2 (two) times a day. bisacodyl (Dulcolax) 5 MG EC tablet Take 1 tablet (5 mg) by mouth 1 (one) time each day if needed. busPIRone (Buspar) 10 MG tablet Take 1 tablet by mouth 2 times a day. 08/10/2024 Calcium Carb-Cholecalci ferol 600-10 MG-MCG tablet Take 1 tablet by mouth 1 (one) time each day. 10/19/2022 calcium carbonate-vitam in D 600-400 MG-UNIT tablet Take 1 tablet by mouth 1 (one) time each day. cholecalciferol (Vitamin D3) 25 MCG (1000 UT) tablet Take 1 tablet (1,000 Units) by mouth 1 (one) time each day. dexlansoprazole (Dexilant) [address] capsule Take 60 mg by mouth 1 (one) time each day. Do not crush or chew. diclofenac (Voltaren) 1 % topical gel Place on the skin 2 (two) times a day. Apply as directed to areas of pain of the prominent hardware in the medial knee, lateral knee, lateral hip 200 g 1 11/20/2023 doxepin (SINEquan) 10 MG capsule Take 1 capsule (10 mg) by mouth every night. DULoxetine (Cymbalta) [address] capsule Take 60 mg by mouth 1 (one) time each day. Do not crush or chew. estradiol (Vagifem) 10 MCG tablet vaginal tablet Insert 1 tablet (10 mcg) into the vagina 2 (two) times a week. fenofibrate (Tricor) 145 MG tablet Take 1 tablet (145 mg) by mouth 1 (one) time each day. ibandronate (Boniva) 150 MG tablet TAKE 1 TABLET BY MOUTH ONCE EVERY MONTH lansoprazole (Prevacid) [address] capsule Take 1 capsule (30 mg) by mouth 2 (two) times a day. Do not crush or chew. meloxicam (Mobic) 7.5 MG tablet TAKE 1 TABLET ONCE DAILY 90 tablet 3 02/05/2024 metoprolol succinate XL (Toprol-XL) 25 MG 24 hr tablet Take 1 tablet (25 mg) by mouth 1 (one) time each day. Do not crush or chew. oxyCODONE (Roxicodone) 5 MG immediate release tablet Take 1 tablet (5 mg total) by mouth every 6 (six) hours if needed (pain unresponsive to other medications/interve ntions. Hold for sedation.). 20 tablet 12/03/2020 predniSONE (Deltasone) 50 MG tablet Take 1 tablet (50 mg) by mouth See administration instructions for 3 doses. Take one tablet (50mg) 13 hours, 7 hours, and 1 hour before MRI scan on 11/09/22. 3 tablet 11/01/2022 propranolol (Inderal) 10 MG tablet Take 1 tablet (10 mg) by mouth 3 (three) times a day. THE RX IS WRITTEN UP TO 3 TIMES DAILY . sucralfate (Carafate) 1 g tablet TAKE 1 TABLET BY MOUTH BEFORE MEALS AND 1 TABLET AT BEDTIME 08/24/2024 tamoxifen (Nolvadex) 20 MG chemo tablet Take by mouth. Take with water or any other nonalcoholic drink with or without food at around the same time(s) every day. traMADol (Ultram) 50 MG tablet Take 1 tablet (50 mg) by mouth 3 (three) times a day. zinc gluconate 50 MG tablet Take 1 tablet (50 mg) by mouth 1 (one) time each day. documented as of this encounter Plan of Treatment Upcoming Encounters Date Type Department Care Team (Late st Contact Info) Description 12/25/2024 10:10 AM EDT Office Visit [facility] [address], [address] [place] [address] John Ocasio MD [address] [facility] [address] [place] [address] 11/19/2025 9:00 AM EDT Appointment [facility] [address] [place] [address] 11/19/2025 11:00 AM EDT Office Visit [facility] [address] [place] [id number] Yazmin Alex, IMER [address] [facility] [address] [place] [address] documented as of this encounter Procedures Procedure Name Priority Date/Time Associated Diagnosis Comments MRCP W AND WO IV CONTRAST Routine 11/13/2024 9:12 AM EDT Biallelic mutation of JUAN CARLOS gene Family history of pancreatic cancer documented in this encounter Results * MRCP w and wo IV Contrast (11/13/2024 9:12 AM EDT) Anatomical Region Laterality Modality Abdomen Magnetic Resonan ce Impressions 11/16/2024 9:19 AM EDT Moderate diffuse hepatic steatosis. No pancreatic mass or lesion. No interval pancreatic or biliary ductal dilatation. CRITICAL RESULT: No. COMMUNICATION: Per this written report. By electronically signing this report, I, the attending physician, attest that I have personally reviewed the images/data for the above examination(s) and agree with the final edited report. Drafted by Kate Guerrero MD on 11/13/2024 9:29 AM Final report signed by Karen Anand MD on 11/16/2024 9:19 AM Narrative 11/16/2024 9:19 AM EDT CLINICAL INDICATION: JUAN CARLOS mutation TECHNIQUE: MR imaging of the abdomen was performed with and without intravenous contrast material using the following sequences: coronal single shot T2 weighted fast spin echo, axial T2 weighted sequences with and without fat saturation, axial dual phase gradient echo, pre and dynamic postcontrast 3-D T1 weighted gradient echo with fat saturation (axial and coronal), and axial diffusion. Heavily T2-weighted 2D MRCP sequences were acquired. In addition, advanced 3D workstation manipulation and review of the data set was performed by the interpreting physician to further define anatomy and possible pathology. Images of areas of interest were created utilizing various techniques. These images were saved and transferred to PACS if significant. 7.3 mL of Gadavist was administered. COMPARISON: MRI abdomen 11/15/2023 FINDINGS: Gallbladder: Prior cholecystectomy. Bile Duct: Mild intra and extrahepatic biliary ductal dilatation compatible with postcholecystectomy ductal ectasia. No stricture, choledocholithiasis, epithelial thickening or abnormal enhancement. Pancreatic Duct: Normal caliber and outline. Normal biliopancreatic junction. No pancreas divisum. Pancreas: Normal signal and enhancement. No evidence of acute or chronic inflammation. No suspicious focal mass. Liver: Moderate diffuse hepatic steatosis. No focal liver lesions. Patent hepatic vasculature. Spleen: Normal size. Normal signal and enhancement. No focal lesions or infarcts. Adrenal Glands: Normal. Kidneys: Normal. Fluid Survey: No ascites. Vasculature: Normal caliber and patent aorta and major visceral branches. Normal caliber patent IVC and major abdominal vebous vasculature. Lymph Nodes: No adenopathy. Bones: No aggressive osseous lesions. Other: Visualized GI tract is normal without evidence of bowel obstruction or acute inflammatory disease. No focal abnormalities in the lower lungs. No effusions. Procedure Note Karen Anand MD - 11/16/2024 CLINICAL INDICATION: JUAN CARLOS mutation TECHNIQUE: MR imaging of the abdomen was performed with and without intravenouscontrast material using the following sequences: coronal single shot [id number] fast spin echo, axial T2 weighted sequences with and without fatsaturation, axial dual phase gradient echo, pre and dynamic postcontrast3-D T1 weighted gradient echo with fat saturation (axial and coronal), andaxial diffusion. Heavily T2-weighted 2D MRCP sequences were acquired. Inaddition, advanced 3D workstation manipulation and review of the data setwas performed by the interpreting physician to further define anatomy andpossible pathology. Images of areas of interest were created utilizingvarious techniques. These images were saved and transferred to PACS ifsignificant. 7.3 mL of Gadavist was administered. COMPARISON: MRI abdomen 11/15/2023 FINDINGS: Gallbladder: Prior cholecystectomy. Bile Duct: Mild intra and extrahepatic biliary ductal dilatationcompatible with postcholecystectomy ductal ectasia. No stricture,choledocholithiasis, epithelial thickening or abnormal enhancement. Pancreatic Duct: Normal caliber and outline. Normal biliopancreaticjunction. No pancreas divisum. Pancreas: Normal signal and enhancement. No evidence of acute or chronicinflammation. No suspicious focal mass. Liver: Moderate diffuse hepatic steatosis. No focal liver lesions. Patenthepatic vasculature. Spleen: Normal size. Normal signal and enhancement. No focal lesions orinfarcts. Adrenal Glands: Normal. Kidneys: Normal. Fluid Survey: No ascites. Vasculature: Normal caliber and patent aorta and major visceral branches.Normal caliber patent IVC and major abdominal vebous vasculature. Lymph Nodes: No adenopathy. Bones: No aggressive osseous lesions. Other: Visualized GI tract is normal without evidence of bowel obstructionor acute inflammatory disease. No focal abnormalities in the lower lungs.No effusions. IMPRESSION: Moderate diffuse hepatic steatosis. No pancreatic mass or lesion. No interval pancreatic or biliary ductaldilatation. CRITICAL RESULT: No. COMMUNICATION: Per this written report. By electronically signing this report, I, the attending physician, jagruti I have personally reviewed the images/data for the aboveexamination(s) and agree with the final edited report. Drafted by Kate Guerrero MD on 11/13/2024 9:29 AM Final report signed by Karen Anand MD on 11/16/2024 9:19 AM Yazmin Alex APRN IMG MRI PROCEDURES Final Res ult documented in this encounter Visit Diagnoses Diagnosis Biallelic mutation of JUAN CARLOS gene Family history of pancreatic cancer Family history of malignant neoplasm of gastrointestinal tract documented in this encounter Administered Medications Inactive Administered Medications - up to 3 most recent administrations Medication Order MAR Action Action Date Dose Rate Site gadobutrol (Gadavist) injection 7.3 mL 7.3 mL (rounded from 7.26 mL = 0.1 mL/kg 72.6 kg), Intravenous, Once in imaging, 1 dose, Starting on Sat11/13/24 at 0820, Until Sat11/13/24 at 0903, Routine, Imaging Protocol Orders Given 11/13/2024 9:03 AM EDT 7.3 mL documented in this encounter Additional Health Concerns Assessment Noted Time A fall risk assessment has been complete d for the patient 11/13/2024 11:52 AM EDT A Body Mass Index follow-up plan has been documented for the patient 11/04/2024 9:07 AM EDT documented as of this encounter Care Teams Sales Agent Food Vending Service Relationship Specialty Start Date End Date Ekta Singh APRN [address] [place] [address] PCP - General 07/31/24 documented as of this encounter
--- OUTSIDE RECORDS SUMMARY | 2024-11-13 11:30 | XMS_ITS | Encounter Summary ---
Author Organization [facility] Address [address] [place] [address] Care Team Providers Care General Utility Worker Name Role Phone Ekta Singh APRN Primary Care Provider [phone] Reason for Referral * Imaging (Routine) - Pending Review Specialty Diagnoses / Procedures Referred By Cornell brown Referred To Contact Radiology Diagnoses Biallelic mutation of JUAN CARLOS gene Family history of pancreatic cancer Procedures MRCP w and wo IV Contrast Yazmin Alex APRN [address] [facility] [address] [place] [address] Phone: tel: fax: Referral ID Status Reason Start Date Expiration Date V isits Requested Visits Authorized [id number] Pending Review 11/13/2024 05/15/2026 1 1 Reason for Visit * Reason Comments Follow-up Encounter Details Date Type Department Care Team (Latest Contact Info) Description 11/13/2024 11:30 AM EDT Office Visit [facility] Multidisciplinary Oncology Clinic [address] [place] [address] Yazmin Alex APRN [address] [facility] [address] [place] [address] Biallelic mutation of JUAN CARLOS gene (Primary [...] provider in high risk breast clinic in [facility]. She is postmenopausal and has had [...] Use: Not At Risk (07/07/2020) Received from [facility] AUDIT-C Q1: How often do you have [...] (axial and coronal), and axial diffusion. Heavily T2-[id number] MRCP sequences were acquired. In addition, advanced [...] Description 12/25/2024 10:10 AM EDT Office Visit [facility] Orthopaedic Surgery & Sports Medicine [address] [place] [address] John Ocasio MD [address] [place] [address] 11/19/2025 9:00 AM EDT Appointment [facility] [address] [place] [address] 11/19/2025 11:00 AM EDT Office Visit [facility] [address] [place] [phone] Yazmin Alex APRN [address] [facility] [address] [place] [address] Scheduled Orders Name Type Priority Associated Diagnoses Orde r Schedule MRCP w and wo IV Contrast Imaging Routine Biallelic mutation of JUAN CARLOS gene Family history of pancreatic cancer Expected: 11/12/2025 (Approximate), Expires: 05/17/2026 documented as of this encounter Results * (ABNORMAL) Hemoglobin A1c (11/13/2024 12:10 PM EDT) Hemoglobin A1c 5.8(H) <5.7 % 11/13/2024 2:33 PM EDT [facility] Blood Venous blood specimen / Unknown Venipuncture / Unknown 11/13/2024 12:10 PM EDT 11/13/2024 1:32 PM EDT Narrative [facility] - 11/13/2024 2:33 PM EDT HA1C Interpretive Data: Diagnosis of Diabetes: Diabetic > or = 6.5% Pre-diabetic 5.7 to 6.4% Non-diabetic < or = 5.6% Glycemic Targets for Type I and Type II Diabetics: Non- Adults <7.0% Adults <6.0% Children and Adolescents <7.5% Source: [place] Diabetes [employer]. Standards of medical care in diabetes,2017. Diabetes Care.2017:40 (suppl 1):S1-S135. [email or web address] Alex COTTON BAG CLIPPER LAB BLOOD ORDERABLES Final R esult Performing Organization Address City/[facility] Co de Phone Number [facility] [address] [place] [address] * Cancer Antigen, GI (CA 19.9) (11/13/2024 12:10 PM EDT) CA 19.9 14.8 <36 U/mL 11/13/2024 1:2 3 PM EDT [facility] Blood Venous blood specimen / Unknown Venipuncture / Unknown 11/13/2024 12:10 PM EDT 11/13/2024 12:42 PM EDT Narrative [facility] - 11/13/2024 1:23 PM EDT Performed by Hayes electrochemiluminescent immunoassay. Results obtained with different test methods or kits cannot be used interchangeably. [email or web address] Alex COT[employer] BAG CLIPPER LAB BLOOD ORDERABLES Final R esult Performing Organization Address City/[facility] Co de Phone Number [facility] [address] [place] [address] documented in this encounter Visit Diagnoses Diagnosis [...] documented as of this encounter Care Teams General Utility Worker Relationship Specialty Start Date End Date Ekta Singh APRN [address] [place] [address] PCP - General 07/31/24 documented as of this encounter
--- OUTSIDE RECORDS SUMMARY | 2024-11-27 09:29 | XMS_ITS | Encounter Summary ---
Author Organization [facility] Address [address] [place] [address] Care Team Providers Care Precision Jig Grinder Name Role Phone Francisco Ekta Jara APRN Primary Care Provider [phone] Encounter Details Date Type Department Care Team (Latest Contact Info) Description 11/13/2024 Travel Social History Tobacco Use Types Packs/Day Years [...] things Not at all 11/13/2024 11:50 AM Lynette Wood W Feeling down, depressed, or hopeless Not at all 11/13/2024 11:50 AM EDT Lynette Gray W Patient Health Questionnaire -2 Score 0 11/13/2024 11:50 AM Lynette Wood W * Calculated C-SSRS Risk Score (Lifetime/Recent) Answer Date of Assessment Author No Risk Indicated 11/13/2024 11:50 AM DUCT Lynette Huitron W * Question Answer Date of Assessment Author 1. Wish to be (Past 1 Month) No 08/15/2 025 11:50 AM EDT Lynette Gray W 2. Non-Specific Active Suici alis Thoughts (Past 1 Month) No 11/13/2024 11:50 AM EDT Fahad Gray W documented as of this encounter Plan of Treatment Upcoming Encounters Date Type Department Care Team (Late st Contact Info) Description 12/25/2024 10:10 AM EDT [facility] [address] [place] [address] John Ocasio MD [address] [place] [address] 11/19/2025 9:00 AM EDT Appointment [facility] [address] [place] [address] 11/19/2025 11:00 AM EDT Office Visit [facility] [address] [place] [address] Yazmin Alex, TELESALES AGENT [address] [facility] [address] [place] [address] documented as of this encounter Visit Diagnoses Not on filedocumented in this encounter Additional Health Concerns Assessment Noted Time A fall risk assessment has been complete d for the patient 11/13/2024 11:52 AM EDT A Body Mass Index follow-up plan has been documented for the patient 11/04/2024 9:07 AM EDT documented as of this encounter Care Teams Precision Jig Grinder Relationship Specialty Start Date End Date Ekta Singh, TELESALES AGENT [address] [place] [address] PCP - General 07/31/24 documented as of this encounter
--- OUTSIDE RECORDS SUMMARY | 2024-11-27 09:29 | XMS_ITS | Encounter Summary ---
Author Organization [facility] Address [address] [place] [address] Care Team Providers Care Teaching Aide Name Role Phone Francisco Ekta Jara APRN Primary Care Provider [phone] Encounter Details Date Type Department Care Team (Latest Contact Info) Description 10/30/2024 Travel Social History Tobacco Use Types Packs/Day [...] on file documented as of this encounter Plan of Treatment Upcoming Encounters Date Type Department Care Team (Late st Contact Info) Description 12/25/2024 10:10 AM EDT Office Visit [facility] [address], [address] [place] [address] John Ocasio MD [address] [place] [address] 11/19/2025 9:00 AM EDT Appointment [facility] [address] [place] [address] 11/19/2025 11:00 AM EDT Office [facility] [address] [place] [address] Yazmin Alex, CERTIFIED PATHOLOGY ASSISTANT [address] [place] [address] documented as of this encounter Visit Diagnoses Not on filedocumented in this encounter Additional Health Concerns Assessment Noted Time A fall risk assessment has been complete d for the patient 10/30/2024 10:33 AM EDT A Body Mass Index follow-up plan has been documented for the patient 11/04/2024 9:07 AM EDT documented as of this encounter Care Teams Teaching Aide Relationship Specialty Start Date End Date Ekta Singh, IMER [address] [place] [address] PCP - General 07/31/24 documented as of this encounter
--- OUTSIDE RECORDS SUMMARY | 2024-11-27 09:29 | XMS_ITS | Encounter Summary ---
Author Organization [facility] Address [address] [place] [address] Care Team Providers Care Drafter Patent Name Role Phone Ekta Singh APRN Primary Care Provider [phone] Reason for Visit * Reason Onset Date Comments HCN - Patient Message 10/09/2024 Encounter Details Date Type Department Care Team (Late st Contact Info) Description 10/09/2024 Telephone [facility] Orthopaedic Surgery & Sports Medicine [address], [address] [place] [address] John Ocasio MD [address] [place] [address] HCN - Patient Message Social History Tobacco Use Types Packs/Day Years [...] on file documented as of this encounter Miscellaneous Notes * Telephone Encounter - Melchor Pelaez RN - 10/20/2024 8:57 AM EDT Called and scheduled appt to discuss surgery with Dr. Ocasio * Telephone Encounter - Gail Medina Anais - 10/09/2024 3:58 PM EDT Clinical Concern/Question Reason for Call: Ninfa patient calling to see if Ninfa has spoken with Erinn like he had said he wanted to at her last appt. Please advise Best contact number: [phone] (mobile) Optimal time of day to reach caller: ANYTIME Additional comments/information from caller: None Note: Please do not reply to this message. Follow-up communication and further actions as a result of this message need to be communicated with the patient directly, if the patient is not active onMyChart. If the patient is active on MyChart, they will receive notification of the communication/outcome via FlipGivehart. documented in this encounter Plan of Treatment Upcoming Encounters Date Type Department Care Team (Late st Contact Info) Description 12/25/2024 10:10 AM EDT Office Visit [facility] Orthopaedic Surgery & Sports Medicine [address], [address] [place] [address] John Ocasio MD [address] [facility] [address] [place] [address] 11/19/2025 9:00 AM EDT Appointment [facility] [address] [place] [phone] 11/19/2025 11:00 AM EDT Office Visit [facility] [address] [place] [address] Yazmin Alex APRN [address] [facility] [address] [place] [address] documented as of this encounter Visit Diagnoses Not on filedocumented in this encounter Additional Health Concerns Assessment Noted Time A fall risk assessment has been complete d for the patient 09/04/2024 9:56 AM EDT A Body Mass Index follow-up plan has been documented for the patient 09/04/2024 10:32 AM EDT documented as of this encounter Care Teams Drafter Patent Relationship Specialty Start Date End Date Ekta Singh APRN [address] [place] [address] PCP - General 07/31/24 documented as of this encounter
--- OUTSIDE RECORDS SUMMARY | 2024-11-27 09:30 | XMS_ITS | Encounter Summary ---
Author Organization Healthcare Address [address] [place] [address] Care Team Providers Care Toll Mechanic Name Role Phone Michel Noemi Mccarthy DO Primary Care Provider [phone] Pcp, No Primary Care Provider Ekta Anderson APRN Primary Care Provider [phone] Encounter Details Date Type Department Care Team (Late st Contact Info) Description 05/24/2023 Orders Only External Location [address] [place] [address] Provider, External Social History Tobacco Use Types Packs/Day Years Used Date Smoking Tobacco: Never Smokeless Tobacco: Never Alcohol Use Standard Drinks/Week Comments Never 0 (1 standard drink = 0.6 oz pur e alcohol) PHQ-2 Answer Date Recorded Patient Health Questionnaire-2 Score 0 07/06/2022 PHQ-2A Answer Date Recorded Patient Health Questionnaire-2 [...] Description 12/25/2024 10:10 AM EDT [facility] Visit [facility] [address], 1[address] [place] [address] John Ocasio MD [address] [place] [address] 11/19/2025 9:00 AM EDT Appointment [facility] [address] [place] [address] 11/19/2025 11:00 AM EDT Office [facility] [address] [place] [address] Yazmin Alex, IMER [address] [place] [address] documented as of this encounter Procedures Procedure Name Priority Date/Time Associated Diagnosis Comments XR OUTSIDE IMAGES 05/24/2023 8:24 AM EST documented in this encounter Results * XR OUTSIDE IMAGES (05/24/2023 8:24 AM EST) Anatomical Region Laterality Modality Radiographic Yolis ging 05/24/2023 8:24 AM EST us External Provider IMG XR PROCEDURES Final Result documented in this encounter Visit Diagnoses Not on filedocumented in this encounter Additional Health Concerns Assessment Noted Time A fall risk assessment has been complete d for the patient 11/09/2022 11:35 AM EDT A Body Mass Index follow-up plan has been documented for the patient 07/06/2022 11:12 AM EDT documented as of this encounter Care Teams Toll Mechanic Relationship Specialty Start Date End Date Noemi Pearson DO [address] [place] [address] [place] [address] PCP - General 11/30/20 11/19/23 Pcp, No [address] [place] [address] PCP - General Family Medicine 11/20/23 07/30/24 Ekta Singh APRN [address] [place] [address] PCP - General 07/31/24 documented as of this encounter
--- OUTSIDE RECORDS SUMMARY | 2024-11-27 09:30 | XMS_ITS | Encounter Summary ---
Author Organization Healthcare Address [address] [place] [address] Care Team Providers Care Animal Cruelty Investigator Name Role Phone Michel Noemi Mccarthy DO Primary Care Provider [phone] Pcp, No Primary Care Provider Ekta Anderson APRN Primary Care Provider [phone] Encounter Details Date Type Department Care Team (Late st Contact Info) Description 02/15/2023 Orders Only External Location [address] [place] [address] Provider, External Social History Tobacco Use Types [...] Description 12/25/2024 10:10 AM EDT [facility] Visit [facility] [address], 1[address] [place] [address] John Ocasio MD [address] [place] [address] 11/19/2025 9:00 AM EDT Appointment [facility] [address] [place] [address] 11/19/2025 11:00 AM EDT Office [facility] [address] [place] [address] Yazmin Alex, PHYSICIAN NEONATOLOGY [address] [place] [address] documented as of this encounter Procedures Procedure Name Priority Date/Time Associated Diagnosis Comments IR OUTSIDE IMAGES 02/15/2023 2:28 PM EST documented in this encounter Results * IR OUTSIDE IMAGES (02/15/2023 2:28 PM EST) Anatomical Region Laterality Modality X-Ray Angiograph y 02/15/2023 2:28 PM EST us External Provider IMG IR PROCEDURES Final Result documented in this encounter Visit Diagnoses Not on filedocumented in this encounter Additional Health Concerns Assessment Noted Time A fall risk assessment has been complete d for the patient 11/09/2022 11:35 AM EDT A Body Mass Index follow-up plan has been documented for the patient 07/06/2022 11:12 AM EDT documented as of this encounter Care Teams Animal Cruelty Investigator Relationship Specialty Start Date End Date Noemi Pearson DO [address] [place] [address] PCP - General 11/30/20 11/19/23 Pcp, No [address] [place] [address] PCP - General Family Medicine 11/20/23 07/30/24 Ekta Singh, IMER [address] [place] [address] PCP - General 07/31/24 documented as of this encounter
--- OUTSIDE RECORDS SUMMARY | 2024-11-27 09:30 | XMS_ITS | Encounter Summary ---
Author Organization Healthcare Address [address] [place] [address] Care Team Providers Care Steam Setter Name Role Phone Michel Noemi Mccarthy DO Primary Care Provider [phone] Pcp, No Primary Care Provider Ekta Anderson APRN Primary Care Provider [phone] Encounter Details Date Type Department Care Team (Late st Contact Info) Description 10/26/2022 Orders Only External Location [address] [place] [address] Provider, External Social History Tobacco Use Types [...] Description 12/25/2024 10:10 AM EDT Office Visit [facility] [address], 1[address] [place] [address] John Ocasio MD [address] [place] [address] 11/19/2025 9:00 AM EDT Appointment [facility] [address] [place] [address] 11/19/2025 11:00 AM EDT Office [facility] [address] [place] [address] Yazmin Alex, GOLF CART REPAIRER [address] [place] [address] documented as of this encounter Procedures Procedure Name Priority Date/Time Associated Diagnosis Comments XR OUTSIDE IMAGES 10/26/2022 7:36 AM EDT documented in this encounter Results * XR OUTSIDE IMAGES (10/26/2022 7:36 AM EDT) Anatomical Region Laterality Modality Radiographic Yolis ging 10/26/2022 7:36 AM EDT us External Provider IMG XR PROCEDURES Final Result documented in this encounter Visit Diagnoses Not on filedocumented in this encounter Additional Health Concerns Assessment Noted Time A fall risk assessment has been complete d for the patient 07/06/2022 10:22 AM EDT A Body Mass Index follow-up plan has been documented for the patient 07/06/2022 11:12 AM EDT documented as of this encounter Care Teams Steam Setter Relationship Specialty Start Date End Date Noemi Pearson DO [address] [place] [address] PCP - General 11/30/20 11/19/23 Pcp, No [address] [place] [address] PCP - General Family Medicine 11/20/23 07/30/24 Ekta Singh, GOLF CART REPAIRER [address] [place] [address] PCP - General 07/31/24 documented as of this encounter
--- OUTSIDE RECORDS SUMMARY | 2024-11-27 09:30 | XMS_ITS | Encounter Summary ---
Author Organization Healthcare Address [address] [place] [address] Care Team Providers Care Facilities Clerk Name Role Phone Michel Noemi Mccarthy DO Primary Care Provider [phone] Pcp, No Primary Care Provider Ekta Anderson APRN Primary Care Provider [phone] Encounter Details Date Type Department Care Team (Late st Contact Info) Description 10/08/2023 Orders Only External Location [address] [place] [address] Provider, External Social History Tobacco Use Types [...] Description 12/25/2024 10:10 AM EDT Office Visit [facility] [address] [place] [address] John Ocasio MD [address] [place] [address] 11/19/2025 9:00 AM EDT Appointment [facility] [address] [place] [address] 11/19/2025 11:00 AM EDT Office Visit [facility] [address] [place] [address] Yazmin Alex, RADIOTELEGRAPH OPERATOR [address] [place] [address] documented as of this encounter Procedures Procedure Name Priority Date/Time Associated Diagnosis Comments XR OUTSIDE IMAGES 10/08/2023 9:26 AM EDT documented in this encounter Results * XR OUTSIDE IMAGES (10/08/2023 9:26 AM EDT) Anatomical Region Laterality Modality Radiographic Yolis ging 10/08/2023 9:26 AM EDT us External Provider IMG XR [...] documented as of this encounter Care Teams Facilities Clerk Relationship Specialty Start Date End Date Noemi Pearson DO [address] [place] [address] PCP - General 11/30/20 11/19/23 Pcp, No [address] [place] [address] PCP - General Family Medicine 11/20/23 07/30/24 Ekta Singh, RADIOTELEGRAPH OPERATOR [address] [place] [address] PCP - General 07/31/24 documented as of this encounter
--- OUTSIDE RECORDS SUMMARY | 2024-11-27 09:30 | XMS_ITS | Clinical Summary ---
Author Organization [facility] Address [address] [place] [address] Care Team Providers Care Manager Intern Name Role Phone Ekta Singh APRN Primary Care Provider [phone] Allergies Active Allergy Reactions Criticality Noted Date Comments Contrast Dye (Echo Or Unknown Ct/Mr) Unknown - High Severity 04/10/2022 Patient states even with prednisone and benadryl prep for a contrasted MRI done at [facility], she still had a reaction of shaking, hot flashes, anxiety and jumbling her words Hydrocodone Anxiety Low 11/30/2020 Sulfa Antibiotics Diarrhea Low 11/30/2020 Medications amitriptyline (ELAVIL) 25 MG tablet 9 Active baclofen (LIORESAL) 10 MG tablet 9 Active doxepin (SINEquan) 10 MG capsule TAKE 1 CAPSULE BY MOUTH AT BEDTIME (MAY SLOWLY INCREASE TO 3 AT BEDTIME) 2 9 Active fenofibrate (TRICOR) 145 MG tablet Take 1 tablet by mouth Daily. 2 9 Active metoprolol succinate XL (TOPROL-XL) 25 MG 24 hr tablet Take 1 tablet by mouth Daily. 0 9 Active traMADol (ULTRAM) 50 MG tablet 9 Active fluticasone (FLONASE) 50 MCG/ACT nasal spray Administer 2 sprays into the nostril(s) as directed by provider Daily. Active Garlic 1000 MG capsule Take by mouth. Activ e Loratadine 10 MG capsule Take by mouth. Acti ve B Complex Vitamins (VITAMIN B COMPLEX) capsule capsule Take by mouth Daily. Active Krill Oil 500 MG capsule Take by mouth. Acti ve Calcium Carb-Cholecalci ferol (CALCIUM 600+D3 PO) Take by mouth. Acti ve Zinc 50 MG capsule Take by mouth. Activ e Coenzyme Q10 (COQ10 PO) Take by mouth. Acti ve vitamin C (ASCORBIC ACID) 500 MG tablet Take 2 tablets by mouth Daily. Active meclizine (ANTIVERT) 12.5 MG tablet Active Cetirizine HCl 10 MG capsule cetirizine 10 mg capsule Take by oral route. 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 Encounters Date Type Department Care Team Description 10/28/2024 10:19 AM EDT - 10/28/2024 11:59 PM EDT Hospital Encounter [facility] [place] [address] [facility] [address] [place] [address] Monoallelic mutation of JUAN CARLOS gene; At high risk for breast cancer; Encounter for screening mammogram for malignant neoplasm of breast Discharge Disposition: Home or Self Care 10/28/2024 9:12 AM EDT - 10/28/2024 11:59 PM EDT Hospital Encounter [facility] [place] [address] [facility] [address] [place] [address] Monoallelic mutation of JUAN CARLOS gene; At high risk for breast cancer; Encounter for screening mammogram for malignant neoplasm of breast Discharge Disposition: Home or Self Care 10/28/2024 Travel 10/17/2024 Results Follow-Up [facility] [address] [place] [address] Reema Beatty APRN Hocker: Pap results 10/15/2024 10:00 AM EDT Office Visit [facility] [address] [place] [address] Reema Beatty APRN Well woman exam with routine gynecological exam (Primary Dx); 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); Monoallelic mutation of JUAN CARLOS gene; At high risk for breast cancer; Encounter for screening mammogram for malignant neoplasm of breast 10/15/2024 Travel 10/12/2024 Telephone [facility] [address] [place] [address] Reema Beatty APRN HOCKER - APPT QUESTION from Last 3 Months Family History Medical History Relation Name Comments Breast cancer Cousin 1 PAT 1ST Breast cancer Cousin 2 PAT Other Daughter JUAN CARLOS+ Graves' disease Father Clyde Sierra Heart valve disorder Father Clyde Sierra Lung cancer Father Clyde Sierra Prostate cancer Father Clyde [place] Stomach cancer Maternal Aunt Cancer Maternal Grandfather Heart disease Maternal Grandfather Cancer Maternal Grandmother Heart disease Maternal Grandmother Colon cancer Maternal Uncle Not sure Arthritis Mother Shartia Sierra Stroke Mother Sharita Sierra Breast cancer Paternal Aunt 1 Dionna Doe Lung cancer Paternal Aunt 2 Cancer Paternal Grandfather Heart disease Paternal Grandfather Heart disease Paternal Grandmother Stomach cancer Paternal Grandmother Breast cancer Paternal Great-Grandmother Cancer Paternal Uncle 1 Prostate cancer Paternal Uncle 2 Not sure Graves' disease Sister 1 Obesity Sister 1 Thyroid cancer Sister 1 Breast cancer Sister 2 Kin[place] Fish Breast cancer - additional onset Sister 2 [place] Graves' disease Sister 3 Ovarian cancer Neg Hx Relation Name Status Comments Cousin 1 PAT 1ST Cousin 2 PAT Daughter Alive Father Clyde Sierra Maternal Aunt Maternal Grandfather Maternal Grandmother Maternal Uncle Not sure Mother Sharita Sierra Paternal Aunt 1 Dionna Doe Paternal Aunt 2 Paternal Grandfather Paternal Grandmother Paternal Great-Grandmother Paternal Uncle 1 Paternal Uncle 2 Not sure Sister 1 Sister 2 Kinsey Fish Sister 3 Other twin Social History Tobacco Use Types Packs/Day Years [...] Orientation Straight 10/08/2024 3: 45 PM EDT Last Filed Vital Signs Vital Sign Reading [...] Mass Index 29.7 10/15/2024 9:46 AM EDT Plan of Treatment Upcoming Encounters Date Type Department Care Team (Late st Contact Info) Description 10/18/2025 9:30 AM EDT Office Visit [facility] [address] [facility] [address] [place] [address] Reema Beatty, FURNITURE FINISHER HELPER [address] [facility] [address] [place] [address] Health Maintenance Due Date Last Done Comments LIPID PANEL 1965 TDAP/TD VACCINES (1 - Tdap) 02/24/1983 COLOGUARD 02/24/2009 COLON CANCER SCREENING 5 YEA R SIGMOIDOSCOPY 02/24/2009 CT COLONOGRAPHY 02/24/2009 FECAL OCCULT BLOOD TEST 02/24/2009 FIT Testing (1 year) 02/24/2009 Pneumococcal Vaccine 50+ (1 of 1 - PCV) 02/24/2014 ZOSTER VACCINE (2 of 2) 03/07/2018 01/10/2018 ANNUAL PHYSICAL 11/14/2018 HEPATITIS C SCREENING 11/14/2018 INFLUENZA VACCINE 12/30/2024 01/27/2024, , 01/10/2018, Additional history exists Annual Gynecologic Pelvic an d Breast Exam 10/16/2025 10/15/2024, 04/03/2021, 07/07/2020, Additional history exists MAMMOGRAM 10/28/2026 10/28/2024, 04/0 05/2023, 06/06/2022, Additional history exists COLONOSCOPY 01/30/2032 01/29/2022 COLORECTAL CANCER SCREENING 01/30/2032 COVID-19 Vaccine Completed 01/27/2024, 01/2022, 03/04/2021, Additional history exists Procedures Procedure Name Priority Date/Time Associated Diagnosis Comments US BREAST RIGHT LIMITED Routine 10/28/2024 10:40 AM EDT Monoallelic mutation of JUAN CARLOS gene At high risk for breast cancer Encounter for screening mammogram for malignant neoplasm of breast MAMMO DIAGNOSTIC DIGITAL TOMOSYNTHESIS BILATERAL W CAD Routine 10/28/2024 10:20 AM EDT Monoallelic mutation of JUAN CARLOS gene At high risk for breast cancer Encounter for screening mammogram for malignant neoplasm of breast LIQUID-BASED PAP SMEAR WITH HPV GENOTYPING REGARDLESS OF INTERPRETATION, [facility] ([facility]AD) Routine 10/15/2024 10:27 AM EDT Well woman exam with routine gynecological exam 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) SCANNED - PAP SMEAR 04/03/2021 from Last 3 Months or Most Recently Relevant to Health Maintenance Results * US Breast Right Limited (10/28/2024 [...] breast tissue. No suspicious findings are noted. Gio Martinez MD G US ORDERABLES Final Result * Mammo Diagnostic Digital Tomosynthesis Bilateral With [...] No suspicious findings are noted. Reema Beatty FURNITURE FINISHER HELPER IMG MAMMOGRAPHY ORDERA BLES Final Result * LIQUID-BASED PAP SMEAR WITH HPV GENOTYPING REGARDLESS OF INTERPRETATION (LORENA,COR,MAD) (10/15/2024 10:27 AM EDT) Reference Lab Report [facility] [address] [place] [address] or [phone] Hank Oseguera M.D., Textile Technologist PATIENT NAME [facility]ORATORY NO[facility] SCHNEIDER. [id number] AGE SEX SSN CLIENT REF # [facility] 59 1965 F [id number] [address] [facility], [address] REQUESTING Jeramy. ATTENDING [place] [address] REEMA BEATTY DATE COLLECTED DATE RECEIVED DATE REPORTED 10/15/2024 10/15/2024 10/16/2024 ThinPrep Pap with [facility] DIAGNOSIS: Negative for intraepithelial lesion or malignancy Multiple factors can influence accuracy of Pap tests; therefore, screening at regular intervals is necessary for early cancer detection. COMMENT: Benign cellular changes associated with atrophy are present. Benign cellular changes associated with reactive/reparativ e changes are present. Professional interpretation rendered by Hank Oseguera M.D., Casandra at [employer], [facility], [address] [place] [address]. SPECIMEN ADEQUACY: SATISFACTORY FOR EVALUATION SOURCE OF [...] 51, 52, 56, 58, 59, 66, 68 TOMATO GRADER: CRISTIAN GASCA (ASCP) REVIEWED, DIAGNOSED AND ELECTRONICALLY SIGNED BY: Hank Oseguera M.D., F.C.A.P. CPT CODES: [id number], [id number], [id number] 10/16/2024 1:57 PM EDT [facility] ThinPrep Vial Cervix uteri structure / Unknown Collection / Unknown 10/15/2024 10:27 AM EDT 10/15/2024 10:27 AM EDT Reema Beatty APRN PATHOLOGY/CYTOLOGY ORD ERABLES Final Result [facility]
[address] [place] [address], * SCANNED - PAP SMEAR (04/03/2021) Coco Lucero APRN CHART REVIEW TABS F inal Result from Last 3 Months or Most Recently Relevant to Health Maintenance Insurance [facility] [employer] Care Teams Manager Intern Relationship Specialty Start Date End Date Ekta Singh APRN [address] [place] [address] PCP - General Nurse Practitioner 01/16/24
--- OUTSIDE RECORDS SUMMARY | 2024-11-27 09:30 | XMS_ITS | Encounter Summary ---
Author Organization [facility] Address [address] [place] [id number] Care Team Providers Care Casket Coverer Name Role Phone Ekta Singh APRN Primary Care Provider Encounter Details Date Type Department Care Team (Latest Contact Info) Description 10/15/2024 Travel Social History Tobacco Use Types Packs/Day [...] PM EDT documented as of this encounter Plan of Treatment Upcoming Encounters Date Type Department Care Team (Late st Contact Info) Description 10/18/2025 9:30 AM EDT Office Visit [facility] GYNECOLOGIC ONCOLOGY [address] [place] [address] Reema Beatty APRN [address] [facility] [address] [place] [address] documented as of this encounter Visit Diagnoses Not on filedocumented in this encounter Additional Health Concerns Assessment Noted Time PHQ-2 Depression Total Score: 3 04/16/19 24 9:07 AM EST documented as of this encounter Care Teams Casket Coverer Relationship Specialty Start Date End Date Ekta Singh APRN [address] [place] [address] PCP - General Nurse Practitioner 01/16/24 documented as of this encounter
--- OUTSIDE RECORDS SUMMARY | 2024-11-27 09:30 | XMS_ITS | Encounter Summary ---
Author Organization Healthcare Address [address] [place] [address] Care Team Providers Care Toddler Nanny Name Role Phone Michel Noemi Mccarthy DO Primary Care Provider [phone] Pcp, No Primary Care Provider Ekta Anderson APRN Primary Care Provider [phone] Encounter Details Date Type Department Care Team (Late st Contact Info) Description 05/24/2023 Orders Only External Location [address] [place] [id number] Provider, External Social History Tobacco Use Types [...] Description 12/25/2024 10:10 AM EDT Office Visit [facility] [address] [place] [address] John Ocasio MD [address] [place] [address] 11/19/2025 9:00 AM EDT Appointment [facility] [address] [place] [address] 11/19/2025 11:00 AM EDT Office Visit [facility] [address] [place] [address] Yazmin Alex, IMER [address] [place] [address] documented as of this encounter Procedures Procedure Name Priority Date/Time Associated Diagnosis Comments XR OUTSIDE IMAGES 05/24/2023 8:29 AM EST documented in this encounter Results * XR OUTSIDE IMAGES (05/24/2023 8:29 AM EST) Anatomical Region Laterality Modality Radiographic Yolis ging 05/24/2023 8:29 AM EST us External Provider IMG XR [...] documented as of this encounter Care Teams Toddler Nanny Relationship Specialty Start Date End Date Noemi Pearson DO [address] [place] [address] [place] [address] PCP - General 11/30/20 11/19/23 Pcp, No [address] [place] [address] PCP - General Family Medicine 11/20/23 07/30/24 Ekta Singh APRN [address] [place] [address] PCP - General 07/31/24 documented as of this encounter
--- OUTSIDE RECORDS SUMMARY | 2024-11-27 09:30 | XMS_ITS | Encounter Summary ---
Author Organization [facility] Address [address] [place] [id number] Care Team Providers Care Weather Algorithm Scientist Name Role Phone Ekta Singh APRN Primary Care Provider [phone] Encounter Details Date Type Department Care Team (Latest Contact Info) Description 10/28/2024 Travel Social History Tobacco Use Types Packs/Day [...] Description 10/18/2025 9:30 AM EDT Office Visit [facility] GYNECOLOGIC ONCOLOGY [address] [place] [address] Reema Beatty APRN [address] [facility] [address] [place] [address] documented as of this encounter Visit Diagnoses Not on filedocumented in this encounter Additional Health Concerns Assessment Noted Time PHQ-2 Depression Total Score: 3 04/16/19 24 9:07 AM EST documented as of this encounter Care Teams Weather Algorithm Scientist Relationship Specialty Start Date End Date Ekta Singh APRN [address] [place] [address] PCP - General Nurse Practitioner 01/16/24 documented as of this encounter
--- OUTSIDE RECORDS SUMMARY | 2024-11-27 09:30 | XMS_ITS | Encounter Summary ---
Author Organization Healthcare Address [address] [place] [address] Care Team Providers Care Pie Filling Mixer Name Role Phone Michel Noemi Mccarthy DO Primary Care Provider [phone] Pcp, No Primary Care Provider Ekta Anderson APRN Primary Care Provider [phone] Encounter Details Date Type Department Care Team (Late st Contact Info) Description 06/20/2023 Orders Only External Location [address] [place] [phone] Provider, External Social History Tobacco Use Types [...] Orthopaedic Surgery & Sports Medicine [address] [place] [address] John Ocasio MD [address] [place] [address] 11/19/2025 9:00 AM EDT Appointment [facility] [address] [place] [address] 11/19/2025 11:00 AM EDT Office Visit [facility] [address] [place] [address] Yazmin Alex, SUPPORT MERCHANDISER [address] [place] [address] documented as of this encounter Procedures Procedure Name Priority Date/Time Associated Diagnosis Comments IR OUTSIDE IMAGES 06/20/2023 1:37 PM EDT documented in this encounter Results * IR OUTSIDE IMAGES (06/20/2023 1:37 PM EDT) Anatomical Region Laterality Modality X-Ray Angiograph y 06/20/2023 1:37 PM EDT us External Provider IMG IR PROCEDURES Final [...] documented as of this encounter Care Teams Pie Filling Mixer Relationship Specialty Start Date End Date Noemi Pearson DO [address] [place] [address] PCP - General 11/30/20 11/19/23 Pcp, No [address] [place] [address] PCP - General Family Medicine 11/20/23 07/30/24 Ekta Singh APRN [address] [place] [address] PCP - General 07/31/24 documented as of this encounter
--- OUTSIDE RECORDS SUMMARY | 2024-11-27 09:30 | XMS_ITS | Encounter Summary ---
[facility] Address [address] [place] [address] Care Team Providers Care Med Aide Name Role Phone Ekta Singh APRN Primary Care Provider [phone] Reason for Visit * Reason Onset Date Comments HOCKER - APPT QUESTION 10/12/2024 Encounter Details Date Type Department Care Team (Late st Contact Info) Description 10/12/2024 Telephone [facility] GYNECOLOGIC ONCOLOGY [address] [place], [place] [address] Reema Beatty APRN [address] [facility] [address] [place] [address] HOCKER - APPT QUESTION Social History Tobacco Use Types Packs/Day Years [...] PM EDT documented as of this encounter Miscellaneous Notes * Telephone Encounter - Peter Rice RN - 10/13/2024 9:40 AM EDT RN returned pt call. No answer. Left message on non-SI VM that no testing/imaging was needed prior to appt. and if needed, will be ordered/discussed at time of appt. And to call with any Q/C. Caller: Debbie Nesbitt Relationship: Self Best call back number: [phone] What is the best time to reach you: ANYTIME Who are you requesting to speak with (clinical staff, provider, specific staff member): CLINICAL What was the call regarding: PATIENT CONFIRMED HER F/U APPT BUT WANTED TO KNOW IF SHE NEEDED ANY FURTHER TESTING/IMAGING BEFORE COMING IN? PLEASE ADVISE. * Telephone Encounter - Alicia Taveras RegSched Rep - 10/12/2024 1:39 PM EDT Caller: Debbie Nesbitt Relationship: Self Best call back number: [phone] What is the best time to reach you: ANYTIME Who are you requesting to speak with (clinical staff, provider, specific staff member): CLINICAL What was the call regarding: PATIENT CONFIRMED HER F/U APPT BUT WANTED TO KNOW IF SHE NEEDED ANY FURTHER TESTING/IMAGING BEFORE COMING IN? PLEASE ADVISE. documented in this encounter Plan of Treatment Upcoming Encounters Date Type Department Care Team (Late st Contact Info) Description 10/18/2025 9:30 AM EDT Office Visit [facility] GYNECOLOGIC ONCOLOGY [address] [facility] [address] [place] [address] Reema Beatty APRN [address] [facility] [address] [place], [place] [id number] documented as of this encounter Visit Diagnoses Not on filedocumented in this encounter Additional Health Concerns Assessment Noted Time PHQ-2 Depression Total Score: 3 04/16/19 24 9:07 AM EST documented as of this encounter Care Teams Med Aide Relationship Specialty Start Date End Date Ekta Singh APRN [address] [place] [address] PCP - General Nurse Practitioner 01/16/24 documented as of this encounter
--- OUTSIDE RECORDS SUMMARY | 2024-11-27 09:30 | XMS_ITS | Encounter Summary ---
Author Organization Healthcare Address [address] [place] [address] Care Team Providers Care Maintainer Sewer And Waterworks Name Role Phone Michel Noemi Mccarthy DO Primary Care Provider [phone] Pcp, No Primary Care Provider Ekta Anderson APRN Primary Care Provider [phone] Encounter Details Date Type Department Care Team ([facility] st Contact Info) Description 11/30/2020 Orders Only External Location [address] [place] [id number] Provider, External Social History Tobacco Use Types Packs/Day Years Used Date Smoking Tobacco: Never Smokeless Tobacco: Never Alcohol Use Standard Drinks/Week Comments Never 0 (1 standard drink = 0.6 oz pur e alcohol) Comments Unknown Sex and Gender Information Value Date Recorded Sex Assigned at Not on file Legal Sex Female 8:32 PM EDT Gender Identity Not on file Sexual Orientation Not on file COVID-19 Exposure Response Date Recorded In the last month, have you been in contact with someone who was confirmed or suspected to have Coronavirus / COVID-19? No / Unsure 11/30/2020 1:02 PM EDT documented as of this encounter Functional Status * Calculated C-SSRS Risk Score (Lifetime/Recent) Answer Date of Assessment Author No Risk Indicated 11/30/2020 8:00 PM EDT John Preston RN * Question Answer Date of Assessment Author 1. Wish to be (Past 1 Month) No 021 8:00 PM EDT John Preston RN 2. Non-Specific Active Suici alis Thoughts (Past 1 Month) No 11/30/2020 8:00 PM EDT Kary, John J, RN 6. Suicidal Behavior (Lifetime) No 8:00 PM EDT John Preston RN documented as of this encounter Plan of Treatment Upcoming Encounters Date Type Department Care Team (Late st Contact Info) Description 12/25/2024 10:10 AM EDT Office Visit [facility] Orthopaedic Surgery & Sports Medicine [address] [place] [address] John Ocasio MD [address] [place] [address] 11/19/2025 9:00 AM EDT Appointment [facility] [address] [place] [address] 11/19/2025 11:00 AM EDT Office Visit [facility] [address] [place] [address] Yazmin Alex APRN [address] [place] [address] documented as of this encounter Procedures Procedure Name Priority Date/Time Associated Diagnosis Comments XR OUTSIDE IMAGES 11/30/2020 9:18 AM EDT documented in this encounter Results * XR OUTSIDE IMAGES (11/30/2020 9:18 AM EDT) Anatomical Region Laterality Modality Radiographic Yolis ging 11/30/2020 9:18 AM EDT us External Provider IMG XR PROCEDURES Final Result documented in this encounter Visit Diagnoses Not on filedocumented in this encounter Care Teams Maintainer Sewer And Waterworks Relationship Specialty Start Date End Date Noemi Pearson DO [address] [place] [address] PCP - General 11/30/20 11/19/23 Pcp, No [address] [place] [address] PCP - General Family Medicine 11/20/23 07/30/24 Ekta Singh, COCOA BEAN CLEANER [address] [place] [address] PCP - General 07/31/24 documented as of this encounter
--- OUTSIDE RECORDS SUMMARY | 2024-11-27 09:30 | XMS_ITS | Encounter Summary ---
[facility] Address [address] [place] [address] Care Team Providers Care Dining Room Attendant Name Role Phone Ekta Singh APRN Primary Care Provider [phone] Reason for Visit * Reason Onset Date Comments Rogerio: Pap results 10/17/2024 Encounter Details Date Type Department Care Team (Late st Contact Info) Description 10/17/2024 Results Follow-Up [facility] GYNECOLOGIC ONCOLOGY [address] [facility] [address] [place], [place] [id number] Reema Beatty APRN [address] [facility] [address] [place], [place] [id number] Rogerio: Pap results Social History Tobacco Use Types Packs/Day Years [...] encounter Miscellaneous Notes * Telephone Encounter - Nasrin Ferreira LPN - 10/19/2024 2:30 PM EDT Patient notified of pap results normal with verbalized understanding and offers thank you documented in this encounter Plan of Treatment Upcoming Encounters Date Type Department Care Team (Late st Contact Info) Description 10/18/2025 9:30 AM EDT Office Visit [facility] GYNECOLOGIC ONCOLOGY [address] [place] [address] Reema Beatty APRN [address] [place] [address] documented as of this encounter Visit Diagnoses Not on filedocumented in this encounter Additional Health Concerns Assessment Noted Time PHQ-2 Depression Total Score: 3 04/16/19 24 9:07 AM EST documented as of this encounter Care Teams Dining Room Attendant Relationship Specialty Start Date End Date Ekta Singh APRN [address] [place] [address] PCP - General Nurse Practitioner 01/16/24 documented as of this encounter
--- OUTSIDE RECORDS SUMMARY | 2024-11-27 09:30 | XMS_ITS | Clinical Summary ---
Author Organization [facility] Address [address] [place] [address] Care Team Providers Care Deputy Editor In Chief Name Role Phone Francisco Ekta Marek WILLAMS Primary Care Provider [phone] Allergies Active Allergy Reactions Criticality Noted Date Comments Hydrocodone Anxiety Low 11/30/2020 Iodinated Contrast Media Vomiting 09/04/2024 Iodinated contrast media (substance) Sulfa Drugs Diarrhea Low 11/30/2020 Medications fenofibrate (Tricor) 145 MG tablet Take 1 tablet (145 mg) by mouth 1 (one) time each day. Active doxepin (SINEquan) 10 MG capsule Take 1 capsule (10 mg) by mouth every night. Active DULoxetine (Cymbalta) [address] capsule Take 60 mg by mouth 1 (one) time each day. Do not crush or chew. Active dexlansoprazol e (Dexilant) [address] capsule Take 60 mg by mouth 1 (one) time each day. Do not crush or chew. Active metoprolol succinate XL (Toprol-XL) 25 MG 24 hr tablet Take 1 tablet (25 mg) by mouth 1 (one) time each day. Do not crush or chew. Active propranolol (Inderal) 10 MG tablet Take 1 tablet (10 mg) by mouth 3 (three) times a day. THE RX IS WRITTEN UP TO 3 TIMES DAILY . Active amitriptyline (Elavil) 25 MG tablet Take 2 tablets (50 mg) by mouth every night. Active baclofen (Lioresal) 10 MG tablet Take 10 mg by mouth every night. PATIENT TAKES 0.5 TO 1 TABLET AT BEDTIME . Active traMADol (Ultram) 50 MG tablet Take 1 tablet (50 mg) by mouth 3 (three) times a day. Active calcium carbonate-paige min D 600-400 MG-UNIT tablet Take 1 tablet by mouth 1 (one) time each day. Active estradiol (Vagifem) 10 MCG tablet vaginal tablet Insert 1 tablet (10 mcg) into the vagina 2 (two) times a week. Active gabapentin (Neurontin) 100 MG capsule Take 1 capsule (100 mg total) by mouth 3 (three) times a day. 42 capsule 1 Active Additional Information Patient not taking.Reported on 11/13/2024 methocarbamol (Robaxin) 750 MG tablet Take 1 tablet (750 mg total) by mouth every 6 (six) hours if needed for muscle spasms for up to 10 days. 50 tablet 1 Active Additional Information Patient not taking.Reported on 11/13/2024 oxyCODONE (Roxicodone) 5 MG immediate release tablet Take 1 tablet (5 mg total) by mouth every 6 (six) hours if needed (pain unresponsive to other medications/interv entions. Hold for sedation.). 20 tablet 1 Active Additional Information Patient not taking.Reported on 11/13/2024 lansoprazole (Prevacid) [address] capsule Take 1 capsule (30 mg) by mouth 2 (two) times a day. Do not crush or chew. Active cholecalcifero l (Vitamin D3) 25 MCG (1000 UT) tablet Take 1 tablet (1,000 Units) by mouth 1 (one) time each day. Active zinc gluconate 50 MG tablet Take 1 tablet (50 mg) by mouth 1 (one) time each day. Active biotin 5 MG capsule Take 5 capsules (25 mg) by mouth 2 (two) times a day. Active tamoxifen (Nolvadex) 20 MG chemo tablet Take by mouth. Take with water or any other nonalcoholic drink with or without food at around the same time(s) every day. Active predniSONE (Deltasone) 50 MG tablet Take 1 tablet (50 mg) by mouth See administration instructions for 3 doses. Take one tablet (50mg) 13 hours, 7 hours, and 1 hour before MRI scan on 11/09/22. 3 tablet 3 Active diphenhydrAMIN E (Benadryl) 50 MG tablet Take 1 tablet (50 mg) by mouth 1 (one) time for 1 dose. Take 2 hours prior to exam. 1 tablet 3 Active Additional Information Patient not taking.Reported on 11/13/2024 bisacodyl (Dulcolax) 5 MG EC tablet Take 1 tablet (5 mg) by mouth 1 (one) time each day if needed. Active Calcium Carb-Cholecalc iferol 600-10 MG-MCG tablet Take 1 tablet by mouth 1 (one) time each day. 3 Active diclofenac (Voltaren) 1 % topical gel Place on the skin 2 (two) times a day. Apply as directed to areas of pain of the prominent hardware in the medial knee, lateral knee, lateral hip 200 g 1 4 Active Additional Information Patient not taking.Reported on 11/13/2024 meloxicam (Mobic) 7.5 MG tablet TAKE 1 TABLET ONCE DAILY 90 tablet 3 4 Active busPIRone (Buspar) 10 MG tablet Take 1 tablet by mouth 2 times a day. 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 Gastroesophageal reflux disease 02/14/2022 Essential tremor 02/14/2022 Mixed anxiety and depressive disorder 02/14/2022 Insomnia 02/14/2022 Hyperlipidemia 02/14/2022 Osteoporosis 02/14/2022 Restless legs 02/14/2022 Seasonal allergies 02/14/2022 Other fracture of left femur , initial encounter for closed fracture 11/30/2020 Periprosthetic fracture arou nd internal prosthetic joint, initial encounter 11/30/2020 Overview (12/01/2020): Added automatically from request for surgery [id number] Fibromyalgia 05/20/2019 Hypertension Encounters Date Type Department Care Team Description 11/13/2024 11:30 AM EDT Office Visit [facility] Multidisciplinary Oncology Clinic [address] [place] [address] Yazmin Alex APRN 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, [address] [place] [address] Biallelic mutation of JUAN CARLOS gene; Family history of pancreatic cancer Discharge Disposition: Home or Self Care 11/13/2024 Travel 10/30/2024 10:00 AM EDT Office Visit [facility] Orthopaedic Surgery & Sports Medicine [address], [address] [place] [address] John Ocasio MD Hip pain, left (Primary Dx) 10/30/2024 Travel 10/09/2024 Telephone [facility] Orthopaedic Surgery & Sports Medicine [address], [address] [place] [address] John Ocasio MD HCN - Patient Message 09/04/2024 10:10 AM EDT Office Visit [facility] Orthopaedic Surgery & Sports Medicine [address], [address] [place] [address] John Ocasio MD Left knee pain, unspecified chronicity (Primary Dx) 09/04/2024 Travel from Last 3 Months Social History Tobacco Use Types Packs/Day Years [...] on file Sexual Orientation Not on file Last Filed Vital Signs Vital Sign Reading Time Taken Comments Blood Pressure 118/76 11/13/2024 11:48 AM EDT Pulse 90 11/13/2024 11:48 AM EDT Temperature 36.8 C (98.2 F) 11/13/2024 11:48 AM EDT Respiratory Rate 18 09/04/2024 9:56 AM EDT Oxygen Saturation 96% 11/13/2024 11:48 AM EDT Inhaled Oxygen Concentration - - Weight 74 kg (163 lb 2.3 oz) 11/13/2024 11:48 AM EDT Height 157.5 cm (5' 2 ) 11/13/2024 11:48 AM EDT Body Mass Index 29.84 11/13/2024 11:48 AM EDT Plan of Treatment Upcoming Encounters Date Type Department Care Team (Late st Contact Info) Description 12/25/2024 10:10 AM EDT Office Visit [facility] Orthopaedic Surgery & Sports Medicine [address], [address] [place] [address] John Ocasio MD [address] [place] [address] 11/19/2025 9:00 AM EDT Appointment [facility] [address] [place] [address] 11/19/2025 11:00 AM EDT Office Visit [facility] [address] [place] [address] Yazmin Alex, LICENSED MARRIAGE AND FAMILY THERAPIST [address] [facility] [address] [place] [address] Health Maintenance Due Date Last Done Comments [facility]-Infant/Child/Adol SDOH Screenings 1965 [facility]- SDOH Screenings 02/24/1982 [facility]-Adult SDOH Screenings 02/24/1982 [facility]-DTaP,Tdap,and Td Vaccines (1 - Tdap) 02/24/1983 CT Colonography 02/24/2009 Colonoscopy 02/24/2009 FIT-DNA 02/24/2009 FIT 02/24/2009 FOBT 02/24/2009 Sigmoidoscopy 02/24/2009 [facility]-Colorectal Cancer Screening 02/24/2009 [facility]-Pneumococcal Vaccine: 50+ Years (1 of 1 - PCV) 02/24/2014 [facility]-Zoster Vaccines (2 of 2) 03/07/2018 01/10/2018 [facility]-Bone Density Scan 05/19/2019 05/19/2018, 019 [id number] Vaccine ( - season) 2023 02/09/2022, 03/04/2021, 06/10/2020 [facility]-RSV Vaccine: 60+ Years or (1 - Risk 60-74 years 1-dose series) 2024 [facility]-Influenza Vaccine (#1) 11/30/202401/26, 01/10/2018, 03/08/2014 [facility]-Depression Screening 11/13/2025 11/13/2024 [facility]-Diabetes: Hemoglobin A1C 11/13/2025, 11/09/2022, 07/07/2020 [facility]-Breast Cancer Screening 10/28/202610/01, 10/28/2024, 07/03/2023, Additional history exists [facility]-Hepatitis A Vaccines Aged Out 07/23/2018, 09/29 No longer eligible based on patient's age to complete this topic [facility]-HIV Screening Completed 11/30/2020 [facility]-Hepatitis C Screening Completed 11/30/2020 [facility]-Obesity Intervention Completed 025, 09/04/2024, 08/18/2024, Additional history exists HPV Vaccines Aged Out No longer eligi ble based on patient's age to complete this topic [facility]-HIB Vaccines Aged Out No longer e ligible based on patient's age to complete this topic [facility]-IPV Vaccines Aged Out No longer e ligible based on patient's age to complete this topic [facility]-Rotavirus Vaccines Aged Out No lo nger eligible based on patient's age to complete this topic Medical Devices Implanted Type Area Gas Cutting Machine Operator Device Identifier Shelf Expiration Date Model / Serial / Lot Pin Pin Right: Ankle Plate Plate Right: Ankle Plate Medial Distal Femur 4 Holes/Left - S. - [id number] Implanted:Qty: 1 on 12/01/2020 by John Ocasio MD at [facility] Plate Left: Femur Synthes [facility]-[id number] 12/01/2021 [id number] / . / Screw 4.5mm Cortex 90mm - S. - [id number] Implanted:Qty: 1 on 12/01/2020 by John Ocasio MD at [facility] Screw Left: Femur Synthes [facility]-[id number] 12/01/2021 214.090 / . / Screw 4.5mm Ti Cortex Selftap 38mm - S. - [id number] Implanted:Qty: 1 on 12/01/2020 by John Ocasio MD at [facility] Screw Left: Femur Synthes [facility]-[id number] 12/01/2021 414.838 / . / Screw 4.5mm Ti Cortex Selftap 44mm - S. - [id number] Implanted:Qty: 1 on 12/01/2020 by John Ocasio MD at [facility] Screw Left: Femur Synthes [facility]-[id number] 12/01/2021 414.844 / . / Screw 5.0mm Ti Lock Selftap 30mm - S. - [id number] Implanted:Qty: 1 on 12/01/2020 by John Ocasio MD at [facility] Screw Left: Femur Synthes [facility]-[id number] 12/01/2021 413.330 / . / Screw 5.0mm Ti Lock Selftap 36mm - S. - [id number] Implanted:Qty: 1 on 12/01/2020 by John Ocasio MD at [facility] Screw Left: Femur Synthes [facility]-[id number] 12/01/2021 413.336 / . / Screw 5.0mm Ti Lock Selftap 60mm - S. - [id number] Implanted:Qty: 1 on 12/01/2020 by John Ocasio MD at [facility] Screw Left: Femur Synthes [facility]-[id number] 12/01/2021 413.360 / . / Screw Va Lock Angle Selftap 5mm T25 55mm - S. - [id number] Implanted:Qty: 1 on 12/01/2020 by John Ocasio MD at [facility] Screw Left: Femur Synthes [facility]-[id number] 12/01/2021 42.231.255 / . / Screw Va Lock Angle Selftap 5mm T25 65mm - S. - [id number] Implanted:Qty: 1 on 12/01/2020 by John Ocasio MD at [facility] Screw Left: Femur Synthes [facility]-12/01/2021 [id number] / . / Screw 5.0mm Ti Lock Selftap 44mm - S. - [id number] Implanted:Qty: 2 on 12/01/2020 by John Ocasio MD at [facility] Screw Left: Femur Synthes [facility]12/01/2021 413.344 / . / Guidewire Jarocho 2 X 280mm Thrd Tro Tp - S. - [id number] Implanted:Qty: 1 on 12/01/2020 by John Ocasio MD at [facility] Wire Left: Femur Synthes [facility]-12/01/2021 292.699 / . / Plate 4.5mm Tiva Cond 18hole 370mm L - S. - [id number] Implanted:Qty: 1 on 12/01/2020 by John Ocasio MD at [facility] Left: Femur Synthes [facility]-12/01/2021 [id number] / . / Screw 4.5mm Ti Cortex Selftap 70mm - S. - [id number] Implanted:Qty: 3 on 12/01/2020 by John Ocasio MD at [facility] Left: Femur Synthes [facility]-12/01/2021 414.870 / . / Screw 4.5mm Ti Cortex Selftap 36mm - S. - [id number] Implanted:Qty: 3 on 12/01/2020 by John Ocasio MD at [facility] Left: Femur Synthes [facility]12/01/2021 414.836 / . / Screw Va Lock Angle Selftap 5mm T25 60mm - S. - [id number] Implanted:Qty: 3 on 12/01/2020 by John Ocasio MD at [facility] Left: Femur Synthes [facility]-12/01/2021 42.231.260 / . / Explanted Type Area Gas Cutting Machine Operator Device Identifier Shelf Expiration Date Model / Serial / Lot Plate 4.5mm Tiva Cond 16hole 336mm L - S. - [id number] Explanted:Qty: 1 on 12/01/2020 at [facility] Plate Left: Femur Synthes [facility]-[id number] 12/01/2021 [id number] / . / Procedures Procedure Name Priority Date/Time Associated Diagnosis Comments HEMOGLOBIN A1C Routine 11/13/2024 12:10 PM EDT Family history of pancreatic cancer CANCER ANTIGEN, GI (CA 19.9) Routine 11/13/2024 12:10 PM EDT Biallelic mutation of JUAN CARLOS gene Family history of pancreatic cancer MRCP W AND WO IV CONTRAST Routine 11/13/2024 9:12 AM EDT Biallelic mutation of JUAN CARLOS gene Family history of pancreatic cancer HEPATITIS C ANTIBODY - ED W/REFLEX TO HCV QUANT PCR STAT 11/30/2020 2:09 PM EDT HIV 1/2 ANTIBODY/ANTIGEN SCREEN WITH REFLEX TO HIV I/II DIFFERENTIATION STAT 11/30/2020 2:09 PM EDT from Last 3 Months or Most Recently Relevant to Health Maintenance Results * Cancer Antigen, GI (CA 19.9) (11/13/2024 12:10 PM EDT) CA 19.9 14.8 <36 U/mL 11/13/2024 1:2 3 PM EDT [facility] Blood Venous blood specimen / Unknown Venipuncture / Unknown 11/13/2024 12:10 PM EDT 11/13/2024 12:42 PM EDT Narrative [facility] - 11/13/2024 1:23 PM EDT Performed by Hayes electrochemiluminescent immunoassay. Results obtained with different test methods or kits cannot be used interchangeably. us Yazmin Alex APRN LAB BLOOD ORDERABLES Final R esult [facility] [address] [place] [address] * (ABNORMAL) Hemoglobin A1c (11/13/2024 12:10 PM EDT) Hemoglobin A1c 5.8(H) <5.7 % 11/13/2024 2:33 PM EDT [facility] Blood Venous blood specimen / Unknown Venipuncture / Unknown 11/13/2024 12:10 PM EDT 11/13/2024 1:32 PM EDT Narrative [facility] - 11/13/2024 2:33 PM EDT HA1C Interpretive Data: Diagnosis of Diabetes: Diabetic > or = 6.5% Pre-diabetic 5.7 to 6.4% Non-diabetic < or = 5.6% Glycemic Targets for Type I and Type II Diabetics: Non- Adults <7.0% Adults <6.0% Children and Adolescents <7.5% Source: [place] [employer]. Standards of medical care in diabetes,2017. Diabetes Care.2017:40 (suppl 1):S1-S135. Yazmin Alex APRN LAB BLOOD ORDERABLES Final R esult [facility] [address] [place] [address] * MRCP w and wo IV Contrast [...] using the following sequences: coronal single shot [id number] fast spin echo, axial T2 weighted sequences [...] MD on 11/16/2024 9:19 AM Yazmin Alex LICENSED MARRIAGE AND FAMILY THERAPIST IMG MRI PROCEDURES Final Res ult * HIV 1 & 2 Antibody/Antigen Screen (11/30/2020 2:09 PM EDT) HIV 1 & 2 Antibody/Anti gen Screen Nonreactive Nonreactive 11/30/2020 3:22 PM EDT [facility] Blood Venous blood specimen / Unknown Venipuncture / Unknown 11/30/2020 2:09 PM EDT 11/30/2020 2:19 PM EDT Tony Call MD LAB BLOOD ORDERABLES Final Re sult [facility] [address] [place] [address] * [place] Hepatitis C Antibody (11/30/2020 2:09 PM EDT) Hepatitis C Antibody Negative Negative 11/30/2020 3:22 PM EDT [facility] Blood Venous blood specimen / Unknown Venipuncture / Unknown 11/30/2020 2:09 PM EDT 11/30/2020 2:19 PM EDT us Tony Call MD LAB BLOOD ORDERABLES Final Re sult [facility] [address] [place] [address] from Last 3 Months or Most Recently Relevant to Health Maintenance Insurance [employer] Care Teams Deputy Editor In Chief Relationship Specialty Start Date End Date Ekta Singh APRN [address] [place] [address] PCP - General 07/31/24
[2024-11-27] MEDS: TC99M SULF.COLLOID;1 DOSE (UP TO 20 MCI) IV (09:48)
--- NOTE | 2024-11-27 10:00 | NM_ITS ---
FINAL REPORT TECHNIQUE: The patient received a standard meal with 1.07 MCI of TC sulfur colloid. Images of the abdomen were obtained. The T 1/2 was calculated. CLINICAL HISTORY: GERD, early satiety, bloating, constipation,hernia 9:40 am .56 mci sulfur colloid injected into 2 whole eggs white toast with butter 6ox of water FINDINGS: Images of the abdomen are unremarkable. The T 1/2 is 97 minutes. This is mildly delayed. IMPRESSION: Mild delay of gastric emptying. Gastroparesis not excluded. Reviewed, Interpreted and Dictated by Rosalina Pacheco MD Transcribed by Violet Gonzalez Authenticated and [facility]
== END 2024-11-27 23:59 | disposition home or self-care (01) ==
LOC: RAD 09:27
PROVIDERS: PCP Nurse Practitioner Family; Visit Provider Nurse Practitioner Family
DX: K30 Functional dyspepsia (principal); R49.0 Dysphonia; R09.89 Other specified symptoms and signs involving the circulatory and respiratory systems; R14.0 Abdominal distension (gaseous); K59.09 Other constipation; K44.9 Diaphragmatic hernia without obstruction or gangrene; R68.81 Early satiety; K21.9 Gastro-esophageal reflux disease without esophagitis
CPT/HCPCS: 78264; A9541

== ENCOUNTER 2024-12-22 12:44 | Outpatient (CLI) | payer OTHER, SELFPAY ==
--- OUTSIDE RECORDS SUMMARY | 2024-10-28 09:12 | XMS_ITS | Encounter Summary ---
Author Organization [facility] Address [address] [place] [address] Care Team Providers Care [facility] Name Role Phone Ekta Singh APRN Primary Care Provider [phone] Reason for Referral * Diagnostic Imaging (Routine) - Closed Specialty Diagnoses / Procedures Referred By Cornell brown Referred To Contact Radiology Diagnoses Monoallelic mutation of JUAN CARLOS gene At high risk for breast cancer Encounter for screening mammogram for malignant neoplasm of breast Procedures Mammo Diagnostic Digital Tomosynthesis Bilateral With Reema Reynaga APRN [address] [facility] [address] [place] [address] Phone: tel: fax: [facility] [address] [place] [phone] Phone: tel: Referral ID Status Reason Start Date Expiration Date Visits Re quested Visits Authorized [id number] Closed 10/15/2024 01/14/2026 1 1 Reason for Visit * Diagnostic Imaging (Routine) - Closed Specialty Diagnoses / Procedures Referred By Cornell brown Referred To Contact Radiology Diagnoses Monoallelic mutation of JUAN CARLOS gene At high risk for breast cancer Encounter for screening mammogram for malignant neoplasm of breast Procedures Mammo Diagnostic Digital Tomosynthesis Bilateral With Reema Reynaga APRN [address] [facility] [address] [place] [address] Phone: tel: fax: [facility] [address] [place] [address] Phone: tel: Referral ID Status Reason Start Date Expiration Date Visits Re quested Visits Authorized [id number] Closed 10/15/2024 01/14/2026 1 1 Encounter Details Date Type Department Care Team (Latest Contact Info) Description 10/28/2024 9:12 AM EDT - 10/28/2024 11:59 PM EDT Hospital Encounter [facility] [place] [address] [place] [address] Monoallelic mutation of JUAN CARLOS gene; At high risk for breast cancer; Encounter for screening mammogram for malignant neoplasm of breast Discharge Disposition: Home or Self Care Social History Tobacco Use Types Packs/Day Years Used Date Smoking Tobacco: Never Smokeless Tobacco: Never Alcohol Use Standard Drinks/Week Comments No 0 [...] PM EDT documented as of this encounter Medications at Time of Discharge amitriptyline (ELAVIL) 25 MG tablet 11/13/2018 B Complex Vitamins (VITAMIN B COMPLEX) capsule capsule Take by mouth Daily. baclofen (LIORESAL) 10 MG tablet 10/27/2018 Calcium Carb-Cholecalcif ken (CALCIUM 600+D3 PO) Take by mouth. Cetirizine HCl 10 MG capsule cetirizine 10 mg capsule Take by oral route. Coenzyme Q10 (COQ10 PO) Take by mouth. doxepin (SINEquan) 10 MG capsule TAKE 1 CAPSULE BY MOUTH AT BEDTIME (MAY SLOWLY INCREASE TO 3 AT BEDTIME) 2 11/05/2018 fenofibrate (TRICOR) 145 MG tablet Take 1 tablet by mouth Daily. 2 11/05/2018 fluticasone (FLONASE) 50 MCG/ACT nasal spray Administer 2 sprays into the nostril(s) as directed by provider Daily. Garlic 1000 MG capsule Take by mouth. Krill Oil 500 MG capsule Take by mouth. Loratadine 10 MG capsule Take by mouth. meclizine (ANTIVERT) 12.5 MG tablet metoprolol succinate XL (TOPROL-XL) 25 MG 24 hr tablet Take 1 tablet by mouth Daily. 0 11/06/2018 propranolol (INDERAL) 10 MG tablet 05/09/2020 traMADol (ULTRAM) 50 MG tablet 10/27/2018 vitamin C (ASCORBIC ACID) 500 MG tablet Take 2 tablets by mouth Daily. Zinc 50 MG capsule Take by mouth. documented as of this encounter Plan of Treatment Upcoming Encounters Date Type Department Care Team (Late st Contact Info) Description 10/18/2025 9:30 AM EDT Office Visit [facility] GYNECOLOGIC ONCOLOGY [address] [facility] [address] [place] [address] Reema Beatty, IMER [address] [facility] [address] [place] [address] documented as of this encounter Procedures Procedure Name Priority Date/Time Associated Diagnosis Comments MAMMO DIAGNOSTIC DIGITAL TOMOSYNTHESIS BILATERAL W CAD Routine 10/28/2024 10:20 AM EDT Monoallelic mutation of JUAN CARLOS gene At high risk for breast cancer Encounter for screening mammogram for malignant neoplasm of breast documented in this encounter Results * Mammo [...] APRN IMG MAMMOGRAPHY ORDERA BLES Final Result documented in this encounter Visit Diagnoses Diagnosis Monoallelic mutation of JUAN CARLOS gene At high risk for breast cancer Encounter for screening mammogram for malignant neoplasm of breast documented in this encounter Additional Health Concerns Assessment Noted Time PHQ-2 Depression Total Score: 3 04/16/19 24 9:07 AM EST documented as of this encounter Care Teams [facility] Relationship Specialty Start Date End Date Ekta Singh APRN [address] [place] [address] [place] [id number] PCP - General Nurse Practitioner 01/16/24 documented as of this encounter
--- OUTSIDE RECORDS SUMMARY | 2024-10-28 10:19 | XMS_ITS | Encounter Summary ---
[facility] Address [address] [place] [address] Care Team Providers Care Delivery Representative Name Role Phone Ekta Singh APRN Primary Care Provider [phone] Reason for Referral * Diagnostic Imaging (Routine) - Closed Specialty Diagnoses / Procedures Referred By Contac t Referred To Contact Radiology Diagnoses Monoallelic mutation of JUAN CARLOS gene At high risk for breast cancer Encounter for screening mammogram for malignant neoplasm of breast Procedures US Breast Right Limited Reema Beatty APRN [address] [facility] [address] [place] [address] Phone: tel: fax: [address] [address] Phone: tel: Referral ID Status Reason Start Date Expiration Date Visits Re quested Visits Authorized [id number] Closed 10/28/2024 01/27/2026 1 1 Reason for Visit * Diagnostic Imaging (Routine) - Closed Specialty Diagnoses / Procedures Referred By Contac t Referred To Contact Radiology Diagnoses Monoallelic mutation of JUAN CARLOS gene At high risk for breast cancer Encounter for screening mammogram for malignant neoplasm of breast Procedures US Breast Right Limited Reema Beatty APRN [address] [facility] [address] [place] [address] Phone: tel: fax: [facility] [address] [place] [phone] Phone: tel: Referral ID Status Reason Start Date Expiration Date Visits Re quested Visits Authorized [id number] Closed 10/28/2024 01/27/2026 1 1 Encounter Details Date Type Department Care Team (Latest Contact Info) Description 10/28/2024 10:19 AM EDT - 10/28/2024 11:59 PM EDT Hospital Encounter [facility] [address] [place] [address] Monoallelic mutation of JUAN CARLOS [...] Description 10/18/2025 9:30 AM EDT Office Visit [facility]COLOGY [address] [place] [address] Reema Beatty, INSTRUCTOR PHYSICAL EDUCATION [address] [facility] [address] [place] [address] documented as of this encounter Procedures Procedure [...] documented as of this encounter Care Teams Delivery Representative Relationship Specialty Start Date End Date Ekta Singh APRN [address] [place] [address] PCP - General Nurse Practitioner 01/16/24 documented as of this encounter
--- OUTSIDE RECORDS SUMMARY | 2024-10-30 10:00 | XMS_ITS | Encounter Summary ---
Author Organization Healthcare Address [address] [place] [address] Care Team Providers Care Crankshaft Balancer Name Role Phone Ekta Singh APRN Primary Care Provider Reason for Visit * Reason Comments Follow-up Encounter Details Date Type Department Care Team (Late st Contact Info) Description 10/30/2024 10:00 AM EDT Office Visit [facility] Orthopaedic Surgery & Sports Medicine [address] [place] [address] John Ocasio MD [address] [place] [address] Hip pain, left (Primary Dx) Social History Tobacco Use Types Packs/Day Years Used Date Smoking Tobacco: Never Smokeless Tobacco: Never Tobacco Cessation:Counseling Given: Not Answered Alcohol Use Standard Drinks/Week Comments Never 0 (1 standard drink = 0.6 oz pur e alcohol) PHQ-2 Answer Date Recorded Patient Health Questionnaire-2 Score 0 11/20/2023 PHQ-2A Answer Date Recorded Patient Health Questionnaire-2 Score 0 07/06/2022 Comments No Sex and Gender Information Value Date Recorded Sex Assigned at Not on file Legal Sex Female 8:32 PM EDT Gender Identity Not on file Sexual Orientation Not on file documented as of this encounter Last Filed Vital Signs Vital Sign Reading Time Taken Comments Blood Pressure 124/83 10/30/2024 10:35 AM EDT Pulse 87 10/30/2024 10:35 AM EDT Temperature 36.6 C (97.8 F) 10/30/2024 10:35 AM EDT Respiratory Rate - - Oxygen Saturation 96% 10/30/2024 10:35 AM EDT Inhaled Oxygen Concentration - - Weight 72.6 kg (160 lb) 10/30/2024 10:35 AM EDT Height 157.5 cm (5' 2 ) 10/30/2024 10:35 AM EDT Body Mass Index 29.26 10/30/2024 10:35 AM EDT documented in this encounter Miscellaneous Notes * Progress Notes - John Ocasio MD - 10/30/2024 10:00 AM EDT 10/30/2024 ORTHOPEDIC TRAUMA CLINIC NOTE Injury/Tx: HPI: Debbie Nesbitt 59 y.o. female who returns for follow-up of her left hip pain and distal periprosthetic femur fracture. She indicates she is still notes pain in the hip particularly over the lateral aspect. She has been using a cane or walker. PAST MEDICAL HISTORY: Past Medical History[1] Past Surgical History: Surgical History[2] Review of Systems: General: no fatigue, no weakness, no fevers, no chills, no night sweats Skin:no rashes, no sores, no lumps Head: no recent trauma Eyes:no blurring, no tearing, no itching Nose: no sneezing, no itching, no epistaxis Mouth: no hoarseness, no sore throat, no neck swelling Cardiac: no HTN, no palpitations, no dyspnea on exertion, no PND Respiratory: no shortness of air, no coughing, no wheezing, no sputum production GI: no loss of appetite, no nausea,no vomiting, no constipation, no diarrhea, no blood per rectum, no abdominal pain, no jaundice Urinary: no dysuria, no hematuria, no polyuria, no incontinence Vascular: no leg edema, no claudication Neurologic: no loss of sensation, no tingling, no numbness, no fainting, no blackouts, no seizures Family History: Family History[3] Medications: Current Medications[4] Allergies: Allergies[5] Social History Social History Occupational History Not on file Tobacco Use Smoking status: Never Smokeless tobacco: Never Vaping Use Vaping status: Never Used Substance and Sexual Activity Alcohol use: Never Drug use: Never Sexual activity: Not on file Vital signs: Visit Vitals BP 124/83 Pulse 87 Temp 36.6 ??C (97.8 ??F) Ht 1.575 m (5' 2 ) Wt 72.6 kg (160 lb) SpO2 96% BMI 29.26 kg/m?? OB Status Hysterectomy Smoking Status Never BSA 1.78 m?? Constitutional: Well developed. Well nourished. Psychologic: Mood is appropriate. Appropriate affect. Head and Face: Normocephalic. No obvious deformities. Eyes: Extraocular movements intact Pulmonary: Unlabored, normal effort. Cardiac: well perfused, extremities pink. Skin: No rashes on exposed skin surface. Neuro: No focal neuro deficit, normal coordination, normal muscle tone MUSCULOSKELETAL EXAM: On examination of the left lower extremity and noted that she walked well today with no discernible limp. There was no swelling in the thigh or the left calf. She was very focally tender over the lateral aspect of the left greater trochanter. There was less tenderness to palpation over the groin. She had full passive range of motion of the hip including internal and externalrotation with out pain. She had active flexion abduction and adduction against resistance without pain. IMAGING: I have personally reviewed, and interpreted the patients imaging: None today. ASSESSMENT: Left hip pain with exam showing signs of trochanteric bursitis PLAN: Today I suggest that we try a left hip trochanteric bursal injection. The left hip was then prepped sterilely with ChloraPrep. A proper time-out was performed confirming the proper injection site. It trochanteric bursa was then injected with 1 mL of Kenalog and 4 ml of 1% lidocaine. There were no complications following the injection. I instructed her to ice the area over the weekend and avoid pressure on that side. I would like see her back in about 6-8 weeks. John Ocasio MD [1] Past Medical History: Diagnosis Date Fibromyalgia HLD (hyperlipidemia) Hypertension Hypertension Nystagmus [2] Past Surgical History: Procedure Laterality Date KNEE SURGERY Left ORIF TIBIAL PLATEU FRACTURE Left [3] History reviewed. No pertinent family history. [4] Current Outpatient Medications: amitriptyline (Elavil) 25 MG tablet, Take 2 tablets (50 mg) by mouth every night., Disp: , Rfl: baclofen (Lioresal) 10 MG tablet, Take 10 mg by mouth every night. PATIENT TAKES 0.5 TO 1 TABLET ATBEDTIME ., Disp: , Rfl: biotin 5 MG capsule, Take 5 capsules (25 mg) by mouth 2 (two) times a day., Disp: , Rfl: bisacodyl (Dulcolax) 5 MG EC tablet, Take 1 tablet (5 mg) by mouth 1 (one) time each day if needed., Disp: , Rfl: busPIRone (Buspar) 10 MG tablet, Take 1 tablet by mouth 2 times a day., Disp: , Rfl: Calcium Carb-Cholecalciferol 600-10 MG-MCG tablet, Take 1 tablet by mouth 1 (one) time each day., Disp: , Rfl: calcium carbonate-vitamin D 600-400 MG-UNIT tablet, Take 1 tablet by mouth 1 (one) time each day., Disp: , Rfl: cholecalciferol (Vitamin D3) 25 MCG (1000 UT) tablet, Take 1 tablet (1,000 Units) by mouth 1 (one) time each day., Disp: , Rfl: dexlansoprazole (Dexilant) [address] capsule, Take 60 mg by mouth 1 (one) time each day. Do not crush or chew., Disp: , Rfl: diclofenac (Voltaren) 1 % topical gel, Place on the skin 2 (two) times a day. Apply as directed to areas of pain of the prominent hardware in the medial knee, lateral knee, lateral hip, Disp: 200 g, Rfl: 1 doxepin (SINEquan) 10 MG capsule, Take 1 capsule (10 mg) by mouth every night., Disp: , Rfl: estradiol (Vagifem) 10 MCG tablet vaginal tablet, Insert 1 tablet (10 mcg) into the vagina 2 (two) times a week., Disp: , Rfl: fenofibrate (Tricor) 145 MG tablet, Take 1 tablet (145 mg) by mouth 1 (one) time each day., Disp: ,Rfl: ibandronate (Boniva) 150 MG tablet, TAKE 1 TABLET BY MOUTH ONCE EVERY MONTH, Disp: , Rfl: lansoprazole (Prevacid) [address] capsule, Take 1 capsule (30 mg) by mouth 2 (two) times a day. Do not crush or chew., Disp: , Rfl: meloxicam (Mobic) 7.5 MG tablet, TAKE 1 TABLET ONCE DAILY, Disp: 90 tablet, Rfl: 3 metoprolol succinate XL (Toprol-XL) 25 MG 24 hr tablet, Take 1 tablet (25 mg) by mouth 1 (one) timeeach day. Do not crush or chew., Disp: , Rfl: predniSONE (Deltasone) 50 MG tablet, Take 1 tablet (50 mg) by mouth See administration instructionsfor 3 doses. Take one tablet (50mg) 13 hours, 7 hours, and 1 hour before MRI scan on 11/09/22., Disp: 3 tablet, Rfl: 0 propranolol (Inderal) 10 MG tablet, Take 1 tablet (10 mg) by mouth 3 (three) times a day. THE RX ISWRITTEN UP TO 3 TIMES DAILY ., Disp: , Rfl: sucralfate (Carafate) 1 g tablet, TAKE 1 TABLET BY MOUTH BEFORE MEALS AND 1 TABLET AT BEDTIME, Disp: , Rfl: zinc gluconate 50 MG tablet, Take 1 tablet (50 mg) by mouth 1 (one) time each day., Disp: , Rfl: diphenhydrAMINE (Benadryl) 50 MG tablet, Take 1 tablet (50 mg) by mouth 1 (one) time for 1 dose. Take 2 hours prior to exam. (Patient not taking: Reported on 10/30/2024), Disp: 1 tablet, Rfl: 0 DULoxetine (Cymbalta) [address] capsule, Take 60 mg by mouth 1 (one) time each day. Do not crush or chew. (Patient not taking: Reported on 10/30/2024), Disp: , Rfl: gabapentin (Neurontin) 100 MG capsule, Take 1 capsule (100 mg total) by mouth 3 (three) times a day. (Patient not taking: Reported on 10/30/2024), Disp: 42 capsule, Rfl: 0 methocarbamol (Robaxin) 750 MG tablet, Take 1 tablet (750 mg total) by mouth every 6 (six) hours ifneeded for muscle spasms for up to 10 days. (Patient not taking: Reported on 10/30/2024), Disp: 50 tablet, Rfl: 0 oxyCODONE (Roxicodone) 5 MG immediate release tablet, Take 1 tablet (5 mg total) by mouth every 6 (six) hours if needed (pain unresponsive to other medications/interventions. Hold for sedation.). (Patient not taking: Reported on 10/30/2024), Disp: 20 tablet, Rfl: 0 tamoxifen (Nolvadex) 20 MG chemo tablet, Take by mouth. Take with water or any other nonalcoholic drink with or without food at around the same time(s) every day. (Patient not taking: Reported on 10/30/2024), Disp: , Rfl: traMADol (Ultram) 50 MG tablet, Take 1 tablet (50 mg) by mouth 3 (three) times a day. (Patient not taking: Reported on 10/30/2024), Disp: , Rfl: [5] Allergies Allergen Reactions Iodinated Contrast Media Vomiting Iodinated contrast media (substance) Hydrocodone Anxiety Sulfa Drugs Diarrhea documented in this encounter Plan of Treatment Upcoming Encounters Date Type Department Care Team (Late st Contact Info) Description 12/25/2024 10:10 AM EDT Office Visit [facility] Orthopaedic Surgery & Sports Medicine [address] [place] [address] John Ocasio MD [address] [facility] [address] [place] [address] 11/19/2025 9:00 AM EDT Appointment [facility] [address] [place] [phone] 11/19/2025 11:00 AM EDT Office Visit [facility] [address] [place] [phone] Yazmin Alex APRN [address] [facility] [address] [place] [phone] documented as of this encounter Visit Diagnoses Diagnosis Hip pain, left- Primary Pain in joint, pelvic region and thigh documented in this encounter Additional Health Concerns Assessment Noted Time A fall risk assessment has been complete d for the patient 10/30/2024 10:33 AM EDT A Body Mass Index follow-up plan has been documented for the patient 11/04/2024 9:07 AM EDT documented as of this encounter Care Teams Crankshaft Balancer Relationship Specialty Start Date End Date Ekta Singh, FREIGHT ELEVATOR ERECTOR [address] [place] [address] PCP - General 07/31/24 documented as of this encounter
--- OUTSIDE RECORDS SUMMARY | 2024-11-13 08:15 | XMS_ITS | Encounter Summary ---
Author Organization [facility] Address [address] [place] [address] Care Team Providers Care Loading Dock Hand Name Role Phone Ekta Singh APRN Primary Care Provider [phone] Reason for Referral * Imaging (Routine) - Closed Specialty Diagnoses / Procedures Referred By Cornell brown Referred To Contact Radiology Diagnoses Biallelic mutation of JUAN CARLOS gene Family history of pancreatic cancer Procedures MRCP w and wo IV Contrast Yazmin Alex APRN [address] [address] Phone: tel: fax: Referral ID Status Reason Start Date Expiration Date Visits Re quested Visits Authorized [id number] Closed 08/13/2024 02/12/2026 1 1 Reason for Visit * Imaging (Routine) - Closed Specialty Diagnoses / Procedures Referred By Cornell brown Referred To Contact Radiology Diagnoses Biallelic mutation of JUAN CARLOS gene Family history of pancreatic cancer Procedures MRCP w and wo IV Contrast Yazmin Alex APRN [address] [facility] [address] [place] [address] Phone: tel: fax: Referral ID Status Reason Start Date Expiration Date Visits Re quested Visits Authorized [id number] Closed 08/13/2024 02/12/2026 1 1 Encounter Details Date Type Department Care Team (Latest Contact Info) Description 11/13/2024 8:15 AM EDT - 11/13/2024 11:59 PM EDT Hospital Encounter [facility] [address] [place] [address] Biallelic mutation of JUAN CARLOS [...] Description 12/25/2024 10:10 AM EDT Office Visit [facility] [address] [place] [address] John Ocasio MD [address] [facility] [address] [place] [address] 11/19/2025 9:00 AM EDT Appointment [facility] [address] [place] [phone] 11/19/2025 11:00 AM EDT Office Visit [facility] [address] [place] [address] Yazmin Alex, IMER [address] [facility] [address] [place] [address] documented as of this encounter Procedures Procedure [...] using the following sequences: coronal single shot [id number] fast spin echo, axial T2 weighted sequences [...] documented as of this encounter Care Teams Loading Dock Hand Relationship Specialty Start Date End Date Ekta Singh APRN [address] [place] [address] PCP - General 07/31/24 documented as of this encounter
--- OUTSIDE RECORDS SUMMARY | 2024-11-13 11:30 | XMS_ITS | Encounter Summary ---
Author Organization [facility] Address [address] [place] [address] Care Team Providers Care Agricultural Agent Name Role Phone Ekta Singh APRN Primary Care Provider [phone] Reason for Referral * Imaging (Routine) - Pending Review Specialty Diagnoses / Procedures Referred By Cornell brown Referred To Contact Radiology Diagnoses Biallelic mutation of JUAN CARLOS gene Family history of pancreatic cancer Procedures MRCP w and wo IV Contrast Yazmin Alex APRN [address] [facility] [address] [place] [address] Phone: tel: fax: Referral ID Status Reason Start Date Expiration Date V isits Requested Visits Authorized [id number] Pending Review 11/13/2024 05/15/2026 1 1 Reason for Visit * Reason Comments Follow-up Encounter Details Date Type Department Care Team (Latest Contact Info) Description 11/13/2024 11:30 AM EDT Office Visit [facility] Multidisciplinary Oncology Clinic [address] [place] [address] Yazmin Alex APRN [address] [facility] [address] [place] [address] Biallelic mutation of JUAN CARLOS gene (Primary [...] provider in high risk breast clinic in [facility]. She is postmenopausal and has had a [...] Use: Not At Risk (07/07/2020) Received from [facility] AUDIT-C Q1: How often do you have [...] up to 10 days. 12/03/20 12/13/20 Murali Dnagelo MD metoprolol succinate XL (Toprol-XL) 25 MG [...] (axial and coronal), and axial diffusion. Heavily T2-[id number] MRCP sequences were acquired. In addition, advanced [...] Description 12/25/2024 10:10 AM EDT Office Visit [facility] Orthopaedic Surgery & Sports Medicine [address] [place] [address] John Ocasio MD [address] [place] [address] 11/19/2025 9:00 AM EDT Appointment [facility] [address] [place] [address] 11/19/2025 11:00 AM EDT Office Visit [facility] [address] [place] [address] Yazmin Alex APRN [address] [facility] [address] [place] [address] Scheduled Orders Name Type Priority Associated Diagnoses Orde r Schedule MRCP w and wo IV Contrast Imaging Routine Biallelic mutation of JUAN CARLOS gene Family history of pancreatic cancer Expected: 11/12/2025 (Approximate), Expires: 05/17/2026 documented as of this encounter Results * (ABNORMAL) Hemoglobin A1c (11/13/2024 12:10 PM EDT) Hemoglobin A1c 5.8(H) <5.7 % 11/13/2024 2:33 PM EDT [facility] Blood Venous blood specimen / Unknown Venipuncture / Unknown 11/13/2024 12:10 PM EDT 11/13/2024 1:32 PM EDT Narrative [facility] - 11/13/2024 2:33 PM EDT HA1C Interpretive Data: Diagnosis of Diabetes: Diabetic > or = 6.5% Pre-diabetic 5.7 to 6.4% Non-diabetic < or = 5.6% Glycemic Targets for Type I and Type II Diabetics: Non- Adults <7.0% Adults <6.0% Children and Adolescents <7.5% Source: [place] Diabetes Association. Standards of medical care in diabetes,2017. Diabetes Care.2017:40 (suppl 1):S1-S135. Estately Alex INVESTIGATIVE ANALYST LAB BLOOD ORDERABLES Final R esult Performing Organization Address City/[facility] Co de Phone Number [facility] [address] [place] [address] * Cancer Antigen, GI (CA 19.9) (11/13/2024 12:10 PM EDT) CA 19.9 14.8 <36 U/mL 11/13/2024 1:2 3 PM EDT [facility] Blood Venous blood specimen / Unknown Venipuncture / Unknown 11/13/2024 12:10 PM EDT 11/13/2024 12:42 PM EDT Narrative [facility] - 11/13/2024 1:23 PM EDT Performed by [employer] electrochemiluminescent immunoassay. Results obtained with different test methods or kits cannot be used interchangeably. Estately Alex INVESTIGATIVE ANALYST LAB BLOOD ORDERABLES Final R esult Performing Organization Address City/[facility] Co de Phone Number [facility] [address] [place] [address] documented in this encounter Visit Diagnoses Diagnosis [...] documented as of this encounter Care Teams Agricultural Agent Relationship Specialty Start Date End Date Ekta Singh APRN [address] [place] [address] PCP - General 07/31/24 documented as of this encounter
--- OUTSIDE RECORDS SUMMARY | 2024-12-22 12:47 | XMS_ITS | Encounter Summary ---
Author Organization [facility] Address [address] [place] [address] Care Team Providers Care Safety Representative Name Role Phone Ekta Singh APRN Primary Care Provider [phone] Reason for Visit * Reason Onset Date Comments HCN - Patient Message 10/09/2024 Encounter Details Date Type Department Care Team (Late st Contact Info) Description 10/09/2024 Telephone [facility] Orthopaedic Surgery & Sports Medicine [address], [address] [place] [address] John Ocasio MD [address] [place] [address] HCN - Patient Message Social [...] Ocasio * Telephone Encounter - Gail Medina Aanis - 10/09/2024 3:58 PM EDT Clinical Concern/Question Reason for Call: Ninfa patient calling to see if Ninfa has spoken with Erinn like he had said he wanted to at her last appt. Please advise Best contact number: [phone] (mobile) Optimal time of day to reach caller: ANYTIME Additional comments/information from caller: None Note: Please do not reply to this message. Follow-up communication and further actions as a result of this message need to be communicated with the patient directly, if the patient is not active onMyChart. If the patient is active on MyChart, they will receive notification of the communication/outcome via Framed [employer]. documented in this encounter Plan of Treatment Upcoming Encounters Date Type Department Care Team (Late st Contact Info) Description 12/25/2024 10:10 AM EDT Office Visit [facility] [address] [place] [address] John Ocasio MD [address] [facility] [address] [place] [address] 11/19/2025 9:00 AM EDT Appointment [facility] [address] [place] [address] 11/19/2025 11:00 AM EDT Office Visit [facility] [address] [place] [address] Yazmin Alex APRN [address] [facility] [address] [place] [address] documented as of this encounter Visit Diagnoses Not on filedocumented in this encounter Additional Health Concerns Assessment Noted Time A fall risk assessment has been complete d for the patient 09/04/2024 9:56 AM EDT A Body Mass Index follow-up plan has been documented for the patient 09/04/2024 10:32 AM EDT documented as of this encounter Care Teams Safety Representative Relationship Specialty Start Date End Date Ekta Singh APRN [address] [place] [address] PCP - General 07/31/24 documented as of this encounter
--- OUTSIDE RECORDS SUMMARY | 2024-12-22 12:47 | XMS_ITS | Encounter Summary ---
Author Organization [facility] Address [address] [place] [address] Care Team Providers Care Claims Adjuster Name Role Phone Francisco Ekta Jara APRN Primary Care Provider [phone] Encounter Details Date Type Department Care Team [...] Orthopaedic Surgery & Sports Medicine [address] [place] [address] John Ocasio MD [address] [place] [address] 11/19/2025 9:00 AM EDT Appointment [facility] [address] [place] [address] 11/19/2025 11:00 AM EDT Office Visit [facility] [address] [place] [address] Yazmin Alex, WELFARE OFFICER [address] [place] [address] documented as of this encounter Visit Diagnoses Not on filedocumented in this encounter Additional Health Concerns Assessment Noted Time A fall risk assessment has been complete d for the patient 10/30/2024 10:33 AM EDT A Body Mass Index follow-up plan has been documented for the patient 11/04/2024 9:07 AM EDT documented as of this encounter Care Teams Claims Adjuster Relationship Specialty Start Date End Date Ekta Singh, IMER [address] [place] [address] PCP - General 07/31/24 documented as of this encounter
--- OUTSIDE RECORDS SUMMARY | 2024-12-22 12:47 | XMS_ITS | Encounter Summary ---
Author Organization [facility] Address [address] [place] [address] Care Team Providers Care Tabulating Machine Mechanic Name Role Phone Francisco Ekta Jara APRN Primary Care Provider [phone] Encounter Details Date Type Department Care Team [...] Orthopaedic Surgery & Sports Medicine [address] [place] [address] John Ocasio MD [address] [place] [address] 11/19/2025 9:00 AM EDT Appointment [facility] [address] [place] [address] 11/19/2025 11:00 AM EDT Office Visit [facility] [address] [place] [address] Yazmin Alex, DEALER ACCOUNT MANAGER [address] [facility] [address] [place] [address] documented as of this encounter Visit Diagnoses Not on filedocumented in this encounter Additional Health Concerns Assessment Noted Time A fall risk assessment has been complete d for the patient 11/13/2024 11:52 AM EDT A Body Mass Index follow-up plan has been documented for the patient 11/04/2024 9:07 AM EDT documented as of this encounter Care Teams Tabulating Machine Mechanic Relationship Specialty Start Date End Date Ekta Singh, DEALER ACCOUNT MANAGER [address] [place] [address] PCP - General 07/31/24 documented as of this encounter
--- OUTSIDE RECORDS SUMMARY | 2024-12-22 12:48 | XMS_ITS | Encounter Summary ---
Author Organization [facility] Address [address] [place] [address] Care Team Providers Care Fountain Brush Assembler Name Role Phone Michel Noemi Mccarthy DO Primary Care Provider [phone] Pcp, No Primary Care Provider Ekta Anderson APRN Primary Care Provider [phone] Encounter Details Date Type Department Care Team (Late st Contact Info) Description 06/20/2023 Orders Only External Location [address] [place] [address] Provider, External Social History Tobacco Use Types [...] Description 12/25/2024 10:10 AM EDT Office Visit [facility] [address] [place] [address] John Ocasio MD [address] [place] [address] 11/19/2025 9:00 AM EDT Appointment [facility] [address] [place] [address] 11/19/2025 11:00 AM EDT [facility] Visit [facility] [address] [place] [address] Yazmin Alex, WAREHOUSE LOGISTICS MANAGER [address] [place] [address] documented as of this encounter Procedures Procedure [...] documented as of this encounter Care Teams Fountain Brush Assembler Relationship Specialty Start Date End Date Noemi Pearson DO [address] [place] [address] PCP - General 11/30/20 11/19/23 Pcp, No [address] [place] [address] PCP - General Family Medicine 11/20/23 07/30/24 Ekta Singh APRN [address] [place] [address] PCP - General 07/31/24 documented as of this encounter
--- OUTSIDE RECORDS SUMMARY | 2024-12-22 12:48 | XMS_ITS | Encounter Summary ---
Author Organization Healthcare Address [address] [place] [address] Care Team Providers Care Assistant To The President Name Role Phone Michel Noemi Mccarthy DO Primary Care Provider Pcp, No Primary Care Provider Ekta Anderson APRN Primary Care Provider [phone] Encounter Details Date Type Department Care Team (Late st Contact Info) Description 05/24/2023 Orders Only External Location [address] [place] [address] Provider, External Social History Tobacco Use Types [...] Description 12/25/2024 10:10 AM EDT [facility] [address], 1st [address] [place] [address] John Ocasio MD [address] [place] [address] 11/19/2025 9:00 AM EDT Appointment [facility] [address] [place] [address] 11/19/2025 11:00 AM EDT Office Visit [facility] [address] [place] [address] Yazmin Alex, IMER [address] [place] [address] documented as of this encounter Procedures Procedure [...] documented as of this encounter Care Teams Assistant To The President Relationship Specialty Start Date End Date Noemi Pearson DO [address] [place] [address] [place] [address] PCP - General 11/30/20 11/19/23 Pcp, No [address] [place] [address] PCP - General Family Medicine 11/20/23 07/30/24 Ekta Singh APRN [address] [place] [address] PCP - General 07/31/24 documented as of this encounter
--- OUTSIDE RECORDS SUMMARY | 2024-12-22 12:48 | XMS_ITS | Encounter Summary ---
Author Organization Healthcare Address [address] [place] [address] Care Team Providers Care Retail Banker Name Role Phone Michel Noemi Mccarthy DO Primary Care Provider [phone] Pcp, No Primary Care Provider Ekta Anderson APRN Primary Care Provider [phone] Encounter Details Date Type Department Care Team (Late st Contact Info) Description 05/24/2023 Orders Only External Location [address] [place] [address] Provider, External Social History Tobacco Use Types [...] Description 12/25/2024 10:10 AM EDT [facility] [address], 1[address] [place] [address] John Ocasio MD [address] [place] [address] 11/19/2025 9:00 AM EDT Appointment [facility] [address] [place] [address] 11/19/2025 11:00 AM EDT Office Visit [facility] [address] [place] [address] Yazmin Alex, IMER [address] [place] [address] documented as of this encounter Procedures Procedure [...] documented as of this encounter Care Teams Retail Banker Relationship Specialty Start Date End Date Noemi Pearson DO [address] [place] [address] [place] [address] PCP - General 11/30/20 11/19/23 Pcp, No [address] [place] [address] PCP - General Family Medicine 11/20/23 07/30/24 Ekta Singh APRN [address] [place] [address] PCP - General 07/31/24 documented as of this encounter
--- OUTSIDE RECORDS SUMMARY | 2024-12-22 12:48 | XMS_ITS | Clinical Summary ---
Author Organization [facility] Address [address] 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, 1st [place] [address] Biallelic mutation of JUAN CARLOS gene; Family history of pancreatic cancer Discharge Disposition: Home or Self Care 11/13/2024 Travel 10/30/2024 10:00 AM EDT Office Visit [facility] Orthopaedic Surgery & Sports Medicine [address], 1st [address] [place] [address] John Ocasio MD Hip pain, left (Primary Dx) 10/30/2024 Travel 10/09/2024 Telephone [facility] Orthopaedic Surgery & Sports Medicine [address], 1[address] [place] [address] John Ocasio MD HCN - Patient Message from Last 3 Months Social History Tobacco [...] Description 12/25/2024 10:10 AM EDT [facility] [address], 1[address] [place] [address] John Ocasio MD [address] [place] [address] 11/19/2025 9:00 AM EDT Appointment [facility] [address] [place] [address] 11/19/2025 11:00 AM EDT Office Visit [facility] [address] [place] [address] Yazmin Alex, FARMWORKER LIVESTOCK [address] [place] [address] Health Maintenance Due Date Last [...] 01/10/2018 [facility]-Bone Density Scan 05/19/2019 05/19/2018, 019 [facility]-RSV Vaccine: 60+ Years or (1 - Risk 60-74 years 1-dose series) 2024 MOK-UMNCA-06 Vaccine ( season) 2024 02/09/2022, 03/04/2021, 06/10/2020 [facility]-Influenza Vaccine (#1) 11/30/202401/26, 01/10/2018, 03/08/2014 [facility]-Depression Screening 11/13/2025 11/13/2024 [facility]-Diabetes: Hemoglobin A1C 11/13/2025, 11/09/2022, 07/07/2020 [facility]-Breast Cancer Screening 10/28/202610/01, 10/28/2024, 07/03/2023, Additional history exists [facility]-Hepatitis A Vaccines Completed 07/23/2018, 09/29 [facility]-HIV Screening Completed 11/30/2020 [facility]-Hepatitis C Screening [...] this topic Medical Devices Implanted Type Area Public Policy Manager Device Identifier Shelf Expiration Date Model / Serial / Lot Pin Pin Right: Ankle Plate Plate Right: Ankle Plate Medial Distal Femur 4 Holes/Left - S. - [id number] Implanted:Qty: 1 on 12/01/2020 by John Ocasio MD at [facility] Plate Left: Femur Walk-in Appointment Scheduler [facility]-[id number] 12/01/2021 [id number] / . / Screw 4.5mm Cortex 90mm - S. - [id number] Implanted:Qty: 1 on 12/01/2020 by John Ocasio MD at [facility] Screw Left: Femur Walk-in Appointment Scheduler [place]-[id number] 12/01/2021 214.090 / . / Screw 4.5mm Ti Cortex Selftap 38mm - S. - [id number] Implanted:Qty: 1 on 12/01/2020 by John Ocasio MD at [facility] Screw Left: Femur Synthes [facility]-[id number] 12/01/2021 414.838 / . / Screw 4.5mm Ti Cortex Selftap 44mm - S. - [id number] Implanted:Qty: 1 on 12/01/2020 by John Ocasio MD at [facility] Screw Left: Femur Synthes [facility]-[id number] 12/01/2021 414.844 / . / Screw 5.0mm Ti Lock Selftap 30mm - S. - [id number] Implanted:Qty: 1 on 12/01/2020 by John Ocasio MD at [facility] Screw Left: Femur Synthes [facility]-[id number] 12/01/2021 413.330 / . / Screw 5.0mm Ti Lock Selftap 36mm - S. - [id number] Implanted:Qty: 1 on 12/01/2020 by John Ocasio MD at [facility] Screw Left: Femur Synthes [facility]-[id number] 12/01/2021 413.336 / . / Screw 5.0mm Ti Lock Selftap 60mm - S. - [id number] Implanted:Qty: 1 on 12/01/2020 by John Ocasio MD at [facility] Screw Left: Femur Synthes [facility]-[id number] 12/01/2021 413.360 / . / Screw Va Lock Angle Selftap 5mm T25 55mm - S. - [id number] Implanted:Qty: 1 on 12/01/2020 by John Ocasio MD at [facility] Screw Left: Femur Synthes [facility]-[id number] 12/01/2021 42.231.255 / . / Screw Va Lock Angle Selftap 5mm T25 65mm - S. - [id number] Implanted:Qty: 1 on 12/01/2020 by John Ocasio MD at [facility] Screw Left: Femur Synthes [facility]-[id number] 12/01/2021 42.231.265 / . / Screw 5.0mm Ti Lock Selftap 44mm - S. - [id number] Implanted:Qty: 2 on 12/01/2020 by John Ocasio MD at [facility] Screw Left: Femur Synthes [facility]-[id number] 12/01/2021 413.344 / . / Guidewire Jarocho 2 X 280mm Thrd Tro Tp - S. - [id number] Implanted:Qty: 1 on 12/01/2020 by John Ocasio MD at [facility] Wire Left: Femur Synthes [facility]-970872 12/01/2021 292.699 / . / Plate 4.5mm Tiva Cond 18hole 370mm L - S. - [id number] Implanted:Qty: 1 on 12/01/2020 by John Ocasio MD at [facility] Left: Femur Synthes [facility]-[id number] 12/01/2021 04.124.419 / . / Screw 4.5mm Ti Cortex Selftap 70mm - S. - [id number] Implanted:Qty: 3 on 12/01/2020 by John Ocasio MD at [facility] Left: Femur Synthes [facility]-544239 12/01/2021 414.870 / . / Screw 4.5mm Ti Cortex Selftap 36mm - S. - [id number] Implanted:Qty: 3 on 12/01/2020 by John Ocasio MD at [facility] Left: Femur Synthes [facility]-933115 12/01/2021 414.836 / . / Screw Va Lock Angle Selftap 5mm T25 60mm - S. - [id number] Implanted:Qty: 3 on 12/01/2020 by John Ocasio MD at [facility] Left: Femur Synthes [facility]-478006 12/01/2021 42.231.260 / . / Explanted Type Area Public Policy Manager Device Identifier Shelf Expiration Date Model / Serial / Lot Plate 4.5mm Tiva Cond 16hole 336mm L - S. - [id number] Explanted:Qty: 1 on 12/01/2020 at [facility] Plate Left: Femur Synthes [facility]-514231 12/01/2021 04.124.417 / . / Procedures Procedure [...] <36 U/mL 11/13/2024 1:2 3 PM EDT [facility] Blood Venous blood specimen / Unknown Venipuncture / Unknown 11/13/2024 12:10 PM EDT 11/13/2024 12:42 PM EDT Narrative [facility] - 11/13/2024 1:23 PM EDT Performed by Hayes electrochemiluminescent immunoassay. Results obtained with different test methods or kits cannot be used interchangeably. us Yazmin Alex APRN LAB BLOOD ORDERABLES Final R esult [facility] [address] [place] [address] * (ABNORMAL) Hemoglobin A1c (11/13/2024 12:10 PM EDT) Hemoglobin A1c 5.8(H) <5.7 % 11/13/2024 2:33 PM EDT [facility] Blood Venous blood specimen / Unknown Venipuncture / Unknown 11/13/2024 12:10 PM EDT 11/13/2024 1:32 PM EDT Narrative [facility] - 11/13/2024 2:33 PM EDT HA1C Interpretive Data: Diagnosis of Diabetes: Diabetic > or = 6.5% Pre-diabetic 5.7 to 6.4% Non-diabetic < or = 5.6% Glycemic Targets for Type I and Type II Diabetics: Non- Adults <7.0% Adults <6.0% Children and Adolescents <7.5% Source: [place] [employer]. Standards of medical care in diabetes,2017. Diabetes Care.2017:40 (suppl 1):S1-S135. us Yazmin Alex FARMWORKER [employer]ST[employer] LAB BLOOD ORDERABLES Final R esult [facility] [address] [place] [address] * MRCP w and wo IV Contrast [...] using the following sequences: coronal single shot [id number] fast spin echo, axial T2 weighted sequences [...] signing this report, I, the attending physician, attmitchellthat I have personally reviewed the images/data for the aboveexamination(s) and agree with the final edited report. Drafted by Kate Guerrero MD on 11/13/2024 9:29 AM Final report signed by Karen Anand MD on 11/16/2024 9:19 AM Yazmin Alex FARMWORKER LIVESTOCK IMG MRI PROCEDURES Final Res ult * HIV 1 & 2 Antibody/Antigen Screen (11/30/2020 2:09 PM EDT) [facility] HIV 1 & 2 Antibody/Anti gen Screen Nonreactive Nonreactive 11/30/2020 3:22 PM EDT [facility] Blood Venous blood specimen / Unknown Venipuncture / Unknown 11/30/2020 2:09 PM EDT 11/30/2020 2:19 PM EDT Tony Call MD LAB BLOOD ORDERABLES Final Re sult [facility] [address] [place] [address] * [place] Hepatitis C Antibody (11/30/2020 2:09 PM EDT) [facility] Hepatitis C Antibody Negative Negative 11/30/2020 3:22 PM EDT [facility] Blood Venous blood specimen / Unknown Venipuncture / Unknown 11/30/2020 2:09 PM EDT 11/30/2020 2:19 PM EDT us Tony Call MD LAB BLOOD ORDERABLES Final Re sult [facility] [address] [place] [address] from Last 3 Months or Most Recently Relevant to Health Maintenance Insurance [employer] Care Teams Business Development Director Relationship Specialty Start Date End Date Ekta Singh APRN [address] [place] [address] PCP - General 07/31/24
--- OUTSIDE RECORDS SUMMARY | 2024-12-22 12:48 | XMS_ITS | Clinical Summary ---
Author Organization [facility] Address [address] [place] [address] Care Team Providers Care Product Development Ecologist Name Role Phone Ekta Singh APRN Primary Care Provider [phone] Allergies Active Allergy Reactions Criticality Noted Date Comments Contrast Dye (Echo Or Unknown Ct/Mr) Unknown - High Severity 04/10/2022 Patient states even with prednisone and benadryl prep for a contrasted MRI done at [facility], she still had a reaction of shaking, [...] - 10/28/2024 11:59 PM EDT Hospital Encounter [facility]TRASOUND [place] [address] [place] [address] Monoallelic mutation of JUAN CARLOS gene; At high risk for breast cancer; Encounter for screening mammogram for malignant neoplasm of breast Discharge Disposition: Home or Self Care 10/28/2024 9:12 AM EDT - 10/28/2024 11:59 PM EDT Hospital Encounter [facility] MAMMOGRAPHY [place] [address] [place] [address] Monoallelic mutation of JUAN CARLOS gene; At high risk for breast cancer; Encounter for screening mammogram for malignant neoplasm of breast Discharge Disposition: Home or Self Care 10/28/2024 Travel 10/17/2024 Results Follow-Up [facility] GYNECOLOGIC ONCOLOGY [address] [place] [address] Reema Beatty APRN H[place]: Pap results 10/15/2024 10:00 AM EDT Office Visit [facility] GYNECOLOGIC ONCOLOGY [address] [place] [address] Reema Beatty APRN Well woman exam with routine gynecological exam (Primary Dx); 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); Monoallelic mutation of JUAN CARLOS gene; At high risk for breast cancer; Encounter for screening mammogram for malignant neoplasm of breast 10/15/2024 Travel 10/12/2024 Telephone [facility] GYNECOLOGIC ONCOLOGY [address] [place] [address] Reema Beatty APRN HOCKER - APPT QUESTION [...] cancer Maternal Uncle Not sure Arthritis Mother Sharita Sierra Stroke Mother Sharita Sierra Breast cancer [...] Description 10/18/2025 9:30 AM EDT Office Visit [facility] GYNECOLOGIC ONCOLOGY [address] [facility] [address] [place] [address] Reema Beatty, BOAT ENGINES INSTALLER [address] [facility] [address] [place] [address] Health Maintenance Due Date Last Done Comments [...] 11/14/2018 HEPATITIS C SCREENING 11/14/2018 INFLUENZA VACCINE 10/30/2024 01/27/2024, , 01/10/2018, Additional history exists Annual Gynecologic Pelvic an d Breast Exam 10/16/2025 10/15/2024, 04/03/2021, 07/07/2020, Additional history exists MAMMOGRAM 10/28/2026 10/28/2024, 04/05/2023, 06/06/2022, Additional history exists COLONOSCOPY 01/30/2032 01/29/2022 COLORECTAL CANCER SCREENING 01/30/2032 Procedures Procedure Name Priority Date/Time Associated Diagnosis [...] suspicious findings are noted. Gio Martinez MD IMG US ORDERABLES Final Result * Mammo Diagnostic [...] OF INTERPRETATION (LORENA,COR,MAD) (10/15/2024 10:27 AM EDT) Pathologist [facility] Report [facility] [address] [place] [address] or [phone] Hank Oseguera M.D., Medical Charge Entry Specialist PATIENT NAME LABORATORY NO. CORNELIO SCHNEIDER. [id number] AGE SEX N CLIENT REF # [facility] CLAY ARTIST-ONCOLOGY 59 1965 F [id number] [address] [facility] REQUESTING MKellie. [place] [address] REEMA BEATTY DATE COLLECTED DATE RECEIVED DATE REPORTED 10/15/2024 10/15/2024 10/16/2024 ThinPrep Pap with [facility] DIAGNOSIS: Negative for intraepithelial lesion or malignancy Multiple factors can influence accuracy of Pap tests; therefore, screening at regular intervals is necessary for early cancer detection. COMMENT: Benign cellular changes associated with atrophy are present. Benign cellular changes associated with reactive/reparativ e changes are present. Professional interpretation rendered by Hank Oseguera M.D., Melba.C.A.P. at [facility], [facility], [address] [place] [address]. SPECIMEN ADEQUACY: SATISFACTORY FOR EVALUATION SOURCE OF [...] 51, 52, 56, 58, 59, 66, 68 DIRECTOR CORPORATE: CRISTIAN GASCA (ASCP) REVIEWED, DIAGNOSED AND ELECTRONICALLY SIGNED BY: Hank Oseguera M.D., Melba.C.A.P. CPT CODES: [id number], [id number], [id number] 10/16/2024 1:57 PM EDT [facility] ThinPrep Vial Cervix uteri structure / Unknown Collection / Unknown 10/15/2024 10:27 AM EDT 10/15/2024 10:27 AM EDT Reema Beatty APRN PATHOLOGY/CYTOLOGY ORD ERABLES Final Result [facility]
[address] [place] [address], * SCANNED - PAP SMEAR (04/03/2021) Coco Lucero APRN CHART REVIEW TABS F inal Result from Last 3 Months or Most Recently Relevant to Health Maintenance Insurance [employer] [place] Care Teams Product Development Ecologist Relationship Specialty Start Date End Date Ekta Singh APRN [address] [place] [address] PCP - General Nurse Practitioner 01/16/24
--- OUTSIDE RECORDS SUMMARY | 2024-12-22 12:48 | XMS_ITS | Encounter Summary ---
Author Organization Healthcare Address [address] [place] [address] Care Team Providers Care Lead Pony Rider Name Role Phone Michel Noemi Mccarthy DO Primary Care Provider Pcp, No Primary Care Provider Ekta Anderson APRN Primary Care Provider [phone] Encounter Details Date Type Department Care Team (Late st Contact Info) Description 10/08/2023 Orders Only External Location [address] [place] [address] Provider, External Social History Tobacco Use Types [...] Description 12/25/2024 10:10 AM EDT [facility] Visit [facility] [address], 1[address] [place] [address] John Ocasio MD [address] [place] [address] 11/19/2025 9:00 AM EDT Appointment [facility] [address] [place] [address] 11/19/2025 11:00 AM EDT Office Visit [facility] [address] [place] [address] Yazmin Alex, BLOW OFF WORKER [address] [place] [address] documented as of this encounter Procedures Procedure [...] documented as of this encounter Care Teams Lead Pony Rider Relationship Specialty Start Date End Date Noemi Pearson DO [address] [place] [address] PCP - General 11/30/20 11/19/23 Pcp, No [address] [place] [address] PCP - General Family Medicine 11/20/23 07/30/24 Ekta Singh, BLOW OFF WORKER [address] [place] [address] PCP - General 07/31/24 documented as of this encounter
--- OUTSIDE RECORDS SUMMARY | 2024-12-22 12:48 | XMS_ITS | Encounter Summary ---
Author Organization [facility] Address [address] [place] [id number] Care Team Providers Care It Support Specialist Name Role Phone Ekta Singh APRN Primary Care Provider [phone] Encounter Details Date Type Department Care Team [...] Description 10/18/2025 9:30 AM EDT Office Visit [facility] GYNECOLOGIC ONCOLOGY [address] [place] [address] Reema Beatty APRN [address] [facility] [address] [place] [address] documented as of this encounter Visit Diagnoses Not on filedocumented in this encounter Additional Health Concerns Assessment Noted Time PHQ-2 Depression Total Score: 3 04/16/19 24 9:07 AM EST documented as of this encounter Care Teams It Support Specialist Relationship Specialty Start Date End Date Ekta Singh APRN [address] [place] [address] PCP - General Nurse Practitioner 01/16/24 documented as of this encounter
--- OUTSIDE RECORDS SUMMARY | 2024-12-22 12:48 | XMS_ITS | Encounter Summary ---
Author Organization Healthcare Address [address] [place] [address] Care Team Providers Care Security Officer Name Role Phone Michel Noemi Mccarthy DO Primary Care Provider [phone] Pcp, No Primary Care Provider Ekta Anderson APRN Primary Care Provider [phone] Encounter Details Date Type Department Care Team (Late st Contact Info) Description 02/15/2023 Orders Only External Location [address] [place] [address] Provider, External Social History Tobacco Use Types [...] Description 12/25/2024 10:10 AM EDT [facility] Visit [facility] [address] [place] [address] John Ocasio MD [address] [place] [address] 11/19/2025 9:00 AM EDT Appointment [facility] [address] [place] [address] 11/19/2025 11:00 AM EDT Office Visit [facility] [address] [place] [address] Yazmin Alex, DIRECTOR WEIGHTS AND MEASURES [address] [place] [address] documented as of this encounter Procedures Procedure [...] documented as of this encounter Care Teams Security Officer Relationship Specialty Start Date End Date Noemi Pearson DO [address] [place] [address] PCP - General 11/30/20 11/19/23 Pcp, No [address] [place] [address] PCP - General Family Medicine 11/20/23 07/30/24 Ekta Singh, DIRECTOR WEIGHTS AND MEASURES [address] [place] [address] PCP - General 07/31/24 documented as of this encounter
--- OUTSIDE RECORDS SUMMARY | 2024-12-22 12:48 | XMS_ITS | Encounter Summary ---
Author Organization Healthcare Address [address] [place] [address] Care Team Providers Care Criminal Intelligence Specialist Name Role Phone Michel Noemi Mccarthy DO Primary Care Provider [phone] Pcp, No Primary Care Provider Ekta Anderson APRN Primary Care Provider [phone] Encounter Details Date Type Department Care Team ([facility] st Contact Info) Description 11/30/2020 Orders Only External Location [address] [place] [address] Provider, External Social History Tobacco Use Types [...] Orthopaedic Surgery & Sports Medicine [address] [place] [address] John Ocasio MD [address] [place] [address] 11/19/2025 9:00 AM EDT Appointment [facility] [address] [place] [address] 11/19/2025 11:00 AM EDT Office Visit [facility] [address] [place] [address] Yazmin Alex APRN [address] [place] [address] documented as of this encounter [...] on filedocumented in this encounter Care Teams Criminal Intelligence Specialist Relationship Specialty Start Date End Date Noemi Pearson DO [address] [place] [address] PCP - General 11/30/20 11/19/23 Pcp, No [address] [place] [address] PCP - General Family Medicine 11/20/23 07/30/24 Ekta Singh, QUANTITATIVE RESEARCH ANALYST [address] [place] [address] PCP - General 07/31/24 documented as of this encounter
--- OUTSIDE RECORDS SUMMARY | 2024-12-22 12:48 | XMS_ITS | Encounter Summary ---
Author Organization Healthcare Address [address] [place] [address] Care Team Providers Care Workforce Management Manager Name Role Phone Michel Noemi Mccarthy DO Primary Care Provider [phone] Pcp, No Primary Care Provider Ekta Anderson APRN Primary Care Provider Encounter Details Date Type Department Care Team (Late st Contact Info) Description 10/26/2022 Orders Only External Location [address] [place] [id number] Provider, External Social History Tobacco Use Types [...] Description 12/25/2024 10:10 AM EDT [facility] [address], [address] [place] [address] John Ocasio MD [address] [place] [address] 11/19/2025 9:00 AM EDT Appointment [facility] [address] [place] [address] 11/19/2025 11:00 AM EDT Office [facility] [address] [place] [address] Yazmin Alex, CUSTOMER PROFESSIONAL [address] [place] [address] documented as of this encounter Procedures Procedure [...] documented as of this encounter Care Teams Workforce Management Manager Relationship Specialty Start Date End Date Noemi Pearson DO [address] [place] [address] PCP - General 11/30/20 11/19/23 Pcp, No [address] [place] [address] PCP - General Family Medicine 11/20/23 07/30/24 Ekta Singh, CUSTOMER PROFESSIONAL [address] [place] [address] PCP - General 07/31/24 documented as of this encounter
== END 2024-12-22 23:59 | disposition home or self-care (01) ==
LOC: DIETICIAN 12:45
PROVIDERS: PCP Nurse Practitioner Family; Visit Provider Nurse Practitioner Family
DX: K31.84 Gastroparesis (principal)
CPT/HCPCS: 97802

== ENCOUNTER 2024-12-31 09:19 | Outpatient (CLI) | payer OTHER, SELFPAY ==
--- OUTSIDE RECORDS SUMMARY | 2024-11-13 08:15 | XMS_ITS | Encounter Summary ---
Author Organization [facility] Address [address] [place] [address] Care Team Providers Care Refractory Mixer Name Role Phone Ekta Singh APRN Primary Care Provider [phone] Reason for Referral * Imaging (Routine) - Closed Specialty Diagnoses / Procedures Referred By Cornell brown Referred To Contact Radiology Diagnoses Biallelic mutation of JUAN CARLOS gene Family history of pancreatic cancer Procedures MRCP w and wo IV Contrast Yazmin Alex APRN [address] [address] Phone: tel: fax: Referral ID Status Reason Start Date Expiration Date Visits Re quested Visits Authorized [id number] Closed 08/13/2024 02/12/2026 1 1 Reason for Visit * Imaging (Routine) - Closed Specialty Diagnoses / Procedures Referred By Cornell brown Referred To Contact Radiology Diagnoses Biallelic mutation of JUAN CARLOS gene Family history of pancreatic cancer Procedures MRCP w and wo IV Contrast Yazmin Alex APRN [address] [facility] [address] [place] [address] Phone: tel: fax: Referral ID Status Reason Start Date Expiration Date Visits Re quested Visits Authorized [id number] Closed 08/13/2024 02/12/2026 1 1 Encounter Details Date Type Department Care Team (Latest Contact Info) Description 11/13/2024 8:15 AM EDT - 11/13/2024 11:59 PM EDT Hospital Encounter [facility] [address] [place] [address] Biallelic mutation of JUAN CARLOS [...] Care Team (Late st Contact Info) Description 01/05/2025 8:00 AM EDT Appointment [facility] [address] [place] [address] 11/19/2025 9:00 AM EDT Appointment [facility] [address] [place] [address] 11/19/2025 11:00 AM EDT Office Visit [facility] [address] [place] [address] Yazmin Alex, IMER [address] [facility] [address] [place] [address] documented as of this encounter Procedures Procedure [...] using the following sequences: coronal single shot [id number] fast spin echo, axial T2 weighted sequences [...] signing this report, I, the attending physician, attestthat I have personally reviewed the images/data for the aboveexamination(s) and agree with the final edited report. Drafted by Kate Guerrero MD on 11/13/2024 9:29 AM Final report signed by Karen Anand MD on 11/16/2024 9:19 AM Yazmin E Alex IMER IMG MRI PROCEDURES Final Res ult documented [...] documented as of this encounter Care Teams Refractory Mixer Relationship Specialty Start Date End Date Ekta Singh APRN [address] [place] [address] PCP - General 07/31/24 documented as of this encounter
--- OUTSIDE RECORDS SUMMARY | 2024-11-13 11:30 | XMS_ITS | Encounter Summary ---
Author Organization [facility] Address [address] [place] [address] Care Team Providers Care Team Leader/Research Psychologist Name Role Phone Ekta Singh APRN Primary Care Provider [phone] Reason for Referral * Imaging (Routine) - Pending Review Specialty Diagnoses / Procedures Referred By Corenll brown Referred To Contact Radiology Diagnoses Biallelic mutation of JUAN CARLOS gene Family history of pancreatic cancer Procedures MRCP w and wo IV Contrast Yazmin Alex APRN [address] [facility] [address] [place] [address] Phone: tel: fax: Referral ID Status Reason Start Date Expiration Date V isits Requested Visits Authorized [id number] Pending Review 11/13/2024 05/15/2026 1 1 Reason for Visit * Reason Comments Follow-up Encounter Details Date Type Department Care Team (Latest Contact Info) Description 11/13/2024 11:30 AM EDT Office Visit [facility] Multidisciplinary Oncology Clinic [address] [place] [address] Yazmin Alex APRN [address] [facility] [address] [place] [address] Biallelic mutation of JUAN CARLOS gene (Primary Dx); Family history of pancreatic cancer Social History Tobacco Use Types Packs/Day Years [...] Sign Reading Time Taken Comments Blood Pressure 118/76 11/13/2024 11:48 AM EDT Pulse 90 11/13/2024 11:48 AM EDT Temperature 36.8 C (98.2 F) 11/13/2024 11:48 AM EDT Respiratory Rate - - Oxygen Saturation 96% 11/13/2024 11:48 AM EDT Inhaled Oxygen Concentration - - Weight 74 kg (163 lb 2.3 oz) 11/13/2024 11:48 AM EDT Height 157.5 cm (5' 2 ) 11/13/2024 11:48 AM EDT Body Mass Index 29.84 11/13/2024 11:48 AM EDT documented in this encounter Functional Status * Over the past 2 weeks, how often have you been bothered by any of the following problems? Question Answer Date of Assessment Author Little interest or pleasure in doing things Not at all 11/13/2024 11:50 AM EDT Lynette Gray Feeling down, depressed, or hopeless Not at [...] No 025 11:50 AM EDT Lynette Gray 2. Non-Specific Active Suici alis Thoughts (Past 1 Month) No 11/13/2024 11:50 AM EDT Fahad Gray W documented as of this encounter Miscellaneous Notes * Progress Notes - Yazmin Alex APRN - 11/13/2024 11:30 AM EDT Surgical Oncology Outpatient Consultation Chief complaint: Debbie Nesbitt is a 59 y.o. follow up for JUAN CARLOS mutation History of Present Illness: Debbie Nesbitt is a 59-year old female seen in follow up in high risk GI clinic r/t dx of JUAN CARLOS mutation and for concerns of diffuse hepatic ductal dilation potentially related to his previous gallbladder surgery. Patient is currently doing well and denies acute GI issues. No acute changes in her health history. She is tolerating regular diet well, her weight is stable. Patient denies personal history of cancer. Patient is up to date on her colonoscopy and undergoes surveillance colonoscopy every 3 years due to the hx of polyps. Patient has been also getting her mammograms and see provider in high risk breast clinic in [facility]. She is postmenopausal and has had a ARLEEN-BSO. Treatment History: September 2021 - Geneteic testing: + JUAN CARLOS mutation [id number] 11/09/22 - MRI abdomen + diffuse intrahepatic biliary ductal dilation without focal stricture or intraluminal filling defect. Extrahepatic biliary ductal dilation. CBD measures 7 mm with proper tapering distally. No suspicious pancreatic mass. 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 Past Medical History: Past Medical History: Diagnosis Date Fibromyalgia HLD (hyperlipidemia) Hypertension Hypertension Nystagmus Past Surgical History: Past Surgical History: Procedure Laterality Date KNEE SURGERY Left ORIF TIBIAL PLATEU FRACTURE Left Social History: Tobacco: Tobacco Use: Low Risk (11/13/2024) Patient History Smoking Tobacco Use: Never Smokeless Tobacco Use: Never Passive Exposure: Not on file Alcohol: Alcohol Use: Not At Risk (07/07/2020) Received from [facility] AUDIT-C Q1: How often do you have a drink containing alcohol?: Never Average Number of Drinks: Not on file Frequency of Binge Drinking: Not on file Illicit drug use: Social History Substance and Sexual Activity Drug Use Never Allergies: Allergies Allergen Reactions Iodinated Contrast Media Vomiting Iodinated contrast media (substance) Hydrocodone Anxiety Sulfa Drugs Diarrhea Family Medical History: Of note information about maternal 1st and 2d degree relatives is incomplete; some paternal history is missing as well from the FH Sister: Breast cancer, 57 Sister: Thyroid cancer, 51 Father: High grade Prostate cancer, 50s Lung cancer Pat. Uncle: Prostate cancer Pat. Aunt: Liver cancer Pat. Grandmother: Stomach cancer Pat. Great-Aunt: Pancreatic cancer Pat. Great-Grandmother: Breast cancer Mat. Aunt: Melanoma, 50 Mat. 1st cousin: Breast cancer Mat. Uncles (x3): Prostate cancer Home Medications: Prior to Admission medications Medication Sig Start Date End Date Taking? Authorizing Provider amitriptyline (Elavil) 25 MG tablet Take 25 mg by mouth every night. Historical Provider, baclofen (Lioresal) 10 MG tablet Take 10 mg by mouth every night. PATIENT TAKES 0.5 TO 1 TABLET AT BEDTIME . Historical Provider, calcium carbonate-vitamin D (Calcium 600+D) 600-400 MG-UNIT tablet Take 1 tablet by mouth 1 (one) time each day. Historical Provider, dexlansoprazole (Dexilant) [address] capsule Take 60 mg by mouth 1 (one) time each day. Do not crushor chew. Patient not taking: Reported on 06/27/2021 Historical Provider, doxepin (SINEquan) 10 MG capsule Take 10 mg by mouth every night. Historical Provider, DULoxetine (Cymbalta) [address] capsule Take 60 mg by mouth 1 (one) time each day. Do not crush or chew. Historical Provider, estradiol (Vagifem) 10 MCG tablet vaginal tablet Insert 10 mcg into the vagina 2 (two) times a week. Historical Provider, fenofibrate (Tricor) 145 MG tablet Take 145 mg by mouth 1 (one) time each day. Historical Provider, gabapentin (Neurontin) 100 MG capsule Take 1 capsule (100 mg total) by mouth 3 (three) times a day.12/03/20 12/03/21 Murali Dangelo MD methocarbamol (Robaxin) 750 MG tablet Take 1 tablet (750 mg total) by mouth every 6 (six) hours if needed for muscle spasms for up to 10 days. 12/03/20 12/13/20 Murali Dangelo MD metoprolol succinate XL (Toprol-XL) 25 MG 24 hr tablet Take 25 mg by mouth 1 (one) time each day. Do not crush or chew. Historical Provider, oxyCODONE (Roxicodone) 5 MG immediate release tablet Take 1 tablet (5 mg total) by mouth every 6 (six) hours if needed (pain unresponsive to other medications/interventions. Hold for sedation.). 12/03/20 Murali Dangelo MD propranolol (Inderal) 10 MG tablet Take 10 mg by mouth 3 (three) times a day. THE RX IS WRITTEN UP TO 3 TIMES DAILY . Historical Provider, traMADol (Ultram) 50 MG tablet Take 50 mg by mouth 3 (three) times a day. Historical Provider, Review of Systems: 14 point ROS was conducted and is otherwise negative unless noted in HPI. Physical exam: GENERAL: WD, WN, NAD. EYES: No scleral icterus or conjunctivitis HENT: Atraumatic, normocephalic, nares patent NECK: Supple RESP/CHEST: Symmetric expansion; non labored. Extremities: No cyanosis or clubbing. GI: No organomegaly or masses. Soft, Nontender, nondistended. SKIN: No rash NEURO: AAOx4. Motor intact and no focal deficits PSYCH: Mood and affect congruent and appropriate to situation. Objective: All laboratory, images, tracings, and vital sign data are personally reviewed unless otherwise noted. VITALS BP 118/76 (11/13/24 1148) Temp 36.8 ??C (98.2 ??F) (11/13/24 1148) Pulse 90 (11/13/24 1148) Resp SpO2 96 % (11/13/24 1148) Weight: 74 kg (163 lb 2.3 oz) LABS: CA 19.9 - 14.8 WNL was 8.53 in 2023 was 9.38 in 2022 HbA1C - 5.8 Radiographics/Diagnostics: === 11/13/24 === MRCP W AND WO IV CONTRAST - Narrative - CLINICAL INDICATION: JUAN CARLOS mutation TECHNIQUE: MR [...] (axial and coronal), and axial diffusion. Heavily T2-[id number] MRCP sequences were acquired. In addition, advanced [...] and major visceral branches. Normal caliber patent IVCand major abdominal vebous vasculature. Lymph Nodes: No adenopathy. Bones: No aggressive osseous lesions. Other: Visualized GI tract is normal without evidence of bowel obstruction or acute inflammatory disease. No focal abnormalities in the lower lungs. No effusions. - Impression - Moderate diffuse hepatic steatosis. No pancreatic mass [...] Karen Anand MD on 11/16/2024 9:19 AM Pathology: no pertinent pathology findings for today's visit Assessment & Plan: Debbie Nesbitt is a 59-year old female seen in follow up in high risk GI clinic r/t dx of JUAN CARLOS mutation and findings of intra and extrahepatic biliary ductal dilation on her previous imaging. I discussed patient's MRI results which showed no pancreatic mass or lesion. No interval pancreaticor biliary ductal dilation. Moderate diffuse hepatic steatosis. I discussed with the patient that her JUAN CARLOS mutation increases her risks of pancreatic cancer and current NCCN guidelines recommend pancreatic cancer screening regardless to family history of pancreatic malignancy. Plan to follow up with the patient annual MRIs MRCP is with pancreatic surveillance Will obtain labs today: CA 19.9- 14.8 was 8.53, 11 and 9.38 previously. 40 minutes was spent on this encounter; including preparing to see the patient, which involved review/interpretation of diagnostics and reports; obtaining and/or reviewing separately obtained history; performing appropriate physical exam; ordering/scheduling medications, tests or procedures; communicating findings, discussing diagnosis, prognosis, and treatment plans and counseling/educating the patient, family and/or caregiver; documentation in EMR; and care coordination. Yazmin Alex APRN 11/13/24 12:16 PM documented in this encounter Plan of Treatment Upcoming Encounters Date Type Department Care Team (Late st Contact Info) Description 01/05/2025 8:00 AM EDT Appointment [facility] [address] [place] [address] 11/19/2025 9:00 AM EDT Appointment [facility] [address] [place] [address] 11/19/2025 11:00 AM EDT Office Visit [facility] [address] [place] [address] Yazmin Alex APRN [address] [facility] [address] [place] [address] Scheduled Orders Name Type Priority Associated Diagnoses Orde r Schedule MRCP w and wo IV Contrast Imaging Routine Biallelic mutation of JUAN CARLOS gene Family history of pancreatic cancer Expected: 11/12/2025 (Approximate), Expires: 05/17/2026 documented as of this encounter Results * (ABNORMAL) Hemoglobin A1c (11/13/2024 12:10 PM EDT) Hemoglobin A1c 5.8(H) <5.7 % 11/13/2024 2:33 PM EDT [facility] Blood Venous blood specimen / Unknown Venipuncture / Unknown 11/13/2024 12:10 PM EDT 11/13/2024 1:32 PM EDT Narrative [facility] - 11/13/2024 2:33 PM EDT HA1C Interpretive Data: Diagnosis of Diabetes: Diabetic > or = 6.5% Pre-diabetic 5.7 to 6.4% Non-diabetic < or = 5.6% Glycemic Targets for Type I and Type II Diabetics: Non- Adults <7.0% Adults <6.0% Children and Adolescents <7.5% Source: [place] Diabetes Association. Standards of medical care in diabetes,2017. Diabetes Care.2017:40 (suppl 1):S1-S135. [facility] Abi [facility] LAB BLOOD ORDERABLES Final R esult Performing Organization Address City/[facility] Co de Phone Number [facility] [address] [place] [address] * Cancer Antigen, GI (CA 19.9) (11/13/2024 12:10 PM EDT) CA 19.9 14.8 <36 U/mL 11/13/2024 1:2 3 PM EDT [facility] Blood Venous blood specimen / Unknown Venipuncture / Unknown 11/13/2024 12:10 PM EDT 11/13/2024 12:42 PM EDT Narrative [facility] - 11/13/2024 1:23 PM EDT Performed by Hayes electrochemiluminescent immunoassay. Results obtained with different test methods or kits cannot be used interchangeably. Yazmin Alex MOVIE STUNT PERFORMER LAB BLOOD ORDERABLES Final R esult Performing Organization Address City/[facility] Co de Phone Number [facility] [address] [place] [address] documented in this encounter Visit Diagnoses Diagnosis Biallelic mutation of JUAN CARLOS gene- Primary Family history of pancreatic cancer Family history of malignant neoplasm of gastrointestinal tract documented in this encounter Additional Health Concerns Assessment Noted Time A fall risk assessment has been complete d for the patient 11/13/2024 11:52 AM EDT A Body Mass Index follow-up plan has been documented for the patient 11/04/2024 9:07 AM EDT documented as of this encounter Care Teams Team Leader/Research Psychologist Relationship Specialty Start Date End Date Ekta Singh APRN [address] [place] [address] PCP - General 07/31/24 documented as of this encounter
--- OUTSIDE RECORDS SUMMARY | 2024-12-25 10:10 | XMS_ITS | Encounter Summary ---
Author Organization [facility] Address [address] [place] [address] Care Team Providers Care Cash Checker Name Role Phone Ekta Singh APRN Primary Care Provider [phone] Reason for Referral * Imaging (Routine) - Authorized Specialty Diagnoses / Procedures Referred By Contac t Referred To Contact Radiology Diagnoses Hip pain, left Procedures CT Guided Inj Asp Major Joint or Bursa Left Consult to Interventional Radiology John Olivas MD [address] [place] [address] Phone: tel: fax: Referral ID Status Reason Start Date Expiration Date V isits Requested Visits Authorized [id number] Authorized 12/25/2024 06/26/2026 1 1 Encounter Details Date Type Department Care Team (Late st Contact Info) Description 12/25/2024 10:10 AM EDT Office Visit [facility] Orthopaedic Surgery & Sports Medicine [address] [place] [address] John Olivas MD [address] [place] [address] Hip pain, left (Primary Dx) [...] EDT Appointment [facility] [address] [place] [address] 11/19/2025 9:00 AM EDT Appointment [facility] [address] [place] [address] 11/19/2025 11:00 AM EDT Office Visit [facility] [address] [place] [address] Yazmin Aelx, HIGH LIFT OPERATOR [address] [place] [address] Scheduled Orders Name Type Priority Associated Diagnoses Orde r Schedule CT Guided Inj Asp Major Joint or Bursa Left Imaging Routine Hip pain, left Expected: 12/25/2024, Expires: 06/28/2026 documented as of this encounter Results * XR Hip Left [...] not imaged. Severe arthritis in the hip Pofn-jh-prkujdof degenerative changes the pubic symphysis. Diffuse osteopenia. [...] not imaged. Severe arthritis in the hip Rlfi-gw-jmsokmws degenerative changes the pubic symphysis. Diffuse osteopenia. No acute displaced fracture or dislocations. Surgical clip in the left pelvis. IMPRESSION: Discrete changes described. CRITICAL RESULT: No. COMMUNICATION: Per this written report. Drafted by Toño Moore MD on 12/25/2024 12:04 PM Final report signed by Toño Moore MD on 512:07 PM John Olivas MD IMG XR PROCEDURES Final [...] documented as of this encounter Care Teams Cash Checker Relationship Specialty Start Date End Date Ekta Singh APRN [address] [place] [address] PCP - General 07/31/24 documented as of this encounter
--- OUTSIDE RECORDS SUMMARY | 2024-12-25 10:31 | XMS_ITS | Encounter Summary ---
Author Organization Healthcare Address [address] [place] [address] Care Team Providers Care Apricot Packer Name Role Phone Ekta Singh APRN Primary Care Provider [phone] Encounter Details Date Type Department Care Team (Latest Contact Info) Description 12/25/2024 10:31 AM EDT - 12/25/2024 11:59 PM EDT [facility] [address] [place] [address] Hip pain, left Discharge Disposition: [...] EDT Appointment [facility] [address] [place] [address] 11/19/2025 9:00 AM EDT Appointment [facility] [address] [place] [address] 11/19/2025 11:00 AM EDT Office Visit [facility] [address] [place] [address] Yazmin Alex, LOCKER ROOM CLERK [address] [facility] [address] [place] [address] documented as of this encounter Procedures Procedure [...] not imaged. Severe arthritis in the hip Fhls-td-xktmyhia degenerative changes the pubic symphysis. Diffuse osteopenia. [...] not imaged. Severe arthritis in the hip Fifm-ra-xundtmxb degenerative changes the pubic symphysis. Diffuse osteopenia. [...] documented as of this encounter Care Teams Apricot Packer Relationship Specialty Start Date End Date Ekta Singh APRN [address] [place] [address] PCP - General 07/31/24 documented as of this encounter
[2024-12-31 13:52] LABS: Coronavirus 19, PCR Not Detected (NotDetected); Influenza A, PCR Not Detected (NotDetected); Influenza B, PCR Not Detected (NotDetected)
--- OUTSIDE RECORDS SUMMARY | 2025-01-01 11:00 | XMS_ITS | Encounter Summary ---
Author Organization Healthcare Address [address] [place] [address] Care Team Providers Care Arbor Press Operator Name Role Phone Ekta Singh APRN Primary Care Provider [phone] Encounter Details Date Type Department Care Team (Latest Contact Info) Description 12/25/2024 Travel Social History Tobacco Use Types Packs/Day [...] EDT Appointment [facility] [address] [place] [address] 11/19/2025 9:00 AM EDT Appointment [facility] [address] [place] [address] 11/19/2025 11:00 AM EDT Office Visit [facility] [address] [place] [address] Yazmin Alex APRN [address] [place] [address] documented as of this encounter Visit Diagnoses Not on filedocumented in this encounter Additional Health Concerns Assessment Noted Time A fall risk assessment has been complete d for the patient 12/25/2024 10:28 AM EDT A Body Mass Index follow-up plan has been documented for the patient 12/25/2024 12:05 PM EDT documented as of this encounter Care Teams Arbor Press Operator Relationship Specialty Start Date End Date Ekta Singh APRN [address] [place] [address] PCP - General 07/31/24 documented as of this encounter
--- OUTSIDE RECORDS SUMMARY | 2025-01-01 11:00 | XMS_ITS | Clinical Summary ---
Author Organization [facility] Address [address] [place] [address] Care Team Providers Care Steel Wool Machine Operator Name Role Phone Francisco Ekta Marek WILLAMS Primary Care Provider [phone] Allergies Active Allergy Reactions Criticality Noted Date [...] Active Additional Information Patient not taking.Reported on 12/25/2024 methocarbamol (Robaxin) 750 MG tablet Take 1 tablet (750 mg total) by mouth every 6 (six) hours if needed for muscle spasms for up to 10 days. 50 tablet 1 Active Additional Information Patient not taking.Reported on 12/25/2024 oxyCODONE (Roxicodone) 5 MG immediate release tablet Take 1 tablet (5 mg total) by mouth every 6 (six) hours if needed (pain unresponsive to other medications/interv entions. Hold for sedation.). 20 tablet 1 Active Additional Information Patient not taking.Reported on 12/25/2024 lansoprazole (Prevacid) [address] capsule Take [...] scan on 11/09/22. 3 tablet 3 Active Additional Information Patient not taking.Reported on 12/25/2024 diphenhydrAMIN E (Benadryl) 50 MG tablet Take 1 tablet (50 mg) by mouth 1 (one) time for 1 dose. Take 2 hours prior to exam. 1 tablet 3 Active Additional Information Patient not taking.Reported on 12/25/2024 bisacodyl (Dulcolax) 5 MG EC tablet Take [...] Active Additional Information Patient not taking.Reported on 12/25/2024 meloxicam (Mobic) 7.5 MG tablet TAKE 1 TABLET ONCE DAILY 90 tablet 3 4 Active Additional Information Patient not taking.Reported on 12/25/2024 busPIRone (Buspar) 10 MG tablet Take 1 tablet by mouth 2 times a day. 5 Active sucralfate (Carafate) 1 g tablet TAKE 1 TABLET BY MOUTH BEFORE MEALS AND 1 TABLET AT BEDTIME 5 Active ibandronate (Boniva) 150 MG tablet TAKE 1 TABLET BY MOUTH ONCE EVERY MONTH Active Vitamin D-Vitamin K (Vitamin K2-Vitamin D3) 90-125 MCG capsule 5 Active amitriptyline (Elavil) 50 MG tablet Take 1 tablet by mouth daily. 5 Active metoprolol succinate XL (Toprol-XL) 50 MG 24 hr tablet Take 1 tablet by mouth daily. 5 Active Active Problems Problem Noted Date Diagnosed [...] (12/01/2020): Added automatically from request for surgery [id number] Fibromyalgia 05/20/2019 Hypertension Encounters Date Type Department Care Team Description 12/29/2024 Telephone [facility] Radiology [address] [place] [address] Li Pepper RN 12/25/2024 10:31 AM EDT - 12/25/2024 11:59 PM EDT Hospital Encounter [facility] Radiology [address] [place] [address] Hip pain, left Discharge Disposition: Home or Self Care 12/25/2024 10:10 AM EDT Office Visit [facility] [address] [place] [address] John Ocasio MD Hip pain, left (Primary Dx) 12/25/2024 Travel 11/13/2024 11:30 AM EDT Office Visit [facility] Multidisciplinary Oncology Clinic [address] [place] [address] Yazmin Alex APRN 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 [place] [address] Biallelic mutation of JUAN CARLOS gene; Family history of pancreatic cancer Discharge Disposition: Home or Self Care 11/13/2024 Travel 10/30/2024 10:00 AM EDT Office Visit [facility] [address] [place] [address] John Ocasio MD Hip pain, left (Primary Dx) 10/30/2024 Travel 10/09/2024 Telephone [facility] [address] [place] [address] John Ocasio MD H[facility] - Patient Message [...] Blood Pressure 142/93 12/25/2024 10:28 AM EDT taken on left arm, over 5 minutes since first reading Pulse 83 12/25/2024 10:15 AM EDT Temperature 36.8 C (98.2 F) 11/13/2024 11:48 AM EDT Respiratory Rate 18 09/04/2024 9:56 AM EDT Oxygen Saturation 95% 12/25/2024 10: 15 AM EDT Inhaled Oxygen Concentration - - Weight 74 kg (163 lb 2.3 oz) 11/13/2024 11:48 AM EDT Height 157.5 cm (5' 2 ) 11/13/2024 11:4 8 AM EDT Body Mass Index 29.84 11/13/2024 11:48 AM EDT Plan of Treatment Upcoming Encounters Date Type Department Care Team (Late st Contact Info) Description 01/05/2025 8:00 AM EDT Appointment [facility] [address] [place] [address] 11/19/2025 9:00 AM EDT Appointment [facility] [address] [place] [address] 11/19/2025 11:00 AM EDT Office Visit [facility] [address] [place] [address] Yazmin Alex, FLOWER ARRANGER [address] [place] [address] Health Maintenance Due Date Last Done Comments [...] - Risk 60-74 years 1-dose series) 2024 [id number] Vaccine ( season) 2024 02/09/2022, 03/04/2021, 06/10/2020 [facility]-Influenza Vaccine (#1) 11/30/202401/26, 01/10/2018, 03/08/2014 [facility]-Depression Screening 11/13/2025 11/13/2024 [facility]-Diabetes: Hemoglobin A1C 11/13/2025, 11/09/2022, 07/07/2020 [facility]-Breast Cancer Screening 10/28/202610/01, 10/28/2024, 07/03/2023, Additional history exists [facility]-Hepatitis A Vaccines Completed 07/23/2018, 09/29 [facility]-HIV Screening Completed 11/30/2020 [facility]-Hepatitis C Screening Completed 11/30/2020 [facility]-Obesity Intervention Completed 025, 10/30/2024, 09/04/2024, Additional history exists HPV Vaccines Aged Out [...] this topic Medical Devices Implanted Type Area Professor Of Geography Device Identifier Shelf Expiration Date Model / Serial / Lot Pin Pin Right: Ankle Plate Plate Right: Ankle Plate Medial Distal Femur 4 Holes/Left - S. - [id number] Implanted:Qty: 1 on 12/01/2020 by John Ocasio MD at [facility] Plate Left: Femur [employer]-[id number] 12/01/2021 [id number] / . / Screw 4.5mm Cortex 90mm - S. - [id number] Implanted:Qty: 1 on 12/01/2020 by John Ocasio MD at [facility] Screw Left: Femur [employer]-[id number] 12/01/2021 214.090 / . / Screw 4.5mm Ti Cortex Selftap 38mm - S. - [id number] Implanted:Qty: 1 on 12/01/2020 by John Ocasio MD at [facility] Screw Left: Femur [employer]-[id number] 12/01/2021 414.838 / . / Screw 4.5mm Ti Cortex Selftap 44mm - S. - [id number] Implanted:Qty: 1 on 12/01/2020 by John Ocasio MD at [facility] Screw Left: Femur [employer]-[id number] 12/01/2021 414.844 / . / Screw 5.0mm Ti Lock Selftap 30mm - S. - [id number] Implanted:Qty: 1 on 12/01/2020 by John Ocasio MD at [facility] Screw Left: Femur [employer]-[id number] 12/01/2021 413.330 / . / Screw 5.0mm Ti Lock Selftap 36mm - S. - [id number] Implanted:Qty: 1 on 12/01/2020 by John Ocasio MD at [facility] Screw Left: Femur [id number] 12/01/2021 413.336 / . / Screw 5.0mm Ti Lock Selftap 60mm - S. - [id number] Implanted:Qty: 1 on 12/01/2020 by John Ocasio MD at [facility] Screw Left: Femur Synthes [facility]-[id number] 12/01/2021 413.360 / . / Screw Va Lock Angle Selftap 5mm T25 55mm - S. - [id number] Implanted:Qty: 1 on 12/01/2020 by John Ocasio MD at [facility] Screw Left: Femur [employer]ynthes [facility]-[id number] 12/01/2021 42.231.255 / . / Screw Va Lock Angle Selftap 5mm T25 65mm - S. - [id number] Implanted:Qty: 1 on 12/01/2020 by John Ocasio MD at [facility] Screw Left: Femur [employer]s [facility]-[id number] 12/01/2021 42.231.265 / . / Screw 5.0mm Ti Lock Selftap 44mm - S. - [id number] Implanted:Qty: 2 on 12/01/2020 by John Ocasio MD at [facility] Screw Left: Femur Synthes [facility]-[id number] 12/01/2021 413.344 / . / Guidewire [place]o 2 X 280mm Thrd Tro Tp - S. - [id number] Implanted:Qty: 1 on 12/01/2020 by John Ocasio MD at [facility] Wire Left: Femur Synthes [facility]-[id number] 12/01/2021 292.699 / . / Plate 4.5mm Tiva Cond 18hole 370mm L - S. - [id number] Implanted:Qty: 1 on 12/01/2020 by John Ocasio MD at [facility] Left: Femur [employer]ynthes [facility]-[id number] 12/01/2021 [id number] / . / Screw 4.5mm Ti Cortex Selftap 70mm - S. - [id number] Implanted:Qty: 3 on 12/01/2020 by John Ocasio MD at [facility] Left: Femur [employer]ynthes [facility]-[id number] 12/01/2021 414.870 / . / Screw 4.5mm Ti Cortex Selftap 36mm - S. - [id number] Implanted:Qty: 3 on 12/01/2020 by John Ocasio MD at [facility] Left: Femur Synthes [facility]-12/01/2021 414.836 / . / Screw Va Lock Angle Selftap 5mm T25 60mm - S. - [id number] Implanted:Qty: 3 on 12/01/2020 by John Ocasio MD at [facility] Left: Femur Synthes [facility]-12/01/2021 42.231.260 / . / Explanted Type Area Professor Of Geography Device Identifier Shelf Expiration Date Model / Serial / Lot Plate 4.5mm Tiva Cond 16hole 336mm L - S. - [id number] Explanted:Qty: 1 on 12/01/2020 at [facility] Plate Left: Femur Synthes [facility]-12/01/2021 [id number] / . / Procedures Procedure Name Priority Date/Time Associated Diagnosis Comments XR HIP LEFT 2 OR 3 VIEWS Routine 12/25/2024 11:26 AM EDT Hip pain, left HEMOGLOBIN A1C Routine 11/13/2024 12:10 PM EDT [...] Recently Relevant to Health Maintenance Results * XR Hip Left 2 or [...] not imaged. Severe arthritis in the hip Wvka-oz-tiiifgif degenerative changes the pubic symphysis. Diffuse osteopenia. [...] not imaged. Severe arthritis in the hip Fxbt-jj-kjrqadhu degenerative changes the pubic symphysis. Diffuse osteopenia. No acute displaced fracture or dislocations. Surgical clip in the left pelvis. IMPRESSION: Discrete changes described. CRITICAL RESULT: No. COMMUNICATION: Per this written report. Drafted by Toño Moore MD on 12/25/2024 12:04 PM Final report signed by Toño Moore MD on 2:07 PM John Ocasio MD IMG XR PROCEDURES Final Result * Cancer Antigen, GI (CA 19.9) (11/13/2024 12:10 PM EDT) CA 19.9 14.8 <36 U/mL 11/13/2024 1:2 3 PM EDT [facility] Blood Venous blood specimen / Unknown Venipuncture / Unknown 11/13/2024 12:10 PM EDT 11/13/2024 12:42 PM EDT Narrative [facility] - 11/13/2024 1:23 PM EDT Performed by Hayes electrochemiluminescent immunoassay. Results obtained with different test methods or kits cannot be used interchangeably. [facility] Joan Alex FLOWER ARRANGER LAB BLOOD ORDERABLES Final R esult Performing Organization Address [facility] Co de Phone Number [facility] [address] [place] [address] * (ABNORMAL) Hemoglobin A1c (11/13/2024 12:10 PM EDT) Hemoglobin A1c 5.8(H) <5.7 % 11/13/2024 2:33 PM EDT [facility] Blood Venous blood specimen / Unknown Venipuncture / Unknown 11/13/2024 12:10 PM EDT 11/13/2024 1:32 PM EDT Narrative [facility] - 11/13/2024 2:33 PM EDT HA1C Interpretive Data: Diagnosis of Diabetes: Diabetic > or = 6.5% Pre-diabetic 5.7 to 6.4% Non-diabetic < or = 5.6% Glycemic Targets for Type I and Type II Diabetics: Non- Adults <7.0% Adults <6.0% Children and Adolescents <7.5% Source: [place] Diabetes Association. Standards of medical care in diabetes,2017. Diabetes Care.2017:40 (suppl 1):S1-S135. [facility] Joan [facility] LAB BLOOD ORDERABLES Final R esult Performing Organization Address [facility] Co de Phone Number [facility] [address] [place] [address] * MRCP w and wo IV Contrast [...] using the following sequences: coronal single shot [id number] fast spin echo, axial T2 weighted sequences [...] Karen Anand MD on 11/16/2024 9:19 AM us Yazmin Alex FLOWER ARRANGER IMG MRI PROCEDURES Final Res ult * HIV 1 & 2 Antibody/Antigen Screen (11/30/2020 2:09 PM EDT) HIV 1 & 2 Antibody/Anti gen Screen Nonreactive Nonreactive 11/30/2020 3:22 PM EDT [facility] Blood Venous blood specimen / Unknown Venipuncture / Unknown 11/30/2020 2:09 PM EDT 11/30/2020 2:19 PM EDT Tony Call MD LAB BLOOD ORDERABLES Final Re sult [facility] [address] [place] [address] * [place] Hepatitis C Antibody (11/30/2020 2:09 PM EDT) Pathologist [facility] Hepatitis C Antibody Negative Negative 11/30/2020 3:22 PM EDT [facility] Blood Venous blood specimen / Unknown Venipuncture / Unknown 11/30/2020 2:09 PM EDT 11/30/2020 2:19 PM EDT Tony Call MD LAB BLOOD ORDERABLES Final Re sult Performing Organization Address [facility] Co de Phone Number [facility] [address] [place] [address] from Last 3 Months or Most Recently Relevant to Health Maintenance Insurance [employer] Care Teams Steel Wool Machine Operator Relationship Specialty Start Date End Date Ekta Singh APRN [address] [place] [address] PCP - General 07/31/24
--- OUTSIDE RECORDS SUMMARY | 2025-01-01 11:00 | XMS_ITS | Encounter Summary ---
Author Organization Healthcare Address [address] [place] [address] Care Team Providers Care Customer Security Clerk Name Role Phone Ekta Singh MARKETING PRODUCER Primary Care Provider [phone] Encounter Details Date Type Department Care Team ([facility] Contact Info) Description 12/29/2024 Telephone [facility] [address] [place] [address] Li Pepper RN [facility] Social History Tobacco Use Types Packs/Day Years [...] Upcoming Encounters Date Type Department Care Team ([facility] Contact Info) Description 01/05/2025 8:00 AM EDT Appointment [facility] [address] [place] [address] 11/19/2025 9:00 AM EDT Appointment [facility] [address] [place] [address] 11/19/2025 11:00 AM EDT Office Visit [facility] [address] [place] [address] Yazmin Alex, MARKETING PRODUCER [address] [facility] [address] [place] [address] documented as of this encounter Visit Diagnoses Not on filedocumented in this encounter Additional Health Concerns Assessment Noted Time A fall risk assessment has been complete d for the patient 12/25/2024 10:28 AM EDT A Body Mass Index follow-up plan has been documented for the patient 12/25/2024 12:05 PM EDT documented as of this encounter Care Teams Customer Security Clerk Relationship Specialty Start Date End Date Ekta Singh, IMER [address] [place] [address] PCP - General 07/31/24 documented as of this encounter
--- OUTSIDE RECORDS SUMMARY | 2025-01-01 11:00 | XMS_ITS | Clinical Summary ---
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 04/04/2022 Essential hypertension 02/14/2022 Essential tremor 02/14/2022 Hyperlipidemia 02/14/2022 Mixed anxiety and depressive disorder 02/14/2022 Fibromyalgia 05/20/2019 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 Encounters Date Type Department Care Team Description 10/28/2024 10:19 AM EDT - 10/28/2024 11:59 PM EDT Hospital Encounter [facility] [place] [address] [facility] [address] [place] [phone] Monoallelic mutation of JUAN CARLOS gene; At high risk for breast cancer; Encounter for screening mammogram for malignant neoplasm of breast Discharge Disposition: Home or Self Care 10/28/2024 9:12 AM EDT - 10/28/2024 11:59 PM EDT Hospital Encounter [facility]APHY [place] [address] [facility] [address] [place] [address] Monoallelic mutation of JUAN CARLOS gene; At high risk for breast cancer; Encounter for screening mammogram for malignant neoplasm of breast Discharge Disposition: Home or Self Care 10/28/2024 Travel 10/17/2024 Results Follow-Up [facility] GYNECOLOGIC ONCOLOGY [address] [place] [address] Reema Beatty APRN Hocker: Pap results 10/15/2024 10:00 AM EDT Office Visit [facility] GYNECOLOGIC ONCOLOGY [address] [place] [address] Reema Beatty APRN Well woman exam with routine gynecological exam (Primary Dx); 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); Monoallelic mutation of JUAN CARLOS gene; At high risk for breast cancer; Encounter for screening mammogram for malignant neoplasm of breast 10/15/2024 Travel 10/12/2024 Telephone [facility] GYNECOLOGIC ONCOLOGY [address] [place] [address] Reema Beatty APRN HOCKER - APPT QUESTION [...] Description 10/18/2025 9:30 AM EDT Office Visit [facility] GYNECOLOGIC ONCOLOGY [address] [facility] [address] [place] [address] Reema Beatty, PRODUCT DESIGN MANAGER [address] [facility] [address] [place] [address] Health Maintenance Due Date Last Done Comments [...] INTERPRETATION (LORENA,COR,MAD) (10/15/2024 10:27 AM EDT) Pathologist [facility] Reference Lab Report [facility] [address] [place] [address] or [phone] Hank Oseguera M.D., Informatics Analyst PATIENT NAME LABORATORY NO. CORNELIO SCHNEIDER. [id number] AGE SEX N CLIENT REF # [facility] INSPECTOR-ONCOLOGY 59 1965 F [id number] [address] [facility], [address] REQUESTING MKellie. [place] [address] REEMA BEATTY DATE COLLECTED DATE RECEIVED DATE REPORTED 10/15/2024 10/15/2024 10/16/2024 ThinPrep Pap with [facility] DIAGNOSIS: Negative for intraepithelial lesion or malignancy Multiple factors can influence accuracy of Pap tests; therefore, screening at regular intervals is necessary for early cancer detection. COMMENT: Benign cellular changes associated with atrophy are present. Benign cellular changes associated with reactive/reparativ e changes are present. Professional interpretation rendered by Hank Oseguera M.D., Melba.C.A.P. at [facility], [facility], [address] [place] [address]. SPECIMEN ADEQUACY: SATISFACTORY FOR EVALUATION SOURCE OF [...] 51, 52, 56, 58, 59, 66, 68 DIMENSIONAL ENGINEER: CRISTIAN GASCA (ASCP) REVIEWED, DIAGNOSED AND ELECTRONICALLY SIGNED BY: Hank Oseguera M.D., Melba.C.A.P. CPT CODES: [id number], [id number], [id number] 10/16/2024 1:57 PM EDT [facility] ThinPrep Vial Cervix uteri structure / Unknown Collection / Unknown 10/15/2024 10:27 AM EDT 10/15/2024 10:27 AM EDT Reema Beatty APRN PATHOLOGY/CYTOLOGY ORD ERABLES Final Result [facility]
[address] [place] [address], * SCANNED - PAP SMEAR (04/03/2021) Coco Lucero APRN CHART REVIEW TABS F inal Result from Last 3 Months or Most Recently Relevant to Health Maintenance Insurance [employer] [place] Care Teams Setter Induction Heating Equipment Relationship Specialty Start Date End Date Ekta Singh APRN [address] [place] [address] [place] [address] PCP - General Nurse Practitioner 01/16/24
--- OUTSIDE RECORDS SUMMARY | 2025-01-01 11:00 | XMS_ITS | Encounter Summary ---
Author Organization [facility] Address [address] [place] [address] Care Team Providers Care Operational Risk Consultant Name Role Phone Francisco Ekta Jara APRN Primary Care Provider [phone] Encounter Details Date Type Department Care Team [...] EDT Appointment [facility] [address] [place] [address] 11/19/2025 9:00 AM EDT Appointment [facility] [address] [place] [address] 11/19/2025 11:00 AM EDT [facility] [address] [place] [address] Yazmin Alex, MARKETING SUPPORT SPECIALIST [address] [facility] [address] [place] [address] documented as of this encounter Visit Diagnoses Not on filedocumented in this encounter Additional Health Concerns Assessment Noted Time A fall risk assessment has been complete d for the patient 11/13/2024 11:52 AM EDT A Body Mass Index follow-up plan has been documented for the patient 11/04/2024 9:07 AM EDT documented as of this encounter Care Teams Operational Risk Consultant Relationship Specialty Start Date End Date Ekta Singh, MARKETING SUPPORT SPECIALIST [address] [place] [address] PCP - General 07/31/24 documented as of this encounter
--- OUTSIDE RECORDS SUMMARY | 2025-01-01 11:00 | XMS_ITS | Encounter Summary ---
Author Organization [facility] Address [address] [place] [address] Care Team Providers Care Topper Packer Name Role Phone Ekta Singh APRN Primary Care Provider [phone] Reason for Visit * Reason Onset Date Comments HCN - Patient Message 10/09/2024 Encounter Details Date Type Department Care Team (Late st Contact Info) Description 10/09/2024 Telephone [facility] Orthopaedic Surgery & Sports Medicine [address] [place] [address] John Ocasio MD [address] [place] [address] HCN - Patient Message Social [...] with Dr. Ocasio * Telephone Encounter - Manuel Medinacait Manzo - 10/09/2024 3:58 PM EDT Clinical Concern/Question Reason for Call: Ninfa patient calling to see if Ninfa has spoken with Erinn like he had said he wanted to at her last appt. Please advise Best contact number: [phone] (mobile) Optimal time of day to reach caller: ANYTIME Additional comments/information from caller: None Note: Please do not reply to this message. Follow-up communication and further actions as a result of this message need to be communicated with the patient directly, if the patient is not active onMyChart. If the patient is active on MyChart, they will receive notification of the communication/outcome via Panlhart. documented in this encounter Plan of Treatment Upcoming Encounters Date Type Department Care Team (Late st Contact Info) Description 01/05/2025 8:00 AM EDT Appointment [facility] [address] [place] [address] 11/19/2025 9:00 AM EDT Appointment [facility] [address] [place] [address] 11/19/2025 11:00 AM EDT [facility] [address] [place] [address] Yazmin Alex APRN [address] [facility] [address] [place] [address] documented as of this encounter Visit Diagnoses Not on filedocumented in this encounter Additional Health Concerns Assessment Noted Time A fall risk assessment has been complete d for the patient 09/04/2024 9:56 AM EDT A Body Mass Index follow-up plan has been documented for the patient 09/04/2024 10:32 AM EDT documented as of this encounter Care Teams Topper Packer Relationship Specialty Start Date End Date Ekta Singh APRN [address] [place] [address] PCP - General 07/31/24 documented as of this encounter
--- OUTSIDE RECORDS SUMMARY | 2025-01-01 11:01 | XMS_ITS | Encounter Summary ---
Author Organization Healthcare Address Formerly named [facility] [place] [address] Care Team Providers Care Lacquer Shader Name Role Phone Noemi Pearson DO Primary Care Provider [phone] Pcp, No Primary Care Provider Ekta Anderson APRN Primary Care Provider [phone] Encounter Details Date Type Department Care Team (Late st Contact Info) Description 05/24/2023 Orders Only External Location [address] [place] [address] Provider, External Social History Tobacco Use Types [...] EDT Appointment [facility] [address] [place] [address] 11/19/2025 9:00 AM EDT Appointment [facility] [address] [place] [address] 11/19/2025 11:00 AM EDT [facility] [address] [place] [address] Yazmin Alex, STUD SETTER [address] [place] [address] documented as of this encounter Procedures Procedure [...] documented as of this encounter Care Teams Lacquer Shader Relationship Specialty Start Date End Date Noemi Pearson DO [address] [place] [address] PCP - General 11/30/20 11/19/23 [place] [address] PCP - General Family Medicine 11/20/23 07/30/24 Ekta Singh, IMER [address] [place] [address] PCP - General 07/31/24 documented as of this encounter
--- OUTSIDE RECORDS SUMMARY | 2025-01-01 11:01 | XMS_ITS | Encounter Summary ---
Author Organization Healthcare Address [facility] [place] [address] Care Team Providers Care Rn Lab Name Role Phone Noemi Pearson DO Primary Care Provider [phone] Pcp, No Primary Care Provider Ekta [place] APRN Primary Care Provider [phone] Encounter Details Date Type Department Care Team (Late st Contact Info) Description 10/08/2023 Orders Only External Location [address] [place] [address] Provider, External Social History Tobacco [...] EDT Appointment [facility] [address] [place] [address] 11/19/2025 9:00 AM EDT Appointment [facility] [address] [place] [address] 11/19/2025 11:00 AM EDT [facility] [address] [place] [address] Yazmin Alex, CLOTH EXAMINER [address] [place] [address] documented as of this encounter Procedures Procedure [...] documented as of this encounter Care Teams Rn Lab Relationship Specialty Start Date End Date Noemi Pearson DO [address] [place] [address] PCP - General 11/30/20 11/19/23 [place] [address] PCP - General Family Medicine 11/20/23 07/30/24 Ekta Singh APRN [address] [place] [address] PCP - General 07/31/24 documented as of this encounter
--- OUTSIDE RECORDS SUMMARY | 2025-01-01 11:01 | XMS_ITS | Encounter Summary ---
Author Organization Healthcare Address [facility] [place] [address] Care Team Providers Care Intensive Care Specialist Name Role Phone Noemi Pearson DO Primary Care Provider [phone] Pcp, No Primary Care Provider Ekta [place] APRN Primary Care Provider [phone] Encounter Details Date Type Department Care Team (Late st Contact Info) Description 02/15/2023 Orders Only External Location [address] [place] [address] Provider, External Social History Tobacco [...] EDT Appointment [facility] [address] [place] [address] 11/19/2025 9:00 AM EDT Appointment [facility] [address] [place] [address] 11/19/2025 11:00 AM EDT [facility] [address] [place] [address] Yazmin Alex, TMH TEACHER [address] [place] [address] documented as of this encounter Procedures Procedure [...] documented as of this encounter Care Teams Intensive Care Specialist Relationship Specialty Start Date End Date Noemi Pearson DO [address] [place] [address] PCP - General 11/30/20 11/19/[place] [address] PCP - General Family Medicine 11/20/23 07/30/24 Ekta Singh APRN [address] [place] [address] PCP - General 07/31/24 documented as of this encounter
--- OUTSIDE RECORDS SUMMARY | 2025-01-01 11:01 | XMS_ITS | Encounter Summary ---
Author Organization Healthcare Address [address] [place] [address] Care Team Providers Care Piggyback Clerk Name Role Phone Michel Noemi Mccarthy DO Primary Care Provider [phone] Pcp, No Primary Care Provider Ekta [place] APRN Primary Care Provider [phone] Encounter Details Date Type Department Care Team ([facility] st Contact Info) Description 11/30/2020 Orders Only External Location [address] [place] [address] Provider, External Social History Tobacco Use Types [...] Behavior (Lifetime) No 8:00 PM EDT John Preston, RN documented as of this encounter Plan of Treatment Upcoming Encounters Date Type Department Care Team (Late st Contact Info) Description 01/05/2025 8:00 AM EDT Appointment [facility] [address] [place] [address] 11/19/2025 9:00 AM EDT Appointment [facility] [address] [place] [address] 11/19/2025 11:00 AM EDT [facility] [address] [place] [address] Yazmin Alex, CCTV TECHNICIAN [address] [facility] [address] [place] [address] documented as of this encounter Procedures Procedure [...] on filedocumented in this encounter Care Teams Piggyback Clerk Relationship Specialty Start Date End Date Noemi Pearson DO [facility] [place] [address] PCP - General 11/30/20 11/19/23 Pcp, No [address] [place] [address] PCP - General Family Medicine 11/20/23 07/30/24 Ekta Singh APRN [address] [place] [address] PCP - General 07/31/24 documented as of this encounter
--- OUTSIDE RECORDS SUMMARY | 2025-01-01 11:01 | XMS_ITS | Encounter Summary ---
Author Organization Healthcare Address [facility] [place] [address] Care Team Providers Care Land Management Supervisor Name Role Phone Noemi Pearson DO Primary Care Provider [phone] Pcp, No Primary Care Provider Ekta [place] APRN Primary Care Provider [phone] Encounter Details Date Type Department Care Team (Late st Contact Info) Description 05/24/2023 Orders Only External Location [address] [place] [address] Provider, External Social History Tobacco [...] EDT Appointment [facility] [address] [place] [address] 11/19/2025 9:00 AM EDT Appointment [facility] [address] [place] [address] 11/19/2025 11:00 AM EDT [facility] Visit [facility] [address] [place] [address] Yazmin Alex, RELIEF PILOT [address] [place] [address] documented as of this encounter Procedures Procedure [...] documented as of this encounter Care Teams Land Management Supervisor Relationship Specialty Start Date End Date Noemi Pearson DO [address] [place] [address] PCP - General 11/30/20 11/19/23 [place] [address] PCP - General Family Medicine 11/20/23 07/30/24 Ekta Singh, IMER [address] [place] [address] PCP - General 07/31/24 documented as of this encounter
--- OUTSIDE RECORDS SUMMARY | 2025-01-01 11:01 | XMS_ITS | Encounter Summary ---
Author Organization Healthcare Address [facility] [place] [address] Care Team Providers Care Hiv Prevention Specialist Name Role Phone Noemi Pearson DO Primary Care Provider [phone] Pcp, No Primary Care Provider Ekta [place] APRN Primary Care Provider [phone] Encounter Details Date Type Department Care Team (Late st Contact Info) Description 06/20/2023 Orders Only External Location [address] [place] [address] Provider, External Social History Tobacco [...] EDT Appointment [facility] [address] [place] [address] 11/19/2025 9:00 AM EDT Appointment [facility] [address] [place] [address] 11/19/2025 11:00 AM EDT Office Visit [facility] [address] [place] [address] Yazmin Alex, IMER [address] [place] [address] documented as of this encounter Procedures Procedure [...] documented as of this encounter Care Teams Hiv Prevention Specialist Relationship Specialty Start Date End Date Noemi Pearson DO [address] [place] [address] PCP - General 11/30/20 11/19/23 [place] [address] PCP - General Family Medicine 11/20/23 07/30/24 Ekta Singh APRN [address] [place] [address] PCP - General 07/31/24 documented as of this encounter
--- OUTSIDE RECORDS SUMMARY | 2025-01-01 11:01 | XMS_ITS | Encounter Summary ---
Author Organization Healthcare Address [facility] [place] [address] Care Team Providers Care Milk Vendor Name Role Phone Noemi Pearson DO Primary Care Provider [phone] Pcp, No Primary Care Provider Ekta [place] APRN Primary Care Provider [phone] Encounter Details Date Type Department Care Team (Late st Contact Info) Description 10/26/2022 Orders Only External Location [address] [place] [address] Provider, External Social History Tobacco [...] EDT Appointment [facility] [address] [place] [address] 11/19/2025 9:00 AM EDT Appointment [facility] [address] [place] [address] 11/19/2025 11:00 AM EDT Office Visit [facility] [address] [place] [address] Yazmin Alex, BUTTONHOLE FACER [address] [place] [address] documented as of this encounter Procedures Procedure [...] documented as of this encounter Care Teams Milk Vendor Relationship Specialty Start Date End Date Noemi Pearson DO [address] [place] [address] PCP - General 11/30/20 11/19/[place] [address] PCP - General Family Medicine 11/20/23 07/30/24 Ekta Singh APRN [address] [place] [address] PCP - General 07/31/24 documented as of this encounter
== END 2024-12-31 23:59 ==
LOC: LAB.DROPOF 01-01 10:56
PROVIDERS: PCP Nurse Practitioner Family; Visit Provider Nurse Practitioner Family
DX: J02.9 Acute pharyngitis, unspecified (principal)
CPT/HCPCS: 87631

== ENCOUNTER 2025-01-14 10:45 | Outpatient (CLI) | payer OTHER, SELFPAY ==
--- OUTSIDE RECORDS SUMMARY | 2024-12-25 10:10 | XMS_ITS | Encounter Summary ---
Author Organization [facility] Address [address] [place] [address] Care Team Providers Care Stretch Press Operator Name Role Phone Ekta Singh APRN Primary Care Provider [phone] Reason for Referral * Imaging (Routine) - Closed Specialty Diagnoses / Procedures Referred By Contac t Referred To Contact Radiology Diagnoses Hip pain, left Procedures CT Guided Inj Asp Major Joint or Bursa Left Consult to Interventional Radiology John Olivas MD [address] [place] [address] Phone: tel: fax: Referral ID Status Reason Start Date Expiration Date Visits Re quested Visits Authorized [id number] Closed 12/25/2024 06/26/2026 1 1 Encounter Details Date Type Department Care Team (Late st Contact Info) Description 12/25/2024 10:10 AM EDT Office Visit [facility] Orthopaedic Surgery [facility] Medicine [address], [address] [place] [address] John Olivas MD [address] [place] [address] Hip pain, left (Primary Dx) [...] Info) Description 11/19/2025 9:00 AM EDT Appointment [facility] Radiology [address] [place] [address] 11/19/2025 11:00 AM EDT Office Visit [facility] [address] [place] [address] Yazmin Alex, SENIOR GEOLOGIST [address] [place] [address] documented as of this encounter [...] CT table in the supine position, and transit coach operator CT images were obtained to evaluate for [...] the procedure well, [facility] Total DLP (Dose-Length [...] not imaged. Severe arthritis in the hip Ueul-ws-fzsiajlc degenerative changes the pubic symphysis. Diffuse osteopenia. [...] not imaged. Severe arthritis in the hip Lnit-dz-wwezondu degenerative changes the pubic symphysis. Diffuse osteopenia. No acute displaced fracture or dislocations. Surgical clip in the left pelvis. IMPRESSION: Discrete changes described. CRITICAL RESULT: No. COMMUNICATION: Per this written report. Drafted by Toño Moore MD on 12/25/2024 12:04 PM Final report signed by Toño Moore MD on 2:07 PM us Jhon Olivas MD IMG XR PROCEDURES Final Result [...] documented as of this encounter Care Teams Stretch Press Operator Relationship Specialty Start Date End Date Ekta Singh, SENIOR GEOLOGIST [address] [place] [address] PCP - General 07/31/24 documented as of this encounter
--- OUTSIDE RECORDS SUMMARY | 2024-12-25 10:31 | XMS_ITS | Encounter Summary ---
Author Organization Healthcare Address [address] [place] [address] Care Team Providers Care Mental Tester Name Role Phone Ekta Singh APRN Primary Care Provider [phone] Encounter Details Date Type Department Care Team (Latest Contact Info) Description 12/25/2024 10:31 AM EDT - 12/25/2024 11:59 PM EDT [facility] [address] [place] [address] Hip pain, left Discharge Disposition: [...] EDT Appointment [facility] [address] [place] [address] 11/19/2025 11:00 AM EDT Office [facility] [address] [place] [address] Yazmin Alex, CONCRETE FORM SETTER AND FINISHER [address] [facility] [address] [place] [address] documented as of this encounter Procedures Procedure [...] not imaged. Severe arthritis in the hip Bbyx-js-vhwljoxc degenerative changes the pubic symphysis. Diffuse osteopenia. [...] not imaged. Severe arthritis in the hip Yapk-it-rgbcpnwv degenerative changes the pubic symphysis. Diffuse osteopenia. [...] documented as of this encounter Care Teams Mental Tester Relationship Specialty Start Date End Date Ekta Singh APRN [address] [place] [address] PCP - General 07/31/24 documented as of this encounter
--- OUTSIDE RECORDS SUMMARY | 2025-01-05 07:39 | XMS_ITS | Encounter Summary ---
Author Organization [facility] Address [address] [place] [address] Care Team Providers Care Waterside Worker Name Role Phone Ekta Singh APRN Primary Care Provider [phone] Reason for Referral * Imaging (Routine) - Closed Specialty Diagnoses / Procedures Referred By Contac t Referred To Contact Radiology Diagnoses Hip pain, left Procedures CT Guided Inj Asp Major Joint or Bursa Left Consult to Interventional Radiology John Ocasio MD [address] [place] [address] Phone: tel: fax: Referral ID Status Reason Start Date Expiration Date Visits Re quested Visits Authorized [id number] Closed 12/25/2024 06/26/2026 1 1 Reason for Visit * Imaging (Routine) - Closed Specialty Diagnoses / Procedures Referred By Contac t Referred To Contact Radiology Diagnoses Hip pain, left Procedures CT Guided Inj Asp Major Joint or Bursa Left Consult to Interventional Radiology John Ocasio MD [address] [place] [address] Phone: tel: fax: Referral ID Status Reason Start Date Expiration Date Visits Re quested Visits Authorized [id number] Closed 12/25/2024 06/26/2026 1 1 Encounter Details Date Type Department Care Team (Latest Contact Info) Description 01/05/2025 7:39 AM EDT - 01/05/2025 11:59 PM EDT Hospital Encounter [facility] [address] [id number] Hip pain, left Discharge Disposition: Home or [...] Radiology Brief Postprocedure Note Attending: Farhan Morales Manager Field: Suellen Howard Pre-operative Diagnosis: Left hip pain. [...] EDT Appointment [facility] [address] [place] [address] 11/19/2025 11:00 AM EDT Office [facility] [address] [place] [address] Yazmin Alex, SALES HOST [address] [place] [address] documented as of this encounter Procedures Procedure [...] CT table in the supine position, and agricultural equipment sales manager CT images were obtained to evaluate for [...] the procedure well, [facility]. Total DLP [...] documented as of this encounter Care Teams Waterside Worker Relationship Specialty Start Date End Date Ekta Singh APRN [address] [place] [address] PCP - General 07/31/24 documented as of this encounter
--- OUTSIDE RECORDS SUMMARY | 2025-01-14 10:57 | XMS_ITS | Encounter Summary ---
Author Organization Healthcare Address [address] [place] [address] Care Team Providers Care Upholsterer Limousine And Hearse Name Role Phone MichelMikaylaNoemihetal Mccarthy DO Primary Care Provider [phone] Pcp, No Primary Care Provider Ekta Anderson OPERATING ROOM RN Primary Care Provider [phone] Encounter Details Date Type Department Care Team (Late st Contact Info) Description 06/20/2023 Orders Only External Location [address] [place] [address] Provider, External Social History Tobacco [...] EDT Appointment [facility] [address] [place] [address] 11/19/2025 11:00 AM EDT Office Visit [facility] [address] [place] [address] Yazmin Alex, OPERATING ROOM RN [address] [facility] [address] [place] [address] documented as of this [...] documented as of this encounter Care Teams Upholsterer Limousine And Hearse Relationship Specialty Start Date End Date Noemi Pearson DO [address] [place] [address] PCP - General 11/30/20 11/19/23 Pcp, [place] [address] PCP - General Family Medicine 11/20/23 07/30/24 Ekta Singh APRN [address] [place] [address] PCP - General 07/31/24 documented as of this encounter
--- OUTSIDE RECORDS SUMMARY | 2025-01-14 10:57 | XMS_ITS | Encounter Summary ---
Author Organization Healthcare Address [address] [place] [address] Care Team Providers Care Associate Professor Of Physics Name Role Phone Michel Noemi Mccarthy DO Primary Care Provider [phone] Pcp, No Primary Care Provider Ekta Anderson CRANE ENGINEER Primary Care Provider [phone] Encounter Details Date Type Department Care Team (Late st Contact Info) Description 02/15/2023 Orders Only External Location [address] [place] [address] Provider, External Social History Tobacco [...] EDT Appointment [facility] [address] [place] [address] 11/19/2025 11:00 AM EDT Office Visit [facility] [address] [place] [address] Yazmin Alex, CRANE ENGINEER [address] [facility] [address] [place] [address] documented as of this encounter [...] documented as of this encounter Care Teams Associate Professor Of Physics Relationship Specialty Start Date End Date Noemi Pearson DO [address] [place] [address] PCP - General 11/30/20 11/19/23 Pcp, [place] [address] PCP - General Family Medicine 11/20/23 07/30/24 Ekta Singh APRN [address] [place] [address] PCP - General 07/31/24 documented as of this encounter
--- OUTSIDE RECORDS SUMMARY | 2025-01-14 10:57 | XMS_ITS | Encounter Summary ---
Author Organization Healthcare Address [address] [place] [address] Care Team Providers Care Ground Water Contractor Name Role Phone Ekta Singh APRN Primary Care Provider [phone] Encounter Details Date Type Department Care Team ([facility] Contact Info) Description 12/29/2024 Telephone [facility] [address] [place] [id number] Li Pepper RN [facility] Social History [...] Encounters Date Type Department Care Team (Late Contact Info) Description 11/19/2025 9:00 AM EDT Appointment [facility] [address] [place] [address] 11/19/2025 11:00 AM EDT Office Visit [facility] [address] [place] [address] Yazmin Alex APRN [address] [facility] [address] [place] [address] documented as of this encounter Visit Diagnoses Not on filedocumented in this encounter Additional Health Concerns Assessment Noted Time A fall risk assessment has been complete d for the patient 12/25/2024 10:28 AM EDT A Body Mass Index follow-up plan has been documented for the patient 12/25/2024 12:05 PM EDT documented as of this encounter Care Teams Ground Water Contractor Relationship Specialty Start Date End Date Ekta Singh APRN [address] [place] [address] PCP - General 07/31/24 documented as of this encounter
--- OUTSIDE RECORDS SUMMARY | 2025-01-14 10:57 | XMS_ITS | Encounter Summary ---
Author Organization [facility] Address [address] [place] [address] Care Team Providers Care Quality Supervisor Name Role Phone Ekta Singh APRN Primary Care Provider [phone] Encounter Details Date Type Department Care Team (Latest Contact Info) Description 01/05/2025 Travel Social History Tobacco Use Types Packs/Day [...] EDT Appointment [facility] [address] [place] [address] 11/19/2025 11:00 AM EDT Office Visit [facility] [address] [place] [address] Yazmin Alex APRN [address] [facility] [address] [place] [address] documented as of this encounter Visit Diagnoses Not on filedocumented in this encounter Additional Health Concerns Assessment Noted Time A fall risk assessment has been complete d for the patient 12/25/2024 10:28 AM EDT A Body Mass Index follow-up plan has been documented for the patient 12/25/2024 12:05 PM EDT documented as of this encounter Care Teams Quality Supervisor Relationship Specialty Start Date End Date Ekta Singh APRN [address] [place] [address] PCP - General 07/31/24 documented as of this encounter
--- OUTSIDE RECORDS SUMMARY | 2025-01-14 10:57 | XMS_ITS | Encounter Summary ---
Author Organization Healthcare Address [address] [place] [address] Care Team Providers Care Shower Doors And Panels Fabricator Name Role Phone Michel Noemi Mccarthy DO Primary Care Provider [phone] Pcp, No Primary Care Provider Ekta Anderson APRN Primary Care Provider [phone] Encounter Details Date Type Department Care Team ([facility] st Contact Info) Description 11/30/2020 Orders Only External Location [address] [place] [phone] Provider, External Social History Tobacco Use Types [...] EDT Appointment [facility] [address] [place] [address] 11/19/2025 11:00 AM EDT Office Visit [facility] [address] [place] [address] Yazmin Alex, CHILD DEVELOPMENT DIRECTOR [address] [place] [address] documented as of this encounter Procedures Procedure [...] on filedocumented in this encounter Care Teams Shower Doors And Panels Fabricator Relationship Specialty Start Date End Date Noemi Pearson DO [address] [place] [address] PCP - General 11/30/20 11/19/23 Pcp, No [address] [place] [address] PCP - General Family Medicine 11/20/23 07/30/24 Ekta Singh, CHILD DEVELOPMENT DIRECTOR [address] [place] [address] PCP - General 07/31/24 documented as of this encounter
--- OUTSIDE RECORDS SUMMARY | 2025-01-14 10:57 | XMS_ITS | Clinical Summary ---
Author Organization [facility] Address [address] [place] [address] Care Team Providers Care Clinical Nutrition Manager Name Role Phone Ekta Singh APRN Primary Care Provider Allergies Active Allergy Reactions Criticality Noted Date Comments Contrast Dye (Echo Or Unknown Ct/Mr) Unknown - High Severity 04/10/2022 Patient states even with prednisone and benadryl prep for a contrasted MRI done at [facility], she still had a reaction [...] - 10/28/2024 11:59 PM EDT Hospital Encounter [facility] [address] [facility] [address] [place] [address] Monoallelic mutation of JUAN CARLOS gene; At high risk for breast cancer; Encounter for screening mammogram for malignant neoplasm of breast Discharge Disposition: Home or Self Care 10/28/2024 9:12 AM EDT - 10/28/2024 11:59 PM EDT Hospital Encounter [facility] [address] [facility] [address] [place] [address] Monoallelic mutation of JUAN CARLOS gene; At high risk for breast cancer; Encounter for screening mammogram for malignant neoplasm of breast Discharge Disposition: Home or Self Care 10/28/2024 Travel 10/17/2024 Results Follow-Up [facility] [address] [place] [address] Reema Beatty APRN Hocker: Pap results 10/15/2024 10:00 AM EDT Office Visit [facility] [address] [place] [id number] Reema Beatty APRN Well woman exam with routine gynecological exam (Primary Dx); 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); Monoallelic mutation of JUAN CARLOS gene; At high risk for breast cancer; Encounter for screening mammogram for malignant neoplasm of breast 10/15/2024 Travel from Last 3 Months Family History Medical [...] Breast cancer - additional onset Sister 2 Charlott e Fish Graves' disease Sister 3 Ovarian cancer [...] Description 10/18/2025 9:30 AM EDT Office Visit [facility]COL[facility]Y [address] [facility] [address] [place] [address] Reema Beatty APRN [address] [facility] [address] [place] [address] Health Maintenance Due Date Last Done Comments [...] No suspicious findings are noted. Reema Beatty COVER MAT MACHINE OPERATOR IMG MAMMOGRAPHY ORDERA BLES Final Result * LIQUID-BASED PAP SMEAR WITH HPV GENOTYPING REGARDLESS OF INTERPRETATION (LORENA,COR,MAD) (10/15/2024 10:27 AM EDT) Reference Lab Report [facility] [address] [place] [address] or [phone] Hank Oseguera M.D., Alteration Workroom Supervisor PATIENT NAME LABORATORY NO. CORNELIO SCHNEIDER. [id number] AGE SEX N CLIENT REF # [facility] 59 1965 F [id number] [address] [facility], [address] REQUESTING M.D. [place] [address] REEMA BEATTY DATE COLLECTED DATE RECEIVED DATE REPORTED 10/15/2024 10/15/2024 10/16/2024 ThinPrep Pap with [email or web address] Imaging DIAGNOSIS: Negative for intraepithelial lesion or malignancy Multiple factors can influence accuracy of Pap tests; therefore, screening at regular intervals is necessary for early cancer detection. COMMENT: Benign cellular changes associated with atrophy are present. Benign cellular changes associated with reactive/reparativ e changes are present. Professional interpretation rendered by Hank Oseguera M.D., F.C.A.P. at [employer], [place]na [place], [address] [place] [address]. SPECIMEN ADEQUACY: SATISFACTORY FOR EVALUATION SOURCE OF [...] 51, 52, 56, 58, 59, 66, 68 MEDICAL EDUCATION MANAGER: CRISTIAN GASCA (ASCP) REVIEWED, DIAGNOSED AND ELECTRONICALLY SIGNED BY: Hank Oseguera M.D., F.C.A.P. CPT CODES: [id number], [id number], [id number] 10/16/2024 1:57 PM EDT [facility] ThinPrep Vial Cervix uteri structure / Unknown Collection / Unknown 10/15/2024 10:27 AM EDT 10/15/2024 10:27 AM EDT Reema Beatty APRN PATHOLOGY/CYTOLOGY ORD ERABLES Final Result [facility]
[address] [place] [address], * SCANNED - PAP SMEAR (04/03/2021) Coco Lucero APRN CHART REVIEW TABS F inal Result from Last 3 Months or Most Recently Relevant to Health Maintenance Insurance [employer] EXCHANGE Care Teams Clinical Nutrition Manager Relationship Specialty Start Date End Date Ekta Singh APRN [address] [place] [address] [place] [address] PCP - General Nurse Practitioner 01/16/24
--- OUTSIDE RECORDS SUMMARY | 2025-01-14 10:57 | XMS_ITS | Encounter Summary ---
Author Organization Healthcare Address [address] [place] [address] Care Team Providers Care Waterproof Bag Cutting Machine Operator Name Role Phone Ekta Singh APRN Primary Care Provider [phone] Encounter Details Date Type Department Care Team (Late Contact Info) Description 01/04/2025 Telephone [facility] [address] [place] [address] Cheryl Jane, RN [facility]ST[facility] RADIOLOGY Social History Tobacco Use [...] EDT Appointment [facility] [address] [place] [address] 11/19/2025 11:00 AM EDT Office Visit [facility] [address] [place] [address] Yazmin Alex APRN [address] [facility] [address] [place] [address] documented as of this encounter Visit Diagnoses Not on filedocumented in this encounter Additional Health Concerns Assessment Noted Time A fall risk assessment has been complete d for the patient 12/25/2024 10:28 AM EDT A Body Mass Index follow-up plan has been documented for the patient 12/25/2024 12:05 PM EDT documented as of this encounter Care Teams Waterproof Bag Cutting Machine Operator Relationship Specialty Start Date End Date Ekta Singh APRN [address] [place] [address] PCP - General 07/31/24 documented as of this encounter
--- OUTSIDE RECORDS SUMMARY | 2025-01-14 10:57 | XMS_ITS | Encounter Summary ---
Author Organization Healthcare Address [address] [place] [address] Care Team Providers Care Jig Boring Machine Operator For Metal Name Role Phone MichelMikaylaNoemihetal Mccarthy DO Primary Care Provider [phone] Pcp, No Primary Care Provider Ekta Anderson PAPERHANGER CONTRACTOR Primary Care Provider [phone] Encounter Details Date Type Department Care Team (Late st Contact Info) Description 10/08/2023 Orders Only External Location [address] [place] [address] Provider, External Social History Tobacco [...] EDT Appointment [facility] [address] [place] [address] 11/19/2025 11:00 AM EDT Office Visit [facility] [address] [place] [address] Yazmin Alex, PAPERHANGER CONTRACTOR [address] [facility] [address] [place] [address] documented as of this encounter Procedures Procedure Name Priority Date/Time Associated Diagnosis Comments XR OUTSIDE IMAGES 10/08/2023 9:26 AM EDT documented in this encounter Results * XR OUTSIDE IMAGES (10/08/2023 9:26 AM EDT) Anatomical Region Laterality Modality Radiographic Yolis ging 10/08/2023 9:26 AM EDT External Provider IMG XR PROCEDURES Final Result documented in this encounter Visit Diagnoses Not on filedocumented in this encounter Additional Health Concerns Assessment Noted Time A fall risk assessment has been complete d for the patient 11/09/2022 11:35 AM EDT A Body Mass Index follow-up plan has been documented for the patient 07/06/2022 11:12 AM EDT documented as of this encounter Care Teams Jig Boring Machine Operator For Metal Relationship Specialty Start Date End Date Noemi Pearson DO [address] [place] [address] PCP - General 11/30/20 11/19/23 Pcp, [place] [address] PCP - General Family Medicine 11/20/23 07/30/24 Ekta Singh APRN [address] [place] [address] PCP - General 07/31/24 documented as of this encounter
--- OUTSIDE RECORDS SUMMARY | 2025-01-14 10:57 | XMS_ITS | Encounter Summary ---
Author Organization Healthcare Address [address] [place] [address] Care Team Providers Care Import/Export Clerk Name Role Phone MichelMikaylaNoemihetal Mccarthy DO Primary Care Provider [phone] Pcp, No Primary Care Provider Ekta Anderson STARCHER AND TENTER RANGE FEEDER Primary Care Provider [phone] Encounter Details Date Type Department Care Team (Late st Contact Info) Description 05/24/2023 Orders Only External Location [address] [place] [address] Provider, External Social History Tobacco [...] EDT Appointment [facility] [address] [place] [address] 11/19/2025 11:00 AM EDT Office Visit [facility] [address] [place] [address] Yazmin Alex, STARCHER AND TENTER RANGE FEEDER [address] [facility] [address] [place] [address] documented as of this encounter Procedures Procedure Name Priority Date/Time Associated Diagnosis Comments XR OUTSIDE IMAGES 05/24/2023 8:24 AM EST documented in this encounter Results * XR OUTSIDE IMAGES (05/24/2023 8:24 AM EST) Anatomical Region Laterality Modality Radiographic Yolis ging 05/24/2023 8:24 AM EST External Provider IMG XR PROCEDURES Final Result documented in this encounter Visit Diagnoses Not on filedocumented in this encounter Additional Health Concerns Assessment Noted Time A fall risk assessment has been complete d for the patient 11/09/2022 11:35 AM EDT A Body Mass Index follow-up plan has been documented for the patient 07/06/2022 11:12 AM EDT documented as of this encounter Care Teams Import/Export Clerk Relationship Specialty Start Date End Date Nomei Pearson DO [address] [place] [address] PCP - General 11/30/20 11/19/23 Pcp, Raven [address] [place] [address] PCP - General Family Medicine 11/20/23 07/30/24 Ekta Singh APRN [address] [place] [address] PCP - General 07/31/24 documented as of this encounter
--- OUTSIDE RECORDS SUMMARY | 2025-01-14 10:57 | XMS_ITS | Encounter Summary ---
Author Organization [facility] Address [address] [place] [address] Care Team Providers Care Proj Mgr Name Role Phone Ekta Singh APRN Primary Care Provider [phone] Encounter Details Date Type Department Care Team [...] EDT Appointment [facility] [address] [place] [address] 11/19/2025 11:00 AM EDT Office Visit [facility] [address] [place] [address] Yazmin Alex APRN [address] [facility] [address] [place] [address] documented as of this encounter Visit Diagnoses Not on filedocumented in this encounter Additional Health Concerns Assessment Noted Time A fall risk assessment has been complete d for the patient 12/25/2024 10:28 AM EDT A Body Mass Index follow-up plan has been documented for the patient 12/25/2024 12:05 PM EDT documented as of this encounter Care Teams Proj Mgr Relationship Specialty Start Date End Date Ekta Singh APRN [address] [place] [address] PCP - General 07/31/24 documented as of this encounter
--- OUTSIDE RECORDS SUMMARY | 2025-01-14 10:57 | XMS_ITS | Clinical Summary ---
Author Organization [facility] Address [address] [place] [address] Care Team Providers Care Lpc Name Role Phone Francisco Ekta Marek WILLAMS Primary Care Provider [phone] Allergies Active Allergy Reactions Criticality Noted Date [...] (12/01/2020): Added automatically from request for surgery [id number] Fibromyalgia 05/20/2019 Hypertension Encounters Date Type Department Care Team Description 01/05/2025 7:39 AM EDT - 01/05/2025 11:59 PM EDT Hospital Encounter [facility] [address] [place] [address] Hip pain, left Discharge Disposition: Home or Self Care 01/05/2025 Travel 01/04/2025 Telephone [facility] [address] [place] [address] Cheryl Jane RN 12/29/2024 Telephone [facility] [address] [place] [address] Li Pepper RN 12/25/2024 10:31 AM EDT - 12/25/2024 11:59 PM EDT Hospital Encounter [facility] Radiology [address] [place] [address] Hip pain, left Discharge Disposition: Home or Self Care 12/25/2024 10:10 AM EDT Office Visit [facility] Surgery [facility] [address], [address] [place] [address] John Ocasio MD Hip pain, left (Primary Dx) 12/25/2024 Travel 11/13/2024 11:30 AM EDT Office Visit [facility] Multidisciplinary Oncology Clinic [address] [place] [address] Yazmin Alex APRN 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 [place] [address] Biallelic mutation of JUAN CARLOS gene; Family history of pancreatic cancer Discharge Disposition: Home or Self Care 11/13/2024 Travel 10/30/2024 10:00 AM EDT Office Visit [facility] [address] [place] [address] John Ocasio MD Hip pain, left (Primary Dx) 10/30/2024 Travel from Last 3 Months Social History [...] EDT Appointment [facility] [address] [place] [address] 11/19/2025 11:00 AM EDT Office Visit [facility] [address] [place] [address] Yazmin Alex, TANK FILLER [address] [place] [address] Health Maintenance Due Date Last Done Comments [facility]-/Child/Adol SDOH Screenings 1965 [facility]- SDOH Screenings 02/24/1982 [...] - Risk 60-74 years 1-dose series) 2024 OPR-OZRIO-10 Vaccine ( - 2024- season) 2024 02/09/2022, 03/04/2021, 06/10/2020 [facility]-Influenza Vaccine [...] this topic Medical Devices Implanted Type Area Payroll Tax Analyst Device Identifier Shelf Expiration Date Model / Serial / Lot Pin Pin Right: Ankle Plate Plate Right: Ankle Plate Medial Distal Femur 4 Holes/Left - S. - [id number] Implanted:Qty: 1 on 12/01/2020 by John Ocasio MD at [facility] Plate Left: Femur Synthes [facility]-[id number] 12/01/2021 [id number] / . / Screw 4.5mm Cortex 90mm - S. - [id number] Implanted:Qty: 1 on 12/01/2020 by John Ocasio MD at [facility] Screw Left: Femur EDITD-[id number] 12/01/2021 214.090 / . / Screw 4.5mm Ti Cortex Selftap 38mm - S. - [id number] Implanted:Qty: 1 on 12/01/2020 by John Ocasio MD at [facility] Screw Left: Femur EDITD-[id number] 12/01/2021 414.838 / . / Screw 4.5mm Ti Cortex Selftap 44mm - S. - [id number] Implanted:Qty: 1 on 12/01/2020 by John Ocasio MD at [facility] Screw Left: Femur EDITD-[id number] 12/01/2021 414.844 / . / Screw 5.0mm Ti Lock Selftap 30mm - S. - [id number] Implanted:Qty: 1 on 12/01/2020 by John Ocasio MD at [facility] Screw Left: Femur EDITD-[id number] 12/01/2021 413.330 / . / Screw 5.0mm Ti Lock Selftap 36mm - S. - [id number] Implanted:Qty: 1 on 12/01/2020 by John Ocasio MD at [facility] Screw Left: Femur Synthes [facility]-[id number] 12/01/2021 413.336 / . / Screw 5.0mm Ti Lock Selftap 60mm - S. - [id number] Implanted:Qty: 1 on 12/01/2020 by John Ocasio MD at [facility] Screw Left: Femur Synthes [facility]-[id number] 12/01/2021 413.360 / . / Screw Va Lock Angle Selftap 5mm T25 55mm - S. - [id number] Implanted:Qty: 1 on 12/01/2020 by John Ocasio MD at [facility] Screw Left: Femur Synthes [facility]-[id number] 12/01/2021 42.231.255 / . / Screw Va Lock Angle Selftap 5mm T25 65mm - S. - [id number] Implanted:Qty: 1 on 12/01/2020 by John Ocasio MD at [facility] Screw Left: Femur Synthes [facility]-[id number] 12/01/2021 42.231.265 / . / Screw 5.0mm Ti Lock Selftap 44mm - S. - [id number] Implanted:Qty: 2 on 12/01/2020 by John Ocasio MD at [facility] Screw Left: Femur Synthes [facility]-[id number] 12/01/2021 413.344 / . / Guidewire Jarocho 2 X 280mm Thrd Tro Tp - S. - [id number] Implanted:Qty: 1 on 12/01/2020 by John Ocasio MD at [facility] Wire Left: Femur Synthes [facility]-[id number] 12/01/2021 292.699 / . / Plate 4.5mm Tiva Cond 18hole 370mm L - S. - [id number] Implanted:Qty: 1 on 12/01/2020 by John Ocasio MD at [facility] Left: Femur Synthes [facility]-[id number] 12/01/2021 04.124.419 / . / Screw 4.5mm Ti Cortex Selftap 70mm - S. - [id number] Implanted:Qty: 3 on 12/01/2020 by John Ocasio MD at [facility] Left: Femur Synthes [facility]-[id number] 12/01/2021 414.870 / . / Screw 4.5mm Ti Cortex Selftap 36mm - S. - [id number] Implanted:Qty: 3 on 12/01/2020 by John Ocasio MD at [facility] Left: Femur Synthes [facility]-12/01/2021 414.836 / . / Screw Va Lock Angle Selftap 5mm T25 60mm - S. - [id number] Implanted:Qty: 3 on 12/01/2020 by John Ocasio MD at [facility] Left: Femur Synthes [facility]-12/01/2021 42.231.260 / . / Explanted Type Area Payroll Tax Analyst Device Identifier Shelf Expiration Date Model / Serial / Lot Plate 4.5mm Tiva Cond 16hole 336mm L - S. - [id number] Explanted:Qty: 1 on 12/01/2020 at [facility] Plate Left: Femur Synthes [facility]-12/01/2021 04.124.417 / . / Procedures Procedure Name Priority Date/Time Associated Diagnosis Comments CT GUIDED INJ ASP MAJOR JOINT OR BURSA LEFT Routine 01/05/2025 9:02 AM EDT Hip pain, left XR HIP LEFT 2 OR 3 VIEWS [...] Recently Relevant to Health Maintenance Results * CT Guided Inj Asp Major [...] CT table in the supine position, and [employer] scout CT images were obtained to evaluate for [...] the procedure well, [facility] Total [...] Ocasio MD IMG CT PROCEDURES Final Result * [...] not imaged. 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 Diffuse osteopenia. [...] not imaged. Severe arthritis in the hip Ukph-jn-cgtertin degenerative changes the pubic symphysis. Diffuse osteopenia. [...] <36 U/mL 11/13/2024 1:2 3 PM EDT [facility] Blood Venous blood specimen / Unknown Venipuncture / Unknown 11/13/2024 12:10 PM EDT 11/13/2024 12:42 PM EDT Narrative [facility] - 11/13/2024 1:23 PM EDT Performed by Hayes electrochemiluminescent immunoassay. Results obtained with different test methods or kits cannot be used interchangeably. [facility] TANK FILLER LAB BLOOD ORDERABLES Final R esult Performing Organization Address City/[facility]/ZIP Co de Phone Number [facility] [address] [place] [address] * (ABNORMAL) Hemoglobin A1c (11/13/2024 12:10 PM EDT) Hemoglobin A1c 5.8(H) <5.7 % 11/13/2024 2:33 PM EDT [facility] Blood Venous blood specimen / Unknown Venipuncture / Unknown 11/13/2024 12:10 PM EDT 11/13/2024 1:32 PM EDT Narrative [facility] - 11/13/2024 2:33 PM EDT HA1C Interpretive Data: Diagnosis of Diabetes: Diabetic > or = 6.5% Pre-diabetic 5.7 to 6.4% Non-diabetic < or = 5.6% Glycemic Targets for Type I and Type II Diabetics: Non- Adults <7.0% Adults <6.0% Children and Adolescents <7.5% Source: [place] [employer]. Standards of medical care in diabetes,2017. Diabetes Care.2017:40 (suppl 1):S1-S135. us Yazmin Alex TANK FILLER LAB BLOOD ORDERABLES Final R esult Performing Organization Address City/[facility] Co de Phone Number [facility] [address] [place] [address] * MRCP w and wo IV Contrast [...] effusions. Procedure Note Karen Anand MD - 08/18/2025 CLINICAL INDICATION: JUAN CARLOS mutation TECHNIQUE: MR imaging of the abdomen was performed with and without intravenouscontrast material using the following sequences: coronal single shot [id number] fast spin echo, axial T2 weighted sequences [...] signing this report, I, the attending physician, aquilesat I have personally reviewed the images/data for the aboveexamination(s) and agree with the final edited report. Drafted by Kate Guerrero MD on 11/13/2024 9:29 AM Final report signed by Karen Anand MD on 11/16/2024 9:19 AM Yazmin Alex TANK FILLER IMG MRI PROCEDURES Final Res ult * HIV 1 & 2 Antibody/Antigen Screen (11/30/2020 2:09 PM EDT) HIV 1 & 2 Antibody/Anti gen Screen Nonreactive Nonreactive 11/30/2020 3:22 PM EDT [facility] Blood Venous blood specimen / Unknown Venipuncture / Unknown 11/30/2020 2:09 PM EDT 11/30/2020 2:19 PM EDT Tony Call MD LAB BLOOD ORDERABLES Final Re sult [facility] [address] [place] [address] * [place] Hepatitis C Antibody (11/30/2020 2:09 PM EDT) Hepatitis C Antibody Negative Negative 11/30/2020 3:22 PM EDT [facility] Blood Venous blood specimen / Unknown Venipuncture / Unknown 11/30/2020 2:09 PM EDT 11/30/2020 2:19 PM EDT Tony Call MD LAB BLOOD ORDERABLES Final Re sult [facility] [address] [place] [address] from Last 3 Months or Most Recently Relevant to Health Maintenance Insurance [employer] Care Teams Lpc Relationship Specialty Start Date End Date Ekta Singh APRN [address] [id number] PCP - General 07/31/24
--- OUTSIDE RECORDS SUMMARY | 2025-01-14 10:57 | XMS_ITS | Encounter Summary ---
Author Organization Healthcare Address [address] [place] [address] Care Team Providers Care Transit Authority Police Officer Name Role Phone MichelMikaylaNoemihetal Mccarthy DO Primary Care Provider [phone] Pcp, No Primary Care Provider Ekta Anderson CASH ROOM CLERK Primary Care Provider [phone] Encounter Details Date Type Department Care Team (Late st Contact Info) Description 05/24/2023 Orders Only External Location [address] [place] [address] Provider, External Social History Tobacco [...] EDT Appointment [facility] [address] [place] [address] 11/19/2025 11:00 AM EDT Office Visit [facility] [address] [place] [address] Yazmin Alex, CASH ROOM CLERK [address] [facility] [address] [place] [address] documented as of this encounter Procedures Procedure Name Priority Date/Time Associated Diagnosis Comments XR OUTSIDE IMAGES 05/24/2023 8:29 AM EST documented in this encounter Results * XR OUTSIDE IMAGES (05/24/2023 8:29 AM EST) Anatomical Region Laterality Modality Radiographic Yolis ging 05/24/2023 8:29 AM EST External Provider IMG XR PROCEDURES [...] documented as of this encounter Care Teams Transit Authority Police Officer Relationship Specialty Start Date End Date Noemi Pearson DO [address] [place] [address] PCP - General 11/30/20 11/19/23 Pcp, Raven [address] [place] [address] PCP - General Family Medicine 11/20/23 07/30/24 Ekta Singh APRN [address] [place] [address] PCP - General 07/31/24 documented as of this encounter
--- OUTSIDE RECORDS SUMMARY | 2025-01-14 10:57 | XMS_ITS | Encounter Summary ---
Author Organization Healthcare Address [address] [place] [address] Care Team Providers Care Slip Maker Name Role Phone Mihcel Noemi Mccarthy DO Primary Care Provider [phone] Pcp, No Primary Care Provider Ekta Anderson RN HEMODIALYSIS Primary Care Provider [phone] Encounter Details Date Type Department Care Team (Late st Contact Info) Description 10/26/2022 Orders Only External Location [address] [place] [address] Provider, External Social History Tobacco [...] EDT Appointment [facility] [address] [place] [address] 11/19/2025 11:00 AM EDT Office Visit [facility] [address] [place] [address] Yazmin Alex, RN HEMODIALYSIS [address] [facility] [address] [place] [address] documented as of this encounter Procedures Procedure Name Priority Date/Time Associated Diagnosis Comments XR OUTSIDE IMAGES 10/26/2022 7:36 AM EDT documented in this encounter Results * XR OUTSIDE IMAGES (10/26/2022 7:36 AM EDT) Anatomical Region Laterality Modality Radiographic Yolis ging 10/26/2022 7:36 AM EDT External Provider IMG XR PROCEDURES [...] documented as of this encounter Care Teams Slip Maker Relationship Specialty Start Date End Date Noemi Pearson DO [address] [place] [address] PCP - General 11/30/20 11/19/23 Pcp, [place] [address] PCP - General Family Medicine 11/20/23 07/30/24 Ekta Singh APRN [address] [place] [address] PCP - General 07/31/24 documented as of this encounter
--- NOTE | 2025-01-14 11:00 | US_ITS ---
FINAL REPORT TECHNIQUE: Sonographic images of the thyroid gland were obtained in the longitudinal and transverse planes. CLINICAL HISTORY: 6 month f/u to monitor for thyroid nodule COMPARISON: 07/06/2024 FINDINGS: The right lobe measures cm. The right lobe is heterogeneous. There are no cystic or solid nodules. The left lobe measures 1.0 x 2.8 x 0.9 cm. The left lobe is heterogeneous. There are no cystic or solid nodules. The isthmus measures 4 mm. The 4 mm hypoechoic right isthmus nodule is unchanged. The 3 mm hypoechoic nodule in the right isthmus is also stable. IMPRESSION: Stable subcentimeter nodules in the right isthmus. Per ACR criteria, no follow-up needed. Reviewed, Interpreted and Dictated by Rosalina Pacheco MD Transcribed by Alicia Hansen Authenticated and [facility]
[2025-01-14 12:30] LABS: Free T4 (Free Thyroxine) 1.16 ng/dl (0.78-2.19)
[2025-01-14 12:43] LABS: Thyroid Stimulating Hormone 1.89 uIU/mL (0.465-4.68)
== END 2025-01-14 23:59 | disposition home or self-care (01) ==
LOC: RAD 10:46
PROVIDERS: Student in an Organized Health Care Education/Training Program; PCP Nurse Practitioner Family; Visit Provider Nurse Practitioner
DX: E04.2 Nontoxic multinodular goiter (principal)
CPT/HCPCS: 36415; 76536; 84439; 84443

== ENCOUNTER 2025-02-10 08:42 | Outpatient (CLI) | payer OTHER, SELFPAY ==
--- OUTSIDE RECORDS SUMMARY | 2024-12-25 09:10 | XMS_ITS | Encounter Summary ---
Author Organization [facility] Address [address] [place] [address] Care Team Providers Care Veneer Stacker Name Role Phone Ekta Singh APRN Primary Care Provider [phone] Reason for Referral * Imaging (Routine) - Closed Specialty Diagnoses / Procedures Referred By Contac t Referred To Contact Radiology Diagnoses Hip pain, left Procedures CT Guided Inj Asp Major Joint or Bursa Left Consult to Interventional Radiology John Olivas MD [address] [place] [address] Phone: tel: fax: Referral ID Status Reason Start Date Expiration Date Visits Re quested Visits Authorized [id number] Closed 12/25/2024 06/26/2026 1 1 Encounter Details Date Type Department Care Team (Late st Contact Info) Description 12/25/2024 10:10 AM EDT Office Visit [facility] [address], [address] [place] [address] John Olivas MD [address] [place] [address] Hip pain, left (Primary Dx) [...] Sign Reading Time Taken Comments Blood Pressure 142/93 12/25/2024 10:28 AM EDT ta heather on left arm, over 5 minutes since first reading Pulse 83 12/25/2024 10:15 AM EDT Temperature - - Respiratory Rate - - Oxygen Saturation 95% 12/25/2024 10:15 AM EDT Inhaled Oxygen Concentration - - Weight - - Height - - Body Mass Index - - documented in this encounter Miscellaneous Notes * Addendum Note - John Olivas MD - 12/25/2024 10:10 AM EDTAddended by: JOHN OLIVAS on: 12/25/2024 12:07 PM Modules accepted: Orders * Progress Notes - John Olivas MD - 12/25/2024 10:10 AM EDT 12/25/2024 ORTHOPEDIC TRAUMA CLINIC NOTE Injury/Tx: HPI: Debbie Nesbitt 59 y.o. female who returns for follow-up of her left hip pain. We had injected her hipbursa previously she still is getting some relief from that. Today she is asking about being referred for an intra-articular injection of the hip which I told her I thought would be a reasonable nextstep. PAST MEDICAL HISTORY: Past Medical History[1] Past [...] on file Vital signs: Visit Vitals BP (!) 142/93 Comment: taken on left arm, over 5 minutes since first reading Pulse 83 SpO2 95% OB Status Hysterectomy Smoking Status Never Constitutional: Well developed. Well nourished. Psychologic: Mood is appropriate. Appropriate affect. Head and Face: Normocephalic. No obvious deformities. Eyes: Extraocular movements intact Pulmonary: Unlabored, normal effort. Cardiac: well perfused, extremities pink. Skin: No rashes on exposed skin surface. Neuro: No focal neuro deficit, normal coordination, normal muscle tone MUSCULOSKELETAL EXAM: Examination of the left lower extremity showed there was no swelling in the knee nor calf. There was no tenderness to palpation over the calf or the thigh. She had good flexion-extension of the left hip as well as external rotation. Her internal rotation was diminished and shedid have pain with internal rotation of the hip. IMAGING: I have personally reviewed, and interpreted the patients imaging: Repeat x-rays of the hip today again showed evidence of osteoarthritis. ASSESSMENT: Left hip osteoarthritis PLAN: I am going to refer her to Radiology for an intra-articular injection of the hip. I would like see her 4-6 weeks after that injection for re-evaluation. John Olivas MD [1] Past Medical History: Diagnosis Date Fibromyalgia HLD (hyperlipidemia) Hypertension Hypertension Nystagmus [2] Past Surgical History: Procedure Laterality Date KNEE SURGERY Left ORIF TIBIAL PLATEU FRACTURE Left [3] History reviewed. No pertinent family history. [4] Current Outpatient Medications: amitriptyline (Elavil) 25 MG tablet, Take 2 tablets (50 mg) by mouth every night., Disp: , Rfl: amitriptyline (Elavil) 50 MG tablet, Take 1 tablet by mouth daily., Disp: , Rfl: busPIRone (Buspar) 10 MG [...] (one) time each day., Disp: , Rfl: doxepin (SINEquan) 10 MG capsule, Take 1 capsule (10 mg) by mouth every night., Disp: , Rfl: DULoxetine (Cymbalta) [address] capsule, Take 60 mg by mouth 1 (one) time each day. Do not crush or chew., Disp: , Rfl: fenofibrate (Tricor) 145 MG [...] not crush or chew., Disp: , Rfl: metoprolol succinate XL (Toprol-XL) 25 MG 24 hr tablet, Take 1 tablet (25 mg) by mouth 1 (one) timeeach day. Do not crush or chew., Disp: , Rfl: metoprolol succinate XL (Toprol-XL) 50 MG 24 hr tablet, Take 1 tablet by mouth daily., Disp: , Rfl: sucralfate (Carafate) 1 g tablet, TAKE 1 TABLET BY MOUTH BEFORE MEALS AND 1 TABLET AT BEDTIME, Disp: , Rfl: Vitamin D-Vitamin K (Vitamin K2-Vitamin D3) 90-125 MCG capsule, , Disp: , Rfl: baclofen (Lioresal) 10 MG tablet, Take 10 mg by mouth every night. PATIENT TAKES 0.5 TO 1 TABLET ATBEDTIME . (Patient not taking: Reported on 12/25/2024), Disp: , Rfl: biotin 5 MG capsule, Take 5 capsules (25 mg) by mouth 2 (two) times a day. (Patient not taking: Reported on 12/25/2024), Disp: , Rfl: bisacodyl (Dulcolax) 5 MG EC tablet, Take 1 tablet (5 mg) by mouth 1 (one) time each day if needed.(Patient not taking: Reported on 12/25/2024), Disp: , Rfl: dexlansoprazole (Dexilant) [address] capsule, Take 60 mg by mouth 1 (one) time each day. Do not crush or chew. (Patient not taking: Reported on 12/25/2024), Disp: , Rfl: diclofenac (Voltaren) 1 % topical gel, Place on the skin 2 (two) times a day. Apply as directed to areas of pain of the prominent hardware in the medial knee, lateral knee, lateral hip (Patient not taking: Reported on 12/25/2024), Disp: 200 g, Rfl: 1 diphenhydrAMINE (Benadryl) 50 MG tablet, Take 1 tablet (50 mg) by mouth 1 (one) time for 1 dose. Take 2 hours prior to exam. (Patient not taking: Reported on 12/25/2024), Disp: 1 tablet, Rfl: 0 estradiol (Vagifem) 10 MCG tablet vaginal tablet, Insert 1 tablet (10 mcg) into the vagina 2 (two) times a week. (Patient not taking: Reported on 12/25/2024), Disp: , Rfl: gabapentin (Neurontin) 100 MG capsule, Take 1 capsule (100 mg total) by mouth 3 (three) times a day. (Patient not taking: Reported on 12/25/2024), Disp: 42 capsule, Rfl: 0 meloxicam (Mobic) 7.5 MG tablet, TAKE 1 TABLET ONCE DAILY (Patient not taking: Reported on 12/25/2024), Disp: 90 tablet, Rfl: 3 methocarbamol (Robaxin) 750 MG tablet, Take 1 tablet (750 mg total) by mouth every 6 (six) hours ifneeded for muscle spasms for up to 10 days. (Patient not taking: Reported on 12/25/2024), Disp: 50 tablet, Rfl: 0 oxyCODONE (Roxicodone) 5 MG immediate release tablet, Take 1 tablet (5 mg total) by mouth every 6 (six) hours if needed (pain unresponsive to other medications/interventions. Hold for sedation.). (Patient not taking: Reported on 12/25/2024), Disp: 20 tablet, Rfl: 0 predniSONE (Deltasone) 50 MG tablet, Take 1 tablet (50 mg) by mouth See administration instructionsfor 3 doses. Take one tablet (50mg) 13 hours, 7 hours, and 1 hour before MRI scan on 11/09/22. (Patient not taking: Reported on 12/25/2024), Disp: 3 tablet, Rfl: 0 propranolol (Inderal) 10 MG tablet, Take 1 tablet (10 mg) by mouth 3 (three) times a day. THE RX ISWRITTEN UP TO 3 TIMES DAILY . (Patient not taking: Reported on 12/25/2024), Disp: , Rfl: tamoxifen (Nolvadex) 20 MG chemo tablet, Take by mouth. Take with water or any other nonalcoholic drink with or without food at around the same time(s) every day. (Patient not taking: Reported on 12/25/2024), Disp: , Rfl: traMADol (Ultram) 50 MG tablet, Take 1 tablet (50 mg) by mouth 3 (three) times a day. (Patient not taking: Reported on 12/25/2024), Disp: , Rfl: zinc gluconate 50 MG tablet, Take 1 tablet (50 mg) by mouth 1 (one) time each day. (Patient not taking: Reported on 12/25/2024), Disp: , Rfl: [5] Allergies Allergen Reactions Iodinated Contrast Media Vomiting Iodinated contrast media (substance) Hydrocodone Anxiety Sulfa Drugs Diarrhea documented in this encounter Plan of Treatment Upcoming Encounters Date Type Department Care Team (Late st Contact Info) Description 11/19/2025 9:00 AM EDT Appointment [facility] Radiology [address] [place] [address] 11/19/2025 11:00 AM EDT Office Visit [facility] [address] [place] [address] Yazmin Alex, DIRECTOR DISTRIBUTION [address] [place] [address] documented as of this encounter Results * CT Guided Inj Asp Major Joint or Bursa Left (01/05/2025 9:02 AM EDT) Anatomical Region Laterality Modality Left Computed Tomogra phy Impressions 01/05/2025 9:28 AM EDT Technically successful CT-guided injection of the left hip joint. CRITICAL RESULT: No. COMMUNICATION: Per this written report. By electronically signing this report, I, the attending physician, attest that I was present for the entire procedure(s) and agree with the final edited report. Drafted by Suellen Howard MD on 01/05/2025 9:07 AM Final report signed by Farhan Morales on 01/05/2025 9:28 AM Narrative 01/05/2025 9:28 AM EDT CLINICAL INDICATION: Left hip pain. COMPARISON: X-ray 12/25/2024. FINDINGS: Successful CT-guided injection of the left hip joint. PROCEDURE: Non Contrast CT guided injection of left hip joint. Potential benefits, alternatives and risks (including bleeding, infection and possible damage to the adjacent soft tissues) were explained to the patient. The patient voiced understanding and agreed to give verbal and written consent for the procedure to be completed. Informed consent was then signed and placed into the patient's medical chart. Appropriate time out was performed to confirm patient identity and planned procedure and side. TECHNIQUE: The patient was placed on the CT table in the supine position, and arcade game technician CT images were obtained to evaluate for planning. The patient was prepped and draped in the usual sterile fashion. Local anesthetic with 1% lidocaine was provided and the subcutaneous tissues were infiltrated. Under CT guidance, a 22-gauge guide needle was advanced to the left hip joint. 2.5 mL of Kenalog 60 mg and 0.25% bupivacaine was injected. Upon completion of the procedure, the needle was removed and hemostasis was achieved at the procedural site. The patient tolerated the procedure well, and was transferred to the waiting area in good condition. Total DLP (Dose-Length Product): 255.30 mGy.cm. Please note: The reported value represents the total of one or more individual components during the CT acquisition on this date and at this time, and as such, the same value may appear in more than one CT report depending on the interpreting/reporting physicians. Procedure Note Farhan Morales MD - 01/05/2025 CLINICAL INDICATION: Left hip pain. COMPARISON: X-ray 12/25/2024. FINDINGS: Successful CT-guided injection of the left hip joint. PROCEDURE: Non Contrast CT guided injection of left hip joint. Potential benefits,alternatives and risks (including bleeding, infection and possible damageto the adjacent soft tissues) were explained to the patient. The patientvoiced understanding and agreed to give verbal and written consent for theprocedure to be completed. Informed consent was then signed and placedinto the patient's medical chart. Appropriate time out was performed toconfirm patient identity and planned procedure and side. TECHNIQUE: The patient was placed on the CT table in the supine position, and scoutCT images were obtained to evaluate for planning. The patient was preppedand draped in the usual sterile fashion. Local anesthetic with 1%lidocaine was provided and the subcutaneous tissues were infiltrated.Under CT guidance, a 22-gauge guide needle was advanced to the left hipjoint. 2.5 mL of Kenalog 60 mg and 0.25% bupivacaine was injected. Uponcompletion of the procedure, the needle was removed and hemostasis wasachieved at the procedural site. The patient tolerated the procedure well, [facility] Total DLP (Dose-Length Product): 255.30 mGy.cm. Please note: The reportedvalue represents the total of one or more individual components during theCT acquisition on this date and at this time, and as such, the same valuemay appear in more than one CT report depending on theinterpreting/reporting physicians. IMPRESSION: Technically successful CT-guided injection of the left hip joint. CRITICAL RESULT: No. COMMUNICATION: Per this written report. By electronically signing this report, I, the attending physician, attestthat I was present for the entire procedure(s) and agree with the finaledited report. Drafted by Suellen Howard MD on 01/05/2025 9:07 AM Final report signed by Farhan Morales on 01/05/2025 9:28 AM us John Olivas MD IMG CT PROCEDURES Final Result * XR Hip Left 2 or 3 Views (12/25/2024 11:26 AM EDT) Anatomical Region Laterality Modality Lower Extremities, Hip Left Digital R adiography Impressions 12/25/2024 12:07 PM EDT Discrete changes described. CRITICAL RESULT: No. COMMUNICATION: Per this written report. Drafted by Toño Moore MD on 12/25/2024 12:04 PM Final report signed by Toño Moore MD on 12/25/2024 12:07 PM Narrative 12/25/2024 12:07 PM EDT CLINICAL INDICATION: pain TECHNIQUE: XR HIP LEFT 2 OR 3 VIEWS COMPARISON: August 18, 2024 FINDINGS: Redemonstration of ORIF in the proximal femur, with similar fracture of the third proximal most screw. The distal hardware was not imaged. Severe arthritis in the hip Ojce-ma-mboesddy degenerative changes the pubic symphysis. Diffuse osteopenia. No acute displaced fracture or dislocations. Surgical clip in the left pelvis. Procedure Note Toño De La Vega MD - 12/25/2024 CLINICAL INDICATION: pain TECHNIQUE: XR HIP LEFT 2 OR 3 VIEWS COMPARISON: August 18, 2024 FINDINGS: Redemonstration of ORIF in the proximal femur, with similar fracture ofthe third proximal most screw. The distal hardware was not imaged. Severe arthritis in the hip Rhfl-uh-mzpvmzre degenerative changes the pubic symphysis. Diffuse osteopenia. No acute displaced fracture or dislocations. Surgical clip in the left pelvis. IMPRESSION: Discrete changes described. CRITICAL RESULT: No. COMMUNICATION: Per this written report. Drafted by Toño Moore MD on 12/25/2024 12:04 PM Final report signed by Toño Moore MD on 2:07 PM us John Olivas MD IMG XR PROCEDURES Final Result documented in this encounter Visit Diagnoses Diagnosis Hip pain, left- Primary Pain in joint, pelvic region and thigh Hip pain, left Pain in joint, pelvic region and thigh Hip pain, left Pain in joint, pelvic region and thigh documented in this encounter Additional Health Concerns Assessment Noted Time A fall risk assessment has been complete d for the patient 12/25/2024 10:28 AM EDT A Body Mass Index follow-up plan has been documented for the patient 12/25/2024 12:05 PM EDT documented as of this encounter Care Teams Veneer Stacker Relationship Specialty Start Date End Date Ekta Singh, DIRECTOR DISTRIBUTION [address] [place] [address] PCP - General 07/31/24 documented as of this encounter
--- OUTSIDE RECORDS SUMMARY | 2024-12-25 09:31 | XMS_ITS | Encounter Summary ---
Author Organization Healthcare Address [address] [place] [address] Care Team Providers Care Paralegal Secretary Name Role Phone Ekta Singh APRN Primary Care Provider [phone] Encounter Details Date Type Department Care Team (Latest Contact Info) Description 12/25/2024 10:31 AM EDT - 12/25/2024 11:59 PM EDT [facility] [address] [place] [address] Hip pain, left Discharge Disposition: Home or Self Care Social [...] on file documented as of this encounter Medications at Time of Discharge amitriptyline (Elavil) 25 MG tablet Take 2 tablets (50 mg) by mouth every night. amitriptyline (Elavil) 50 MG tablet Take 1 tablet by mouth daily. 12/10/2024 baclofen (Lioresal) 10 MG tablet Take 10 [...] each day. Do not crush or chew. metoprolol succinate XL (Toprol-XL) 50 MG 24 hr tablet Take 1 tablet by mouth daily. 11/27/2024 oxyCODONE (Roxicodone) 5 MG immediate release tablet [...] by mouth 3 (three) times a day. Vitamin D-Vitamin K (Vitamin K2-Vitamin D3) 90-125 MCG capsule 11/18/2024 zinc gluconate 50 MG tablet Take 1 tablet (50 mg) by mouth 1 (one) time each day. documented as of this encounter Plan of Treatment Upcoming Encounters Date Type Department Care Team (Late st Contact Info) Description 11/19/2025 9:00 AM EDT Appointment [facility] [address] [place] [address] 11/19/2025 11:00 AM EDT Office Visit [facility] [address] [place] [address] Yazmin Alex, ASSISTANT COUNSEL [address] [facility] [address] [place] [address] documented as of this encounter Procedures Procedure Name Priority Date/Time Associated Diagnosis Comments XR HIP LEFT 2 OR 3 VIEWS Routine 12/25/2024 11:26 AM EDT Hip pain, left documented in this encounter Results * XR Hip Left 2 or 3 [...] not imaged. Severe arthritis in the hip Kzdx-bo-mynmspwz degenerative changes the pubic symphysis. Diffuse osteopenia. [...] not imaged. Severe arthritis in the hip Hrpq-js-qwyxndcd degenerative changes the pubic symphysis. Diffuse osteopenia. No acute displaced fracture or dislocations. Surgical clip in the left pelvis. IMPRESSION: Discrete changes described. CRITICAL RESULT: No. COMMUNICATION: Per this written report. Drafted by Toño Moore MD on 12/25/2024 12:04 PM Final report signed by Toño Moore MD on 2:07 PM John Ocasio MD IMG XR PROCEDURES Final Result documented in this encounter Visit Diagnoses Diagnosis Hip pain, left Pain in joint, pelvic region and thigh documented in this encounter Additional Health Concerns Assessment Noted Time A fall risk assessment has been complete d for the patient 12/25/2024 10:28 AM EDT A Body Mass Index follow-up plan has been documented for the patient 12/25/2024 12:05 PM EDT documented as of this encounter Care Teams Paralegal Secretary Relationship Specialty Start Date End Date Ekta Singh APRN [address] [place] [address] PCP - General 07/31/24 documented as of this encounter
--- OUTSIDE RECORDS SUMMARY | 2025-01-05 06:39 | XMS_ITS | Encounter Summary ---
Author Organization [facility] Address [address] [place] [address] Care Team Providers Care Motor Vehicles Inspector Name Role Phone Ekta Singh APRN Primary Care Provider [phone] Reason for Referral * Imaging (Routine) - Closed Specialty Diagnoses / Procedures Referred By Contac t Referred To Contact Radiology Diagnoses Hip pain, left Procedures CT Guided Inj Asp Major Joint or Bursa Left Consult to Interventional Radiology John Ocasio MD [address] [place] [address] Phone: tel: fax: Referral ID Status Reason Start Date Expiration Date Visits Re quested Visits Authorized [id number] Closed 12/25/2024 06/26/2026 1 1 Reason for Visit * Imaging (Routine) - Closed Specialty Diagnoses / Procedures Referred By Contac t Referred To Contact Radiology Diagnoses Hip pain, left Procedures CT Guided Inj Asp Major Joint or Bursa Left Consult to Interventional Radiology John Ocasio MD [address] [place] [address] Phone: tel: fax: Referral ID Status Reason Start Date Expiration Date Visits Re quested Visits Authorized [id number] Closed 12/25/2024 06/26/2026 1 1 Encounter Details Date Type Department Care Team (Latest Contact Info) Description 01/05/2025 7:39 AM EDT - 01/05/2025 11:59 PM EDT Hospital Encounter [facility] [address] [id number] Hip pain, left Discharge Disposition: Home or [...] each day. documented as of this encounter Miscellaneous Notes * Post-Procedure Note - Suellen Howard MBBS - 01/05/2025 8:00 AM EDT Radiology Brief Postprocedure Note Attending: Farhan Morales Hog Buyer: Suellen Howard Pre-operative Diagnosis: Left hip pain. Technical/Surgical Procedures Used: CT guided injection of the left hip joint. Specimen Obtained: No Complications: None Estimated Blood Loss: none Medications As of 01/05/25 0912 lidocaine PF (Xylocaine) 1 % injection 300 mg (mg) Total volume: 0.6 mL Date/Time Rate/Dose/Volume Action 01/05/25 0901 6 mg Given bupivacaine PF (Marcaine) 0.25 % injection 25 mg (mg) Total volume: 0.4 mL Date/Time Rate/Dose/Volume Action 01/05/25 0901 1 mg Given triamcinolone acetonide (Kenalog-40) injection 40 mg (mg) Total dose: 60 mg Date/Time Rate/Dose/Volume Action 01/05/25 0900 60 mg Given See detailed result report with images in PACS. The patient tolerated the procedure well without incident or complication and is in stable condition. * H&P - Suellen Howard MBBS - 01/05/2025 8:00 AM EDT Images from the original note were not included. Subjective Chief complaint Left hip pain History Of Present Illness Debbie Nesbitt is a 59 y.o. female presenting with left hip pain. We were consulted for intra articular left hip injection. Medical/Surgical/Social/Family History I have reviewed and updated the patient history. Travel History Relevant International Travel History: Travel Screening Question Response Have you been in contact with someone who was sick? No / Unsure Do you have any of the following new or worsening symptoms? Cough Have you traveled internationally or domestically in the last month? No Travel History Travel since 12/06/24 No documented travel since 12/06/24 Immunizations Reviewed Allergies Iodinated contrast media, Hydrocodone, and Sulfa drugs Medications Current Medications[1] Objective Review of Systems Constitutional: Negative. Skin: Negative. Physical Exam Constitutional: Appearance: Normal appearance. Neurological: Mental Status: She is alert. Last Recorded Vitals There were no vitals taken for this visit. Results Review I have reviewed the latest lab and imaging results. Assessment & Plan Hip pain, left CT guided injection in the left hip joint. Medically Ready for Discharge:Anticipated Today [1] Current Outpatient Medications Medication Sig Dispense Refill amitriptyline (Elavil) 25 MG tablet Take 2 tablets (50 mg) by mouth every night. amitriptyline (Elavil) 50 MG tablet Take 1 tablet by mouth daily. baclofen (Lioresal) 10 MG tablet Take 10 mg by mouth every night. PATIENT TAKES 0.5 TO 1 TABLET AT BEDTIME . (Patient not taking: Reported on 12/25/2024) biotin 5 MG capsule Take 5 capsules (25 mg) by mouth 2 (two) times a day. (Patient not taking: Reported on 12/25/2024) bisacodyl (Dulcolax) 5 MG EC tablet Take 1 tablet (5 mg) by mouth 1 (one) time each day if needed. (Patient not taking: Reported on 12/25/2024) busPIRone (Buspar) 10 MG tablet Take 1 tablet by mouth 2 times a day. Calcium Carb-Cholecalciferol 600-10 MG-MCG tablet Take 1 tablet by mouth 1 (one) time each day. calcium carbonate-vitamin D 600-400 MG-UNIT tablet Take 1 tablet by mouth 1 (one) time each day. cholecalciferol (Vitamin D3) 25 MCG (1000 UT) tablet Take 1 tablet (1,000 Units) by mouth 1 (one) time each day. dexlansoprazole (Dexilant) [address] capsule Take 60 mg by mouth 1 (one) time each day. Do not crushor chew. (Patient not taking: Reported on 12/25/2024) diclofenac (Voltaren) 1 % topical gel Place on the skin 2 (two) times a day. Apply as directed to areas of pain of the prominent hardware in the medial knee, lateral knee, lateral hip (Patient not taking: Reported on 12/25/2024) 200 g 1 diphenhydrAMINE (Benadryl) 50 MG tablet Take 1 tablet (50 mg) by mouth 1 (one) time for 1 dose. Take 2 hours prior to exam. (Patient not taking: Reported on 12/25/2024) 1 tablet 0 doxepin (SINEquan) 10 MG capsule Take 1 capsule (10 mg) by mouth every night. DULoxetine (Cymbalta) [address] capsule Take 60 mg by mouth 1 (one) time each day. Do not crush or chew. estradiol (Vagifem) 10 MCG tablet vaginal tablet Insert 1 tablet (10 mcg) into the vagina 2 (two) times a week. (Patient not taking: Reported on 12/25/2024) fenofibrate (Tricor) 145 MG tablet Take 1 tablet (145 mg) by mouth 1 (one) time each day. gabapentin (Neurontin) 100 MG capsule Take 1 capsule (100 mg total) by mouth 3 (three) times a day.(Patient not taking: Reported on 12/25/2024) 42 capsule 0 ibandronate (Boniva) 150 MG tablet TAKE 1 TABLET BY MOUTH ONCE EVERY MONTH lansoprazole (Prevacid) [address] capsule Take 1 capsule (30 mg) by mouth 2 (two) times a day. Do not crush or chew. meloxicam (Mobic) 7.5 MG tablet TAKE 1 TABLET ONCE DAILY (Patient not taking: Reported on 12/25/2024) 90 tablet 3 methocarbamol (Robaxin) 750 MG tablet Take 1 tablet (750 mg total) by mouth every 6 (six) hours if needed for muscle spasms for up to 10 days. (Patient not taking: Reported on 12/25/2024) 50 tablet 0 metoprolol succinate XL (Toprol-XL) 25 MG 24 hr tablet Take 1 tablet (25 mg) by mouth 1 (one) time each day. Do not crush or chew. metoprolol succinate XL (Toprol-XL) 50 MG 24 hr tablet Take 1 tablet by mouth daily. oxyCODONE (Roxicodone) 5 MG immediate release tablet Take 1 tablet (5 mg total) by mouth every 6 (six) hours if needed (pain unresponsive to other medications/interventions. Hold for sedation.). (Patient not taking: Reported on 12/25/2024) 20 tablet 0 predniSONE (Deltasone) 50 MG tablet Take 1 tablet (50 mg) by mouth See administration instructions for 3 doses. Take one tablet (50mg) 13 hours, 7 hours, and 1 hour before MRI scan on 11/09/22. (Patient not taking: Reported on 12/25/2024) 3 tablet 0 propranolol (Inderal) 10 MG tablet Take 1 tablet (10 mg) by mouth 3 (three) times a day. THE RX IS WRITTEN UP TO 3 TIMES DAILY . (Patient not taking: Reported on 12/25/2024) sucralfate (Carafate) 1 g tablet TAKE 1 TABLET BY MOUTH BEFORE MEALS AND 1 TABLET AT BEDTIME tamoxifen (Nolvadex) 20 MG chemo tablet Take by mouth. Take with water or any other nonalcoholic drink with or without food at around the same time(s) every day. (Patient not taking: Reported on 12/25/2024) traMADol (Ultram) 50 MG tablet Take 1 tablet (50 mg) by mouth 3 (three) times a day. (Patient not taking: Reported on 12/25/2024) Vitamin D-Vitamin K (Vitamin K2-Vitamin D3) 90-125 MCG capsule zinc gluconate 50 MG tablet Take 1 tablet (50 mg) by mouth 1 (one) time each day. (Patient not taking: Reported on 12/25/2024) No current facility-administered medications for this encounter. documented in this encounter Plan of Treatment Upcoming Encounters Date Type Department Care Team (Late st Contact Info) Description 11/19/2025 9:00 AM EDT Appointment [facility] [address] [place] [address] 11/19/2025 11:00 AM EDT Office Visit [facility] [address] [place] [address] Yazmin Alex, GRISTMILLER [address] [place] [address] documented as of this encounter Procedures Procedure Name Priority Date/Time Associated Diagnosis Comments CT GUIDED INJ ASP MAJOR JOINT OR BURSA LEFT Routine 01/05/2025 9:02 AM EDT Hip pain, left documented in this encounter Results * CT Guided Inj [...] CT table in the supine position, and chain sales representative CT images were obtained to evaluate for [...] the procedure well, [facility]. Total DLP [...] by Farhan Morales on 01/05/2025 9:28 AM John Ocasio MD IMG CT PROCEDURES Final Result documented in this encounter Visit Diagnoses Diagnosis Hip pain, left Pain in joint, pelvic region and thigh documented in this encounter Administered Medications Inactive Administered Medications - up to 3 most recent administrations Medication Order MAR Action Action Date Dose Rate Site bupivacaine PF (Marcaine) 0.25 % injection 25 mg 25 mg (10 mL), Injection, Once, 1 dose, On Sat01/05/25 at 0845, Routine, Imaging Protocol Orders Given 01/05/2025 9:01 AM EDT 1 mg Other lidocaine PF (Xylocaine) 1 % injection 300 mg 300 mg (30 mL), Injection, Once, 1 dose, On Sat01/05/25 at 0845, Routine, Imaging Protocol OrdersIndications:Local Anesthesia Given 01/05/2025 9:01 AM EDT 6 mg Other triamcinolone acetonide (Kenalog-40) injection 40 mg 40 mg, Intra-articular, Once, 1 dose, On Sat01/05/25 at 0845, Routine, Imaging Protocol Orders Given 01/05/2025 9:00 AM EDT 60 mg Other documented in this encounter Additional Health Concerns Assessment Noted Time A fall risk assessment has been complete d for the patient 12/25/2024 10:28 AM EDT A Body Mass Index follow-up plan has been documented for the patient 12/25/2024 12:05 PM EDT documented as of this encounter Care Teams Motor Vehicles Inspector Relationship Specialty Start Date End Date Ekta Singh APRN [address] [place] [address] PCP - General 07/31/24 documented as of this encounter
--- OUTSIDE RECORDS SUMMARY | 2025-02-10 08:49 | XMS_ITS | Encounter Summary ---
Author Organization Healthcare Address [address] [place] [address] Care Team Providers Care Wall Washer Name Role Phone MichelMikaylaNoemihetal Mccarthy DO Primary Care Provider [phone] Pcp, No Primary Care Provider Ekta Anderson MANAGER STRATEGY & ACCOUNT Primary Care Provider [phone] Encounter Details Date Type Department Care Team (Late st Contact Info) Description 05/24/2023 Orders Only External Location [address] [place] [address] Provider, External Social History Tobacco [...] EDT Appointment [facility] [address] [place] [address] 11/19/2025 11:00 AM EDT Office Visit [facility] [address] [place] [address] Yazmin Alex, MANAGER STRATEGY & ACCOUNT [address] [facility] [address] [place] [address] documented as of this encounter [...] documented as of this encounter Care Teams Wall Washer Relationship Specialty Start Date End Date Noemi Pearson DO [address] [place] [address] PCP - General 11/30/20 11/19/23 Pcp, Raven [address] [place] [address] PCP - General Family Medicine 11/20/23 07/30/24 Ekta Singh APRN [address] [place] [address] PCP - General 07/31/24 documented as of this encounter
--- OUTSIDE RECORDS SUMMARY | 2025-02-10 08:49 | XMS_ITS | Encounter Summary ---
Author Organization Healthcare Address [address] [place] [address] Care Team Providers Care Cloth Shearer Name Role Phone MichelMikaylaNoemihetal Mccarthy DO Primary Care Provider [phone] Pcp, No Primary Care Provider Ekta Anderson CARPENTRY SUPERVISOR Primary Care Provider [phone] Encounter Details Date Type Department Care Team (Late st Contact Info) Description 10/08/2023 Orders Only External Location [address] [place] [address] Provider, External Social History Tobacco [...] EDT Appointment [facility] [address] [place] [address] 11/19/2025 11:00 AM EDT Office Visit [facility] [address] [place] [address] Yazmin Alex, CARPENTRY SUPERVISOR [address] [facility] [address] [place] [address] documented as of this encounter [...] documented as of this encounter Care Teams Cloth Shearer Relationship Specialty Start Date End Date Noemi Pearson DO [address] [place] [address] PCP - General 11/30/20 11/19/23 P[place], [place] [address] PCP - General Family Medicine 11/20/23 07/30/24 Ekta Singh APRN [address] [place] [address] PCP - General 07/31/24 documented as of this encounter
--- OUTSIDE RECORDS SUMMARY | 2025-02-10 08:49 | XMS_ITS | Data Portability ---
Author Organization [place] [facility] [place] Address [address] [place] [address] Care Team Providers Care Certified Medical Coder Name Role Phone DANIEL GRACE Primary Care Provider [phone] Assessment Encounter Date Assessment Date Assessment LastModified [...] available 12:58:27 microalbumi n, urine 2022 023 [facility], [address] [place], [address], 3 09:01:21 urinalysis, dipstick 2022 023 [facility], [address] [place], [address], 3 09:01:21 Referral orthopedic surgeon referral 2022 023 [email or web address] 0 Jong Phan MD, [address] [facility], [address], [place], [address], 3 09:36:38 Procedures None recorded. Surgeries None recorded. Imaging None recorded. Medication Orders Paxlovid 300 mg (150 mg x 2)-100 mg tablets in a dose pack 2023 024 [facility], [address] [place], [address], 4 14:39:11 Dexilant 60 mg capsule, delayed release [address], [address] [place] [address], [address], 3 12:43:08 doxepin 10 mg capsule 2022 023 [facility], [address] [place] [address], [address], 3 08:55:14 amitriptyli ne 25 mg tablet 2022 023 [facility], [address] [place] [address], [address], 4 14:38:56 metoprolol succinate ER 50 mg tablet,exte nded release 24 hr 2022 023 [facility], [address] [place] [address], [address], 3 08:55:13 Dexilant 60 mg capsule, delayed release 2022 023 [facility], [address] [place] [address], [address], 3 08:55:15 duloxetine 60 mg capsule,del ayed release 2022 023 [facility], [address] [place] [address], [address], 3 08:55:14 Patient TargetsNo targets recorded. Patient InstructionsNo instructions recorded. Reason for Referral Orthopedic Surgeon Referral for Pain of left hip joint Referring Physician: Daniel Grace, Family Medicine, Encounter Date: 10/03/2022 Results Created Date Observation Date Name Description Value Unit Range Abnormal Flag Note LastModifiedBy Organization Detail LastModifiedTime 10/04/1910/03/2022 CBC AUTO W DIFF WBC 6.6 10 4.5-11 .5 Not Available [facility] (Lab Registration) [address] [place], [address], 10/03/2022 12:30:24 10/04/19 23 10/03/2022 CBC AUTO W DIFF RBC 4.85 10 4.25-5 .57 Not Available [facility] (Lab Registration) [address] [place], [address], 10/03/2022 12:30:24 10/04/19 23 10/03/2022 CBC AUTO W DIFF HGB 13.3 g/dL 12.0-1 5.7 Not Available [facility] (Lab Registration) [address] [place], [address], 10/03/2022 12:30:24 10/04/19 23 10/03/2022 CBC AUTO W DIFF HCT 40.8 % 36.0-4 7.0 Not Available [facility] (Lab Registration) [address] [place], [address], 10/03/2022 12:30:24 10/04/19 23 10/03/2022 CBC AUTO W DIFF MCV 84.1 fL 80-95 Not Available [facility] (Lab Registration) [address] [place], [address], 10/03/2022 12:30:24 10/04/19 23 10/03/2022 CBC AUTO W DIFF MCH 27.4 pg 27.0-3 4.0 Not Available [facility] (Lab Registration) [address] [place], [address], 10/03/2022 12:30:24 10/04/19 23 10/03/2022 CBC AUTO W DIFF MCHC 32.6 g/dL 32.0-3 6.0 Not Available [facility] (Lab Registration) [address] [place], [address], 10/03/2022 12:30:24 10/04/19 23 10/03/2022 CBC AUTO W DIFF platelet count 326 10 150-45 0 Not Available [facility] (Lab Registration) [address] [place], [address], 10/03/2022 12:30:24 10/04/19 23 10/03/2022 CBC AUTO W DIFF RDW 13.9 % 12.3-1 5.1 Not Available [facility] (Lab Registration) [address] [place], [address], 10/03/2022 12:30:24 10/04/19 23 10/03/2022 CBC AUTO W DIFF MPV 10.7 fL 7.4-10 .4 high Not Available [facility] (Lab Registration) [address] [place], [address], 10/03/2022 12:30:24 10/04/19 23 10/03/2022 CBC AUTO W DIFF granulocyte% 44.0 % 40-75 Not Available [facility] (Lab Registration) [address] [place], [address], 10/03/2022 12:30:24 10/04/19 23 10/03/2022 CBC AUTO W DIFF lymphocyte% 41.1 % 15-57 Not Available [facility] (Lab Registration) [address] [place], [address], 10/03/2022 12:30:24 10/04/19 23 10/03/2022 CBC AUTO W DIFF monocyte% 7.9 % 4.0-12 .0 Not Available [facility] (Lab Registration) [address] [place], [address], 10/03/2022 12:30:24 10/04/19 23 10/03/2022 CBC AUTO W DIFF eosinophil% 6.2 % 0.0-4. 0 high Not Available [facility] (Lab Registration) [address] [place], [address], 10/03/2022 12:30:24 10/04/19 23 10/03/2022 CBC AUTO W DIFF basophil% 0.8 % 0.0-1. 0 Not Available [facility] (Lab Registration) [address] [place], [address], 10/03/2022 12:30:24 10/04/19 23 10/03/2022 CBC AUTO W DIFF immature granulocytes % 0.0 % 0.0-0. 8 Not Available [facility] (Lab Registration) [address] [place], [address], 10/03/2022 12:30:24 10/04/19 23 10/03/2022 CBC AUTO W DIFF granulocyte# 2.91 10 Not Available [facility] (Lab Registration) [address] [place], [address], 10/03/2022 12:30:24 10/04/19 23 10/03/2022 CBC AUTO W DIFF lymphocyte# 2.72 10 Not Available [facility] (Lab Registration) [address] [place], [address], 10/03/2022 12:30:24 10/04/19 23 10/03/2022 CBC AUTO W DIFF monocyte# 0.52 10 Not Available [facility] (Lab Registration) [address], [place], [address], 10/03/2022 12:30:24 10/04/19 23 10/03/2022 CBC AUTO W DIFF eosinophil# 0.41 10 Not Available [facility] (Lab Registration) [address], [place], [address], 10/03/2022 12:30:24 10/04/19 23 10/03/2022 CBC AUTO W DIFF basophil# 0.05 10 Not Available [facility] (Lab Registration) [address] [place], [address], 10/03/2022 12:30:24 10/04/19 23 10/03/2022 CBC AUTO W DIFF immature granulocytes # 0.00 10 Not Available [facility] (Lab Registration) [address] [place], [address], 10/03/2022 12:30:24 10/04/19 23 10/03/2022 CBC AUTO W DIFF manual differential NO Not Available [facility] (Lab Registration) [address], [place], [address], 10/03/2022 12:30:24 10/04/19 23 10/03/2022 CBC AUTO W DIFF note Unles s other crowley noted testi ng perfo [facility]med at: [facility] [address] [place] [address] [phone] Reynold franz MD CLIA: [id number] Not Available [facility] (Lab Registration) [address] [place], [address], 10/03/2022 12:30:24 10/04/19 23 10/03/2022 HEMOG LOBIN A1C glycosylated hemoglobin A1C 5.8 % 4.5-6. 2 Not Available [facility] (Lab Registration) [address], [place], [address], 10/03/2022 12:57:14 10/04/19 23 10/03/2022 HEMOG LOBIN A1C estimated average glucose 120 mg/dL 82-131 Not Available [facility] (Lab Registration) [address], [place], [address], 10/03/2022 12:57:14 10/04/19 23 10/03/2022 HEMOG LOBIN A1C note Zuly franz other crowley noted testi ng perfo rmed at: [facility] [address] [place] [address] [phone] Reynold franz MD CLIA: [id number] Not Available [facility] (Lab Registration) [address] [place], [address], 10/03/2022 12:57:14 10/04/19 23 10/03/2022 THYRO ID STIMU LATIN G HORMO NE thyroid stimulating hormone 1.16 mIU/m L 0.34-4 .80 Not Available [facility] (Lab Registration) [address], [place], [address], 10/03/2022 12:58:27 10/04/19 23 10/03/2022 THYRO ID STIMU LATIN G HORMO NE note Zuly crowley noted testi ng perfo rmed at: [facility] [address] [place] [address] [phone] Reynold franz MD CLIA: [id number] Not Available [facility] (Lab Registration) [address] [place], [address], 10/03/2022 12:58:27 10/04/19 23 10/03/2022 COMP METAB OLIC PANEL sodium 141 mmol/ L 136-14 5 Not Available [facility] (Lab Registration) [address] [place], [address], 10/03/2022 12:58:29 10/04/19 23 10/03/2022 COMP METAB OLIC PANEL potassium 4.7 mmol/ L 3.5-5. 1 Not Available [facility] (Lab Registration) [address] [place], [address], 10/03/2022 12:58:29 10/04/19 23 10/03/2022 COMP METAB OLIC PANEL chloride 104 mmol/ L 98-107 Not Available [facility] (Lab Registration) [address] [place], [address], 10/03/2022 12:58:29 10/04/19 23 10/03/2022 COMP METAB OLIC PANEL carbon dioxide 31 mmol/ L 21-32 Not Available [facility] (Lab Registration) [address] [place], [address], 10/03/2022 12:58:29 10/04/19 23 10/03/2022 COMP METAB OLIC PANEL anion gap 6.0 Not Available [facility] (Lab Registration) [address] [place], [address], 10/03/2022 12:58:29 10/04/19 23 10/03/2022 COMP METAB OLIC PANEL glucose 91 mg/dL 70-110 Not Available [facility] (Lab Registration) [address] [place], [address], 10/03/2022 12:58:29 10/04/19 23 10/03/2022 COMP METAB OLIC PANEL blood urea nitrogen 14 mg/dL 7-18 Not Available [facility] (Lab Registration) [address] [place], [address], 10/03/2022 12:58:29 10/04/19 23 10/03/2022 COMP METAB OLIC PANEL creatinine 0.9 mg/dL 0.6-1. 0 Not Available [facility] (Lab Registration) [address] [place], [address], 10/03/2022 12:58:29 10/04/19 23 10/03/2022 COMP METAB OLIC PANEL BUN/creatini ne ratio 15.6 ratio 9-21 Not Available [facility] (Lab Registration) [address], [place], [address], 10/03/2022 12:58:29 10/04/19 23 10/03/2022 COMP METAB OLIC PANEL estimated glom filtration rate 68 mL/mi n >60- Not Available [facility] (Lab Registration) [address], [place], [address], 10/03/2022 12:58:29 10/04/19 23 10/03/2022 COMP METAB OLIC PANEL total protein 7.6 g/dL 6.4-8. 2 Not Available [facility] (Lab Registration) [address], [place], [address], 10/03/2022 12:58:29 10/04/19 23 10/03/2022 COMP METAB OLIC PANEL albumin 3.8 g/dL 3.4-5. 0 Not Available [facility] (Lab Registration) [address], [place], [address], 10/03/2022 12:58:29 10/04/19 23 10/03/2022 COMP METAB OLIC PANEL calcium 9.0 mg/dL 8.5-10 .1 Not Available [facility] (Lab Registration) [address] [place], [address], 10/03/2022 12:58:29 10/04/19 23 10/03/2022 COMP METAB OLIC PANEL corrected calcium 9.2 mg/dL 8.5-10 .1 Not Available [facility] (Lab Registration) [address] [place], [address], 10/03/2022 12:58:29 10/04/19 23 10/03/2022 COMP METAB OLIC PANEL bilirubin total 0.2 mg/dL 0.4-1. 5 low Not Available [facility] (Lab Registration) [address], [place], [address], 10/03/2022 12:58:29 10/04/19 23 10/03/2022 COMP METAB OLIC PANEL AST (SGOT) 24 U/L 15-37 Not Available [facility] (Lab Registration) [address], [place], [address], 10/03/2022 12:58:29 10/04/19 23 10/03/2022 COMP METAB OLIC PANEL ALT (SGPT) 40 U/L 12-78 Not Available [facility] (Lab Registration) [address], [place], [address], 10/03/2022 12:58:29 10/04/19 23 10/03/2022 COMP METAB OLIC PANEL alk phosphatase 94 U/L 50-120 Not Available [facility] (Lab Registration) [address], [place], [address], 10/03/2022 12:58:29 10/04/19 23 10/03/2022 COMP METAB OLIC PANEL note Unles s other crowley noted testi ng perfo rmed at: [facility] [address] [place] [address] [phone] Reynold franz MD CLIA: [id number] Not Available [facility] (Lab Registration) [address], [place], [address], 10/03/2022 12:58:29 10/04/19 23 10/03/2022 LIPID PANEL triglyceride 506 mg/dL 20-200 high The Natio nal Tonya stero l Educa tion Progr am (NCEP ) has set the follo wing guide lines for Fasti ng Trigl yceri luis: ADA L: <150 mg/dL BORDE RLINE HIGH: 150 - 199 mg/dL HIGH: 200 - 499 mg/dL VERY HIGH: > or =500 mg/dL Not Available [facility] (Lab Registration) [address] [place], [address], 10/03/2022 12:58:30 10/04/19 23 10/03/2022 LIPID PANEL cholesterol 239 mg/dL 0-200 high The Natio nal Tonya st[employer] l Educa tion Progr am (NCEP ) has set the follo wing guide lines for Fasti ng Tonya stero l: MARAH ABLE: <200 mg/dL BORDE RLINE HIGH: 200 - 239 mg/dL HIGH: > or =240 mg/dL Not Available [facility] (Lab Registration) [address] [place], [address], 10/03/2022 12:58:30 10/04/19 23 10/03/2022 LIPID PANEL HDL cholesterol 28 mg/dL 60- low The Natio nal Tonya st[employer] l Educa tion Progr am (NCEP ) has set the follo wing guide lines for Fasti ng HDL Tonya stero l: LOW HDL: <40 mg/dL ADA L: 40 - 60 mg/dL MARAH ABLE: >60 mg/dL Not Available [facility] (Lab Registration) [address], [place], [address], 10/03/2022 12:58:30 10/04/19 23 10/03/2022 LIPID PANEL [...] > or = 190 mg/dL Not Available [facility] (Lab Registration) [address] [place], [address], 10/03/2022 12:58:30 10/04/19 23 10/03/2022 LIPID PANEL chol/HDL ratio 9 ratio -5 high Not Available [facility] (Lab Registration) [address] [place], [address], 10/03/2022 12:58:30 10/04/19 23 10/03/2022 LIPID PANEL note Unles s other crowley noted testi ng perfo rmed at: [facility] [address] [place] [address] [phone] Reynold franz MD CLIA: [id number] Not Available [facility] (Lab Registration) [address] [place], [address], 10/03/2022 12:58:30 10/04/19 23 10/03/2022 urina lysis , dipst ick Leukocytes (reference range) negati ve Not Available [address] [place], [address], 10/03/2022 08:46:44 10/04/19 23 10/03/2022 urina lysis , dipst ick Nitrite (reference range:) negati ve Not Available [place] [address] [place], [address], 10/03/2022 08:46:44 10/04/19 23 10/03/2022 urina lysis , dipst ick Urobilinogen (reference range) 0.2 Not Available [place] [address] [place], [address], 10/03/2022 08:46:44 10/04/19 23 10/03/2022 urina lysis , dipst ick Protein (reference range) 30 Not Available [place] [address] [place], [address], 10/03/2022 08:46:44 10/04/19 23 10/03/2022 urina lysis , dipst ick pH (reference range 5-8.5) 5.5 Not Available [place] [address] [place], [address], 10/03/2022 08:46:44 10/04/19 23 10/03/2022 urina lysis , dipst ick Blood (reference range:) negati ve Not Available [address] [place], [address], 10/03/2022 08:46:44 10/04/19 23 10/03/2022 urina lysis , dipst ick Specific Cove (reference range) 1.030 Not Available [address] [place], [address], 10/03/2022 08:46:44 10/04/19 23 10/03/2022 urina lysis , dipst ick Ketone (reference range) negati ve Not Available [address] [place], [address], 10/03/2022 08:46:44 10/04/19 23 10/03/2022 urina lysis , dipst ick Bilirubin (reference range) negati ve Not Available [address] [place], [address], 10/03/2022 08:46:44 10/04/19 23 10/03/2022 urina lysis , dipst ick Glucose (reference range) negati ve Not Available [place] [address] [place], [address], 10/03/2022 08:46:44 10/04/19 23 10/03/2022 urina lysis , dipst ick Color (reference range: yellow-brown ) Yellow Not Available [address] [place], [address], 10/03/2022 08:46:44 10/04/19 23 10/03/2022 micro album in, urine Microalbumin 80mg/L Abnorm al Not Available [place] [address] [place], [address], 10/03/2022 08:46:43 11/28/19 23 11/27/2022 imagi ng inter preta tion No observ ation record ed. [facility] [address], [place], [address], 11/28/2022 08:20:28 12/21/19 23 12/20/2022 XR, foot No observ ation record ed. [facility] [address], [place], [address], 12/20/2022 12:13:11 12/21/19 23 12/20/2022 XR, foot No observ ation record ed. [facility] [address], [place], [address], 12/20/2022 12:12:58 07/01/19 24 07/01/2023 imagi ng inter preta tion No observ ation record ed. [facility] [address] [place] [address] [place], [address], 07/02/2023 08:20:18 10/17/19 24 10/16/2023 imagi ng inter preta tion No observ ation record ed. [facility] (Registration ) [address] [place] [address] [place], [address], 10/17/2023 07:56:37 Result Notes None recorded. Problems Name Problem SNOMED Code Status Onset Date Resolution Date Notes Provider Name and Address Organization Details Recorded Time Fibromyalgia 308675880 Active 2021 SRINIVASA Ramos - [place] - [place] & [place] 2 08:11:26 Mixed anxiety and depressive disorder 532173594 Active 2021 SRINIVASA Ramos - [place] - [place] & [place] 2 08:11:35 Gastroesophag eal reflux disease 430304674 Active 2021 Melissa Pardini null, [place] & [place] 2 08:11:41 Restless legs syndrome 45838585 Active 2021 Melissa [place] & [place] 2 08:11:51 Insomnia 901281056 Active 2021 Melissa [place] & [place] 2 08:11:59 Essential hypertension 53660911 Active 2021 Melissa [place] & [place] 2 08:12:08 Essential tremor 050853316 Active 2021 Melissa [place] & [place] 2 08:13:03 Hyperlipidemi a 49314364 Active 2021 Melissa P[place] null[place] & [place] 2 08:14:29 Osteoporosis 75695651 Active 2021 Daniel Grace MD [address] [place], [address] , [place] [facility] [place] 2 08:35:25 Seasonal allergy 892757475 Active 2021 Daniel Grace MD [address] [place], [address] , [place] [facility] & [place] 2 08:35:43 Hiatal hernia 64451520 Active 2022 Tess Perry NP [address], [address], [place], [address] , [place] - [place] & [place] 3 13:03:59 Gastro-esopha geal reflux disease with esophagitis 414285469 Active 2022 Tess Perry NP [address], [address], [place], [address] , [place] [facility] & [place] 3 13:06:30 Problem Notes None recorded. Procedures Surgical History Date Name Laterality Status Provider Name and Address Organization Details Recorded Time 01/30/20 22 Date of Last Colonoscopy completed Melissa Tatei [place] 03/06/2022 15:34:15 01/30/20 22 Colonoscopy completed Tess Perry NP [address] [facility], [address], [place], [address], [place] [facility] [place] & [place] 03/04/2023 13:06:59 07/05/19 21 Most Recent Bone Density completed Melissa Moosedini [place] & [place] 03/06/2022 15:34:15 total knee replacement completed Emily Hernandezord [place] - [place] & [place] 02/01/2022 10:00:14 Cholecystectomy completed Emily Boogie [place] - [place] & [place] 02/01/2022 10:00:22 procedure on hand completed Emilysissy Hyman [place] - [facility] - [place] & [place] 02/01/2022 10:00:46 Hysterectomy completed Emily Hernandezord [place] - [facility] - [place] & [place] 02/01/2022 10:00:54 procedure on femur completed Emily Hernandezord [place] [facility] - [place] & [place] 02/01/2022 10:01:10 Imaging Results None recorded. Procedure Notes None recorded. Medical Equipment None Reported. Allergies Allergen ID Allergen Name Allergen Category Reaction Reaction Severity Criticality Documentation Date Start Date Code Code System Note Provider Name and Address Organization Details Recorded Time 25374 Substance with sulfonami de structure and antibacte rial mechanism of action (substanc e) medicatio n Not available Not available Not available 02/01/2022 07031 8003 SNOMED Emily Boogie null, [place] [facility] - [place] & [place] 2 09:57:14 38005 acetamino phen / hydrocodo ne medicatio n Not available Not available Not available 02/01/2022 61631 2 RxNorm Emily Boogie null, [place] - [facility] - [place] & [place] 2 09:57:20 Medications Name Sig Start Date [...] lansoprazol e 30 mg capsule,del ayed release DENIED-NO LONGER UNDER [facility] active Not Available Not Available No t [...] Pulse oximetry Heart rate Respiratory rate Systolic And Diastolic Provider Name and Address Organization Details Last Updated DateTime 4 158.75 cm 29.7 kg/m2 51246.7 4 g 97.5 [degF] 98 % 98 % 88 /min 18 /min 146/86 mm[Hg] Scott Alvarado [facility] & [place] 4 14:42:48 Date Recorded Body height Body mass index (BMI) Body weight Body temperature Oxygen saturation Oxygen saturation in Arterial blood by Pulse oximetry Heart rate Respiratory rate Systolic And Diastolic Provider Name and Address Organization Details Last Updated DateTime 4 158.75 cm 30.2 kg/m2 16960.0 8 g 97.3 [degF] 96 % 96 % 80 /min 16 /min 150/98 mm[Hg] [facility] & [place] 4 14:38:22 Date Recorded Body height Body mass index (BMI) Body weight Body temperature Oxygen saturation Oxygen saturation in Arterial blood by Pulse oximetry Heart rate Respiratory rate Systolic And Diastolic Provider Name and Address Organization Details Last Updated DateTime 3 158.75 cm 30.3 kg/m2 54953.9 6 g 97.3 [degF] 99 % 99 % 70 /min 16 /min 117/81 mm[Hg] [facility] & [place] 3 08:46:57 Date Recorded Body height Body mass index (BMI) Body weight Body temperature Oxygen saturation Oxygen saturation in Arterial blood by Pulse oximetry Heart rate Provider Name and Address Organization Details Last Updated DateTime 3 158.75 cm 29.3 kg/m2 57263.5 6 g 97.3 [degF] 97 % 97 % 86 /min Fabiola Sebastian [facility] & [place] 3 10:22:12 Social History Question Answer Notes LastModified by Organizat [employer] Details LastModified Time Tobacco Smoking Status [facility] [place] 02/01/2022 10:00:03 Do You Have An Advance Directive? No Information not available 03/06/2022 Are You Blind Or Do You Have Difficulty Seeing? Yes Information not available 03/06/2022 What Is Your Level Of Caffeine Consumption? Occasional [email or web address] Information not available 04/29/2023 What Was The Date Of Your Most Recent Tobacco Screening? 02/26/2022 Information not available 03/06/2022 Are You Passively Exposed To Smoke? No Information not available 03/06/2022 Has Tobacco Cessation Counseling Been Provided? No [email or web address] Information not available 04/29/2023 Sex: Female Functional Status Question Answer Note LastModified by Organ[employer] Details LastModified Time Do you use any illicit or recreational drugs? No Information not available 02/14/2022 Do you or have you ever used any other forms of tobacco or nicotine? No [email or web address] Information not available 04/29/2023 What is your level of alcohol consumption? None Information not available 02/14/2022 What is your exercise level? Occasional Information not available 03/06/2022 Mental Status Question Answer Note LastModified by Organization D etails LastModified Time Do you feel stressed (tense, restless, nervous, or anxious, or unable to sleep at night)? [id number] Information not available 03/06/2022 Family History Relationship Description Onset Age of this Age Resolved Age Notes LastModified by Organization Details LastModified Time Father Hyperlipidem ia deceas ed [email or web address] Not available 08/28/2023 13:55:32 Father Cerebrovascu lar accident dece[place] ed Not available 02/01/2022 09:58:43 Father Disorder of thyroid gland deceas ed Not available 02/01/2022 09:59:03 Father Heart disease [email or web address] Not available 02/01/2022 09:59:19 Father Essential hypertension [facility] - Not available 08/28/2023 13:55:32 Father Malignant neoplasm of lung [facility] - Not available 08/28/2023 13:55:32 Medical History [...] Melissa [place] & [place] 02/14/2022 08:09:56 Hep A, adult 9 completed Melissa [place] 02/14/2022 08:09:56 Influenza, split virus, trivalent, PF 4 completed Melissa [place] & [place] 02/14/2022 08:09:56 zoster recombinant 8 completed Melissa [place] 02/14/2022 08:09:56 COVID-19 vaccine, vector-nr, rS-Ad26, PF, 0.5 mL 1 completed Melissa [place] & [place] 02/14/2022 08:09:56 Hep B, adult 9 completed Melissa Pardini null, [place] - [facility] [place] & [place] 02/14/2022 08:09:56 Hep B, adult 8 completed Melissa [place] [facility] [place] 02/14/2022 08:09:56 COVID-19, mRNA, LNP-S, bivalent, PF, 50 mcg/0.5 mL or 25mcg/0.25 mL dose 2 completed Mindi Bassett null[place] [facility] [place] 08/19/2023 07:40:25 Hep A, adult 8 completed Melissa Moosedini [place] [facility] [place] 02/14/2022 08:09:56 Influenza, split virus, quadrivalent, PF 8 completed Melissa Pard[place] [facility] [place] 02/14/2022 08:09:56 Hep B, adult 8 completed Melissa [place] [facility] [place] 02/14/2022 08:09:56 Influenza, split virus, quadrivalent, PF 3 completed Daniel Grace MD [address] [place] [address], [phone], [place] [facility] [place] 01/22/2023 15:34:48 Past Encounters Encounter ID Performer Location Encounter Start Date Encounter Closed Date Diagnosis/Indication Diagnosis SNOMED-CT Code Diagnosis ICD10 Code Diagnosis IMO Codes Diagnosis Note [id number] Belinda Lemus MD [facility] [address] [place] [address] 02/07/2022 07:45:55 02/07/2022 08:54:19 Essential tremor 039729128 G25.0 would like to consolidat e her beta-block ers, will increase metoprolol to 50 mg and stop Inderal. Also recommend continuing low-dose Xanax at bedtime this seems to have been very helpful for her. Patient will follow up with me over the next 2-3 weeks for blood pressure check. Generalize d anxiety disorder 29290769 F41.1 Fibromyalgia 688689367 M 79.7 [id number] Daniel Grace MD [id number] [address] 02/14/2022 07:54:01 02/14/2022 09:05:43 Fibromyalgia 893546653 M79.7 patient is currently under the care of Dr.MOBERLY fernando bonilla in [place]. She also sees neurology Gastroesop hageal reflux disease 338630287 K21.9 patient states she had a colonoscop y last month. She is being taking care of by Dr. Fischer. She also mentions that she has been diagnosed with IBS C She is currently on lansoprazo le Hyperlipidemia 22731277 E78.5 patient is currently on fenofibrat e. Will obtain lab work today. labs drawn by Micaela PHILLIPS AC Insomnia 455204701 G47.0 0 patient takes alprazolam and amitriptyl ine for this. Mixed anxi ety and depressive disorder 110754523 F41.8 Patient is currently on duloxetine Essential hypertension 35423164 I10 controlled with metoprolol Osteoporosis 15631676 M8 1.0 patient is requesting a Prolia shot. We will order the medication . Her calcium levels are pending. Essential tremor 3064753 09 G25.0 patient takes metoprolol . She is also on doxepin [id number] Belinda Lemus MD [facility] [address] [place] [address] 0 02/28/2022 07:53:26 02/28/2022 08:44:52 Essential tremor 370488517 G25.0 overall doing well with metoprolol , would like to continue for now, will use p.r.n. low-dose Xanax as necessary. Medication s have been refilled today. [id number] Daniel Grace MD [address] [address] 03/06/2022 15:22:29 03/06/2022 16:04:57 Acute cystitis 44828988 N30.00 will treat with antibiotic s empiricall y. Will send her sample for cultures. [id number] Daniel Grace MD [place] [id number] 1 03/27/2022 08:36:39 03/27/2022 09:06:43 Influenza-like symptoms 492512170 R68.89 patient tested negative for influenza as well as COVID-19. Due to her premorbid conditions we will treat her with a Z-Leander and a steroid Dosepak. Should her symptoms worsen she has been instructed to go to the emergency department . [id number] Daniel Grace MD [address] [place] [address] 10/03/2022 08:28:43 10/03/2022 09:00:03 Essential hypertension 48799893 I10 controlled with metoprolol blood drawn in the right AC by Melissa Shook CMA, patient tolerated well. Hyperlipidemia 70869028 E78.5 patient is currently on fenofibrat e. 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 Gastroesop hageal reflux disease 684416257 K21.9 patient states she had a colonoscop y In December 2021. She is being taking care of by Dr. Fischer. She also mentions that she has been diagnosed with IBS C She is currently on lansoprazo le Insomnia 390976462 G47.0 0 patient takes alprazolam and amitriptyl ine for this. Essential tremor 7642762 09 G25.0 patient takes metoprolol . She is also on doxepin Pain of le ft hip joint 1617158665 [address] PHAN [id number] [facility] at [address] [place] [address] 10/17/2022 07:53:34 10/17/2022 09:10:59 [id number] DOROTHY RESTREPO Therapeukevin ic [facility] ions at [address] [place] [address] 10/31/2022 10:11:33 11/05/2022 15:09:35 [id number] D[facility]OT[facility] ic [facility] ions at [address] [place] [address] 11/22/2022 08:44:41 11/22/2022 09:42:13 [id number] DOROTHY [facility] at [address] [place] [address] 12/20/2022 08:43:46 12/20/2022 09:15:40 [id number] [facility] Therapeut ic [facility] ions at [address] [place] [address] 12/26/2022 12:23:31 12/26/2022 13:59:00 [id number] DOROTHY [facility]rape[facility] ions at [address] [place] [address] 01/22/2023 13:52:45 01/22/2023 15:39:28 [id number] Daniel Grace MD [address] [place] [address] 01/22/2023 15:08:06 01/22/2023 15:21:07 Administration of influenza vaccine 49799119 Z23 [id number] Tess Perry NP [address] [place] [address] 03/04/2023 09:59:50 03/04/2023 13:10:18 Gastro-esophageal reflux disease with esophagitis 492220044 K21.00 Continues lansoprazo le 30 mg p.o. [...] for treatment. History of polyp of colon 684574035 Z86.010 Colonoscop y 01/29/2022 with polyps resected consistent with tubular adenomas negative for high-grade dysplasia. Plan to repeat colonoscop y 12/2024 for surveillan ce. Hiatal hernia 75157292 K 44.9 Small hiatal hernia noted on EGD 05/2021. [id number] D[facility]OTHY [facility] at [address] [place] [address] 03/14/2023 08:38:04 03/18/2023 13:09:19 [id number] DOROTHY [facility] ions at [address] [place] [address] 04/15/2023 07:55:10 04/15/2023 09:58:56 [id number] Murali Marshall MD [address] [place] [address] 04/29/2023 14:13:20 05/01/2023 16:07:39 Infection of upper respiratory tract caused by SARS-CoV-2 8819323158 341984 U07.1 patient's symptoms in 2 positive home tests correlate with COVID-19. We will proceed with treatment. Discussed isolation. . Seek medical care symptoms become severe [id number] DOROTHY [facility] ic Intervent ions at [address] [place] [address] 05/17/2023 09:16:24 05/17/2023 10:36:53 [id number] DOROTHY [facility]rape[facility] ions at [address] [place] [address] 06/28/2023 08:40:44 06/28/2023 12:06:22 [id number] DOROTHY [facility] ic [facility] ions at [address] [place] [address] 08/05/2023 09:30:22 08/05/2023 10:56:51 [id number] Daniel Grace MD [address] [place] [address] 08/28/2023 13:55:17 08/28/2023 14:45:28 Pre-surgery evaluation 139548467 Z01.818 patient has been cleared for surgery. [id number] D[facility]OT[facility] ic Inter[facility] ions at [address] [place] [address] 09/04/2023 14:24:21 09/10/2023 13:27:04 [id number] DOROTHY RESTREPO Therapeut ic Intervent ions at [facility] [address] [facility] [place] [address] 10/09/2023 10:44:13 10/09/2023 12:11:17 Health Concerns Section Related Observation LastModified by Organization Detai ls LastModified Time None Recorded Concern Status LastModified by Organization Details LastModified Time None Recorded Advance Directives Directive N: Payers Insurance Date Sequence Insurance Name Policy Number Policy Shah Covered Member ID Shah Member ID Guarantor Name 03/02/2024 1 [place] [employer] [id number] Debbie Nesbitt [id number] Debbie Nesbitt 10/19/2023 1 [place] [id number] Debbie Nesbtit [id number] Debbie Nesbitt Notes Date Note Type Note Provider Name and Address Organization Details Recorded Time 3 text/html PT PRESENTS FOR CHRONIC CARE MANAGEMENT, DENIES ANY NEW ISSUES. IS COMPLIANT WITH MEDICATIONSPATIENT ALSO COMPLAINS OF LEFT GROIN PAIN Daniel Grace MD [address], [place], [address], [facility] & [place] 10/03/2022 11:01:03 3 text/html Patient returns to [...] colonoscopy 01/2025 for surveillance. Tess Perry NP [address] [place] [address], [address], [place], [address], [facility] & [place] 03/04/2023 13:07:22 4 text/html ROS as noted in the HPI patient is seen today for acute visit. [...] also has body aches. Murali Marshall MD [address] [place] [address], [phone], [facility] & [place] 04/29/2023 16:49:02 4 text/html patient presents today for preop clearance. She is having a total hip replacement and removal of hardware in her left lower extremity performed. Daniel Grace MD [address] [place] [address], [phone], [facility] & [place] 08/28/2023 14:40:42 OBGyn Episode No OBEpisode recorded.
--- OUTSIDE RECORDS SUMMARY | 2025-02-10 08:49 | XMS_ITS | Data Portability ---
Author Organization [facility] DEIS You [place] CLOSED Address [address] [place] [address] Care Team Providers Care Vehicle Care Specialist Name Role Phone ABRAMVALENTINANATALIA ManzoRAHUL Primary Care Provider Assessment Encounter Date Assessment [...] e + normetaneph rine, plasma 2022 023 [facility], [address] [place] [address], [place], [address], 16:17:03 TSH, serum or plasma 2022 023 [facility], [address] [place], [address], 3 11:15:22 T4, free, serum 2022 023 [facility], [address] [place], [address], 3 11:15:20 Referral behavioral health referral - History of depression and anxiety, on Lexapro but still with significant anxiety reaction. Have recommended behavioral health evaluation. 2022 023 nia 5 [facility], [address], [place], [address], 3 13:48:57 Procedures None recorded. Surgeries None recorded. Imaging None recorded. Medication Orders tramadol 50 mg tablet 2023 024 [facility], [address] [place] [address], [address], 4 16:13:55 duloxetine 60 mg capsule,del ayed release 2023 024 [facility] [address], [address] [place] [address], [address], 4 16:13:51 amitriptyli ne 50 mg tablet 2023 024 [facility] [address], [address] [place] [address], [address], 4 16:13:53 doxepin 10 mg capsule 2023 024 [facility] [address], [address] [place] [address], [address], 4 16:13:54 tramadol 50 mg tablet 2022 023 [facility], [facility] [place], [address], 3 16:04:37 amitriptyli ne 25 mg tablet 2022 023 [facility], [address] [place] [address], [address], 3 16:04:34 Calcium 600 + D(3) 600 mg-10 mcg (400 unit) tablet 2022 023 [facility], [address] [place] [address], [address], 3 16:04:35 sumatriptan 100 mg tablet 2022 023 [facility], [address] [place] [address], [address], 3 09:23:25 trazodone 100 mg tablet 2022 023 [facility], [address] [place] [address], [address], 3 15:57:29 sumatriptan 100 mg tablet 2022 023 [facility], [address] [place] [address], [address], 3 11:27:34 Lexapro 10 mg tablet 2022 023 [facility], [address] [place] [address], [address], 3 11:27:34 tramadol 50 mg tablet 2022 023 [facility], [address] [place] [address], [address], 3 16:12:57 amitriptyli ne 25 mg tablet 2022 023 [facility], [address] [place] [address], [address], 16:12:54 duloxetine 30 mg capsule,del ayed release 2022 023 [facility], [address] [place] [address], [address], 08:55:59 Calcium 600 + D(3) 600 mg-10 mcg (400 unit) tablet 2022 023 [facility], [address] [place] [address], [address], 16:12:56 Patient TargetsNo targets recorded. Patient Instructions Encounter Date Encounter Id Patient Instructions Last Modified By Organization Details Last Modified Time 04/24/2022 [id number] osteoarthritis: care instructions smoberly Not available 04/24/2022 16:04:57 body mechanics education smoberly Not available 04/24/2022 16:04:57 10/19/2022 [id number] osteoarthritis: care instructions smoberly Not available 10/19/2022 15:59:52 body mechanics education smoberly Not available 10/19/2022 15:59:52 06/25/2023 [id number] osteoarthritis: care instructions smoberly Not available 06/25/2023 [...] Not Available [facility] [address] [place], [address], 07/20/2022 11:15:20 07/21/19 23 07/20/2022 TSH TSH 3.650 uIU/m L 0.270- 4.200 normal Not Available [facility] [address] [place], [address], 07/20/2022 11:15:22 07/21/19 23 07/29/2022 METAN EPHRI TAYLA, FRACT . PLASM A metanephrine 29 pg/mL < or = 57 normal This test was devel oped and its nilsa tical perfo rmanc e cony cteri stics have been deter mined by [facility] . It has not been clear ed or appro kong by FDA. This assay has been valid ated pursu ant to the CLIA regul ation s and is used for clini eric purpo ses. Not Available [facility] [address] [place], [address], 07/29/2022 16:17:02 07/21/19 23 07/29/2022 METAN EPHRI [...] Not Available [facility] [address] [place], [address], 07/29/2022 16:17:02 07/21/19 23 07/29/2022 METAN EPHRI TAYLA, FRACT . PLASM A total metanephrine 220 pg/mL < or = 205 high Allyn tions > 4-fol d upper refer ence range : stron gly sugge stive of a pheoc hromo cytom a(1). Allyn tions >1 - 4-fol d upper refer ence range : signi fican t but not diagn ostic , may be due to medic ation s or stres s. Sugge st runni ng 24 hr urine fract ionat ed metan ephri tayla and serum Chrom ogran in A for confi rmati on. Refer ence: (1) Algec iras- Schim asif A et al, Plasm a Chrom ogran in A or Urine Fract ionat ed Metan ephri tayla Follo w-Up Testi ng Impro ves the Diagn ostic Accur acy of Plasm a Fract ionat ed Metan ephri tayla for Pheoc hromo cytom a. The Journ al of Clini eric Endoc rinol ogy and Metab olism 93 (1),9 1-95, 2007. For addit ional infor tin baig e refer to http: //[facility] catloc n.que stdia gnost ics.c om/fa q/Met Fract Free (This link is being provi ded for infor matloc nal/e ducat ional purpo ses only. ) This test was devel oped and its nilsa tical perfo rmanc e cony cteri stics have been deter mined by [facility] . It has not been clear ed or appro kong by FDA. This assay has been valid ated pursu ant to the CLIA regul ation s and is used for clini eric purpo ses. TEST PERFO RMED AT: [facility] [address] [facility] [place] [address] Marek ALBA,PHD ,[place] Not Available [facility] [address] [place] [address], [place], [address], 07/29/2022 16:17:02 08/18/19 23 08/17/2022 CT, abdom en, w/o contr ast [address] [address] Debbie brown Name: CORNELIO brown : 1964 [place] brown Orderi ng Provid er: BELINDA VELASQUEZ EXAM DATE: 2022 EXAM: CT ABDOME N [...] 3:37 PM rraab3 [facility] [address], [address], 08/21/2022 11:57:25 Result Notes Documentation Provider Name and Address Organization Details Recorded Time Ct, Abdomen, W/o Contrast : [address] [address] Patient Name: CORNELIO NESBITT Patient : 1965 Patient Ordering Provider: BELINDA VELASQUEZ EXAM DATE: 08/17/2022 EXAM: CT ABDOMEN W/O CONTRAST CLINICAL INFORMATION: Episodes of sweating. Suspected. Chromocytoma. TECHNIQUE: Multiple axial CT images of the abdomen were obtained in the adrenal region without IV contrast. Because no adrenal mass was identified, the contrast enhanced portion of the examination was not performed. COMPARISON: None. FINDINGS: LOWER THORAX: Lung bases are clear. No obvious cardiac abnormality. ADRENAL GLANDS: Both adrenal glands are normal. No adrenal nodule or mass is seen. No nodule is seen anterior to the abdominal aorta. UPPER ABDOMINAL ORGANS: Gallbladder is surgically absent. Spleen shows multiple calcified granulomata. Liver, pancreas and both kidneys appear normal. BOWEL AND MESENTERY: Stomach, small bowel and colon are normal. No mesenteric lymphadenopathy or peritoneal free fluid. RETROPERITONEUM: Aorta, IVC and their branches are patent and normal. No retroperitoneal lymphadenopathy. ABDOMINAL WALL AND SKELETAL STRUCTURES: Normal IMPRESSION: 1. No adrenal nodule or mass. 2. No obvious evidence of intra-abdominal extra adrenal pheochromocytoma. 3. No other significant abnormality is seen. Interpreted By: Leeroy Dey MD NDA VELASQUEZ MD [address] [place] [address] 08/21/2022 11:57:25 Problems Name Problem SNOMED Code Status Onset Date Resolution Date Notes Provider Name and Address Organization Details Recorded Time [facility] [id number] Active 2019 Not Available [facility] 17:36:47 Problem Notes Documentation Provider Name and Address Organization Details Recorded Time Progress Note : [address] [address]GYGDPMJ, Leia (id #[id number], : 1965) [address] [address] Encounter Summary - Progress Note Date Printed: [...] received this fax in error, please visit [email or web address] to notify the sender and confirm that the information will be destroyed. If you do not have internet access, please call to notify the sender and confirm that the information will be destroyed. Thank you for your attention and cooperation. [ID:[id number]] Patient Cornelio Nesbitt (57yo, F) #[id number] 1965 Patient Demographics: Address [address] [place] [address] [place] [address] Work Phone Encounter Notes: Encounter Reason/DateNone recorded [...] route. Qty: (180) tablet Refills: 1 Pharmacy: [facility] Note to Pharmacy: dose change [employer] duloxetine 30 mg capsule,delayed release - Take 1 capsule(s) every day by oral route. Qty: (90) capsule Refills: 1 Pharmacy: [facility] Note to Pharmacy: reducing dose and [...] days. Qty: (180) tablet Refills: 2 Pharmacy: [facility] 3. Osteopenia- per recent dexa scan with a t score of -1.4 she has a great vitamin d level and will start on calcium with vitamin dM85.80: Other specified disorders of bone density and structure, unspecified site Calcium 600 + D(3) 600 mg-10 mcg (400 unit) tablet - Take 1 tablet(s) every day by oral route. Qty: (90) tablet Refills: 3 Pharmacy: [facility] 4. Vitamin B12 deficiency (non anemic)- [...] route.04/24/22 prescribed BISMARK KEITH APRN Azo Bladder YkvomsD63/26/18 entered Monika Dioni baclofen 10 mg tablettake 1/2 to 1 tablet 3 times a day as /26/18 entered Monika Dioni Calcium 600 + D(3) 600 mg-10 mcg (400 unit) tabletTake 1 tablet(s) every day by oral route.04/24/22 prescribed BISMARK KEITH APRN cetirizine 10 mg capsuleTake by oral route.12/25/17 entered Monika Dioni Co Q- entered Monika Dioni DULoxetine 20 mg capsule,delayed releasetake [...] by oral route.01/23/22 entered BISMARK KEITH APRN Znuhmoyrj79/26/18 entered Monika Dioni Stool Olfnyxeh31/26/18 entered Monika Dioni traMADoL 50 mg tabletTake 2 tablet(s) 3 times a day by oral route for 30 days.04/24/22 prescribed BISMARK KEITH APRN vitamin B /26/18 entered Monikaduc Wheatley Vitamin C 1,000 mg tabletTake by oral route.12/25/17 entered Monika Dioni Vitamin D312/25/17 entered Monika Dioni Family HistoryReviewed Family History Unspecified Relation - Diabetes mellitus - Family history of cancer - Kidney stone Past Medical HistoryReviewed Past Medical History Acid Reflux (GERD):Y Arthritis:Y Hypertension:Y Vaccine HistoryNone recorded Electronically Signed by: BISMARK KEITH APRN, CARTON MAKING MACHINE OPERATOR Gail lopez [facility] 05/03/2022 14:44:52 Progress Note : [address] [address]KPXQCLW, Leia (id #[id number], : 1965) [address] [address] Encounter Summary - Progress Note Date Printed: [...] received this fax in error, please visit [email or web address] to notify the sender and confirm that the information will be destroyed. If you do not have internet access, please call to notify the sender and confirm that the information will be destroyed. Thank you for your attention and cooperation. [ID:[id number]] Patient Cornelio Nesbitt (57yo, F) #[id number] 1965 Patient Demographics: Address [address] [place] [address] [place] [address] Work Phone Encounter Notes: Encounter Reason/DateTransition of Care Encounter 07/20/2022 - 09:00AM - NEUROLOGY SB History of Present Ftzhuzn63-rbnm-edf female with history of anxiety depression also [...] am Wt: 176 lbs 4 oz With gzcbucf3207/20/2022 08:53 am BMI: 32. 08:53 am BP: 166/96 sitting L arm07/20/2022 08:55 am Pulse: 104 bpm nyfpins6707/20/2022 08:55 am O2Sat: 95% Room Air at [...] next 4 to 6 weeks. 1. Dizzy bxuzzwF77: Dizziness and giddiness METANEPHRINE,FRACTIONATED, PLASMA THYROID STIMULATING HORMONE (TSH) T4 FREE 2. OcrfzlkhM79.909: Migraine, unspecified, not intractable, without status migrainosus sumatriptan 100 mg tablet - Take 1 tablet at onset of headache may repeat Qty: (9) tablet Refills: 3 Pharmacy: [facility] 3. Mixed anxiety and depressive avylcdyzX05.8: Other specified anxiety disorders Lexapro 10 mg tablet - Take 1 tablet at bedtime Qty: (30) tablet Refills: 3 Pharmacy: [facility] Return to Office BISMARK KEITH APRN for RHEUM RECHECK at RHEUMATOLOGY SB on 10/19/2022 at 03:45 PM Patient Medical History: Allergies List Reviewed Allergies HYDROCODONE SULFA (SULFONAMIDE ANTIBIOTICS) Medications Reviewed Medications NameDate Source amitriptyline 25 mg tabletTake 1 tablet(s) twice a day by oral route.04/24/22 prescribed BISMARK KEITH APRN Azo Bladder NgijyvA93/26/18 entered Monika Dioni baclofen 10 mg tablettake 1/2 to 1 tablet 3 times a day as haewkl93/26/18 entered Monika Dioni Calcium 600 + D(3) [...] Lexapro 10 mg tabletTake 1 tablet at bogtgbz88/21/23 prescribed BELINDA VELASQUEZ MD meclizine 12.5 mg tablettake 1 to 1-1/2 tablets 3 times a day12/25/17 entered Monika Aguirreate melatonin 5 mg capsuleTake by oral route.12/25/17 entered Monika Wheatley metoprolol succinate ER 25 mg tablet,extended release 24 hrTake 1 tablet(s) every day by oral route.12/25/17 entered Monika Aguirreate Prevacid 30 mg capsule,delayed releaseTake 1 capsule(s) twice a day by oral route.01/23/22 entered BISMARK KEITH APRN Zqjegbrki72/26/18 entered Monika Wheatley Stool Rvmxrdkj87/26/18 entered Monika Wheatley SUMAtriptan 100 mg tabletTake 1 tablet at onset of headache july07/20/22 prescribed BELINDA VELASQUEZ MD traMADoL 50 mg tabletTake 2 tablet(s) 3 times a day by oral route for 30 days.04/24/22 prescribed BISMARK KEITH APRN vitamin B wpkexfc67/26/18 entered Monika Wheatley Vitamin C 1,000 mg tabletTake by oral route.12/25/17 entered Monika Wheatley Vitamin D312/25/17 entered Monikaduc Wheatley Family HistoryReviewed Family History Unspecified Relation - Diabetes mellitus - Family history of cancer - Kidney stone Past Medical HistoryReviewed Past Medical History Arthritis:Y Depression:Y High Cholesterol:Y Hypertension:Y Vaccine HistoryNone recorded Electronically Signed by: BELINDA VELASQUEZ MD [facility] [facility] 07/23/2022 10:43:06 Neurologist Consult Note : [address] [address]ABEMTMU, Leia (id #[id number], : 1965) [address] [address] Encounter Summary - Progress Note Date Printed: [...] received this fax in error, please visit [email or web address] to notify the sender and confirm that the information will be destroyed. If you do not have internet access, please call to notify the sender and confirm that the information will be destroyed. Thank you for your attention and cooperation. [ID:[id number]] Patient Cornelio Nesbitt (57yo, F) #[id number] 1965 Patient Demographics: Address [address] [place] [address] Work Phone Encounter Notes: Encounter Reason/DateNone recorded [...] reactive depression due to the of her qaomake-zb-som. I have recommended consideration for behavioral health [...] in09/07/2022 08:33 am Wt: 177 lbs With zlhstpn4509/07/2022 08:33 am BMI: 32.406 08:33 am BP: [...] evaluation by John Ozuna, behavioral health. 1. ThllguowD02.909: Migraine, unspecified, not intractable, without status migrainosus sumatriptan 100 mg tablet - Take 1 tablet at onset of headache may repeat Qty: (9) tablet Refills: 5 Pharmacy: [facility] 2. Mixed anxiety and depressive zynurkfrM50.8: Other specified anxiety disorders BEHAVIORAL HEALTH REFERRAL - Schedule Within: provider's discretion Note to Provider: History of depression and anxiety, on Lexapro but still with significant anxiety reaction. Have recommended behavioral health evaluation.Place of service: OFFICE # of requested visits: 6 Procedure code: 79085, 62275, 99840, 53249, 35291, 55800, [address], 25815, [address]1063, 286[address] Authorization: PUJA-NATALIE [employer] (PPO) [place]QU[place] [address], [address], [address], [address], [address], 37069, [address]902, 36491, 98063, 35051 3. QnpxqdpsW13.00: Insomnia, unspecified trazodone 100 mg tablet - Take 1 tablet at bedtime Qty: (30) tablet Refills: 3 Pharmacy: [facility] Return to Office BISMARK KEITH APRN [...] route.04/24/22 prescribed BISMARK KEITH APRN Azo Bladder XvxoznK73/26/18 entered Monika Dioni baclofen 10 mg tablettake 1/2 to 1 tablet 3 times a day as qejpyo14/26/18 entered Monika Dioni Benadryl Allergy 25 mg [...] Lexapro 10 mg tabletTake 1 tablet at lpqfdyw78/21/23 prescribed BELINDA VELASQUEZ MD meclizine 12.5 mg [...] by oral route.01/23/22 entered BISMARK KEITH APRN Hwcuiqigt36/26/18 entered Monika Dioni Stool Khjdqnct06/26/18 entered Monika Dioni SUMAtriptan 100 mg tabletTake 1 tablet at onset of headache july09/07/22 prescribed BELINDA VELASQUEZ MD traMADoL 50 mg tabletTake 2 tablet(s) 3 times a day by oral route for 30 days.04/24/22 prescribed BISMARK KEITH APRN traZODone 100 mg tabletTake 1 tablet at mhkwixo87/09/23 prescribed BELINDA VELASQUEZ MD vitamin B blfgxsi89/26/18 entered Monika Wheatley Vitamin C 1,000 mg tabletTake by oral route.12/25/17 entered Monikaduc Wheatley Vitamin D312/25/17 entered Monika Dioni Family HistoryReviewed Family History Unspecified Relation - Diabetes mellitus - Family history of cancer - Kidney stone Past Medical HistoryReviewed Past Medical History Arthritis:Y Depression:Y High Cholesterol:Y Hypertension:Y Vaccine HistoryNone recorded Electronically Signed by: BELINDA VELASQUEZ MD June [facility] 09/10/2022 08:35:53 Progress Note : [address] [address]UISGENY, Leia (id #[id number], : 1965) [address] [address] Encounter Summary - Progress Note Date Printed: [...] received this fax in error, please visit [email or web address] to notify the sender and confirm that the information will be destroyed. If you do not have internet access, please call to notify the sender and confirm that the information will be destroyed. Thank you for your attention and cooperation. [ID:[id number]] Patient Cornelio Nesbitt (57yo, F) #[id number] 1965 Patient Demographics: Address [address] [place] [address] Work Phone Encounter Notes: Encounter Reason/Date tramadol [...] pm Wt: 175 lbs 6 oz With xjsojro0110/19/2022 03:44 pm BMI: 32.107 03:44 pm BP: 124/70 sitting R arm10/19/2022 03:47 pm BP Cuff Size: adult10/19/2022 03:45 pm Pulse: 87 bpm fvkacun4210/19/2022 03:45 pm RR: 1607 03:45 pm O2Sat: [...] route. Qty: (180) tablet Refills: 3 [facility] [employer]UC[employer] 2. Degenerative joint [...] days. Qty: (180) tablet Refills: 2 [facility] 3. Osteopenia- per recent dexa scan [...] route. Qty: (90) tablet Refills: 3 Pharmacy: [facility] 4. Vitamin B12 deficiency (non anemic)- [...] route.10/19/22 prescribed BISMARK KEITH APRN Azo Bladder HxhphcK67/26/18 entered Monika Dioni baclofen 10 mg tablettake 1/2 to 1 tablet 3 times a day as qxsigd22/26/18 entered Monika Dioni Benadryl Allergy 25 mg tabletTake 25 mg by oral route as directed.07/31/22 prescribed BELINDA VELASQUEZ MD busPIRone 5 mg tabletTake 1 tablet(s) twice a day by oral route.10/19/22 entered [facility] Calcium 600 + D(3) 600 mg-10 mcg (400 unit) tabletTake 1 tablet(s) every day by oral route.10/19/22 prescribed BISMARK KEITH APRN cetirizine 10 mg capsuleTake by oral route.12/25/17 entered Monika Dioni Co Q- entered Monika Dioni garlic 1,000 mg capsuleTake by oral route.12/25/17 entered Monika Dioni iron12/25/17 entered Monika Dioni krill oil12/25/17 entered Monika Dioni Lexapro 10 mg tabletTake 1 tablet at otaqxdr67/21/23 prescribed BELINDA VELASQUEZ MD meclizine 12.5 mg [...] by oral route.01/23/22 entered BISMARK KEITH APRN Mhpvfvbgh34/26/18 entered Monika Wheatley Stool Iuvamxhy81/26/18 entered Monika Wheatley SUMAtriptan 100 mg tabletTake 1 tablet at onset of headache july09/07/22 prescribed BELINDA VELASQUEZ MD traMADoL 50 mg tabletTake 2 tablet(s) 3 times a day by oral route for 30 days.10/19/22 prescribed BISMARK KEITH APRN vitamin B ycnooen56/26/18 entered Monika Wheatley Vitamin C 1,000 mg tabletTake by oral route.12/25/17 entered Monika Wheatley Vitamin D312/25/17 entered Monika Wheatley Family HistoryReviewed Family History Unspecified Relation - Diabetes mellitus - Family history of cancer - Kidney stone Past Medical HistoryReviewed Past Medical History Acid Reflux (GERD):Y Arthritis:Y Hypertension:Y Vaccine HistoryNone recorded Electronically Signed by: BISMARK KEITH APRN, CARTON MAKING MACHINE OPERATOR Gail lopez [place] [facility] 10/22/2022 12:50:59 Progress Note : [address] [address]VGKTWNB, Leia (id #[id number], : 1965) [address] [address] Encounter Summary - Progress Note Date Printed: [...] received this fax in error, please visit [email or web address] to notify the sender and confirm that the information will be destroyed. If you do not have internet access, please call to notify the sender and confirm that the information will be destroyed. Thank you for your attention and cooperation. [ID:[id number]] Patient Cornelio Nesbitt (58yo, F) #[id number] 1965 Patient Demographics: Address [address] [place] [address] [place] [address] Work Phone Encounter Notes: Encounter Reason/DateNone recorded [...] in06/25/2023 03:42 pm Wt: 170 lbs With zfpqhwq0406/25/2023 03:43 pm BMI: 31. 03:43 pm BP: 118/86 sitting R arm06/25/2023 03:46 pm BP Cuff Size: adult06/25/2023 03:46 pm Pulse: 85 bpm utajjkd0006/25/2023 03:45 pm O2Sat: 97% Room Air at [...] route. Qty: (90) capsule Refills: 1 Pharmacy: [facility] Note to Pharmacy: dose change; cannot tolerate reducing at this time amitriptyline 50 mg tablet - Take 1 tablet(s) every day by oral route at bedtime. Qty: (90) tablet Refills: 1 Pharmacy: [facility] 493 Note to Pharmacy: dose change 2. Degenerative [...] days. Qty: (180) tablet Refills: 2 Pharmacy: [facility] 493 3. Osteopenia- per recent dexa scan with [...] >60 E55.9: Vitamin D deficiency, unspecified 6. McnznrapX18.00: Insomnia, unspecified doxepin 10 mg capsule - Take 1 capsule(s) 3 times a day by oral route for 90 days. Qty: (270) capsule Refills: 3 Pharmacy: [facility] 493 Return to Office BISMARK KEITH APRN for RHEUM RECHECK at RHEUMATOLOGY SB on 10/22/2023 at 11:00 AM Patient Medical History: Allergies List Reviewed Allergies HYDROCODONE: - unable to sleep IODINATED CONTRAST MEDIA: Vomiting - jittery SULFA (SULFONAMIDE ANTIBIOTICS): Nausea, Vomiting Medications Reviewed Medications NameDate Source amitriptyline 25 mg tabletTake 1 tablet(s) twice a day by oral route.05/22/23 prescribed BISMARK KEITH APRN amitriptyline 50 mg tabletTake 1 tablet(s) every day by oral route at bedtime.06/25/23 prescribed BISMARK KEITH APRN Azo Bladder HsvokjC72/26/18 entered Monika Dioni baclofen 10 mg tablettake 1/2 to 1 tablet 3 times a day as cyvait46/26/18 entered Monika Dioni Benadryl Allergy 25 mg tabletTake 25 mg by oral route as directed.07/31/22 prescribed BELINDA VELASQUEZ MD busPIRone 5 mg tabletTake 1 tablet(s) twice a day by oral route.10/19/22 entered [facility] Calcium 600 + D(3) 600 mg-10 mcg [...] Lexapro 10 mg tabletTake 1 tablet at gmooqgy79/21/23 prescribed BELINDA VELASQUEZ MD meclizine 12.5 mg tablettake 1 to 1-1/2 tablets 3 times a day12/25/17 entered Monika Aguirreate melatonin 5 mg capsuleTake by oral route.12/25/17 entered Monika Aguirreate metoprolol succinate ER 25 mg tablet,extended release 24 hrTake 1 tablet(s) every day by oral route.12/25/17 entered Monika Dioni Prevacid 30 mg capsule,delayed releaseTake 1 capsule(s) twice a day by oral route.01/23/22 entered BISMARK KEITH APRN Jvnxrvkyu72/26/18 entered Monika Wheatley Stool Rjipntnt48/26/18 entered Monika Wheatley SUMAtriptan 100 mg tabletTake 1 tablet at onset of headache july09/07/22 prescribed BELINDA VELASQUEZ MD traMADoL 50 mg tabletTake 2 tablet(s) 3 times a day by oral route for 30 days.06/25/23 prescribed BISMARK KEITH APRN vitamin B qkrlubp94/26/18 entered Monika Wheatley Vitamin C 1,000 mg tabletTake by oral route.12/25/17 entered Monika Dioni Vitamin D312/25/17 entered Monika Dioni Family HistoryReviewed Family History Unspecified Relation - Diabetes mellitus - Family history of cancer - Kidney stone Past Medical HistoryReviewed Past Medical History Acid Reflux (GERD):Y Arthritis:Y Hypertension:Y Vaccine HistoryNone recorded Electronically Signed by: BISMARK KEITH APRN, CARTON MAKING MACHINE OPERATOR Karen (Chlei) Danilo [facility] 06/26/2023 14:28:15 Procedures Surgical History Date Name Laterality Status Provider Name and Address Organization Details Recorded Time 05/19/19 19 DXA Low Bone Mass 1 - No Tx completed ALEXANDRIA FENG MD [address] [place] [address], [phone], [facility] 05/19/2018 12:35:17 Cholecystectomy completed [facility] 07/19/2016 13:12:52 Carpal tunnel surgery completed [facility] 07/19/2016 13:13:10 Hysterectomy completed [facility] 07/19/2016 13:13:14 procedure on femur completed Ольга Dingus [facility] 07/06/2021 08:42:09 total replacement of left knee joint completed Farrah Uribe [facility] 09/07/2022 08:35:59 Imaging Results None recorded. Procedure Notes None recorded. Medical Equipment None Reported. Allergies Allergen ID Allergen Name Allergen Category Reaction Reaction Severity Criticality Documentation Date Start Date Code Code System Note Provider Name and Address Organization Details Recorded Time 616088 Substance with sulfonami de structure and antibacte rial mechanism of action (substanc e) medicatio n nausea vomiting Not available Not available Not available 07/19/2016 44787 8003 SNOMED Deseriee Wausau [facility] 7 13:11:15 549455 hydrocodo ne Not available Not available Not available Not available 07/19/2016 5489 RxNorm unabl e to sleep Farrahml Uribe [facility] 3 08:34:15 387154 Iodinated contrast media (substanc e) medicatio n vomiting Not available Not available 09/07/2022 23064 2003 SNOMED jitte ml Uribe [facility] 3 08:35:02 Medications Name Sig Start [...] index (BMI) Body weight Heart rate Systolic And Diastolic Provider Name and Address Organization Details Last Updated DateTime 04/24/2022 157.48 cm 30.7 kg/m2 94926.52 g 90 /min 130/86 mm[Hg] Gail Hilario [facility] 04/24/2022 15:44:35 Date Recorded Body height Body mass index (BMI) Body weight Heart rate Oxygen saturation Oxygen saturation in Arterial blood by Pulse oximetry Systolic And Diastolic Provider Name and Address Organization Details Last Updated DateTime 4 157.48 cm 31.1 kg/m2 05044.7 g 85 /min 97 % 97 % 118/86 mm[Hg] Rae Lucas [facility] 4 15:46:14 Date Recorded Body height Body mass index (BMI) Body weight Heart rate Oxygen saturation Oxygen saturation in Arterial blood by Pulse oximetry Systolic And Diastolic Provider Name and Address Organization Details Last Updated DateTime 3 157.48 cm 32.2 kg/m2 82865.6 6 g 104 /min 95 % 95 % 166/96 mm[Hg] Alexis [place] [facility] 3 08:55:10 Date Recorded Body height Body mass index (BMI) Body weight Heart rate Oxygen saturation Oxygen saturation in Arterial blood by Pulse oximetry Systolic And Diastolic Provider Name and Address Organization Details Last Updated DateTime 3 157.48 cm 32.4 kg/m2 36496.8 5 g 82 /min 95 % 95 % 118/82 mm[Hg] Farrah Jojo [facility] 3 08:38:06 Date Recorded Body height Body mass index (BMI) Body weight Respiratory rate Heart rate Oxygen saturation Oxygen saturation in Arterial blood by Pulse oximetry Systolic And Diastolic Provider Name and Address Organization Details Last Updated DateTime 3 157.48 cm 32.1 kg/m2 79118.7 6 g 16 /min 87 /min 96 % 96 % 124/70 mm[Hg] Cheryl Encarnacion [facility] 3 15:47:00 Social History Question Answer Notes LastModified by Organizat ion Details LastModified Time Tobacco Smoking Status Never Smoker Conner Olivera [facility] 07/19/2016 13:12:45 How Much Tobacco Do You Chew? None [email or web address] Information not available 08/12/2018 What Was The Date Of Your Most Recent Tobacco Screening? 06/25/2023 [email or web address] Information not available 06/25/2023 How Much Tobacco Do You Smoke? No [email or web address] Information not available 08/12/2018 Has Tobacco Cessation Counseling Been Provided? No [email or web address] Information not available 04/24/2022 How Many Years Have You Smoked Tobacco? 0 [email or web address] Information not available 08/12/2018 Have You Recently Traveled Abroad? No [email or web address] Information not available 01/23/2022 Sex: Unknown Functional [...] ICD10 Code Diagnosis IMO Codes Diagnosis Note [id number] FIDELIA LOPEZ MD [facility] [address] [address] 07/19/2016 12:23:14 07/20/2016 09:33:47 Painful urinary bladder spasm 9358953 R30.1 [id number] FIDELIA LOPEZ MD SURGERY SCHEDULE [address] [place] [address] 07/24/2016 13:46:20 07/24/2016 13:49:11 [id number] FIDELIA LOPEZ MD [facility] [address] [address] 08/16/2016 13:49:55 08/17/2016 15:51:43 Dysuria 96702132 R30.1 [id number] [place] [address] [place] [address] 12/25/2017 07:36:43 12/25/2017 09:51:22 Muscle pain 68654885 M79.1 recurring and dx with fibromyalg ia for years taking cymbalta and baclofen has not done hot water therapy or CBT with her treatment for years weather doesn't affect her will obtain further labs looking at autoimmune reasons behind her symptoms she has worsening complaints without improved outcome Pain of mu ltiple joints 75763408 M25.50 chronic and recurring joint pain worsening will obtain inflammato ry labs with swollen and tender joints without known family history Fatigue 08840150 R53.83 worsening fatigue without known thyroid history will obtain thyroid labs today Vitamin B1 2 deficiency (non anemic) 28568438 E53.8 recurring supplement s in the past will obtain further today Vitamin D deficiency 347 17980 E55.9 recurring will obtain further based on history of the same [id number] [place] [address] [place] [address] 02/11/2018 08:11:19 02/11/2018 08:44:47 Muscle pain 54633042 M79.10 recurring and dx with fibromyalg ia for years taking cymbalta and baclofen has not done hot water therapy or CBT with her treatment for years weather doesn't affect her further labs looking at autoimmune reasons behind her symptoms which were normal/neg ative she will start on lyrica if allowed Pain of mu ltiple joints 54096972 M25.50 chronic and recurring joint pain worsening will obtain inflammato ry labs with swollen and tender joints without known family history Fatigue 70427587 R53.83 worsening fatigue without known thyroid history thyroid labs are normal Vitamin B1 2 deficiency (non anemic) 90295099 E53.8 recurring supplement s in the past will obtain further today Vitamin D deficiency 347 17538 E55.9 recurring will obtain further based on history of the same Fibromyalgia 913559001 M 79.7 without further findings suggestive of fibromyalg ia without findings of autoimmune disease with normal/sta ble labs today [id number] BISMARK KEITH APRN RHEUMATOL OGY [address] [place] [address] 05/13/2018 08:19:48 05/13/2018 09:35:58 Fibromyalgia 329834888 M79.7 without further findings suggestive of fibromyalg ia, oa without findings of autoimmune disease with normal/sta ble labs Muscle pain 92366846 M79 .10 recurring and dx with fibromyalg ia for years taking cymbalta and baclofen has not done hot water therapy or CBT with her treatment for years further assessment was negative will await further tx until after outcome of tramadol and dexa scan Pain of mu ltiple joints 39882816 M25.50 chronic and recurring joint pain worsening without nsaids at this time due to recurring gut issues inflammato ry labs were normal/neg ative worsening deep bone aching; joint pain worsening with weather changes will start her on tramadol have her remain off the lyrica will await a dexa scan first before proceeding with further med changes Fatigue 37294147 R53.83 worsening fatigue without known thyroid history thyroid labs are normal Vitamin B1 2 deficiency (non anemic) 86472922 E53.8 recurring supplement s in the past b12 was normal at 774 Vitamin D deficiency 347 77325 E55.9 recurring with recent vitamin d level of >60 Menopausal syndrome 1237 87607 N95.9 had a hysterecto my with early onset of menopause will obtain dexa and await results for further tx [id number] ALEXANDRIA FENG MD BONE DENSITY [address] [place] [address] 05/19/2018 08:03:38 05/19/2018 08:22:23 Osteopenia 848040768 M85.9 [id number] BISMARK KEITH APRN RHEUMATOL RACHEL [address] [place] [address] 08/12/2018 08:17:34 08/13/2018 15:05:21 Pain of multiple joints 03250466 M25.50 chronic and recurring joint pain worsening [...] 04/10/18 h/o prior fx there also Fibromyalgia 320173564 M 79.7 without further findings suggestive of fibromyalg ia, oa without findings of autoimmune disease with normal/sta ble labs requests a new chair and foot rest; will need to have an ergonomic evaluation Muscle pain 21070929 M79 .10 recurring and dx with fibromyalg ia for years taking cymbalta and baclofen has not done hot water therapy or CBT with her treatment for years further assessment was negative will await further tx until after outcome of tramadol and dexa scan Fatigue 86561691 R53.83 worsening fatigue without known thyroid history thyroid labs are normal Vitamin B1 2 deficiency (non anemic) 96123922 E53.8 recurring supplement s in the past b12 was normal at 774 Vitamin D deficiency 347 30132 E55.9 recurring with recent vitamin d level of >60 Osteopenia 969216255 M85 .80 per recent dexa scan with a t score of -1.4 she has a great vitamin d level and will start on calcium with vitamin d Pain of hip region 97879 002 M25.559 with pulling in the left groin [id number] BISMARK KEITH APRN RHEUMATOL RACHEL [address] [place] [address] 11/13/2018 08:50:50 11/25/2018 14:00:42 Fibromyalgia 981914889 M79.7 without further findings suggestive of fibromyalg ia, oa without findings of autoimmune disease with normal/sta ble labs requests a new chair and foot rest; will need to have an ergonomic evaluation Pain of mu ltiple joints 02019816 M25.50 chronic and recurring joint pain worsening [...] h/o prior fx there also Muscle pain 73696276 M79 .10 recurring and dx with fibromyalg ia for years taking cymbalta and baclofen has not done hot water therapy or CBT with her treatment for years further assessment was negative will await further tx until after outcome of tramadol and dexa scan Fatigue 22505005 R53.83 worsening fatigue without known thyroid history thyroid labs are normal Vitamin B1 2 deficiency (non anemic) 62694749 E53.8 recurring supplement s in the past b12 was normal at 774 Vitamin D deficiency 347 17355 E55.9 recurring with recent vitamin d level of >60 Osteopenia 766712965 M85 .80 per recent dexa scan with a t score of -1.4 she has a great vitamin d level and will start on calcium with vitamin d [id number] BISMARK KEITH APRN RHEUMATOL OGY [address] [place] [address] 05/20/2019 15:17:58 05/20/2019 16:39:30 Fibromyalgia 937420998 M79.7 without further findings suggestive of fibromyalg ia, oa without findings of autoimmune disease with normal/sta ble labs will continue with current tx with amitriptyl ine and tramadol Vitamin B1 2 deficiency (non anemic) 49544268 E53.8 recurring supplement s in the past b12 was normal at 774 Vitamin D deficiency 347 85592 E55.9 recurring with recent vitamin d level of >60 Osteopenia 838808398 M85 .80 per recent dexa scan with a t score of -1.4 she has a great vitamin d level and will start on calcium with vitamin d Generalize d osteoarthritis 113997337 M15.9 chronic and recurring joint pain worsening [...] removed 04/10/18 h/o prior fx there also [id number] BISMARK KEITH APRN RHEUMATOL OGY [address] [place] [address] 05/13/2020 09:10:58 05/13/2020 15:19:31 Fibromyalgia 356742237 M79.7 without further findings suggestive of fibromyalg ia, oa without findings of autoimmune disease with normal/sta ble labs will continue with current tx with amitriptyl ine and tramadol Generalize d osteoarthritis 774380298 M15.9 chronic and recurring joint pain worsening [...] 04/10/18 h/o prior fx there also Osteopenia 265052879 M85 .80 per recent dexa scan with a t score of -1.4 she has a great vitamin d level and will start on calcium with vitamin d Vitamin B1 2 deficiency (non anemic) 42156664 E53.8 recurring supplement s in the past b12 was normal at 774 Vitamin D deficiency 347 17256 E55.9 recurring with recent vitamin d level of >60 [id number] BISMARK KEITH APRN RHEUMATOL OGY [address] [place] [address] 07/06/2021 08:30:38 07/06/2021 09:50:59 Fibromyalgia 434929580 M79.7 without further findings suggestive of fibromyalg ia, oa without findings of autoimmune disease with normal/sta ble labs will continue with current tx with amitriptyl ine and tramadol Generalize d osteoarthritis 099925653 M15.9 chronic and recurring joint pain worsening [...] 04/10/18 h/o prior fx there also Osteopenia 525846881 M85 .80 per recent dexa scan with a t score of -1.4 she has a great vitamin d level and will start on calcium with vitamin d Vitamin B1 2 deficiency (non anemic) 11910678 E53.8 recurring supplement s in the past b12 was normal at 774 Vitamin D deficiency 347 28103 E55.9 recurring with recent vitamin d level of >60 [id number] BISMARK KEITH APRN RHEUMATOL OGY [address] [place] [address] 10/24/2021 14:45:11 10/24/2021 16:53:50 Fibromyalgia 750888935 M79.7 without further findings suggestive of fibromyalg ia, oa without findings of autoimmune disease with normal/sta ble labs will continue with current tx with amitriptyl ine at 25-50 mg qhs and tramadol 2 po 3x per day Generalize d osteoarthritis 216423437 M15.9 chronic and recurring joint pain worsening [...] 04/10/18 h/o prior fx there also Osteopenia 488755445 M85 .80 per recent dexa scan with a t score of -1.4 she has a great vitamin d level and will start on calcium with vitamin d Vitamin B1 2 deficiency (non anemic) 84676837 E53.8 recurring supplement s in the past b12 was normal at 774 Vitamin D deficiency 347 29593 E55.9 recurring with recent vitamin d level of >60 [id number] BISMARK KEITH APRN RHEUMATOL OGY [address] [place] [address] 01/23/2022 14:55:07 01/24/2022 10:29:40 Fibromyalgia 589055313 M79.7 without further findings suggestive of fibromyalg ia, oa without findings of autoimmune disease with normal/sta ble labs will continue with current tx with amitriptyl ine at 25-50 mg qhs and tramadol 2 po 3x per day Generalize d osteoarthritis 766683836 M15.9 chronic and recurring joint pain worsening [...] 04/10/18 h/o prior fx there also Osteopenia 477949285 M85 .80 per recent dexa scan with a t score of -1.4 she has a great vitamin d level and will start on calcium with vitamin d Vitamin B1 2 deficiency (non anemic) 57617383 E53.8 recurring supplement s in the past b12 was normal at 774 Vitamin D deficiency 347 88190 E55.9 recurring with recent vitamin d level of >60 [id number] BISMARK KEITH APRN RHEUMATOL OGY [address] [place] [address] 04/24/2022 15:01:37 04/25/2022 04:38:36 Fibromyalgia 669032963 M79.7 without further findings suggestive of fibromyalg ia, oa without findings of autoimmune disease with normal/sta ble labs will continue with current tx with amitriptyl ine at 25-50 mg qhs and tramadol 2 po 3x per day Generalize d osteoarthritis 697386969 M15.9 chronic and recurring joint pain worsening [...] 04/10/18 h/o prior fx there also Osteopenia 433079123 M85 .80 per recent dexa scan with a t score of -1.4 she has a great vitamin d level and will start on calcium with vitamin d Vitamin B1 2 deficiency (non anemic) 52718613 E53.8 recurring supplement s in the past b12 was normal at 774 Vitamin D deficiency 347 98115 E55.9 recurring with recent vitamin d level of >60 [id number] BELINDA VELASQUEZ MD NEUROLOGY SB CLOSED [address] [place] [address] 07/20/2022 08:49:01 07/25/2022 14:53:10 Dizzy spells 047521301 R42 Migraine 65208310 G43.90 9 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 [id number] BELINDA VELASQUEZ MD NEUROLOGY SB CL[address]ED [address] [place] [address] 09/07/2022 08:18:51 09/07/2022 12:40:49 Migraine 68633965 G43.909 Mixed anxi ety and depressive disorder 816241903 F41.8 Insomnia 255498655 G47.0 0 [id number] BISMARK KEITH APRN RHEUMATOL OGY SB [address] [place] [address] 1 10/19/2022 15:20:15 10/20/2022 05:01:39 Fibromyalgia 657114202 M79.7 without further findings suggestive of fibromyalg ia, oa without findings of autoimmune disease with normal/sta ble labs will continue with current tx with amitriptyl ine at 25-50 mg qhs and tramadol 2 po 3x per day Generalize d osteoarthritis 222276086 M15.9 chronic and recurring joint pain worsening [...] 04/10/18 h/o prior fx there also Osteopenia 529509475 M85 .80 per recent dexa scan with a t score of -1.4 she has a great vitamin d level and will start on calcium with vitamin dfilled for one year on 10/19/2022 Vitamin B1 2 deficiency (non anemic) 37431546 E53.8 recurring supplement s in the past b12 was normal at 774 Vitamin D deficiency 347 15710 E55.9 recurring with recent vitamin d level of >60 [id number] BISMARK KEITH APRN RHEUMATOL OGY SB [address] [place], [place] [address] 06/25/2023 14:33:44 06/26/2023 04:39:07 Fibromyalgia 582516022 M79.7 without further findings suggestive of fibromyalg ia, oa without findings of autoimmune disease with normal/sta ble labs will continue with current tx with amitriptyl ine at 25-50 mg qhs and tramadol 2 po 3x per day Generalize d osteoarthritis 737056506 M15.9 chronic and recurring joint pain worsening [...] 04/10/18 h/o prior fx there also Osteopenia 273845445 M85 .80 per recent dexa scan with a t score of -1.4 she has a great vitamin d level and will start on calcium with vitamin dfilled for one year on 10/19/2022 Vitamin B1 2 deficiency (non anemic) 97910243 E53.8 recurring supplement s in the past b12 was normal at 774 Vitamin D deficiency 347 03763 E55.9 recurring with recent vitamin d level of >60 Insomnia 986743026 G47.0 0 Health Concerns Section Related Observation LastModified by Organization Detai ls LastModified Time None Recorded Concern Status LastModified by Organization Details LastModified Time None Recorded Advance Directives Directive None Recorded Payers Insurance Date Sequence Insurance Name Policy Number Policy Shah Covered Member ID Shah Member ID Guarantor Name 12/17/2023 1 [place] [employer] [employer] ([place]) [id number] Cornelio Nesbitt [id number] Cornelio Nesbitt Notes Date Note Type Note Provider Name and Address Organization Details Recorded Time 04/24/2022 text/html ROS as noted in the HPI follow-up on fibromyalgia and osteoarthritis; she continues [...] others are negative BISMARK KEITH APRN [address] [place], [address], [facility] 04/24/2022 16:05:03 07/20/2022 text/html ROS as noted in the HPI 57-year-old female with history of anxiety depression also [...] her previous office visits BELINDA VELASQUEZ MD [address] [place] [address], [phone], [facility] 07/20/2022 09:52:41 09/07/2022 text/html ROS as noted in the HPI Patient follows up today, still has episodes [...] reactive depression due to the of her [id number]. I have recommended consideration for behavioral health evaluation. She is in agreement. Other issues have been persistent insomnia, she has been on a combination of both amitriptyline and doxepin, still has difficulty with falling asleep. Patient has not tried trazodone. Headache crowley doing well, she uses as needed Imitrex and this is worked well as an abortive agent. MD [facility] [place], [address], [facility] 09/07/2022 09:24:10 10/19/2022 text/html ROS as noted in the HPI follow-up on fibromyalgia and osteoarthritis; she continues [...] are negative BISMARK KEITH APRN [address] [place], [address], [facility] 10/19/2022 16:00:04 06/25/2023 text/html ROS as noted in the HPI follow-up on fibromyalgia and osteoarthritis; she continues [...] are negative BISMARK KEITH APRN [address] [place], [address], [facility] 06/25/2023 17:00:28 OBGyn Episode No OBEpisode recorded.
--- OUTSIDE RECORDS SUMMARY | 2025-02-10 08:49 | XMS_ITS | Encounter Summary ---
Author Organization Healthcare Address [address] [place] [address] Care Team Providers Care City Weighmaster Name Role Phone MichelMikaylaNoemihetal Mccarthy DO Primary Care Provider [phone] Pcp, No Primary Care Provider Ekta Anderson EVP GENERAL COUNSEL Primary Care Provider [phone] Encounter Details Date Type Department Care Team (Late st Contact Info) Description 05/24/2023 Orders Only External Location [address] [place] [address] Provider, External Social History Tobacco [...] EDT Appointment [facility] [address] [place] [address] 11/19/2025 11:00 AM EDT Office Visit [facility] [address] [place] [address] Yazmin Alex, EVP GENERAL COUNSEL [address] [facility] [address] [place] [address] documented as of this encounter [...] documented as of this encounter Care Teams City Weighmaster Relationship Specialty Start Date End Date Noemi Pearson DO [address] [place] [address] PCP - General 11/30/20 11/19/23 Pcp, [facility] [address] [place] [address] PCP - General Family Medicine 11/20/23 07/30/24 Ekta Singh APRN [address] [place] [address] PCP - General 07/31/24 documented as of this encounter
--- OUTSIDE RECORDS SUMMARY | 2025-02-10 08:49 | XMS_ITS | Encounter Summary ---
Author Organization Healthcare Address [address] [place] [address] Care Team Providers Care Game Warden Name Role Phone Ekta Singh APRN Primary Care Provider [phone] Encounter Details Date Type Department Care Team ([facility] Contact Info) Description 12/29/2024 Telephone [facility] [address] [place] [address] Li Pepper RN [facility] Social History [...] EDT Appointment [facility] [address] [place] [address] 11/19/2025 11:00 AM EDT Office Visit [facility] [address] [place] [address] Yazmin Alex APRN [address] [facility] [address] [place] [address] documented as of this encounter Visit Diagnoses Not on filedocumented in this encounter Additional Health Concerns Assessment Noted Time A fall risk assessment has been complete d for the patient 12/25/2024 10:28 AM EDT A Body Mass Index follow-up plan has been documented for the patient 12/25/2024 12:05 PM EDT documented as of this encounter Care Teams Game Warden Relationship Specialty Start Date End Date Ekta Singh APRN [address] [place] [address] PCP - General 07/31/24 documented as of this encounter
--- OUTSIDE RECORDS SUMMARY | 2025-02-10 08:49 | XMS_ITS | Encounter Summary ---
Author Organization Healthcare Address [address] [place] [address] Care Team Providers Care Toy Painter Name Role Phone MichelMikaylaNoemihetal Mccarthy DO Primary Care Provider [phone] Pcp, No Primary Care Provider Ekta Anderson MEDICAL ADMINISTRATIVE Primary Care Provider [phone] Encounter Details Date Type Department Care Team (Late st Contact Info) Description 10/26/2022 Orders Only External Location [address] [place] [address] Provider, External Social History Tobacco [...] EDT Appointment [facility] [address] [place] [address] 11/19/2025 11:00 AM EDT Office Visit [facility] [address] [place] [address] Yazmin Alex, MEDICAL ADMINISTRATIVE [address] [facility] [address] [place] [address] documented as of this encounter [...] documented as of this encounter Care Teams Toy Painter Relationship Specialty Start Date End Date Noemi Pearson DO [address] [place] [address] PCP - General 11/30/20 11/19/23 Pcp, [place] [address] PCP - General Family Medicine 11/20/23 07/30/24 Ekta Singh APRN [address] [place] [address] PCP - General 07/31/24 documented as of this encounter
--- OUTSIDE RECORDS SUMMARY | 2025-02-10 08:49 | XMS_ITS | Encounter Summary ---
Author Organization Healthcare Address [address] [place] [address] Care Team Providers Care Supervisor Instrument Mechanics Name Role Phone Ekta Singh APRN Primary Care Provider [phone] Encounter Details Date Type Department Care Team (Late Contact Info) Description 01/04/2025 Telephone [facility] [address] [place] [address] Cheryl Jane, RN [facility]-DIAGNOSTIC RADIOLOGY Social History [...] EDT Appointment [facility] [address] [place] [address] 11/19/2025 11:00 AM EDT Office Visit [facility] [address] [place] [address] Yazmin Alex APRN [address] [facility] [address] [place] [address] documented as of this encounter Visit Diagnoses Not on filedocumented in this encounter Additional Health Concerns Assessment Noted Time A fall risk assessment has been complete d for the patient 12/25/2024 10:28 AM EDT A Body Mass Index follow-up plan has been documented for the patient 12/25/2024 12:05 PM EDT documented as of this encounter Care Teams Supervisor Instrument Mechanics Relationship Specialty Start Date End Date Ekta Singh APRN [address] [place] [address] PCP - General 07/31/24 documented as of this encounter
--- OUTSIDE RECORDS SUMMARY | 2025-02-10 08:49 | XMS_ITS | Clinical Summary ---
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 Family History Medical History Relation Name Comments [...] cancer Maternal Uncle Not sure Arthritis Mother Shairta Sierra Stroke Mother Sharita Sierra Breast cancer [...] Description 10/18/2025 9:30 AM EDT Office Visit [facility] GYNECOLOGIC ONCOLOGY [address] [facility] [address] [place] [address] Reema Beatty APRN [address] [facility] [address] [place] [address] Health Maintenance Due Date Last Done Comments [...] screening mammogram for malignant neoplasm of breast SCANNED - PAP SMEAR 04/03/2021 from Last 3 Months or Most Recently Relevant to Health Maintenance Results * Mammo Diagnostic Digital Tomosynthesis Bilateral [...] IMG MAMMOGRAPHY ORDERA BLES Final Result * SCANNED - PAP SMEAR (04/03/2021) Coco Lucero APRN CHART REVIEW TABS F inal Result from Last 3 Months or Most Recently Relevant to Health Maintenance Insurance [employer] EXCHANGE Care Teams Hat Checker Relationship Specialty Start Date End Date Ekta Singh APRN [address] [place] [address] PCP - General Nurse Practitioner 01/16/24
--- OUTSIDE RECORDS SUMMARY | 2025-02-10 08:49 | XMS_ITS | Encounter Summary ---
Author Organization Healthcare Address [address] [place] [address] Care Team Providers Care Lead Fabricator Name Role Phone Michel Noemi Mccrathy DO Primary Care Provider [phone] Pcp, No Primary Care Provider Ekta Anderson APRN Primary Care Provider [phone] Encounter Details Date Type Department Care Team ([facility] st Contact Info) Description 11/30/2020 Orders Only External Location [address] [place] [address] Provider, External Social History Tobacco Use Types [...] EDT Appointment [facility] [address] [place] [address] 11/19/2025 11:00 AM EDT Office Visit [facility] [address] [place] [address] Yazmin Alex, RN DOCUMENT IMPROVEMENT [address] [place] [address] documented as of this encounter Procedures Procedure [...] on filedocumented in this encounter Care Teams Lead Fabricator Relationship Specialty Start Date End Date Noemi Pearson DO [address] [place] [address] PCP - General 11/30/20 11/19/23 Pcp, No [address] [place] [address] PCP - General Family Medicine 11/20/23 07/30/24 Ekta Singh, RN DOCUMENT IMPROVEMENT [address] [place] [address] PCP - General 07/31/24 documented as of this encounter
--- OUTSIDE RECORDS SUMMARY | 2025-02-10 08:49 | XMS_ITS | Encounter Summary ---
Author Organization [facility] Address [address] [place] [address] Care Team Providers Care Gynecology Teacher Name Role Phone Ekta Singh APRN Primary Care Provider [phone] Encounter Details Date Type Department Care Team [...] EDT Appointment [facility] [address] [place] [address] 11/19/2025 11:00 AM EDT Office Visit [facility] [address] [place] [address] Yazmin Alex APRN [address] [facility] [address] [place] [address] documented as of this encounter Visit Diagnoses Not on filedocumented in this encounter Additional Health Concerns Assessment Noted Time A fall risk assessment has been complete d for the patient 12/25/2024 10:28 AM EDT A Body Mass Index follow-up plan has been documented for the patient 12/25/2024 12:05 PM EDT documented as of this encounter Care Teams Gynecology Teacher Relationship Specialty Start Date End Date Ekta Singh APRN [address] [place] [address] PCP - General 07/31/24 documented as of this encounter
--- OUTSIDE RECORDS SUMMARY | 2025-02-10 08:49 | XMS_ITS | Encounter Summary ---
Author Organization [facility] Address [address] [place] [address] Care Team Providers Care Tank Car Repairer Name Role Phone Ekta Singh APRN Primary Care Provider [phone] Encounter Details Date Type Department Care Team [...] EDT Appointment [facility] [address] [place] [address] 11/19/2025 11:00 AM EDT Office Visit [facility] [address] [place] [address] Yazmin Alex APRN [address] [facility] [address] [place] [address] documented as of this encounter Visit Diagnoses Not on filedocumented in this encounter Additional Health Concerns Assessment Noted Time A fall risk assessment has been complete d for the patient 12/25/2024 10:28 AM EDT A Body Mass Index follow-up plan has been documented for the patient 12/25/2024 12:05 PM EDT documented as of this encounter Care Teams Tank Car Repairer Relationship Specialty Start Date End Date Ekta Singh APRN [address] [place] [address] PCP - General 07/31/24 documented as of this encounter
--- OUTSIDE RECORDS SUMMARY | 2025-02-10 08:49 | XMS_ITS | Encounter Summary ---
Author Organization Healthcare Address [address] [place] [address] Care Team Providers Care Computer Numerical Control Machinist Name Role Phone MichelMikaylaNoemihetal Mccarthy DO Primary Care Provider Pcp, No Primary Care Provider Ekta Anderson STRATEGIC SOURCING MANAGER Primary Care Provider Encounter Details Date Type Department Care Team (Late st Contact Info) Description 02/15/2023 Orders Only External Location [address] [place] [address] Provider, External Social History Tobacco [...] EDT Appointment [facility] [address] [place] [address] 11/19/2025 11:00 AM EDT Office Visit [facility] [address] [place] [address] Yazmin Alex, STRATEGIC SOURCING MANAGER [address] [facility] [address] [place] [address] documented as of [...] documented as of this encounter Care Teams Computer Numerical Control Machinist Relationship Specialty Start Date End Date Noemi Pearson DO [address] [place] [address] PCP - General 11/30/20 11/19/23 Pcp, [place] [address] PCP - General Family Medicine 11/20/23 07/30/24 Ekta Singh APRN [address] [place] [address] PCP - General 07/31/24 documented as of this encounter
--- OUTSIDE RECORDS SUMMARY | 2025-02-10 08:49 | XMS_ITS | Encounter Summary ---
Author Organization Healthcare Address [address] [place] [address] Care Team Providers Care Quebracho Tanner Name Role Phone MichelMikaylaNoemihetal Mccarthy DO Primary Care Provider [phone] Pcp, No Primary Care Provider Ekta Anderson HOME CHILD CARE PROVIDER Primary Care Provider [phone] Encounter Details Date Type Department Care Team (Late st Contact Info) Description 06/20/2023 Orders Only External Location [address] [place] [address] Provider, External Social History Tobacco [...] EDT Appointment [facility] [address] [place] [address] 11/19/2025 11:00 AM EDT Office Visit [facility] [address] [place] [address] Yazmin Alex, HOME CHILD CARE PROVIDER [address] [facility] [address] [place] [address] documented as of this encounter [...] documented as of this encounter Care Teams Quebracho Tanner Relationship Specialty Start Date End Date Noemi Pearson DO [address] [place] [address] PCP - General 11/30/20 11/19/23 Pcp, [place] [address] PCP - General Family Medicine 11/20/23 07/30/24 Ekta Singh APRN [address] [place] [address] PCP - General 07/31/24 documented as of this encounter
--- OUTSIDE RECORDS SUMMARY | 2025-02-10 08:49 | XMS_ITS | Clinical Summary ---
Author Organization [facility] Address [address] [place] [address] Care Team Providers Care Lime Boiler Name Role Phone Francisco Ekta Marek WILLAMS Primary Care Provider [phone] Allergies Active Allergy Reactions Criticality Noted Date [...] (12/01/2020): Added automatically from request for surgery [id number] Fibromyalgia 05/20/2019 Hypertension Encounters Date Type Department Care Team Description 01/05/2025 7:39 AM EDT - 01/05/2025 11:59 PM EDT Hospital Encounter [facility] [address] [place] [address] Hip pain, left Discharge Disposition: Home or Self Care 01/05/2025 Travel 01/04/2025 Telephone [facility] [address] [place] [address] Cheryl Jane RN 12/29/2024 Telephone [facility] [address] [place] [address] iL Pepper RN 12/25/2024 10:31 AM EDT - 12/25/2024 11:59 PM EDT Hospital Encounter [facility] Radiology [address] 1[address] [place] [address] Hip pain, left Discharge Disposition: Home or Self Care 12/25/2024 10:10 AM EDT Office Visit [facility] Orthopaedic Surgery & Sports Medicine [address], [address] [place] [address] John Ocasio MD Hip pain, left (Primary Dx) 12/25/2024 Travel 11/13/2024 11:30 AM EDT Office 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 [place] [address] Biallelic mutation of JUAN CARLOS gene; Family history of pancreatic cancer Discharge Disposition: Home or Self Care 11/13/2024 Travel from Last 3 Months Social History [...] EDT Appointment [facility] [address] [place] [address] 11/19/2025 11:00 AM EDT Office Visit [facility] [address] [place] [address] Yazmin Alex, MULE DEVELOPER [address] [place] [address] Health Maintenance Due Date Last Done Comments [...] - Risk 60-74 years 1-dose series) 2024 [id number] Vaccine ( - season) 2024 02/09/2022, 03/04/2021, 06/10/2020 UKY-Influenza Vaccine [...] this topic Medical Devices Implanted Type Area Extruder Operator Vertical Device Identifier Shelf Expiration Date Model / Serial / Lot Pin Pin Right: Ankle Plate Plate Right: Ankle Plate Medial Distal Femur 4 Holes/Left - S. - [id number] Implanted:Qty: 1 on 12/01/2020 by John Ocasio MD at [facility] Plate Left: Femur Synthes [facility]-[id number] 12/01/2021 [id number] / . / Screw 4.5mm Cortex 90mm - S. - [id number] Implanted:Qty: 1 on 12/01/2020 by John Ocasio MD at [facility] Screw Left: Femur Synthes [facility]-[id number] 12/01/2021 214.090 / . / Screw 4.5mm Ti Cortex Selftap 38mm - S. - [id number] Implanted:Qty: 1 on 12/01/2020 by John Ocasio MD at [facility] Screw Left: Femur Helmedix [facility]-[id number] 12/01/2021 414.838 / . / Screw 4.5mm Ti Cortex Selftap 44mm - S. - [id number] Implanted:Qty: 1 on 12/01/2020 by John Ocasio MD at [facility] Screw Left: Femur Helmedix [facility]-[id number] 12/01/2021 414.844 / . / Screw 5.0mm Ti Lock Selftap 30mm - S. - [id number] Implanted:Qty: 1 on 12/01/2020 by John Ocasio MD at [facility] Screw Left: Femur Helmedix [facility]-[id number] 12/01/2021 413.330 / . / Screw 5.0mm Ti Lock Selftap 36mm - S. - [id number] Implanted:Qty: 1 on 12/01/2020 by John Ocasio MD at [facility] Screw Left: Femur [id number] 12/01/2021 413.336 / . / Screw 5.0mm Ti Lock Selftap 60mm - S. - [id number] Implanted:Qty: 1 on 12/01/2020 by John Ocasio MD at [facility] Screw Left: Femur [id number] 12/01/2021 413.360 / . / Screw Va Lock Angle Selftap 5mm T25 55mm - S. - [id number] Implanted:Qty: 1 on 12/01/2020 by John Ocasio MD at [facility] Screw Left: Femur Synthes [facility]-[id number] 12/01/2021 42.231.255 / . / Screw Va Lock Angle Selftap 5mm T25 65mm - S. - [id number] Implanted:Qty: 1 on 12/01/2020 by John Ocasio MD at [facility] Screw Left: Femur Synthes [facility]-[id number] 12/01/2021 42.231.265 / . / Screw 5.0mm Ti Lock Selftap 44mm - S. - [id number] Implanted:Qty: 2 on 12/01/2020 by John Ocasio MD at [facility] Screw Left: Femur Synthes [facility]-[id number] 12/01/2021 413.344 / . / Guidewire Jarocho 2 X 280mm Thrd Tro Tp - S. - [id number] Implanted:Qty: 1 on 12/01/2020 by John Ocasio MD at [facility] Wire Left: Femur Synthes [facility]-12/01/2021 292.699 / . / Plate 4.5mm Tiva Cond 18hole 370mm L - S. - [id number] Implanted:Qty: 1 on 12/01/2020 by John Ocasio MD at [facility] Left: Femur Synthes [facility]-[id number] 12/01/2021 04.124.419 / . / Screw 4.5mm Ti Cortex Selftap 70mm - S. - [id number] Implanted:Qty: 3 on 12/01/2020 by John Ocasio MD at [facility] Left: Femur Synthes [facility]-[id number] 12/01/2021 414.870 / . / Screw 4.5mm Ti Cortex Selftap 36mm - S. - [id number] Implanted:Qty: 3 on 12/01/2020 by John Ocasio MD at [facility] Left: Femur Synthes [facility]-[id number] 12/01/2021 414.836 / . / Screw Va Lock Angle Selftap 5mm T25 60mm - S. - [id number] Implanted:Qty: 3 on 12/01/2020 by John Ocasio MD at [facility] Left: Femur Synthes [facility]-[id number] 12/01/2021 42.231.260 / . / Explanted Type Area Extruder Operator Vertical Device Identifier Shelf Expiration Date Model / Serial / Lot Plate 4.5mm Tiva Cond 16hole 336mm L - S. - [id number] Explanted:Qty: 1 on 12/01/2020 at [facility] Plate Left: Femur Synthes [facility]-[id number] 12/01/2021 04.124.417 / . / Procedures Procedure [...] CT table in the supine position, and audit consultant CT images were obtained to evaluate for [...] the procedure well, and [facility]. Total DLP (Dose-Length [...] Morales on 01/05/2025 9:28 AM us John Ocasio MD IMG CT PROCEDURES Final [...] not imaged. Severe arthritis in the hip Hsqs-qx-qlathfdi degenerative changes the pubic symphysis. Diffuse osteopenia. [...] not imaged. Severe arthritis in the hip Zcqa-ap-wbercnab degenerative changes the pubic symphysis. Diffuse osteopenia. No acute displaced fracture or dislocations. Surgical clip in the left pelvis. IMPRESSION: Discrete changes described. CRITICAL RESULT: No. COMMUNICATION: Per this written report. Drafted by Toño Moore MD on 12/25/2024 12:04 PM Final report signed by Toño Moore MD on 512:07 PM John Ocasio MD IMG XR PROCEDURES Final Result * Cancer Antigen, GI (CA 19.9) (11/13/2024 12:10 PM EDT) CA 19.9 14.8 <36 U/mL 11/13/2024 1:2 3 PM EDT [facility] Blood Venous blood specimen / Unknown Venipuncture / Unknown 11/13/2024 12:10 PM EDT 11/13/2024 12:42 PM EDT Narrative [facility] - 11/13/2024 1:23 PM EDT Performed by Hayes electrochemiluminescent immunoassay. Results obtained with different test methods or kits cannot be used interchangeably. [facility] Joan Alex MULE DEVELOPER LAB BLOOD ORDERABLES Final R esult Performing Organization Address [facility] Co de Phone Number [facility] [address] [place] [address] * (ABNORMAL) Hemoglobin A1c (11/13/2024 12:10 PM EDT) Hemoglobin A1c 5.8(H) <5.7 % 11/13/2024 2:33 PM EDT [facility] Blood Venous blood specimen / Unknown Venipuncture / Unknown 11/13/2024 12:10 PM EDT 11/13/2024 1:32 PM EDT Narrative [facility] - 11/13/2024 2:33 PM EDT HA1C Interpretive Data: Diagnosis of Diabetes: Diabetic > or = 6.5% Pre-diabetic 5.7 to 6.4% Non-diabetic < or = 5.6% Glycemic Targets for Type I and Type II Diabetics: Non- Adults <7.0% Adults <6.0% Children and Adolescents <7.5% Source: [place] [employer]. Standards of medical care in diabetes,2017. Diabetes Care.2017:40 (suppl 1):S1-S135. [facility] LAB BLOOD ORDERABLES Final R esult Performing Organization Address [facility] Co de Phone Number [facility] [address] [place] [address] * MRCP w and wo IV Contrast [...] using the following sequences: coronal single shot [id number] fast spin echo, axial T2 weighted sequences [...] APRN IMG MRI PROCEDURES Final Res ult * HIV 1 & 2 Antibody/Antigen Screen (11/30/2020 2:09 PM EDT) HIV 1 & 2 Antibody/Anti gen Screen Nonreactive Nonreactive 11/30/2020 3:22 PM EDT [facility] Blood Venous blood specimen / Unknown Venipuncture / Unknown 11/30/2020 2:09 PM EDT 11/30/2020 2:19 PM EDT Tony Call MD LAB BLOOD ORDERABLES Final Re sult Performing Organization Address City/[facility]/ZIP Co de Phone Number [facility] [address] [place] [address] * [place] Hepatitis C Antibody (11/30/2020 2:09 PM EDT) [facility] Hepatitis C Antibody Negative Negative 11/30/2020 3:22 PM EDT [facility] Blood Venous blood specimen / Unknown Venipuncture / Unknown 11/30/2020 2:09 PM EDT 11/30/2020 2:19 PM EDT Tony Call MD LAB BLOOD ORDERABLES Final Re sult Performing Organization Address City/[facility] Co de Phone Number [facility] [address] [place] [address] from Last 3 Months or Most Recently Relevant to Health Maintenance Insurance [employer] Care Teams Lime Boiler Relationship Specialty Start Date End Date Ekta Singh APRN [address] [place] [address] PCP - General 07/31/24
--- NOTE | 2025-02-10 09:00 | FL_ITS ---
FINAL REPORT CLINICAL HISTORY: evaluation and treatment TROUBLE SWALLOWING 0.56 fluoro time 0.866 dap FINDINGS: ESOPHAGRAM Fluoroscopy Time: 56 seconds Dose Area Product (DAP): 0.866 Gy/cm2. HISTORY: Difficulty swallowing. PROCEDURE: The patient ingested barium. Effervescent crystals were also administered. Spot and overhead films were obtained. FINDINGS: No esophageal stricture is identified. A 13 mm barium tablet passed through the esophagus and into the stomach without delay. There is a small sliding-type hiatal hernia. No gastroesophageal reflux was demonstrated during the exam. Esophageal dysmotility was demonstrated during the exam. IMPRESSION: Small sliding-type hiatal hernia. Esophageal dysmotility. Reviewed, Interpreted and Dictated by Howard Wood MD Transcribed by XENA Kang Authenticated and . [facility]
[2025-02-10] MEDS: BARIUM SULFATE(E-Z-AC);750ML BOTTLE 750 ML PO (09:22)
[2025-02-10] MEDS: E-Z-GASII EFFERVESCENT GRANULES;1PK 1 EACH PO (09:23)
[2025-02-10] MEDS: BARIUM SULFATE (E-Z-HD 340GM);135ML BOTTLE 135 ML PO (09:23)
== END 2025-02-10 23:59 | disposition home or self-care (01) ==
LOC: RAD 08:42
PROVIDERS: PCP Nurse Practitioner Family; Visit Provider Nurse Practitioner
DX: K44.9 Diaphragmatic hernia without obstruction or gangrene (principal); K22.4 Dyskinesia of esophagus
CPT/HCPCS: 74220